=== PATIENT | female | born 1955 | race Caucasian/White ===

== ENCOUNTER 2024-09-05 06:39 | Outpatient (NON) | payer MEDICARE, MEDICAID, SELFPAY ==
[2024-09-05 07:31] LABS: Add Urine Microscopic? YES; Appearance Urine Cloudy (Clear); Bilirubin Urine Negative (Negative); Blood Urine Negative (Negative); Color Urine Light Yellow (Yellow); Glucose Urine UA Negative (Negative); Ketones Urine Negative (Negative); Leukocyte Esterase Ur 1+ LEU/UL (Negative); Nitrate Urine Negative (Negative); Protein Urine Trace (Negative); RBC Urine 0-2 /hpf (0-2); Specific Grav Ur 1.025 (1.010-1.020); Squamous Epithelial Cell Urine Few /hpf (Few); Urobilinogen Urine 0.2 mg/dL (0.2-1.0)
[2024-09-05 07:32] LABS: Bacteria Urine 1+ /hpf; Calcium Oxalate Crystals Urine Present /hpf
== END 2024-09-05 06:40 | disposition home or self-care (01) ==
LOC: CHSLAB 06:58
PROVIDERS: Visit Provider Family Medicine
DX: N39.0 Urinary tract infection, site not specified (principal)
CPT/HCPCS: 81001; 87086; 87088

== ENCOUNTER 2024-09-06 14:45 | Outpatient (NON) | payer MEDICARE, MEDICAID, SELFPAY ==
[2024-09-06 15:05] LABS: Add Urine Microscopic? YES; Appearance Urine Clear (Clear); Bilirubin Urine Negative (Negative); Blood Urine Negative (Negative); Color Urine Light Yellow (Yellow); Glucose Urine UA Negative (Negative); Ketones Urine Negative (Negative); Leukocyte Esterase Ur 2+ (Negative); Nitrate Urine Negative (Negative); Protein Urine Negative (Negative); Urobilinogen Urine 0.2 mg/dL (0.2-1.0); pH Urine 5.5 (5.0-8.0)
[2024-09-06 15:31] LABS: RBC Urine None seen /hpf (0-2); Renal Epithelial Cells Urine Few /hpf; Squamous Epithelial Cell Urine Few /hpf (Few)
[2024-09-06 15:32] LABS: Bacteria Urine 1+ /hpf
== END 2024-09-06 14:46 | disposition home or self-care (01) ==
PROVIDERS: Visit Provider Family Medicine
DX: N39.0 Urinary tract infection, site not specified (principal)
CPT/HCPCS: 81001; 87086; 87088

== ENCOUNTER 2024-10-02 14:00 | Outpatient (CLI) | payer MEDICARE, MEDICAID, SELFPAY ==
[2024-10-02 15:05] LABS: Free T4 Free Thyroxine 0.93 ng/dL (0.76-1.46); Thyroid Stimulating Hormone 2.07 uIU/mL (0.36-3.74)
== END 2024-10-02 14:01 | disposition home or self-care (01) ==
LOC: CHSLAB 14:04
PROVIDERS: PCP Family Medicine; Visit Provider Family Medicine
DX: R94.6 Abnormal results of thyroid function studies (principal); R53.1 Weakness; R25.1 Tremor, unspecified
CPT/HCPCS: 36415; 84439; 84443

== ENCOUNTER 2025-02-14 13:48 | Outpatient (CLI) | payer MEDICARE, MEDICAID, SELFPAY ==
[2025-02-14 14:08] LABS: Basophils Absolute Auto 0.04 K/mm3 (0.00-0.10); Basophils Percent Auto 0.7 % (0.0-1.0); Eosinophils Absolute Auto 0.16 K/mm3 (0.02-0.50); Hematocrit 36.3 % (35.0-42.0); Hemoglobin 10.8 g/dL (11.7-13.8); Immature Granulocyte Absolute 0.02 K/mm3 (0.00-0.00); Immature Granulocyte Percent A 0.4 % (0.0-0.0); Lymphocytes Absolute Auto 0.58 K/mm3 (1.10-4.50); Lymphocytes Percent Auto 10.8 % (18.0-42.0); Mean Corpuscular HGB Conc 29.8 g/dL (32-36); Mean Corpuscular Hemoglobin 26.8 pg (27.0-31.0); Mean Corpuscular Volume 90.1 fL (78.0-102.0); Mean Platelet Volume 8.8 fl (9.2-11.8); Monocytes Absolute Auto 0.49 K/mm3 (0.10-0.90); Monocytes Percent Auto 9.1 % (2.0-11.0); Platelet Count Result 295 K/mm3 (150-420); Red Blood Count 4.03 M/mm3 (4.20-5.40); Red Cell Distribution Width 14.4 % (11.6-14.4); White Blood Count 5.4 K/mm3 (4.8-10.8)
--- OUTSIDE RECORDS SUMMARY | 2025-02-14 14:40 | XMS_ITS | CONTINUITY OF CARE DOCUMENT ---
Author Name alison rosas Address Unknown Organization [facility] Address [address] [place] [address] Phone [phone] Care Team Providers Care Wheel Cleaner Name Role Phone Jack Reed MD Unavailable [phone] Jack Reed MD Unavailable INSURANCE PROVIDERS Payer name Policy type / Coverage type [place] red green party [place]IC[place] PART B Medicare [id number]
[2025-02-15 02:03] LABS: Alanine Aminotransferase 29 U/L (14-59); Albumin Level 2.8 g/dL (3.4-5.0); Alkaline Phosphatase 122 U/L (46-116); Anion Gap 7 mmol/L (4-12); Aspartate Amino Transferase 21 U/L (15-37); Bilirubin Direct 0.1 mg/dL (0-0.2); Bilirubin,Total 0.3 mg/dL (0.00-1.00); Blood Urea Nitrogen 28 mg/dL (7-18); Calcium 8.8 mg/dL (8.5-10.1); Carbon Dioxide 27 mmol/L (21-32); Chloride 104 mmol/L (98-108); Estimated Glomerular Filt Rate > 60; Glucose 127 mg/dL (70-99); Osmolality Calculated 293 mOsm/kg (285-295); Potassium 3.9 mmol/L (3.5-5.1); Sodium 138 mmol/L (136-145)
== END 2025-02-14 13:49 | disposition home or self-care (01) ==
PROVIDERS: PCP Family Medicine; Visit Provider Family Medicine
DX: I10 Essential (primary) hypertension (principal); D64.9 Anemia, unspecified; R73.01 Impaired fasting glucose
CPT/HCPCS: 36415; 80048; 80076; 83036; 85025

== ENCOUNTER 2025-02-26 11:32 | Inpatient (IN) | payer MEDICARE, MEDICAID, SELFPAY ==
[2025-02-26] VITALS (33 sets, daily range): BP systolic 105–143; BP diastolic 52–82; PULSE 71–96; RESP 16–29; TEMP 36.6–36.9; O2SAT 92–100; BMI 29.8
--- NOTE | ~2025-02-26 | XR_ITS ---
CHEST RADIOGRAPH CLINICAL HISTORY: pneumonia . COMPARISON: 02/28/2025 TECHNIQUE: Single portable view of the chest. FINDINGS The cardiomediastinal silhouette is enlarged, unchanged. Large right-sided pleural effusion. Findings within the left hemithorax which may represent skinfold for which repeat examination is angela mmended. IMPRESSION: Large right-sided pleural effusion. Findings within the left hemithorax which may represent a skinfold, with a pneumothorax less likely, for which repeat examination is recommended. Reviewed, dictated and finalized at location A. IMPRESSION: Large right-sided pleural effusion. Findings within the left hemithorax which may represent a skinfold, with a pneu mothorax less likely, for which repeat examination is recommended.
--- NOTE | ~2025-02-26 | CT_ITS ---
CT brain wo con Ordering provider: Brody Church MD History: 69 years Female with . AMS/weakness/confusion . Comparison: None. Technique: CT of the head without contrast. Radiation reduction technique utilized.The dose-length pr oduct was 394.35 mGy-cm. FINDINGS: Artifacts are seen which degraded the images. BRAIN PARENCHYMA AND CSF SPACES: No midline shift, mass effect or hemorrhage. The brain parenchyma a nd CSF spaces are otherwise normal. VISUALIZED PARANASAL SINUSES: Bilateral maxillary, frontal and ethmoidal sinus disease. MASTOIDS: Well aerated. BONES: The bones appear intact. SOFT TISSUES: Visualized nasopharynx is normal. Superficial soft tissues are normal. IMPRESSION: No acute intracranial findings. Pansinusitis. Reviewed, dictated and finalized at location A.
--- NOTE | ~2025-02-26 | XR_ITS ---
CHEST RADIOGRAPH CLINICAL HISTORY: ABN CXR-REPEATED,RECENT CHANGE OF STATUS,TACHYCARDIA,HYPOTEN . COMPARISON: 03/04/2020 5:00 AM (4 hours earlier). Reference was also made to multiple prior radiograph s of the chest dated 02/28/2025 and 02/26/2025 TECHNIQUE: Single portable view of the chest. FINDINGS The cardiomediastinal silhouette is enlarged, unchanged. Large right-sided pleural effusion persists. Also persisting is what initially was thought to be a sk infold projecting over the left upper lung field. This, however, is likely a 15-20% left-sided pneumothorax with approximately 3 cm of separation. The cardiomediastinal silhouette is projecting to the right of midline, likely secondary to patient's severe dextroscoliotic curvature of the thoracic spine, rather than a tension pneumothorax. The left lung base is clear. IMPRESSION: Large right-sided pleural effusion with a 15-20% left-sided pneumothorax with approximately 3 cm of s eparation, for which clinical correlation is needed. These findings were discussed with Beth Castillo, caring for the patient at 9:15 AM on 03/04/2025 Reviewed, dictated and finalized at location A. IMPRESSION: Large right-sided pleural effusion with a 15-20% left-sided pneumothorax with a pproximately 3 cm of separation, for which clinical correlation is needed. These findings were discussed with Beth Castillo, caring for the patient at 9: 15 AM on 03/04/2025
--- NOTE | ~2025-02-26 | CT_ITS ---
EXAMINATION: CT chest abdomen pelvis wo con DATE: 03/04/2025 11:04 INDICATION: Hypotension. Pleural effusion. Elevated liver enzymes. TECHNIQUE: Computed tomography (CT) of the chest, abdomen, and pelvis was performed without intraveno us contrast. Automated exposure control and iterative reconstruction technique were employed. The dos e-length product was 1374.87 mGy-cm. COMPARISON: None FINDINGS: CHEST CT: A moderate-sized right and small left pleural effusions with complete collapse of the right lower lob e, partial collapse of the right middle lobe and mild dependent atelectasis in the left lower lobe. N o pneumonia, pulmonary edema or pneumothorax. Mild cardiomegaly with small amount of atherosclerotic coronary artery calcific lesion. Aortic valve calcification. No pericardial effusion. Thoracic aorta is normal in caliber. No pathologically enlarged thoracic lymphadenopathy. 80 degree thoracic dextroscoliosis. There is moderate to severe thoracic spondylosis with severe mult ilevel facet osteoarthritis and fusion across many of the thoracic facet joints primarily at the left lower thoracic spine. Advanced osteoarthritis at the bilateral glenohumeral joints. ABDOMEN/PELVIS CT: Liver, gallbladder, spleen, pancreas, bilateral adrenal glands and right kidney are normal. 2 mm nono bstructing stone in the mid left kidney. There are couple left renal cysts the larger measuring 1.6 c m. Small fat-containing umbilical hernia. Air-fluid levels in the colon extensive the rectum consiste nt with nonspecific diarrhea. No dilated loops of gas-filled bowel to suggest obstruction. The append ix is not visualized. No pericecal inflammatory change to suggest acute appendicitis. The amount of g as and a full catheter within the decompressed bladder. Lobular margins to a fibroid uterus. Small am ount of likely physiologic free fluid in the pelvis. No abscess or free intraperitoneal gas. No patho logically enlarged abdominal or pelvic lymphadenopathy. 70 degrees lumbar levoscoliosis with severe s pondylosis. Severe lumbar facet osteoarthritis with posterior fusion across many of the facet joints with left-sided predominance. Advanced osteoarthritis at the right hip with prominent ostial lysis of the right femoral head and enlarged acetabulum with chronic acetabular protrusio. Moderate to severe osteoarthritis at the left hip. IMPRESSION: 1. Moderate-sized right and small left pleural effusions with right lower lobe collapse, partial righ t middle lobe collapse and dependent atelectasis in the left lower lobe. 2. Cardiomegaly. 3. Air-fluid levels throughout the colon consistent with nonspecific diarrhea. 4. Severe thoracic and lumbar scoliosis with severe spondylosis. 5. Advanced osteoarthritis at the right hip and bilateral acromioclavicular joints. 6. Fibroid uterus. 7. Nonobstructing 2 mm left renal stone. Reviewed, dictated and finalized at location A. IMPRESSION: 1. Moderate-sized right and small left pleural effusions with right lower lobe collapse, partial right middle lobe collapse and dependent atelectasis in the l eft lower lobe. 2. Cardiomegaly. 3. Air-fluid levels throughout the colon consistent with nonspecific diarrhea. 4. Severe thoracic and lumbar scoliosis with severe spondylosis. 5. Advanced osteoarthritis at the right hip and bilateral acromioclavicular aspen nts. 6. Fibroid uterus. 7. Nonobstructing 2 mm left renal stone.
--- NOTE | ~2025-02-26 | XR_ITS ---
EXAMINATION: XR chest 1V portable DATE: 02/26/2025 12:31 INDICATION: Altered mental status, weakness and confusion TECHNIQUE: frontal view of the chest was obtained. COMPARISON: None FINDINGS: The lungs are clear with no focal airspace opacities, pulmonary edema, pleural effusion or pneumothor ax. Heart size is normal. 70 degree mid to lower thoracic dextroscoliosis with compensatory lumbar an d upper thoracic levoscoliosis. Advanced osteoarthritis at the bilateral glenohumeral joints. IMPRESSION: 1. No acute cardiopulmonary disease. Reviewed, dictated and finalized at location A.
--- NOTE | ~2025-02-26 | XR_ITS ---
XR chest 1V portable Ordering provider: Beth Castillo APRN History: 69 years Female with . hypoxia . Comparison: February 26, 2025 FINDINGS: MEDIASTINUM: The cardiac silhouette is slightly enlarged. Congestive syl. LUNGS: No effusions or pneumothorax. Bilateral basal opacification suggestive of atelectasis versus p neumonia. OTHER: No free air under the diaphragm. Degenerative changes of the spine with dextroscoliosis. IMPRESSION: Bibasilar atelectasis versus pneumonia. Reviewed, dictated and finalized at location A.
--- NOTE | 2025-02-26 11:39 | ED_ITS ---
HPI - Altered Mental Status General Chief Complaint: Altered Mental Status Stated Complaint: ALTERED MENTAL STATUS Time Seen by Provider: 02/26/25 11:39 Source: patient and RN notes reviewed Mode of arrival: wheelchair Limitations: altered mental status History of Present Illness HPI narrative: Patient is a 69-year-old female with altered mental status and confusion over the past few days. She thinks she is in other places but she is currently in the emergency room. She felt she was here last night. Also she was talking about being at a house libertarian. Normally she feeds herself at the table but she is unable to do that task at this time. She is generalized weak for the past few days as well. No chest pain or shortness of breath. She says she just started having a little bit of wheezing in the lung. Last known well was yesterday. MD complaint: altered mental status, confusion and weakness Onset (ago): day(s) ( Three) Timing confirmed by: caregiver Severity: moderate Consistency of symptoms: waxing and waning Context: other ( patient is having increased confusion and altered mental status as well as generalized weakness over past few days.) Associated symptoms: malaise and weakness Treatments prior to arrival: other ( None) Related Data Allergies Allergy/AdvReac Type Severity Reaction Status Date / Time adhesive tape Allergy Mild Unknown Verified 02/26/25 12:15 amoxicillin (From Augmentin) Allergy Mild Unknown Verified 02/26/25 12:15 aspirin Allergy Mild Unknown Verified 02/26/25 12:15 azithromycin (From Zithromax) Allergy Mild Unknown Verified 02/26/25 12:15 bacitracin Allergy Mild Unknown Verified 02/26/25 12:15 cefaclor Allergy Mild Unknown Verified 02/26/25 12:15 cetirizine (From Zyrtec) Allergy Mild Unknown Verified 02/26/25 12:15 ciprofloxacin (From Cipro) Allergy Mild Unknown Verified 02/26/25 12:15 citalopram Allergy Mild Unknown Verified 02/26/25 12:15 clavulanic acid (From Allergy Mild Unknown Verified 02/26/25 12:15 Augmentin) clindamycin Allergy Mild Unknown Verified 02/26/25 12:15 codeine Allergy Mild Unknown Verified 02/26/25 12:15 diphtheria,pertussis Allergy Mild Unknown Verified 02/26/25 12:15 (acellular),te (From Adacel(Tdap Adolesn/Adult)(PF)) erythromycin base Allergy Mild Unknown Verified 02/26/25 12:15 ethinyl estradiol Allergy Mild Unknown Verified 02/26/25 12:15 fexofenadine (From Henrietta) Allergy Mild Unknown Verified 02/26/25 12:15 guaifenesin (From Dilaudid Allergy Mild Unknown Verified 02/26/25 12:15 Cough) hydromorphone Allergy Mild Unknown Verified 02/26/25 12:15 hydroxyzine Allergy Mild Unknown Verified 02/26/25 12:15 lactase Allergy Mild Unknown Verified 02/26/25 12:15 latex Allergy Mild Unknown Verified 02/26/25 12:15 lisinopril Allergy Mild Unknown Verified 02/26/25 12:15 loracarbef Allergy Mild Unknown Verified 02/26/25 12:15 meclizine Allergy Mild Unknown Verified 02/26/25 12:15 metoprolol Allergy Mild Unknown Verified 02/26/25 12:15 mold Allergy Mild Unknown Verified 02/26/25 12:15 morphine Allergy Mild Unknown Verified 02/26/25 12:15 neomycin (From Neosporin Allergy Mild Unknown Verified 02/26/25 12:15 ([id number])) nizatidine Allergy Mild Unknown Verified 02/26/25 12:15 norethindrone Allergy Mild Unknown Verified 02/26/25 12:15 ofloxacin (From Floxin) Allergy Mild Unknown Verified 02/26/25 12:15 oxycodone Allergy Mild Unknown Verified 02/26/25 12:15 Penicillins Allergy Mild Unknown Verified 02/26/25 12:15 polymyxin B (From Neosporin Allergy Mild Unknown Verified 02/26/25 12:15 ([id number])) prednisolone Allergy Mild Unknown Verified 02/26/25 12:15 silicone Allergy Mild Unknown Verified 02/26/25 12:15 Sulfa (Sulfonamide Allergy Mild Unknown Verified 02/26/25 12:15 Antibiotics) tetanus toxoid, adsorbed Allergy Mild Unknown Verified 02/26/25 12:15 zolpidem Allergy Mild Unknown Verified 02/26/25 12:15 Review of Systems 2 Review of Systems: All systems reviewed & are unremarkable except as noted in HPI and below Constitutional: Constitutional: Reports no additional constitutional complaints Eyes: Eyes: Reports no additional eye complaints ENT: Reports system reviewed and no additional complaints, except as documented Cardiovascular: Cardiovascular: Reports no additional cardiovascular complaints Respiratory: Respiratory: Reports no additional respiratory complaints Gastrointestinal: Gastrointestinal: Reports no additional gastrointestinal complaints Genitourinary: Genitourinary: Reports no additional female genitourinary complaints Musculoskeletal: Musculoskeletal: Reports no additional musculoskeletal complaints Integumentary/Breasts: Skin/Breast: Reports system reviewed and no additional complaints, except as docu Neurologic: Reports system reviewed and no additional complaints, except as documented Psychiatric: Psychiatric: Reports no additional psychiatric complaints Endocrine: Endocrine: Reports no additional endocrine complaints Hematologic/Lymphatic: Hematologic/Lymphatic: Reports no additional hematologic/lymphatic complaints Allergic/Immunologic: Allergic/Immunologic: Reports no additional allergic/immunologic complaints Exam 2 Const: General: healthy appearing Nutritional Appearance: well nourished Orientation/consciousness: No patient oriented x3 Limitations: altered mental status HENMT: Head: normal to inspection Ears: external ears normal F wes/Nose/Sinus: Normal external nose present Eyes: Conjunctivae: conjunctivae normal Pupils: Equal, round and reactive pupils present EOM: EOMs intact bilaterally Neck: Neck: normal visual inspection Chest: Chest palpation & inspection: normal inspection of the chest Resp: Effort & Inspection: normal respiratory effort and not labored A uscultation: clear to auscultation bilaterally and no crackles Cardio: Rate: regular rate Rhythm: regular rhythm Heart sounds: no murmurs GI: Inspection: non-distended GI Palp: Yes Soft to palpation and No Tenderness to palpation present (GI) Auscultation: normal bowel sounds : General: Yes bladder normal to palpation Back/Spine/Pelvis: Back: no CVA tenderness Skin: General skin exam: normal color Rashes: no rashes Wounds: wound noted and wounds noted Other: bilateral lower extremity has stasis dermatitis with chronic edema and weeping fluid and erythema of cellulitis on the right greater than left but bilateral lower extremity cellulitis appreciated Neuro: General: No patient oriented x3, No moves all extremities, no meningeal signs, No no focal motor deficits and CN's II-XI intact bilaterally Cranial nerves: Yes Nystagmus not present Speech: normal speech Gait exam (Neuro): gait abnormal Other: patient has chronic right sided deficit from a prior stroke and leans her head to the right chronically; no new focal deficits but generalized weakness noted today; patient is wheelchair bound fast exam is negative for acute changes, NIH is negative for acute changes, Doroteo coma Score is 15 Extrem: General: abnormal to inspection Other: see skin exam Psych: Mental Status: mental status grossly abnormal Affect: normal affect Attitude: cooperative Course Vital Signs Vital signs: Vital Signs Temperature 36.6 C 02/26/25 11:40 Pulse Rate 86 02/26/25 11:40 Respiratory Rate 16 02/26/25 11:40 Blood Pressure 129/60 02/26/25 11:40 Pulse Oximetry 92 02/26/25 11:40 Oxygen Delivery Room Air 02/26/25 11:40 Temperature 36.7 C 02/26/25 14:47 Pulse Rate 85 02/26/25 14:47 Respiratory Rate 25 H 02/26/25 14:47 Blood Pressure 113/60 02/26/25 14:47 Pulse Oximetry 100 02/26/25 14:47 Oxygen Delivery Room Air 02/26/25 11:40 MDM - Altered Mental Status MDM Narrative Medical decision making narrative: patient is a 69-year-old female with generalized weakness and bilateral lower extremity edema chronically and having altered mental status / confusion. We will do workup at this time. Last known well was yesterday. patient has many many allergies to antibiotics such as penicillin, cephalosporins, azithromycin, Cipro, clindamycin, sulfa and prednisone. I am working with pharmacy to find a appropriate medicine for antibiotics. After review of her allergies and side effects of the medicine, I discussed with pharmacy and they did a research and felt that Rocephin would work with this patient. Patient tolerated the 1st g Rocephin without problems. Lab Data Attestation: I reviewed the patient's lab results. 02/26/25 11:59 02/26/25 11:59 Labs: Lab Results 02/26/25 02/26/25 Range/Units 11:42 11:59 WBC 30.7 H* (4.8-10.8) K/mm3 RBC 4.23 (4.20-5.40) M/mm3 Hgb 11.6 L (11.7-13.8) g/dL Hct 37.2 (35.0-42.0) % MCV 87.9 (78.0-102.0) fL MCH 27.4 (27.0-31.0) pg MCHC 31.2 L (32-36) g/dL RDW 14.6 H (11.6-14.4) % Plt Count 355 (150-420) K/mm3 MPV 9.4 (9.2-11.8) fl Immature Gran % (Auto) Not Reportable Neut % (Auto) Not Reportable Lymph % (Auto) Not Reportable [place] % (Auto) Not Reportable Eos % (Auto) Not Reportable Baso % (Auto) Not Reportable Lymph # (Auto) Not Reportable [place] # (Auto) Not Reportable Eos # (Auto) Not Reportable Baso # (Auto) Not Reportable Abs Immat Gran (auto) Not Reportable Absolute Neuts (auto) Not Reportable Absolute Nucleated RBC Not Reportable Total Counted 100 Neutrophils % (Manual) 92 H (46-73) % Band Neutrophils % 1 (0-6) % Lymphocytes % (Manual) 2 L (18-44) % Monocytes % (Manual) 5 (3-9) % Nucleated RBC % Not Reportable Abs Neuts (Manual) 28.55 H (1.7-7.2) K/mm3 Abs Lymphs (Manual) 0.61 L (1.1-4.5) K/mm3 Abs Monocytes (Manual) 1.53 H (0.1-0.90) K/mm3 Platelet Estimate Adequate (Adequate) Schistocytes Not Reportable Sodium 136 L (137-145) mmol/L Potassium 5.3 H (3.4-5.0) mmol/L Chloride 105 (98-107) mmol/L Carbon Dioxide 21 L (22-30) mmol/L Anion Gap 10 (4-12) mmol/L BUN 45 H (7-17) mg/dL Creatinine 1.57 H (0.7-1.0) mg/dL Estim Creat Clear Calc 31 ml/min Estimated GFR 33 L (59 - ) Glucose 105 (65-110) mg/dL Calculated Osmolality 293 (285-295) mOsm/kg Lactic Acid 2.3 H (0.4-2.0) mmol/L Calcium 9.3 (8.4-10.2) mg/dL Magnesium 2.0 (1.6-2.3) mg/dL Total Bilirubin 0.6 (0.2-1.3) mg/dL AST 67 H (14-36) U/L ALT 34 (6-35) U/L Alkaline Phosphatase 125 (38-126) U/L Troponin I < 0.012 (0.000-0.034) ng/mL Total Protein 8.5 H (6.3-8.2) g/dL Albumin 3.7 (3.5-5.1) g/dL Urine Color Yellow (Yellow) Urine Appearance Clear (Clear) Urine pH 6.0 (5.0-8.0) Ur Specific [place] 1.010 (1.010-1.020) Urine Protein Trace H (Negative) Urine Glucose (UA) Negative (Negative) Urine Ketones Negative (Negative) Ur Blood (Man) Trace-intact H (Negative) Urine Nitrate Negative (Negative) Urine Bilirubin Negative (Negative) Urine Urobilinogen 0.2 (0.2-1.0) mg/dL Leukocyte Esterase Rfl 3+ H (Negative) URMILA/UL Urine RBC 3-5 H (0-2) /hpf Urine WBC 21-50 (0-3) /hpf Ur Squamous Epith Cells Many H (Few) /hpf Urine Bacteria 1+ H (None) /hpf Hyaline Casts 0-2 (None) /lpf Imaging Data Attestation: I personally reviewed and interpreted this imaging study as follows: Radiologist's impression: Chest x-ray is negative for acute process CT scan of the head is negative for acute process ECG Data EKG #1: Attestation: I personally reviewed and interpreted this ECG as follows: ECG completion date: 02/26/25 ECG completion time: 12:59 EKG Interpretation: normal rate, sinus rhythm, no ectopy, non-specific ST changes, normal QRS, normal QT and NL axis Discharge Plan Discharge Clinical Impression: DANIEL (acute kidney injury), Weakness, Acute UTI Cellulitis of lower extremity Qualifiers: Laterality: unspecified laterality Qualified Code(s): L03.119 - Cellulitis of unspecified part of limb Leukocytosis Qualifiers: Leukocytosis type: unspecified Qualified Code(s): D72.829 - Elevated white blood cell count, unspecified AMS (altered mental status) Qualifiers: Altered mental status type: unspecified Qualified Code(s): R41.82 - Altered mental status, unspecified Sepsis Qualifiers: Sepsis type: sepsis due to unspecified organism Sepsis acute organ dysfunction status: unspecified Qualified Code(s): A41.9 - Sepsis, unspecified organism Patient Disposition: Acute [facility] Condition: Stable Patient Language: [place]ian Follow-up/Referrals: Farrukh Neri MD [Primary Care Provider] - Time of Disposition: 14:55
--- NOTE | 2025-02-26 11:42 | ECG_ITS ---
Test Date: 2025-02-26 12:02:10 Measurements Intervals [place] Rate: 90 P: 0 FL: 0 QRS: 85 QRSD: 98 T: -31 QT: 323 QTc: 395 Interpretive Statements SUPRAVENTRICULAR RHYTHM INCOMPLETE RIGHT BUNDLE BRANCH BLOCK [90+ ms QRS DURATION, TERMINAL R IN V1/V2, 40+ ms S IN I/aVL/V4/V5/V6] POSSIBLE ANTERIOR MYOCARDIAL INFARCTION , PROBABLY OLD [30 ms Q WAVE IN V3/V4, OR R < 0.2 mV IN V4] BASELINE ARTIFACT NOW PRESENT No previous ECG available for comparison Electronically Signed On 02-26-2025 14:00:53 CDT by Chuck Mckenzie M.D.
--- OUTSIDE RECORDS SUMMARY | 2025-02-26 11:50 | XMS_ITS | CONTINUITY OF CARE DOCUMENT ---
Author Name alison rosas Address Unknown Organization [facility] Address [address] [place] [address] Phone [phone] Care Team Providers Care Bunch Maker Name Role Phone Jack Reed MD Unavailable [phone] Jack Reed MD Unavailable [phone] INSURANCE PROVIDERS Payer name Policy type / Coverage type [place] red green party [place] B Medicare [id number]
[2025-02-26 12:11] LABS: Hematocrit 37.2 % (35.0-42.0); Hemoglobin 11.6 g/dL (11.7-13.8); Mean Corpuscular HGB Conc 31.2 g/dL (32-36); Mean Corpuscular Hemoglobin 27.4 pg (27.0-31.0); Mean Corpuscular Volume 87.9 fL (78.0-102.0); Mean Platelet Volume 9.4 fl (9.2-11.8); Platelet Count Result 355 K/mm3 (150-420); Red Blood Count 4.23 M/mm3 (4.20-5.40); Red Cell Distribution Width 14.6 % (11.6-14.4)
[2025-02-26 12:13] LABS: White Blood Count 30.7 K/mm3 (4.8-10.8)
--- OUTSIDE RECORDS SUMMARY | 2025-02-26 12:27 | XMS_ITS | CONTINUITY OF CARE DOCUMENT ---
Author Name alison rosas Address Unknown Organization [facility] Address [address] [place] [address] Phone [phone] Care Team Providers Care Software Developer Name Role Phone Jack Reed MD Unavailable Jack Reed MD Unavailable [phone] INSURANCE PROVIDERS Payer name Policy type / Coverage type [place] red libertarian [place] B Medicare [id number]
[2025-02-26 12:29] LABS: Alanine Aminotransferase 34 U/L (6-35); Albumin Level 3.7 g/dL (3.5-5.1); Alkaline Phosphatase 125 U/L (38-126); Anion Gap 10 mmol/L (4-12); Aspartate Amino Transferase 67 U/L (14-36); Bilirubin,Total 0.6 mg/dL (0.2-1.3); Blood Urea Nitrogen 45 mg/dL (7-17); Calcium 9.3 mg/dL (8.4-10.2); Carbon Dioxide 21 mmol/L (22-30); Chloride 105 mmol/L (98-107); Estimated Glomerular Filt Rate 33; Glucose 105 mg/dL (65-110); Osmolality Calculated 293 mOsm/kg (285-295); Potassium 5.3 mmol/L (3.4-5.0); Sodium 136 mmol/L (137-145); Total Protein 8.5 g/dL (6.3-8.2)
[2025-02-26 12:38] LABS: Lactic Acid Reflex 2.3 mmol/L (0.4-2.0)
[2025-02-26 12:40] LABS: Estimated CRCL calculation 31 ml/min; Troponin I < 0.012 ng/mL (0.000-0.034)
[2025-02-26 12:43] LABS: Band Neutrophils Percent 1 % (0-6); Lymphocytes Absolute Manual 0.61 K/mm3 (1.1-4.5); Lymphocytes Percent Manual 2 % (18-44); Monocytes Absolute Manual 1.53 K/mm3 (0.1-0.90); Monocytes Percent Manual 5 % (3-9); Neutrophils Absolute Manual 28.55 K/mm3 (1.7-7.2); Neutrophils Percent Manual 92 % (46-73); Platelet Estimate Adequate (Adequate); Total Cells Counted 100
[2025-02-26] MEDS: SODIUM CHLORIDE 0.9% IV 1,000 ML 999 ML IV CONT (13:07)
[2025-02-26] MEDS: ACETAMINOPHEN 500 MG TABLET 1000 MG PO (14:01)
[2025-02-26 14:27] LABS: Add Urine Microscopic? YES; Appearance Urine Clear (Clear); Bilirubin Urine Negative (Negative); Blood Urine Trace-intact (Negative); Color Urine Yellow (Yellow); Glucose Urine UA Negative (Negative); Ketones Urine Negative (Negative); Leukocyte Esterase Ur 3+ LEU/UL (Negative); Nitrate Urine Negative (Negative); Protein Urine Trace (Negative); Urobilinogen Urine 0.2 mg/dL (0.2-1.0)
[2025-02-26 14:39] LABS: Bacteria Urine 1+ /hpf; Hyaline Casts Urine 0-2 /lpf; Squamous Epithelial Cell Urine Many /hpf (Few); WBC Urine 21-50 /hpf (0-3)
[2025-02-26 14:46] LABS: Reflex Lactic Acid Yes or No Add Lactic
[2025-02-26 15:30] LABS: Lactic Acid 1.8 mmol/L (0.4-2.0)
--- NOTE | 2025-02-26 15:30 | ADMGEN ---
This patient, Dolly Dinh, was admitted to 2nd Floor Room 208-1. Patient/family oriented to hospital policies and general routines including ID bracelet, bed and alarms, visiting hours, pain management, procedures, bathroom and other care routines, personal items, smoking policy, room service/diet, and visiting hours. Information on how to activate the Rapid Response Team has been discussed. Patient/Family are encouraged to report perceived risks to care and to ask questions if they do not understand what they are told or what they should do.
[2025-02-26] MEDS: APIXABAN 2.5 MG TABLET 5 MG PO (21:42)
[2025-02-26] MEDS: carvediloL 3.125 MG TABLET PO (21:43)
[2025-02-27] VITALS: BP 99/45; PULSE 88; RESP 16; TEMP 36.9; O2SAT 91
[2025-02-27] MEDS: ACETAMINOPHEN 325 MG TABLET 650 MG PO (00:22)
[2025-02-27 06:01] LABS: Hematocrit 31.9 % (35.0-42.0); Mean Corpuscular HGB Conc 31.3 g/dL (32-36); Mean Corpuscular Volume 86.2 fL (78.0-102.0); Mean Platelet Volume 9.1 fl (9.2-11.8); Platelet Count Result 283 K/mm3 (150-420); Red Cell Distribution Width 14.5 % (11.6-14.4)
[2025-02-27 06:06] LABS: White Blood Count 25.1 K/mm3 (4.8-10.8)
[2025-02-27 06:18] LABS: Band Neutrophils Percent 2 % (0-6); Lymphocytes Percent Manual 4 % (18-44); Monocytes Percent Manual 6 % (3-9); Neutrophils Absolute Manual 22.59 K/mm3 (1.7-7.2); Neutrophils Percent Manual 88 % (46-73); Platelet Estimate Adequate (Adequate); Total Cells Counted 100
[2025-02-27 07:19] LABS: Alanine Aminotransferase 23 U/L (6-35); Albumin Level 2.5 g/dL (3.5-5.1); Alkaline Phosphatase 105 U/L (38-126); Anion Gap 7 mmol/L (4-12); Aspartate Amino Transferase 41 U/L (14-36); Bilirubin,Total 0.4 mg/dL (0.2-1.3); Blood Urea Nitrogen 49 mg/dL (7-17); Calcium 8.8 mg/dL (8.4-10.2); Carbon Dioxide 19 mmol/L (22-30); Chloride 111 mmol/L (98-107); Estimated CRCL calculation 37 ml/min; Estimated Glomerular Filt Rate 40; Glucose 81 mg/dL (65-110); Osmolality Calculated 296 mOsm/kg (285-295); Sodium 137 mmol/L (137-145); Total Protein 6.1 g/dL (6.3-8.2)
[2025-02-27 08:00] VITALS: BP 103/53; PULSE 87; RESP 17; TEMP 36.9; O2SAT 95
--- NOTE | 2025-02-27 09:37 | P.HP_ITS ---
H&P: HPI History of Present Illness Date/Time: 02/27/25 09:37 Chief Complaint: Weakness Narrative: Patient is a 69-year-old female who was brought to the emergency department from her long term facility due to increased generalized weakness and overall not feeling well with some intermittent confusion worse than baseline. Patient reports she is wheelchair and bed-bound but can typically care for he rself and feed herself however over the last 2-3 days she has been too weak to care for self and has not been eating with severe pain to bilateral lower extremities the right worse than left. patient denied any chest pain, shortness a breath, nausea, vomiting, abdominal pain she does not recall having fever or chills overall just severely weak. upon evaluation in the emergency department patient was found to have leukocytosis greater than 30 lactic 2.3 episode of hypotension which resolved with IV fluids likely due to her dehydration and poor oral intake and bilateral lower extremity cellulitis. patient unaware of previous past medical history per medical chart patient had a stroke since then she has been at a long term facility. patient is a poor historian but per medical chart patient has a history of HTN, atrial fibrillation, venous stasis, GERD. patient is reporting moderate to severe pain to bilateral lower extremities. Patient was admitted to the medical unit for further evaluation and treatment of sepsis secondary to cellulitis Review of Systems Review of Systems: All systems reviewed & are unremarkable except as noted in HPI and below PMFSH Past Medical History Medical History (Updated 02/27/25 @ 10:32 by Beth Castillo APRN) GERD (gastroesophageal reflux disease) Scoliosis Venous stasis CVA (cerebral vascular accident) Afib Social History Social History Smoking status: Never smoker Alcohol intake: never Substance use: never Substance use type: does not use Do You Feel Safe in your Home?: Yes Lack of Transportation: No Lack of Food: Never True Current Housing: I Have Housing Concerned About Future Housing: No Difficulty Paying Gas/Electric Bills: No Difficulty Paying for Meds: No Currently Unemployed: No Education: Decline to Answer Difficulty w/ Childcare or Family Care: No Spiritual care concerns: No Meds Home Medications and Allergies Home Medications Medication Instructions Recorded Confirmed Type acetazolamide 250 mg tablet 250 mg PO QAM 02/26/25 02/26/25 History apixaban 5 mg tablet (Eliquis) 5 mg PO Q12H 02/26/25 02/26/25 History carvedilol 3.125 mg tablet 3.125 mg PO Q12H 02/26/25 02/26/25 History furosemide 40 mg tablet 40 mg PO QAM 02/26/25 02/26/25 History Allergies Allergy/AdvReac Type Severity Reaction Status Date / Time adhesive tape Allergy Mild Unknown Verified 02/26/25 12:15 amoxicillin (From Augmentin) Allergy Mild Unknown Verified 02/27/25 09:23 aspirin Allergy Mild Unknown Verified 02/26/25 12:15 azithromycin (From Zithromax) Allergy Mild Unknown Verified 02/26/25 12:15 bacitracin Allergy Mild Unknown Verified 02/26/25 12:15 cefaclor Allergy Mild Unknown Verified 02/27/25 09:23 cetirizine (From Zyrtec) Allergy Mild Unknown Verified 02/26/25 12:15 ciprofloxacin (From Cipro) Allergy Mild Unknown Verified 02/26/25 12:15 citalopram Allergy Mild Unknown Verified 02/26/25 12:15 clavulanic acid (From Allergy Mild Unknown Verified 02/27/25 09:23 Augmentin) clindamycin Allergy Mild Unknown Verified 02/26/25 12:15 codeine Allergy Mild Unknown Verified 02/26/25 12:15 diphtheria,pertussis Allergy Mild Unknown Verified 02/26/25 12:15 (acellular),te (From Adacel(Tdap Adolesn/Adult)(PF)) erythromycin base Allergy Mild Unknown Verified 02/26/25 12:15 ethinyl estradiol Allergy Mild Unknown Verified 02/26/25 12:15 fexofenadine (From [place]) Allergy Mild Unknown Verified 02/26/25 12:15 guaifenesin (From Dilaudid Allergy Mild Unknown Verified 02/26/25 12:15 Cough) hydromorphone Allergy Mild Unknown Verified 02/26/25 12:15 hydroxyzine Allergy Mild Unknown Verified 02/26/25 12:15 lactase Allergy Mild Unknown Verified 02/26/25 12:15 latex Allergy Mild Unknown Verified 02/26/25 12:15 lisinopril Allergy Mild Unknown Verified 02/26/25 12:15 loracarbef Allergy Mild Unknown Verified 02/27/25 09:25 meclizine Allergy Mild Unknown Verified 02/26/25 12:15 metoprolol Allergy Mild Unknown Verified 02/26/25 12:15 mold Allergy Mild Unknown Verified 02/26/25 12:15 morphine Allergy Mild Unknown Verified 02/26/25 12:15 neomycin (From Neosporin Allergy Mild Unknown Verified 02/26/25 12:15 ([id number])) nizatidine Allergy Mild Unknown Verified 02/26/25 12:15 norethindrone Allergy Mild Unknown Verified 02/26/25 12:15 ofloxacin (From Floxin) Allergy Mild Unknown Verified 02/26/25 12:15 oxycodone Allergy Mild Unknown Verified 02/26/25 12:15 Penicillins Allergy Mild Unknown Verified 02/26/25 12:15 polymyxin B (From Neosporin Allergy Mild Unknown Verified 02/26/25 12:15 ([id number])) prednisolone Allergy Mild Unknown Verified 02/26/25 12:15 silicone Allergy Mild Unknown Verified 02/26/25 12:15 Sulfa (Sulfonamide Allergy Mild Unknown Verified 02/26/25 12:15 Antibiotics) tetanus toxoid, adsorbed Allergy Mild Unknown Verified 02/26/25 12:15 zolpidem Allergy Mild Unknown Verified 02/26/25 12:15 Vital Signs Vital Signs - 24 hr 02/26/25 11:40 02/26/25 11:40 02/26/25 11:45 Temperature 97.8 F Pulse Rate 86 86 85 Respiratory Rate 16 16 Blood Pressure 129/60 129/60 Pulse Oximetry 92 92 Oxygen Delivery Room Air 02/26/25 12:30 02/26/25 12:37 02/26/25 12:45 Temperature Pulse Rate 88 86 88 Respiratory Rate 24 H 18 Blood Pressure Pulse Oximetry 95 100 Oxygen Delivery 02/26/25 12:47 02/26/25 13:00 02/26/25 13:01 Temperature Pulse Rate 86 88 86 Respiratory Rate 24 H 21 H 21 H Blood Pressure 109/57 L 121/82 Pulse Oximetry 97 99 Oxygen Delivery 02/26/25 13:15 02/26/25 13:17 02/26/25 13:30 Temperature Pulse Rate 85 84 71 Respiratory Rate 20 19 Blood Pressure 109/57 L Pulse Oximetry 97 98 Oxygen Delivery 02/26/25 13:30 02/26/25 13:32 02/26/25 13:45 Temperature Pulse Rate 86 89 91 Respiratory Rate 22 H 21 H 22 H Blood Pressure 117/73 Pulse Oximetry 98 98 92 Oxygen Delivery 02/26/25 13:46 02/26/25 13:47 02/26/25 14:00 Temperature Pulse Rate 86 87 89 Respiratory Rate 24 H 23 H 24 H Blood Pressure 132/56 L Pulse Oximetry 99 99 100 Oxygen Delivery 02/26/25 14:03 02/26/25 14:05 02/26/25 14:15 Temperature Pulse Rate 83 92 93 Respiratory Rate 21 H 20 18 Blood Pressure 105/71 Pulse Oximetry 94 94 100 Oxygen Delivery 02/26/25 14:17 02/26/25 14:19 02/26/25 14:30 Temperature Pulse Rate 83 93 85 Respiratory Rate 20 21 H Blood Pressure 111/65 Pulse Oximetry 100 100 Oxygen Delivery 02/26/25 14:30 02/26/25 14:32 02/26/25 14:38 Temperature Pulse Rate 86 89 84 Respiratory Rate 23 H 22 H 26 H Blood Pressure 121/64 Pulse Oximetry 100 100 100 Oxygen Delivery 02/26/25 14:45 02/26/25 14:47 02/26/25 14:48 Temperature 98.1 F Pulse Rate 83 85 83 Respiratory Rate 24 H 25 H 24 H Blood Pressure 113/60 Pulse Oximetry 100 100 100 Oxygen Delivery 02/26/25 15:00 02/26/25 15:02 02/26/25 15:15 Temperature Pulse Rate 91 82 89 Respiratory Rate 17 21 H 29 H Blood Pressure 123/52 L Pulse Oximetry 100 100 100 Oxygen Delivery 02/26/25 15:17 02/26/25 15:21 02/26/25 15:35 Temperature 98.4 F Pulse Rate 96 91 86 Respiratory Rate 24 H 17 Blood Pressure 143/64 H 118/61 Pulse Oximetry 100 99 Oxygen Delivery Room Air 02/27/25 00:00 02/27/25 08:00 Temperature 98.5 F 98.4 F Pulse Rate 88 87 Respiratory Rate 16 17 Blood Pressure 99/45 L 103/53 L Pulse Oximetry 91 95 Oxygen Delivery Room Air Room Air Exam Const: General: no acute distress and uncomfortable Other: Frail female looks older then stated age with moderate pain HENMT: Ears: TM's normal bilaterally Face/Nose/Sinus: Normal nares present Mouth: Yes dry mucous membranes Eyes: General: appearance normal, both eyes and all related structures Sclera: sclerae normal Pupils: Equal, round and reactive pupils present EOM: EOMs intact bilaterally Neck: Neck: supple and no JVD Other: neck contracted to right side Resp: Effort & Inspection: normal respiratory effort Auscultation: clear to auscultation bilaterally Other: cough Cardio: Rate: regular rate Rhythm: abnormal rhythm (BBB on EKG) GI: GI Palp: Yes Soft to palpation Auscultation: normal bowel sounds : General: Yes bladder normal to palpation Back/Spine/Pelvis: Thoracic/Lumbar Spine: Thoracic/lumbar scoliosis Skin: General skin exam: erythema (BLE cellulitis with edema and skin tears) Wounds: wounds noted (BLE) tear Neuro: Other: Wheelchair and bedbound moving upper extremities pain with any movement to BLE. Patient with intermittent confusion loss of some memory likely secondary to her previous CVA Extrem: General: edema bilateral (Lower extremity) H&P: Results Labs Labs: Short CBC 02/26/25 02/27/25 Range/Units 11:59 05:49 WBC 30.7 H* 25.1 H* (4.8-10.8) K/mm3 Hgb 11.6 L 10.0 L (11.7-13.8) g/dL Hct 37.2 31.9 L (35.0-42.0) % Plt Count 355 283 (150-420) K/mm3 BMP 02/26/25 02/27/25 11:59 05:49 Sodium 136 L 137 Potassium 5.3 H 4.0 Chloride 105 111 H Carbon Dioxide 21 L 19 L BUN 45 H 49 H Creatinine 1.57 H 1.32 H Glucose 105 81 Calcium 9.3 8.8 Cardiac Enzymes 02/26/25 Range/Units 11:59 Troponin I < 0.012 (0.000-0.034) ng/mL Liver Function 02/26/25 02/27/25 Range/Units 11:59 05:49 Total Bilirubin 0.6 0.4 (0.2-1.3) mg/dL AST 67 H 41 H (14-36) U/L ALT 34 23 (6-35) U/L Alkaline Phosphatase 125 105 (38-126) U/L Albumin 3.7 2.5 L (3.5-5.1) g/dL Urine 02/26/25 Range/Units 11:42 Urine Color Yellow (Yellow) Urine Appearance Clear (Clear) Urine pH 6.0 (5.0-8.0) Ur Specific [place] 1.010 (1.010-1.020) Urine Protein Trace H (Negative) Urine Glucose (UA) Negative (Negative) Assessment and Plan Assessment and plan (1) Sepsis without septic shock: Code(s): A41.9 - Sepsis, unspecified organism Status: Acute Assessment and Plan: initial findings in the emergency department from generalized weakness showed leukocytosis greater than 30, lactate 2.3, DANIEL, and bilateral lower extremity cellulitis * IV fluid soft BP poor oral intake * IV Rocephin and linezolid p.o. * Monitor lactic acid levels q6hr. 2.3/1.6 * Repeat CBC, CMP. * Two sets of blood cultures came back Gram-positive cocci * urine cultures. Pending- * neuro status checks * Chest x-ray rule out pneumonia. (2) Cellulitis of lower extremity: Qualifiers: Laterality: unspecified laterality Qualified Code(s): L03.119 - Cellulitis of unspecified part of limb Code(s): L03.119 - Cellulitis of unspecified part of limb Status: Acute Assessment and Plan: patient with severe pain with any movement or touch to bilateral lower extremities warm to touch with erythema and edema * blood cultures with Gram-positive cocci in chains * patient currently on IV Rocephin and p.o. linezolid * keep BLE elevated and open to air * unable to provide any moisturizing creams for pain management due to allergies keep dry and clean * can reapply compressions once infection resolves * pain management right now with Tylenol and tramadol if still continues with severe pain will add fentanyl due to allergies (3) Venous stasis: Code(s): I87.8 - Other specified disorders of veins Status: Acute Assessment and Plan: See ABOVE * mild skin tears BLE secondary to removal of dressing (4) Afib: Code(s): I48.91 - Unspecified atrial fibrillation Status: Acute Assessment and Plan: * resume patient's carvedilol and Eliquis (5) Bacteremia: Code(s): R78.81 - Bacteremia Status: Acute Assessment and Plan: blood cultures came back Gram-positive cocci in chains x2 bottles * continue with oral linezolid pending cultures sensitivities * will repeat blood cultures in 48 hours (6) CVA (cerebral vascular accident): Code(s): I63.9 - Cerebral infarction, unspecified Status: Acute Assessment and Plan: previous history of CVA at which time patient was placed in a long term facility making her wheelchair and bed-bound does have memory and intermittent confusion but as reported from long term facility she was not at her baseline * resumed Eliquis * will order lipid panel no statin on board * OT/PT when stable for therapy (7) Weakness: Code(s): R53.1 - Weakness Status: Acute Assessment and Plan: See above secondary to infection. (8) DANIEL (acute kidney injury): Code(s): N17.9 - Acute kidney failure, unspecified Status: Acute Assessment and Plan: patient with acute kidney injury likely secondary to dehydration patient reported poor oral intake Cr 1.57 POA * IV fluids * serial renal function (9) Metabolic acidosis: Code(s): E87.20 - Acidosis, unspecified Status: Acute Assessment and Plan: likely secondary to patient's poor oral intake due to infection * added bicarb tablets b.i.d. Plan Code status: Full code per patient DVT prophylaxis: Eliquis Stress ulcer prophylaxis: Protonix 40 daily PT/OT notes: PT/ OT when patient is more medically stable and can participate Disposition: patient continues admission to the medical unit for treatment of sepsis without septic shock secondary to bilateral lower extremity cellulitis and bacteremia will continue with current treatment plans pending cultures and sensitivities will attempt PT OT once patient is more stable and can participate will plan to discharge back to long term facility when medically stable. Quality VTE Prophylaxis VTE prophylaxis: pharmacologic ordered -Patient's previous records reviewed on admission -ER notes reviewed in detail on admission -discussed all findings and current treatment plan with patient/Family/POA -Consultations reviewed for recommendations -Patient's disposition for safe discharge discussed with medical case worker Dictation performed by [employer] direct speech recognition software, therefore hand blocker variants and typographical errors may occur. Hospitalist MIPS Advance Care Plan I have confirmed that the patient's Advanced Care Plan is present, code status is documented, or surrogate decision maker is listed in patient medical record.: Yes Medication Reconciliation I have utilized all available resources to obtain, update and review the patients current medications (includes all prescriptions, OTC, herbals, cannabis, and nutritional supplements).: Yes The patient is not eligible for med reconciliation; the patient is in a emergent medical situation where delaying treatment would jeopardize the patients health.: No
[2025-02-27 10:05] VITALS: PULSE 87
[2025-02-27] MEDS: traMADol HCL (*CRX) 50 MG TABLET PO ×2 (10:05→21:41)
[2025-02-27] MEDS: carvediloL 3.125 MG TABLET PO ×2 (10:05→21:43)
[2025-02-27] MEDS: acetaZOLAMIDE TAB 250 MG TABLET PO (10:05)
[2025-02-27] MEDS: LINEZOLID 600 MG TABLET PO ×2 (10:05→21:43)
[2025-02-27] MEDS: FUROSEMIDE 40 MG TABLET PO (10:06)
[2025-02-27] MEDS: APIXABAN 2.5 MG TABLET 5 MG PO ×2 (10:06→21:44)
[2025-02-27] MEDS: SODIUM CHLORIDE 0.9% IV 1,000 ML 75 ML IV CONT (11:57)
[2025-02-27] MEDS: SODIUM BICARBONATE TAB 650 MG TABLET PO ×2 (11:58→21:44)
[2025-02-27] MEDS: cefTRIAXone 2 GM/NS 100 ML 2 GM/100 ML BAG IVPB (11:58)
[2025-02-27 16:00] VITALS: BP 108/58; PULSE 74; RESP 17; TEMP 36.6; O2SAT 99
[2025-02-28] VITALS: BP 103/51; PULSE 79; RESP 18; TEMP 36.7; O2SAT 92
[2025-02-28] MEDS: traMADol HCL (*CRX) 50 MG TABLET PO ×3 (03:23→20:10)
[2025-02-28] MEDS: SODIUM CHLORIDE 0.9% IV 1,000 ML 75 ML IV CONT ×2 (03:24→12:35)
[2025-02-28 05:41] LABS: Hematocrit 31.5 % (35.0-42.0); Hemoglobin 9.9 g/dL (11.7-13.8); Mean Corpuscular HGB Conc 31.4 g/dL (32-36); Mean Corpuscular Hemoglobin 27.1 pg (27.0-31.0); Mean Corpuscular Volume 86.3 fL (78.0-102.0); Platelet Count Result 282 K/mm3 (150-420); Red Blood Count 3.65 M/mm3 (4.20-5.40); Red Cell Distribution Width 14.6 % (11.6-14.4)
[2025-02-28 05:45] LABS: White Blood Count 35.9 K/mm3 (4.8-10.8)
[2025-02-28 05:53] LABS: Alanine Aminotransferase 26 U/L (6-35); Albumin Level 2.6 g/dL (3.5-5.1); Alkaline Phosphatase 111 U/L (38-126); Anion Gap 9 mmol/L (4-12); Aspartate Amino Transferase 38 U/L (14-36); Bilirubin,Total 0.4 mg/dL (0.2-1.3); Blood Urea Nitrogen 45 mg/dL (7-17); Calcium 8.6 mg/dL (8.4-10.2); Carbon Dioxide 20 mmol/L (22-30); Chloride 110 mmol/L (98-107); Estimated CRCL calculation 41 ml/min; Estimated Glomerular Filt Rate 45; Glucose 80 mg/dL (65-110); Osmolality Calculated 298 mOsm/kg (285-295); Sodium 139 mmol/L (137-145); Total Protein 6.4 g/dL (6.3-8.2)
[2025-02-28 06:00] LABS: Cholesterol 133 mg/dL (0-200); HDL Direct 22 mg/dL; LDL Cholesterol Calculated 86 mg/dL (<130); Triglycerides 126 mg/dL (<150)
[2025-02-28 06:03] LABS: Potassium 2.6 mmol/L (3.4-5.0)
[2025-02-28 06:07] LABS: Band Neutrophils Percent 3 % (0-6); Lymphocytes Absolute Manual 0.35 K/mm3 (1.1-4.5); Lymphocytes Percent Manual 1 % (18-44); Monocytes Absolute Manual 1.07 K/mm3 (0.1-0.90); Monocytes Percent Manual 3 % (3-9); Neutrophils Absolute Manual 34.46 K/mm3 (1.7-7.2); Neutrophils Percent Manual 93 % (46-73); Total Cells Counted 100
[2025-02-28 06:08] LABS: Platelet Estimate Adequate (Adequate)
[2025-02-28] MEDS: KCL 20 MEQ/SW 100 ML 100 ML 50 MEQ IVPB ×2 (07:00→09:47)
[2025-02-28 08:00] VITALS: BP 89/45; PULSE 71; RESP 16; TEMP 36.2; O2SAT 90
[2025-02-28] MEDS: cefTRIAXone 2 GM/NS 100 ML 2 GM/100 ML BAG IVPB (08:45)
[2025-02-28] MEDS: ACETAMINOPHEN 325 MG TABLET 650 MG PO (08:46)
[2025-02-28 08:47] VITALS: PULSE 71
[2025-02-28] MEDS: APIXABAN 2.5 MG TABLET 5 MG PO ×2 (08:47→20:10)
[2025-02-28] MEDS: SODIUM BICARBONATE TAB 650 MG TABLET PO ×2 (08:48→17:31)
[2025-02-28] MEDS: LINEZOLID 600 MG TABLET PO ×2 (08:48→21:12)
[2025-02-28] MEDS: acetaZOLAMIDE TAB 250 MG TABLET PO (08:49)
--- NOTE | 2025-02-28 08:50 | P.PNIM_ITS ---
Progress Note: A&P Assessment and Plan (1) Sepsis without septic shock: Code(s): A41.9 - Sepsis, unspecified organism Status: Acute Assessment and Plan: initial findings in the emergency department from generalized weakness showed leukocytosis greater than 30, lactate 2.3, DANIEL, and bilateral lower extremity cellulitis. UA also suspicious for urinary tract infection Worsening WBC 5/15 spoke with I&D pharmacist at [facility] regarding Antibiotic therapy will switch IV Rocephin to IV meropenem to cover for any potential Pseudomonas or ESBL * IV fluid soft BP poor oral intake increased to 150ML/HR * IV Rocephin switch to IV meropenem q.12 * continue linezolid p.o. * Monitor lactic acid levels q6hr. 2.3/1.6 * Repeat CBC, CMP. * Two sets of blood cultures came back Gram-positive cocci * 2nd set blood cultures pending post 48hrs * urine cultures. Pending- * neuro status checks * Chest x-ray rule out pneumonia. * Echo ordered (2) Cellulitis of lower extremity: Qualifiers: Laterality: unspecified laterality Qualified Code(s): L03.119 - Cellulitis of unspecified part of limb Code(s): L03.119 - Cellulitis of unspecified part of limb Status: Acute Assessment and Plan: patient with severe pain with any movement or touch to bilateral lower extremities warm to touch with erythema and edema * blood cultures with Gram-positive cocci in chains * patient currently on IV Rocephin and p.o. linezolid * keep BLE elevated and open to air * unable to provide any moisturizing creams for pain management due to allergies keep dry and clean * can reapply compressions once infection resolves * pain management right now with Tylenol and tramadol if still continues with severe pain will add fentanyl due to allergies (3) Bacteremia: Code(s): R78.81 - Bacteremia Status: Acute Assessment and Plan: blood cultures came back Gram-positive cocci in chains x2 bottles * continue with oral linezolid pending cultures sensitivities * will repeat blood cultures * Echo ordered/pending (4) Venous stasis: Code(s): I87.8 - Other specified disorders of veins Status: Acute Assessment and Plan: See ABOVE * mild skin tears BLE secondary to removal of dressing (5) Afib: Code(s): I48.91 - Unspecified atrial fibrillation Status: Acute Assessment and Plan: * holding carvedilol due to soft BP * continue Eliquis * On telemetry (6) CVA (cerebral vascular accident): Code(s): I63.9 - Cerebral infarction, unspecified Status: Acute Assessment and Plan: previous history of CVA at which time patient was placed in a intermediate facility making her wheelchair and bed-bound does have memory and intermittent confusion but as reported from intermediate facility she was not at her baseline * resumed Brady * will order lipid panel no statin on board * OT/PT when stable for therapy (7) Weakness: Code(s): R53.1 - Weakness Status: Acute Assessment and Plan: See above secondary to infection. (8) DANIEL (acute kidney injury): Code(s): N17.9 - Acute kidney failure, unspecified Status: Acute Assessment and Plan: patient with acute kidney injury likely secondary to dehydration patient reported poor oral intake Cr 1.57 POA * IV fluids * serial renal function (9) Metabolic acidosis: Code(s): E87.20 - Acidosis, unspecified Status: Acute Assessment and Plan: likely secondary to patient's poor oral intake due to infection * added bicarb tablets b.i.d. (10) Hypertension: Code(s): I10 - Essential (primary) hypertension Status: Acute Assessment and Plan: BP has been running soft * Holding Lasix and carvedilol until BP can tolerate (11) Hypokalemia: Code(s): E87.6 - Hypokalemia Status: Acute Assessment and Plan: Potassium 2.6 02/28: * 40 Meq IVPB/40 meq PO * resumed telemetry * Mag pending Plan Code status: Full code per patient DVT prophylaxis: Eliquis Stress ulcer prophylaxis: Protonix 40 daily PT/OT notes: PT/ OT when patient is more medically stable and can participate Disposition: patient continues admission to the medical unit for treatment of sepsis without septic shock secondary to bilateral lower extremity cellulitis and bacteremia will continue with current treatment plans pending cultures and sensitivities will attempt PT OT once patient is more stable and can participate will plan to discharge back to intermediate facility when medically stable. Time Spent With Patient Time with patient: 15 - 25 minutes Subjective Date/time seen: 02/28/25 08:50 Interval history: patient is a 69-year-old female who was admitted for treatment of sepsis without septic shock secondary to cellulitis and possibly UTI with bacteremia 02/28/2025: Patient more alert and feels mildly better today, still no appetite added protein shakes encourage oral intake. patient states pain to lower extremities has mildly improved as well, there was a bump in WBC broadened IV antibiotic coverage pending culture and sensitivities. Patient denied CP, SOB, N/V, ABD, fever, or chills. Review of Systems Review of Systems: All systems reviewed & are unremarkable except as noted in HPI and below Exam Const: General: no acute distress and uncomfortable Other: Frail female looks older then stated age with moderate pain HENMT: Ears: TM's normal bilaterally Face/Nose/Sinus: Normal nares present Mouth: Yes dry mucous membranes Eyes: General: appearance normal, both eyes and all related structures Sclera: sclerae normal Pupils: Equal, round and reactive pupils present EOM: EOMs intact bilaterally Neck: Neck: supple and no JVD Other: neck contracted to right side Resp: Effort & Inspection: normal respiratory effort Auscultation: clear to auscultation bilaterally Other: cough Cardio: Rate: regular rate Rhythm: abnormal rhythm (BBB on EKG) GI: Auscultation: normal bowel sounds : General: Yes bladder normal to palpation Bimanual exam- vagina & uterus: bladder normal to palpation Back/Spine/Pelvis: Thoracic/Lumbar Spine: Thoracic/lumbar scoliosis Skin: General skin exam: erythema (BLE cellulitis with edema and skin tears) and wounds noted (BLE) Wounds: wounds noted (BLE) Neuro: Cranial nerves: Yes Equal, round and reactive pupils present Other: Wheelchair and bedbound moving upper extremities pain with any movement to BLE. Patient with intermittent confusion loss of some memory likely secondary to her previous CVA Extrem: General: edema bilateral (Lower extremity) Objective Data Vital Signs Vital Signs: Vital Signs - 24 hr 02/27/25 10:05 02/27/25 16:00 02/28/25 00:00 Temperature 98 F 98.0 F Pulse Rate 87 74 79 Respiratory Rate 17 18 Blood Pressure 108/58 L 103/51 L Pulse Oximetry 99 92 Oxygen Delivery Room Air Room Air 02/28/25 08:00 02/28/25 08:47 Temperature 97.1 F L Pulse Rate 71 71 Respiratory Rate 16 Blood Pressure 89/45 L Pulse Oximetry 90 Oxygen Delivery Room Air Intake/Output Intake/Output: Intake & Output 02/25/25 02/26/25 02/27/25 02/28/25 23:59 23:59 23:59 23:59 Intake Total 6171 331 0428 Balance 0416 256 1463 Meds/Results Medications: Active Medications Generic Name Dose Route Start Last Admin Trade Name Freq PRN Reason Stop Dose Admin Acetaminophen 650 mg 02/26/25 15:59 02/28/25 08:46 Acetaminophen 325 Mg Tablet PO 650 mg Q4H PRN Administration Mild Pain (1-3) or Fever Acetazolamide 250 mg 02/27/25 09:00 02/28/25 08:49 Acetazolamide Tab 250 Mg Tablet PO 250 mg QAM JEREMY Administration Apixaban 5 mg 02/26/25 21:00 02/28/25 08:47 Apixaban 2.5 Mg Tablet PO 5 mg Q12HR JEREMY Administration Carvedilol 3.125 mg 02/26/25 21:00 02/28/25 08:47 Carvedilol 3.125 Mg Tablet PO Not Given Q12H JEREMY Furosemide 40 mg 02/27/25 09:00 02/27/25 10:06 Furosemide 40 Mg Tablet PO 40 mg QAM JEREMY Administration Sodium Chloride 1,000 mls @ 150 mls/hr 02/27/25 10:25 02/28/25 03:24 Normal Saline Iv IV CONT 75 mls/hr .Q6H40M JEREMY Administration Ceftriaxone Sodium 2 gm in 100 mls @ 200 mls/hr 02/27/25 12:00 02/28/25 08:45 Rocephin 2 Gm/Ns 100 Ml IVPB 200 mls/hr DAILY JEREMY Administration Potassium Chloride 100 mls @ 50 mls/hr 02/28/25 08:47 Kcl 20 Meq/Sw 100 Ml IVPB 02/28/25 10:46 ONCE STA Linezolid 600 mg 02/27/25 10:00 02/28/25 08:48 Linezolid 600 Mg Tablet PO 03/08/25 21:01 600 mg Q12HR JEREMY Administration Ondansetron HCl 4 mg 02/26/25 15:59 Ondansetron Inj 4 Mg/2 Ml Vial IV PUSH Q6H PRN Nausea And Vomiting Pantoprazole Sodium 40 mg 02/28/25 10:30 Pantoprazole 40 Mg Tablet PO QAM JEREMY Sodium Bicarbonate 650 mg 02/27/25 10:30 02/28/25 08:48 Sodium Bicarbonate Tab 650 Mg Tablet PO 650 mg BID JEREMY Administration Tramadol HCl 50 mg 02/27/25 09:28 02/28/25 03:23 Tramadol Hcl (*Crx) 50 Mg Tablet PO 50 mg Q4H PRN Administration Pain Rated 4-6 Radiology Results: ITS Impressions Head CT 02/26/25 12:33 IMPRESSION: No acute intracranial findings. Pansinusitis. Chest X-Ray 02/26/25 12:39 IMPRESSION: 1. No acute cardiopulmonary disease. Labs Labs: Laboratory Results - last 24 hr 02/28/25 05:35 WBC 35.9 H* RBC 3.65 L Hgb 9.9 L Hct 31.5 L MCV 86.3 MCH 27.1 MCHC 31.4 L RDW 14.6 H Plt Count 282 MPV 9.0 L Immature Gran % (Auto) Not Reportable Neut % (Auto) Not Reportable Lymph % (Auto) Not Reportable [place] % (Auto) Not Reportable Eos % (Auto) Not Reportable Baso % (Auto) Not Reportable Lymph # (Auto) Not Reportable [place] # (Auto) Not Reportable Eos # (Auto) Not Reportable Baso # (Auto) Not Reportable Abs Immat Gran (auto) Not Reportable Absolute Neuts (auto) Not Reportable Absolute Nucleated RBC Not Reportable Total Counted 100 Neutrophils % (Manual) 93 H Band Neutrophils % 3 Lymphocytes % (Manual) 1 L Monocytes % (Manual) 3 Nucleated RBC % Not Reportable Abs Neuts (Manual) 34.46 H Abs Lymphs (Manual) 0.35 L Abs Monocytes (Manual) 1.07 H Platelet Estimate Adequate Schistocytes Not Reportable Sodium 139 Potassium 2.6 L* Chloride 110 H Carbon Dioxide 20 L Anion Gap 9 BUN 45 H Creatinine 1.18 H Estim Creat Clear Calc 41 Estimated GFR 45 L Glucose 80 Calculated Osmolality 298 H Calcium 8.6 Total Bilirubin 0.4 AST 38 H ALT 26 Alkaline Phosphatase 111 Total Protein 6.4 Albumin 2.6 L Triglycerides 126 Cholesterol 133 LDL Cholesterol, Calc 86 HDL Direct 22 Quality VTE Prophylaxis VTE prophylaxis: pharmacologic ordered -Patient's previous records reviewed on admission -ER notes reviewed in detail on admission -discussed all findings and current treatment plan with patient/Family/POA -Consultations reviewed for recommendations -Patient's disposition for safe discharge discussed with welfare case worker Dictation performed by [employer] direct speech recognition software, therefore staff therapist variants and typographical errors may occur. Hospitalist MIPS Advance Care Plan I have confirmed that the patient's Advanced Care Plan is present, code status is documented, or surrogate decision maker is listed in patient medical record.: Yes Medication Reconciliation I have utilized all available resources to obtain, update and review the patients current medications (includes all prescriptions, OTC, herbals, cannabis, and nutritional supplements).: Yes The patient is not eligible for med reconciliation; the patient is in a emergent medical situation where delaying treatment would jeopardize the patients health.: No
[2025-02-28 09:00] LABS: Magnesium 2.1 mg/dL (1.6-2.3)
[2025-02-28] MEDS: MEROPENEM 1 GM/NS 100 ML 1 GM/100 ML BAG IVPB ×2 (09:40→22:52)
[2025-02-28] MEDS: POTASSIUM CHLORIDE 20 MEQ PACKET (FOR LIQUID) 40 MEQ PO (09:45)
[2025-02-28] MEDS: SACCHAROMYCES BOULARDII 250 MG CAPSULE PO ×3 (09:46→17:31)
[2025-02-28] MEDS: PANTOPRAZOLE 40 MG TABLET PO (09:46)
[2025-02-28 11:59] VITALS: PULSE 76
--- NOTE | 2025-02-28 15:19 | PC.NURSE ---
Patient refuses to allow television writer to turn her to L side in bed. Nurse School has been positioning patient on her R side and back when patient will allow turning. Patient has refused breakfast and lunch, but has had ensure at both meals.
[2025-02-28 16:00] VITALS: BP 100/47; PULSE 80; PULSE 83; RESP 16; TEMP 36.3; O2SAT 89
--- NOTE | 2025-02-28 17:35 | PC.NURSE ---
Patient's SPO2 is now at 90% on room air.
--- NOTE | 2025-02-28 18:50 | PC.NURSE ---
Patient had a BM and was rubbing it on her hands. [employer] assisted patient in cleaning her hands and patient became combative, pulling away from nurse, then trying to grab nurse's arm and shirt. Patient was cleaned up and bed linens changed.
[2025-02-28 19:01] LABS: NT Pro B Type Natriuretic Pept 4710 pg/mL (19.9-100)
[2025-02-28 20:00] VITALS: PULSE 91
[2025-02-28] MEDS: FUROSEMIDE INJ 40 MG/4 ML VIAL IV PUSH (20:10)
[2025-02-28] MEDS: SODIUM CHLORIDE 0.9% IV 1,000 ML 100 ML IV CONT (20:11)
[2025-02-28] MEDS: ONDANSETRON INJ 4 MG/2 ML VIAL IV PUSH (20:51)
[2025-03-01] VITALS: BP 93/59; PULSE 79; PULSE 95; RESP 17; TEMP 36.5; O2SAT 91
[2025-03-01 04:00] VITALS: PULSE 91
[2025-03-01] MEDS: SODIUM CHLORIDE 0.9% IV 1,000 ML 100 ML IV CONT (06:08)
[2025-03-01] MEDS: traMADol HCL (*CRX) 50 MG TABLET PO ×4 (06:32→21:50)
[2025-03-01 07:08] LABS: Hematocrit 31.8 % (35.0-42.0); Hemoglobin 9.7 g/dL (11.7-13.8); Mean Corpuscular HGB Conc 30.5 g/dL (32-36); Mean Corpuscular Hemoglobin 26.6 pg (27.0-31.0); Mean Corpuscular Volume 87.4 fL (78.0-102.0); Mean Platelet Volume 10.1 fl (9.2-11.8); Platelet Count Result 323 K/mm3 (150-420); Red Blood Count 3.64 M/mm3 (4.20-5.40); Red Cell Distribution Width 14.7 % (11.6-14.4)
[2025-03-01 07:12] LABS: White Blood Count 26.2 K/mm3 (4.8-10.8)
[2025-03-01 07:24] LABS: Band Neutrophils Percent 2 % (0-6); Lymphocytes Absolute Manual 1.04 K/mm3 (1.1-4.5); Lymphocytes Percent Manual 4 % (18-44); Monocytes Absolute Manual 1.57 K/mm3 (0.1-0.90); Monocytes Percent Manual 6 % (3-9); Neutrophils Absolute Manual 23.58 K/mm3 (1.7-7.2); Neutrophils Percent Manual 88 % (46-73); Platelet Estimate Adequate (Adequate); Total Cells Counted 100
[2025-03-01 07:36] LABS: Alanine Aminotransferase 47 U/L (6-35); Albumin Level 2.5 g/dL (3.5-5.1); Alkaline Phosphatase 113 U/L (38-126); Anion Gap 6 mmol/L (4-12); Aspartate Amino Transferase 62 U/L (14-36); Bilirubin,Total 0.3 mg/dL (0.2-1.3); Blood Urea Nitrogen 47 mg/dL (7-17); Calcium 8.6 mg/dL (8.4-10.2); Carbon Dioxide 20 mmol/L (22-30); Chloride 115 mmol/L (98-107); Estimated CRCL calculation 40 ml/min; Estimated Glomerular Filt Rate 45; Glucose 100 mg/dL (65-110); Osmolality Calculated 304 mOsm/kg (285-295); Potassium 3.7 mmol/L (3.4-5.0); Sodium 141 mmol/L (137-145); Total Protein 6.2 g/dL (6.3-8.2)
[2025-03-01 08:00] VITALS: BP 92/52; PULSE 94; RESP 18; TEMP 36.4; O2SAT 90
[2025-03-01] MEDS: LINEZOLID 600 MG TABLET PO ×2 (09:42→21:49)
[2025-03-01] MEDS: acetaZOLAMIDE TAB 250 MG TABLET PO (09:43)
[2025-03-01] MEDS: SACCHAROMYCES BOULARDII 250 MG CAPSULE PO ×3 (09:43→17:05)
[2025-03-01] MEDS: APIXABAN 2.5 MG TABLET 5 MG PO ×2 (09:44→21:49)
[2025-03-01] MEDS: MEROPENEM 1 GM/NS 100 ML 1 GM/100 ML BAG IVPB ×2 (09:44→22:42)
[2025-03-01] MEDS: PANTOPRAZOLE 40 MG TABLET PO (09:44)
[2025-03-01] MEDS: SODIUM BICARBONATE TAB 650 MG TABLET PO ×2 (09:44→17:05)
--- NOTE | 2025-03-01 10:41 | P.PNIM_ITS ---
Progress Note: A&P Assessment and Plan (1) Sepsis without septic shock: Code(s): A41.9 - Sepsis, unspecified organism Status: Acute Assessment and Plan: initial findings in the emergency department from generalized weakness showed leukocytosis greater than 30, lactate 2.3, DANIEL, and bilateral lower extremity cellulitis. UA also suspicious for urinary tract infection Worsening WBC 5/15 spoke with I&D pharmacist at [facility] regarding Antibiotic therapy will switch IV Rocephin to IV meropenem to cover ESBL * will hold IV fluids due to fluid overload encourage oral hydration, Lactic 2.3 POA. initial blood cultures with group G Streptococcus covering with p.o. linezolid 2nd set cultures pending * IV Rocephin switch to IV meropenem q.12 * continue linezolid p.o. * 2nd set blood cultures pending post 48hrs * Echo ordered (2) Cellulitis of lower extremity: Qualifiers: Laterality: unspecified laterality Qualified Code(s): L03.119 - Cellulitis of unspecified part of limb Code(s): L03.119 - Cellulitis of unspecified part of limb Status: Acute Assessment and Plan: patient with severe pain with any movement or touch to bilateral lower extremities warm to touch with erythema and edema but improving and WBC trending down * blood cultures with Gram-positive cocci in chains * patient currently on IV Rocephin and p.o. linezolid switched to meropenem for UTI coverage from Rocephin * keep BLE elevated and open to air * unable to provide any moisturizing creams for pain management due to allergies keep dry and clean * can reapply compressions once infection resolves * pain management right now with Tylenol and tramadol if still continues with severe pain will add fentanyl due to allergies (3) Bacteremia: Code(s): R78.81 - Bacteremia Status: Acute Assessment and Plan: blood cultures came back strep G * continue with oral linezolid pending cultures sensitivities * will repeat blood cultures 03/01 * Echo ordered/pending (4) Venous stasis: Code(s): I87.8 - Other specified disorders of veins Status: Acute Assessment and Plan: See ABOVE * mild skin tears BLE secondary to removal of dressing (5) Afib: Code(s): I48.91 - Unspecified atrial fibrillation Status: Acute Assessment and Plan: * holding carvedilol due to soft BP * continue Eliquis * On telemetry (6) CVA (cerebral vascular accident): Code(s): I63.9 - Cerebral infarction, unspecified Status: Acute Assessment and Plan: previous history of CVA at which time patient was [facility] in a [facility] facility making her wheelchair and bed-bound does have memory and intermittent confusion but as reported from [facility] facility she was not at her baseline * resumed Eliquis * will order lipid panel no statin on board * OT/PT when stable for therapy (7) Weakness: Code(s): R53.1 - Weakness Status: Acute Assessment and Plan: See above secondary to infection. (8) DANIEL (acute kidney injury): Code(s): N17.9 - Acute kidney failure, unspecified Status: Acute Assessment and Plan: patient with acute kidney injury likely secondary to dehydration patient reported poor oral intake Cr 1.57 POA * IV fluids * serial renal function (9) Metabolic acidosis: Code(s): E87.20 - Acidosis, unspecified Status: Acute Assessment and Plan: likely secondary to patient's poor oral intake due to infection * added bicarb tablets b.i.d. (10) Hypertension: Code(s): I10 - Essential (primary) hypertension Status: Acute Assessment and Plan: BP has been running soft * Holding Lasix and carvedilol until BP can tolerate (11) Hypokalemia: Code(s): E87.6 - Hypokalemia Status: Acute Assessment and Plan: Potassium 2.6 02/28: * 40 Meq IVPB/40 meq PO * resumed telemetry * Mag pending (12) Fluid overload: Code(s): E87.70 - Fluid overload, unspecified Status: Acute Assessment and Plan: unknown history of CHF patient is a poor historian no records in chart does have history of atrial fibrillation, patient received multiple L of normal saline for sepsis and soft BP had episode of hypoxia at 89% could hear faint crackles chest x-ray showing bibasilar atelectasis versus pneumonia felt more pulmonary congestion BNP greater than 4700. patient does take Lasix as a home medication * stopped IV fluids * gave 40 mg Lasix IVP * started on 20 mg IV P will increase as BP tolerates * echo scheduled for Tuesday03/04/2025 (13) Urinary tract infection due to extended-spectrum beta lactamase (ESBL) producing Escherichia coli: Code(s): N39.0 - Urinary tract infection, site not specified; B96.29 - Other Escherichia coli [E. coli] as the cause of diseases classified elsewhere; Z16.12 - Extended spectrum beta lactamase (ESBL) resistance Status: Acute Assessment and Plan: urinary culture with ESBL * IV meropenem Plan Code status: Full code per patient DVT prophylaxis: Eliquis Stress ulcer prophylaxis: Protonix 40 daily PT/OT notes: PT/ OT when patient is more medically stable and can participate Disposition: patient continues admission to the medical unit for treatment of sepsis without septic shock secondary to bilateral lower extremity cellulitis and bacteremia will continue with current treatment plans pending cultures and sensitivities will attempt PT OT once patient is more stable and can participate will plan to discharge back to [facility] facility when medically stable. Time Spent With Patient Time with patient: 15 - 25 minutes Subjective Date/time seen: 03/01/25 10:41 Interval history: patient is a 69-year-old female who was admitted for treatment of sepsis without septic shock secondary to cellulitis and possibly UTI with bacteremia 03/01/2025: Patient still with a lot of pain with movement every where but reports leg are feeling better. She has had no real appetite likely due to the severity of her infections encourage assist feeds and hydration. Her oxygen saturation dropped to 89% CXR congestion and BNP >4700. Review of Systems Review of Systems: All systems reviewed & are unremarkable except as noted in HPI and below Exam Const: General: no acute distress and uncomfortable Other: Frail female looks older then stated age with moderate pain HENMT: Ears: TM's normal bilaterally Face/Nose/Sinus: Normal nares present Mouth: Yes dry mucous membranes Eyes: General: appearance normal, both eyes and all related structures Sclera: sclerae normal Pupils: Equal, round and reactive pupils present EOM: EOMs intact bilaterally Neck: Neck: supple and no JVD Other: neck contracted to right side Resp: Effort & Inspection: normal respiratory effort Auscultation: clear to auscultation bilaterally Other: cough Cardio: Rate: regular rate Rhythm: abnormal rhythm (BBB on EKG) GI: Auscultation: normal bowel sounds : General: Yes bladder normal to palpation Bimanual exam- vagina & uterus: bladder normal to palpation Back/Spine/Pelvis: Thoracic/Lumbar Spine: Thoracic/lumbar scoliosis Skin: General skin exam: erythema (BLE cellulitis with edema and skin tears) and wounds noted (BLE) Wounds: wounds noted (BLE) Neuro: Cranial nerves: Yes Equal, round and reactive pupils present Other: Wheelchair and bedbound moving upper extremities pain with any movement to BLE. Patient with intermittent confusion loss of some memory likely secondary to her previous CVA Extrem: General: edema bilateral (Lower extremity) Objective Data Vital Signs Vital Signs: Vital Signs - 24 hr 02/28/25 11:59 02/28/25 16:00 02/28/25 16:00 Temperature 97.4 F L Pulse Rate 76 83 80 Respiratory Rate 16 Blood Pressure 100/47 L Pulse Oximetry 89 L Oxygen Delivery Room Air 02/28/25 20:00 03/01/25 00:00 03/01/25 00:00 Temperature 97.7 F Pulse Rate 91 95 79 Respiratory Rate 17 Blood Pressure 93/59 L Pulse Oximetry 91 Oxygen Delivery Room Air 03/01/25 04:00 03/01/25 08:00 Temperature 97.6 F Pulse Rate 91 94 Respiratory Rate 18 Blood Pressure 92/52 L Pulse Oximetry 90 Oxygen Delivery Room Air Intake/Output Intake/Output: Intake & Output 02/26/25 02/27/25 02/28/25 03/01/25 23:59 23:59 23:59 23:59 Intake Total 9375 160 3252 1400 Output Total 1000 Balance 6428 866 5197 1400 Meds/Results Medications: Active Medications Generic Name Dose Route Start Last Admin Trade Name Freq PRN Reason Stop Dose Admin Acetaminophen 650 mg 02/26/25 15:59 02/28/25 08:46 Acetaminophen 325 Mg Tablet PO 650 mg Q4H PRN Administration Mild Pain (1-3) or Fever Acetazolamide 250 mg 02/27/25 09:00 03/01/25 09:43 Acetazolamide Tab 250 Mg Tablet PO 250 mg QAM JEREMY Administration Apixaban 5 mg 02/26/25 21:00 03/01/25 09:44 Apixaban 2.5 Mg Tablet PO 5 mg Q12HR JEREMY Administration Carvedilol 3.125 mg 02/26/25 21:00 02/28/25 08:47 Carvedilol 3.125 Mg Tablet PO Not Given Q12H JEREMY Furosemide 40 mg 02/27/25 09:00 02/27/25 10:06 Furosemide 40 Mg Tablet PO 40 mg QAM JEREMY Administration Furosemide 20 mg 03/01/25 10:41 Furosemide Inj 20 Mg/2 Ml Vial IV PUSH 03/01/25 10:42 ONCE ONE Meropenem 1 gm in 100 mls @ 200 mls/hr 02/28/25 10:00 03/01/25 09:44 IVPB 200 mls/hr Q12H JEREMY Administration Linezolid 600 mg 02/27/25 10:00 03/01/25 09:42 Linezolid 600 Mg Tablet PO 03/08/25 21:01 600 mg Q12HR JEREMY Administration Ondansetron HCl 4 mg 02/26/25 15:59 02/28/25 20:51 Ondansetron Inj 4 Mg/2 Ml Vial IV PUSH 4 mg Q6H PRN Administration Nausea And Vomiting Pantoprazole Sodium 40 mg 02/28/25 10:30 03/01/25 09:44 Pantoprazole 40 Mg Tablet PO 40 mg QAM JEREMY Administration Perflutren Lipid Microsphere 0 ml 02/28/25 08:51 Perflutren Lipid Microspheres 1.5 Ml Vial Diluted To 10 Ml Total Volume IV PUSH 03/03/25 08:51 ONCE PRN adequate visualization Protocol Saccharomyces Boulardii 250 mg 02/28/25 09:00 03/01/25 09:43 Saccharomyces Boulardii 250 Mg Capsule PO 250 mg TID JEREMY Administration Sodium Bicarbonate 650 mg 02/27/25 10:30 03/01/25 09:44 Sodium Bicarbonate Tab 650 Mg Tablet PO 650 mg BID JEREMY Administration Tramadol HCl 50 mg 02/27/25 09:28 03/01/25 06:32 Tramadol Hcl (*Crx) 50 Mg Tablet PO 50 mg Q4H PRN Administration Pain Rated 4-6 Radiology Results: ITS Impressions Head CT 02/26/25 12:33 IMPRESSION: No acute intracranial findings. Pansinusitis. Chest X-Ray 02/28/25 19:14 IMPRESSION: Bibasilar atelectasis versus pneumonia. Labs Labs: Laboratory Results - last 24 hr 05/15/25 05/16/25 18:42 06:31 WBC 26.2 H* RBC 3.64 L Hgb 9.7 L Hct 31.8 L MCV 87.4 MCH 26.6 L MCHC 30.5 L RDW 14.7 H Plt Count 323 MPV 10.1 Immature Gran % (Auto) Not Reportable Neut % (Auto) Not Reportable Lymph % (Auto) Not Reportable [place] % (Auto) Not Reportable Eos % (Auto) Not Reportable Baso % (Auto) Not Reportable Lymph # (Auto) Not Reportable [place] # (Auto) Not Reportable Eos # (Auto) Not Reportable Baso # (Auto) Not Reportable Abs Immat Gran (auto) Not Reportable Absolute Neuts (auto) Not Reportable Absolute Nucleated RBC Not Reportable Total Counted 100 Neutrophils % (Manual) 88 H Band Neutrophils % 2 Lymphocytes % (Manual) 4 L Monocytes % (Manual) 6 Nucleated RBC % Not Reportable Abs Neuts (Manual) 23.58 H Abs Lymphs (Manual) 1.04 L Abs Monocytes (Manual) 1.57 H Platelet Estimate Adequate Schistocytes Not Reportable Sodium 141 Potassium 3.7 Chloride 115 H Carbon Dioxide 20 L Anion Gap 6 BUN 47 H Creatinine 1.20 H Estim Creat Clear Calc 40 Estimated GFR 45 L Glucose 100 Calculated Osmolality 304 H Calcium 8.6 Total Bilirubin 0.3 AST 62 H ALT 47 H Alkaline Phosphatase 113 NT-Pro-B Natriuret Pep 4710 H Total Protein 6.2 L Albumin 2.5 L Quality VTE Prophylaxis VTE prophylaxis: pharmacologic ordered -Patient's previous records reviewed on admission -ER notes reviewed in detail on admission -discussed all findings and current treatment plan with patient/Family/POA -Consultations reviewed for recommendations -Patient's disposition for safe discharge discussed with heel caser Dictation performed by [employer] direct speech recognition software, therefore wood milling machine operator variants and typographical errors may occur. Hospitalist MIPS Advance Care Plan I have confirmed that the patient's Advanced Care Plan is present, code status is documented, or surrogate decision maker is listed in patient medical record.: Yes Medication Reconciliation I have utilized all available resources to obtain, update and review the patients current medications (includes all prescriptions, OTC, herbals, cannabis, and nutritional supplements).: Yes The patient is not eligible for med reconciliation; the patient is in a emergent medical situation where delaying treatment would jeopardize the patients health.: No
--- NOTE | 2025-03-01 11:59 | PC.NURSE ---
Patient sister from [place] has call 2 times today requesting information on this patient. Informed sister information unable to give information to her as she is not on patients contact list. She informs she will call [facility] and see what she can do to be on the call list there.
[2025-03-01] MEDS: FUROSEMIDE INJ 20 MG/2 ML VIAL IV PUSH (12:51)
[2025-03-01 16:00] VITALS: BP 100/46; PULSE 82; RESP 20; TEMP 36.1; O2SAT 94
--- NOTE | 2025-03-01 18:33 | PC.NURSE ---
tried to keep her off right as much as possible. has a pressure area between abd folds red purple to black purple. wash cloth to keep fold open. on upper r shoulder she has another red purple pressure area. heels kept off bed. did eat approx 30% of supper. hand feed. can get cup off tray by self when nurse not in room.
[2025-03-02] VITALS: BP 73/49; PULSE 133; RESP 17; TEMP 36.9; O2SAT 76; O2SAT 92
[2025-03-02 06:00] VITALS: O2SAT 95
[2025-03-02 06:02] VITALS: BP 112/73; PULSE 133; RESP 14; TEMP 36.7; O2SAT 95
[2025-03-02 06:31] VITALS: O2SAT 94
[2025-03-02] MEDS: traMADol HCL (*CRX) 50 MG TABLET PO ×3 (06:33→20:58)
[2025-03-02 06:59] LABS: Basophils Absolute Auto 0.05 K/mm3 (0.00-0.10); Basophils Percent Auto 0.3 % (0.0-1.0); Eosinophils Absolute Auto 0.02 K/mm3 (0.02-0.50); Eosinophils Percent Auto 0.1 % (1.0-6.0); Hematocrit 31.5 % (35.0-42.0); Hemoglobin 9.8 g/dL (11.7-13.8); Immature Granulocyte Absolute 0.75 K/mm3 (0.00-0.00); Immature Granulocyte Percent A 4.1 % (0.0-0.0); Lymphocytes Absolute Auto 1.56 K/mm3 (1.10-4.50); Lymphocytes Percent Auto 8.5 % (18.0-42.0); Mean Corpuscular HGB Conc 31.1 g/dL (32-36); Mean Corpuscular Hemoglobin 27.1 pg (27.0-31.0); Mean Corpuscular Volume 87.3 fL (78.0-102.0); Monocytes Absolute Auto 2.03 K/mm3 (0.10-0.90); Monocytes Percent Auto 11.1 % (2.0-11.0); Neutrophils Absolute Auto 13.91 K/mm3 (1.70-7.20); Neutrophils Percent Auto 75.9 % (50.0-70.0); Nucleated Red Blood Cells Absolute Auto 0.04 K/mm3 (0.00-0.00); Nucleated Red Blood Cells Perc 0.2 % (0-0.0); Platelet Count Result 332 K/mm3 (150-420); Red Blood Count 3.61 M/mm3 (4.20-5.40); Red Cell Distribution Width 15.1 % (11.6-14.4); White Blood Count 18.3 K/mm3 (4.8-10.8)
[2025-03-02 07:15] LABS: Alanine Aminotransferase 254 U/L (6-35); Albumin Level 2.2 g/dL (3.5-5.1); Alkaline Phosphatase 129 U/L (38-126); Anion Gap 4 mmol/L (4-12); Aspartate Amino Transferase 277 U/L (14-36); Bilirubin,Total 0.3 mg/dL (0.2-1.3); Blood Urea Nitrogen 51 mg/dL (7-17); Calcium 8.5 mg/dL (8.4-10.2); Carbon Dioxide 22 mmol/L (22-30); Chloride 115 mmol/L (98-107); Estimated CRCL calculation 37 ml/min; Estimated Glomerular Filt Rate 41; Glucose 96 mg/dL (65-110); Osmolality Calculated 305 mOsm/kg (285-295); Potassium 3.9 mmol/L (3.4-5.0); Sodium 141 mmol/L (137-145); Total Protein 5.6 g/dL (6.3-8.2)
[2025-03-02 08:00] VITALS: BP 103/67; PULSE 116; RESP 20; TEMP 36.9; O2SAT 94
[2025-03-02] MEDS: ACETAMINOPHEN 325 MG TABLET 650 MG PO (09:36)
[2025-03-02] MEDS: SODIUM BICARBONATE TAB 650 MG TABLET PO ×2 (09:36→17:32)
[2025-03-02] MEDS: LINEZOLID 600 MG TABLET PO ×2 (09:36→20:56)
[2025-03-02] MEDS: APIXABAN 2.5 MG TABLET 5 MG PO ×2 (09:36→20:57)
[2025-03-02] MEDS: PANTOPRAZOLE 40 MG TABLET PO (09:36)
[2025-03-02] MEDS: SACCHAROMYCES BOULARDII 250 MG CAPSULE PO ×3 (09:36→17:32)
[2025-03-02] MEDS: acetaZOLAMIDE TAB 250 MG TABLET PO (09:36)
[2025-03-02] MEDS: MEROPENEM 1 GM/NS 100 ML 1 GM/100 ML BAG IVPB ×2 (09:37→21:46)
[2025-03-02] MEDS: diphenhydrAMINE HCl INJ 50 MG/ML VIAL 25 MG IV PUSH (11:41)
--- NOTE | 2025-03-02 11:42 | P.PNIM_ITS ---
Progress Note: A&P Assessment and Plan (1) Sepsis without septic shock: Code(s): A41.9 - Sepsis, unspecified organism Status: Acute Assessment and Plan: initial findings in the emergency department from generalized weakness showed leukocytosis greater than 30, lactate 2.3, DANIEL, and bilateral lower extremity cellulitis. UA also suspicious for urinary tract infection Worsening WBC 5/15 spoke with I&D pharmacist at [facility] regarding Antibiotic therapy will switch IV Rocephin to IV meropenem to cover ESBL * will hold IV fluids due to fluid overload encourage oral hydration, Lactic 2.3 POA. initial blood cultures with group G Streptococcus covering with p.o. linezolid 2nd set cultures pending * IV Rocephin switch to IV meropenem q.12 * continue linezolid p.o. * 2nd set blood cultures pending post 48hrs * Echo ordered (2) Cellulitis of lower extremity: Qualifiers: Laterality: unspecified laterality Qualified Code(s): L03.119 - Cellulitis of unspecified part of limb Code(s): L03.119 - Cellulitis of unspecified part of limb Status: Acute Assessment and Plan: patient with severe pain with any movement or touch to bilateral lower extremities warm to touch with erythema and edema but improving and WBC trending down * blood cultures with Gram-positive cocci in chains * patient currently on IV Rocephin and p.o. linezolid switched to meropenem for UTI coverage from Rocephin * keep BLE elevated and open to air * unable to provide any moisturizing creams for pain management due to allergies keep dry and clean * can reapply compressions once infection resolves * pain management right now with Tylenol and tramadol if still continues with severe pain will add fentanyl due to allergies * benadryl and tramdol ordered. (3) Bacteremia: Code(s): R78.81 - Bacteremia Status: Acute Assessment and Plan: blood cultures came back strep G * continue with oral linezolid pending cultures sensitivities * will repeat blood cultures 03/01 * Echo ordered/pending (4) Venous stasis: Code(s): I87.8 - Other specified disorders of veins Status: Acute Assessment and Plan: See ABOVE * mild skin tears BLE secondary to removal of dressing (5) Afib: Code(s): I48.91 - Unspecified atrial fibrillation Status: Acute Assessment and Plan: * holding carvedilol due to soft BP * continue Eliquis * On telemetry (6) CVA (cerebral vascular accident): Code(s): I63.9 - Cerebral infarction, unspecified Status: Acute Assessment and Plan: previous history of CVA at which time patient was [facility] in [facility] making her wheelchair and bed-bound does have memory and intermittent confusion but as reported from correction facility she was not at her baseline * resumed Eliquis (7) Weakness: Code(s): R53.1 - Weakness Status: Acute Assessment and Plan: See above secondary to infection. (8) DANEIL (acute kidney injury): Code(s): N17.9 - Acute kidney failure, unspecified Status: Acute Assessment and Plan: patient with acute kidney injury likely secondary to dehydration patient reported poor oral intake Cr 1.57 POA * IV fluids * serial renal function (9) Metabolic acidosis: Code(s): E87.20 - Acidosis, unspecified Status: Acute Assessment and Plan: likely secondary to patient's poor oral intake due to infection * added bicarb tablets b.i.d. (10) Hypertension: Code(s): I10 - Essential (primary) hypertension Status: Acute Assessment and Plan: BP has been running soft * Holding Lasix and carvedilol until BP can tolerate (11) Hypokalemia: Code(s): E87.6 - Hypokalemia Status: Acute Assessment and Plan: Potassium 2.6 02/28: * 40 Meq IVPB/40 meq PO * resumed telemetry * Mag pending (12) Fluid overload: Code(s): E87.70 - Fluid overload, unspecified Status: Acute Assessment and Plan: unknown history of CHF patient is a poor historian no records in chart does have history of atrial fibrillation, patient received multiple L of normal saline for sepsis and soft BP had episode of hypoxia at 89% could hear faint crackles chest x-ray showing bibasilar atelectasis versus pneumonia felt more pulmonary congestion BNP greater than 4700. patient does take Lasix as a home medication * stopped IV fluids * gave 40 mg Lasix IVP * started on 20 mg IV P will increase as BP tolerates * echo scheduled for Tuesday03/04/2025 (13) Urinary tract infection due to extended-spectrum beta lactamase (ESBL) producing Escherichia coli: Code(s): N39.0 - Urinary tract infection, site not specified; B96.29 - Other Escherichia coli [E. coli] as the cause of diseases classified elsewhere; Z16.12 - Extended spectrum beta lactamase (ESBL) resistance Status: Acute Assessment and Plan: urinary culture with ESBL * IV meropenem Plan Code status: Full code per patient DVT prophylaxis: Eliquis Stress ulcer prophylaxis: Protonix 40 daily PT/OT notes: PT/ OT when patient is more medically stable and can participate Disposition: patient continues admission to the medical unit for treatment of sepsis without septic shock secondary to bilateral lower extremity cellulitis and bacteremia will continue with current treatment plans pending cultures and sensitivities will attempt PT OT once patient is more stable and can participate will plan to discharge back to correction facility when medically stable. Subjective Date/time seen: 03/02/25 11:42 Interval history: Patient moaning in pain and stating that everything you ask her about hurts. Patient labs show some improvment but she is still septic we will cotinue to monitor . Positive blood cultures being treated accordingly. Call placed to care home to confirm she remain a full Code. Exam Const: General: uncomfortable Other: Frail female looks older then stated age with moderate pain Eyes: Sclera: sclerae normal Neck: Neck: supple and no JVD Resp: Effort & Inspection: normal respiratory effort Auscultation: clear to auscultation bilaterally Cardio: Rate: regular rate GI: Auscultation: normal bowel sounds : Bimanual exam- vagina & uterus: bladder normal to palpation Skin: General skin exam: erythema (BLE cellulitis with edema and skin tears) and wounds noted (BLE) Wounds: wounds noted (BLE) Neuro: Other: Wheelchair and bedbound moving upper extremities pain with any movement to BLE. Patient with intermittent confusion loss of some memory likely secondary to her previous CVA Objective Data Vital Signs Vital Signs: Vital Signs - 24 hr 03/01/25 16:00 03/02/25 00:00 03/02/25 00:00 Temperature 97 F L 98.4 F Pulse Rate 82 133 H Respiratory Rate 20 17 Blood Pressure 100/46 L 73/49 L Pulse Oximetry 94 76 L 92 Oxygen Delivery Room Air Room Air Nasal Cannula Oxygen Flow Rate 2 03/02/25 06:00 03/02/25 06:02 03/02/25 06:31 Temperature 98.1 F Pulse Rate 133 H Respiratory Rate 14 Blood Pressure 112/73 Pulse Oximetry 95 95 94 Oxygen Delivery Nasal Cannula Nasal Cannula Nasal Cannula Oxygen Flow Rate 2 2 1 03/02/25 08:00 Temperature 98.4 F Pulse Rate 116 H Respiratory Rate 20 Blood Pressure 103/67 Pulse Oximetry 94 Oxygen Delivery Room Air Oxygen Flow Rate Intake/Output Intake/Output: Intake & Output 02/27/25 02/28/25 03/01/25 03/02/25 23:59 23:59 23:59 23:59 Intake Total 950 6090 3560 300 Output Total 1000 Balance 950 5090 3560 300 Meds/Results Medications: Active Medications Generic Name Dose Route Start Last Admin Trade Name Freq PRN Reason Stop Dose Admin Acetaminophen 650 mg 02/26/25 15:59 03/02/25 09:36 Acetaminophen 325 Mg Tablet PO 650 mg Q4H PRN Administration Mild Pain (1-3) or Fever Acetazolamide 250 mg 02/27/25 09:00 03/02/25 09:36 Acetazolamide Tab 250 Mg Tablet PO 250 mg QAM JEREMY Administration Apixaban 5 mg 02/26/25 21:00 03/02/25 09:36 Apixaban 2.5 Mg Tablet PO 5 mg Q12HR JEREMY Administration Carvedilol 3.125 mg 02/26/25 21:00 02/28/25 08:47 Carvedilol 3.125 Mg Tablet PO Not Given Q12H JEREMY Diphenhydramine HCl 25 mg 03/02/25 11:33 03/02/25 11:41 Diphenhydramine Hcl Inj 50 Mg/Ml Vial IV PUSH 25 mg Q6H PRN Administration Anxiety Furosemide 40 mg 02/27/25 09:00 02/27/25 10:06 Furosemide 40 Mg Tablet PO 40 mg QAM JEREMY Administration Meropenem 1 gm in 100 mls @ 200 mls/hr 02/28/25 10:00 03/02/25 09:37 IVPB 100 mls/hr Q12H JEREMY Administration Linezolid 600 mg 02/27/25 10:00 03/02/25 09:36 Linezolid 600 Mg Tablet PO 03/08/25 21:01 600 mg Q12HR JEREMY Administration Ondansetron HCl 4 mg 02/26/25 15:59 02/28/25 20:51 Ondansetron Inj 4 Mg/2 Ml Vial IV PUSH 4 mg Q6H PRN Administration Nausea And Vomiting Pantoprazole Sodium 40 mg 02/28/25 10:30 03/02/25 09:36 Pantoprazole 40 Mg Tablet PO 40 mg QAM JEREMY Administration Perflutren Lipid Microsphere 0 ml 02/28/25 08:51 Perflutren Lipid Microspheres 1.5 Ml Vial Diluted To 10 Ml Total Volume IV PUSH 03/03/25 08:51 ONCE PRN adequate visualization Protocol Saccharomyces Boulardii 250 mg 02/28/25 09:00 03/02/25 09:36 Saccharomyces Boulardii 250 Mg Capsule PO 250 mg TID JEREMY Administration Sodium Bicarbonate 650 mg 02/27/25 10:30 03/02/25 09:36 Sodium Bicarbonate Tab 650 Mg Tablet PO 650 mg BID JEREMY Administration Tramadol HCl 50 mg 02/27/25 09:28 03/02/25 11:07 Tramadol Hcl (*Crx) 50 Mg Tablet PO 50 mg Q4H PRN Administration Pain Rated 4-6 Radiology Results: ITS Impressions Head CT 02/26/25 12:33 IMPRESSION: No acute intracranial findings. Pansinusitis. Chest X-Ray 02/28/25 19:14 IMPRESSION: Bibasilar atelectasis versus pneumonia. Labs Labs: Laboratory Results - last 24 hr 03/02/25 08:00 WBC 18.3 H RBC 3.61 L Hgb 9.8 L Hct 31.5 L MCV 87.3 MCH 27.1 MCHC 31.1 L RDW 15.1 H Plt Count 332 MPV 10.0 Immature Gran % (Auto) 4.1 H Neut % (Auto) 75.9 H Lymph % (Auto) 8.5 L [place] % (Auto) 11.1 H Eos % (Auto) 0.1 L Baso % (Auto) 0.3 Lymph # (Auto) 1.56 [place] # (Auto) 2.03 H Eos # (Auto) 0.02 Baso # (Auto) 0.05 Abs Immat Gran (auto) 0.75 H Absolute Neuts (auto) 13.91 H Absolute Nucleated RBC 0.04 H Nucleated RBC % 0.2 H Sodium 141 Potassium 3.9 Chloride 115 H Carbon Dioxide 22 Anion Gap 4 BUN 51 H Creatinine 1.29 H Estim Creat Clear Calc 37 Estimated GFR 41 L Glucose 96 Calculated Osmolality 305 H Calcium 8.5 Total Bilirubin 0.3 AST 277 H ALT 254 H Alkaline Phosphatase 129 H Total Protein 5.6 L Albumin 2.2 L
[2025-03-02 16:35] VITALS: BP 102/76; PULSE 105; RESP 18; TEMP 37.1; O2SAT 95
[2025-03-02] MEDS: carvediloL 3.125 MG TABLET PO (20:57)
[2025-03-03] VITALS: BP 97/47; PULSE 146; RESP 14; TEMP 36.9; O2SAT 97
[2025-03-03] MEDS: traMADol HCL (*CRX) 50 MG TABLET PO ×4 (04:28→21:49)
[2025-03-03 05:30] VITALS: O2SAT 93
[2025-03-03 08:00] VITALS: BP 108/90; PULSE 110; PULSE 150; RESP 16; RESP 18; TEMP 36.6; O2SAT 92; O2SAT 94
[2025-03-03] MEDS: ACETAMINOPHEN 325 MG TABLET 650 MG PO (08:16)
[2025-03-03 08:23] LABS: Basophils Absolute Auto 0.07 K/mm3 (0.00-0.10); Basophils Percent Auto 0.4 % (0.0-1.0); Eosinophils Absolute Auto 0.07 K/mm3 (0.02-0.50); Eosinophils Percent Auto 0.4 % (1.0-6.0); Hemoglobin 10.4 g/dL (11.7-13.8); Immature Granulocyte Absolute 0.94 K/mm3 (0.00-0.00); Immature Granulocyte Percent A 5.6 % (0.0-0.0); Lymphocytes Absolute Auto 1.44 K/mm3 (1.10-4.50); Lymphocytes Percent Auto 8.6 % (18.0-42.0); Mean Corpuscular HGB Conc 29.7 g/dL (32-36); Mean Corpuscular Hemoglobin 26.4 pg (27.0-31.0); Mean Corpuscular Volume 88.8 fL (78.0-102.0); Mean Platelet Volume 9.9 fl (9.2-11.8); Monocytes Absolute Auto 1.86 K/mm3 (0.10-0.90); Monocytes Percent Auto 11.1 % (2.0-11.0); Neutrophils Absolute Auto 12.34 K/mm3 (1.70-7.20); Neutrophils Percent Auto 73.9 % (50.0-70.0); Nucleated Red Blood Cells Absolute Auto 0.05 K/mm3 (0.00-0.00); Nucleated Red Blood Cells Perc 0.3 % (0-0.0); Platelet Count Result 394 K/mm3 (150-420); Red Blood Count 3.94 M/mm3 (4.20-5.40); Red Cell Distribution Width 15.3 % (11.6-14.4); White Blood Count 16.7 K/mm3 (4.8-10.8)
[2025-03-03] MEDS: diphenhydrAMINE HCl INJ 50 MG/ML VIAL 25 MG IV PUSH ×2 (08:35→22:08)
[2025-03-03 09:18] LABS: Alanine Aminotransferase 248 U/L (14-59); Albumin Level 1.5 g/dL (3.4-5.0); Alkaline Phosphatase 120 U/L (46-116); Anion Gap 9 mmol/L (4-12); Aspartate Amino Transferase 172 U/L (15-37); Bilirubin,Total 0.4 mg/dL (0.00-1.00); Blood Urea Nitrogen 50 mg/dL (7-18); Calcium 8.9 mg/dL (8.5-10.1); Carbon Dioxide 25 mmol/L (21-32); Chloride 112 mmol/L (98-108); Estimated CRCL calculation 39 ml/min; Estimated Glomerular Filt Rate 43; Glucose 101 mg/dL (70-99); Osmolality Calculated 315 mOsm/kg (285-295); Potassium 3.9 mmol/L (3.5-5.1); Sodium 146 mmol/L (136-145); Total Protein 6.6 g/dL (6.4-8.2)
--- NOTE | 2025-03-03 09:44 | P.PNIM_ITS ---
Progress Note: A&P Assessment and Plan (1) Sepsis without septic shock: Code(s): A41.9 - Sepsis, unspecified organism Status: Acute Assessment and Plan: initial findings in the emergency department from generalized weakness showed leukocytosis greater than 30, lactate 2.3, DANIEL, and bilateral lower extremity cellulitis. UA also suspicious for urinary tract infection Worsening WBC 5/15 spoke with I&D pharmacist at [facility] regarding Antibiotic therapy will switch IV Rocephin to IV meropenem to cover ESBL * will hold IV fluids due to fluid overload encourage oral hydration, Lactic 2.3 POA. initial blood cultures with group G Streptococcus covering with p.o. linezolid 2nd set cultures pending * IV Rocephin switch to IV meropenem q.12 * continue linezolid p.o. * 2nd set blood cultures pending post 48hrs * Echo ordered (2) Cellulitis of lower extremity: Qualifiers: Laterality: unspecified laterality Qualified Code(s): L03.119 - Cellulitis of unspecified part of limb Code(s): L03.119 - Cellulitis of unspecified part of limb Status: Acute Assessment and Plan: patient with severe pain with any movement or touch to bilateral lower extremities warm to touch with erythema and edema but improving and WBC trending down * blood cultures with Gram-positive cocci in chains * patient currently on IV Rocephin and p.o. linezolid switched to meropenem for UTI coverage from Rocephin * keep BLE elevated and open to air * unable to provide any moisturizing creams for pain management due to allergies keep dry and clean * can reapply compressions once infection resolves * pain management right now with Tylenol and tramadol if still continues with severe pain will add fentanyl due to allergies * benadryl and tramdol ordered. (3) Bacteremia: Code(s): R78.81 - Bacteremia Status: Acute Assessment and Plan: blood cultures came back strep G * continue with oral linezolid pending cultures sensitivities * will repeat blood cultures 03/01 * Echo ordered/pending (4) Venous stasis: Code(s): I87.8 - Other specified disorders of veins Status: Acute Assessment and Plan: See ABOVE * mild skin tears BLE secondary to removal of dressing (5) Afib: Code(s): I48.91 - Unspecified atrial fibrillation Status: Acute Assessment and Plan: * holding carvedilol due to soft BP * continue Eliquis * On telemetry (6) CVA (cerebral vascular accident): Code(s): I63.9 - Cerebral infarction, unspecified Status: Acute Assessment and Plan: previous history of CVA at which time patient was placed in a senior care facility making her wheelchair and bed-bound does have memory and intermittent confusion but as reported from senior care facility she was not at her baseline * resumed Eliquis (7) Weakness: Code(s): R53.1 - Weakness Status: Acute Assessment and Plan: See above secondary to infection. (8) DANIEL (acute kidney injury): Code(s): N17.9 - Acute kidney failure, unspecified Status: Acute Assessment and Plan: patient with acute kidney injury likely secondary to dehydration patient reported poor oral intake Cr 1.57 POA * IV fluids * serial renal function (9) Metabolic acidosis: Code(s): E87.20 - Acidosis, unspecified Status: Acute Assessment and Plan: likely secondary to patient's poor oral intake due to infection * added bicarb tablets b.i.d. (10) Hypertension: Code(s): I10 - Essential (primary) hypertension Status: Acute Assessment and Plan: BP has been running soft * Holding Lasix and carvedilol until BP can tolerate (11) Hypokalemia: Code(s): E87.6 - Hypokalemia Status: Acute Assessment and Plan: Potassium 2.6 02/28: * 40 Meq IVPB/40 meq PO * resumed telemetry * Mag pending (12) Fluid overload: Code(s): E87.70 - Fluid overload, unspecified Status: Acute Assessment and Plan: unknown history of CHF patient is a poor historian no records in chart does have history of atrial fibrillation, patient received multiple L of normal saline for sepsis and soft BP had episode of hypoxia at 89% could hear faint crackles chest x-ray showing bibasilar atelectasis versus pneumonia felt more pulmonary congestion BNP greater than 4700. patient does take Lasix as a home medication * stopped IV fluids * gave 40 mg Lasix IVP * started on 20 mg IV P will increase as BP tolerates * echo scheduled for Tuesday03/04/2025 (13) Urinary tract infection due to extended-spectrum beta lactamase (ESBL) producing Escherichia coli: Code(s): N39.0 - Urinary tract infection, site not specified; B96.29 - Other Escherichia coli [E. coli] as the cause of diseases classified elsewhere; Z16.12 - Extended spectrum beta lactamase (ESBL) resistance Status: Acute Assessment and Plan: urinary culture with ESBL * IV meropenem Plan Code status: Full code per patient DVT prophylaxis: Eliquis Stress ulcer prophylaxis: Protonix 40 daily PT/OT notes: PT/ OT when patient is more medically stable and can participate Disposition: patient continues admission to the medical unit for treatment of sepsis without septic shock secondary to bilateral lower extremity cellulitis and bacteremia will continue with current treatment plans pending cultures and sensitivities will attempt PT OT once patient is more stable and can participate will plan to discharge back to senior care facility when medically stable. Subjective Date/time seen: 03/03/25 09:44 Interval history: Patient is asleep at this time. Patient legs are elevated and she was just changed. currently she is comfortable and I will hold off on ordering any new medication at this time. I did add IVF and a dose of IV lasix we will continue to monitor. lactic is better but wbc is slowly trending down and patient blood pressure is hypotensive Exam Const: General: uncomfortable Other: Frail female looks older then stated age with moderate pain Eyes: Sclera: sclerae normal Neck: Neck: supple and no JVD Resp: Effort & Inspection: normal respiratory effort Auscultation: clear to auscultation bilaterally Cardio: Rate: regular rate GI: Auscultation: normal bowel sounds : General: Yes bladder normal to palpation Bimanual exam- vagina & uterus: bladder normal to palpation Skin: General skin exam: erythema (BLE cellulitis with edema and skin tears) and wounds noted (BLE) Wounds: wounds noted (BLE) Neuro: Other: Wheelchair and bedbound moving upper extremities pain with any movement to BLE. Patient with intermittent confusion loss of some memory likely secondary to her previous CVA Objective Data Vital Signs Vital Signs: Vital Signs - 24 hr 03/02/25 16:35 03/03/25 00:00 Temperature 98.7 F 98.4 F Pulse Rate 105 H 146 H Respiratory Rate 18 14 Blood Pressure 102/76 97/47 L Pulse Oximetry 95 97 Oxygen Delivery Nasal Cannula Nasal Cannula Oxygen Flow Rate 1 1 Intake/Output Intake/Output: Intake & Output 02/28/25 03/01/25 03/02/25 03/03/25 23:59 23:59 23:59 23:59 Intake Total 6090 3560 1170 300 Output Total 1000 Balance 5090 3560 1170 300 Meds/Results Medications: Active Medications Generic Name Dose Route Start Last Admin Trade Name Freq PRN Reason Stop Dose Admin Acetaminophen 650 mg 02/26/25 15:59 03/03/25 08:16 Acetaminophen 325 Mg Tablet PO 650 mg Q4H PRN Administration Mild Pain (1-3) or Fever Acetazolamide 250 mg 02/27/25 09:00 03/02/25 09:36 Acetazolamide Tab 250 Mg Tablet PO 250 mg QAM JEREMY Administration Apixaban 5 mg 02/26/25 21:00 03/02/25 20:57 Apixaban 2.5 Mg Tablet PO 5 mg Q12HR JEREMY Administration Carvedilol 3.125 mg 02/26/25 21:00 03/02/25 20:57 Carvedilol 3.125 Mg Tablet PO 3.125 mg Q12H JEREMY Administration Diphenhydramine HCl 25 mg 03/02/25 11:33 03/03/25 08:35 Diphenhydramine Hcl Inj 50 Mg/Ml Vial IV PUSH 25 mg Q6H PRN Administration Anxiety Furosemide 40 mg 02/27/25 09:00 02/27/25 10:06 Furosemide 40 Mg Tablet PO 40 mg QAM JEREMY Administration Furosemide 20 mg 03/03/25 09:45 Furosemide Inj 20 Mg/2 Ml Vial IV PUSH 03/03/25 09:46 ONCE ONE Meropenem 1 gm in 100 mls @ 200 mls/hr 02/28/25 10:00 03/02/25 22:17 IVPB Infused Q12H JEREMY Infusion Sodium Chloride 1,000 mls @ 50 mls/hr 03/03/25 09:40 Normal Saline Iv IV CONT .Q20H JEREMY Linezolid 600 mg 02/27/25 10:00 03/02/25 20:56 Linezolid 600 Mg Tablet PO 03/08/25 21:01 600 mg Q12HR JEREMY Administration Ondansetron HCl 4 mg 02/26/25 15:59 02/28/25 20:51 Ondansetron Inj 4 Mg/2 Ml Vial IV PUSH 4 mg Q6H PRN Administration Nausea And Vomiting Pantoprazole Sodium 40 mg 02/28/25 10:30 03/02/25 09:36 Pantoprazole 40 Mg Tablet PO 40 mg QAM JEREMY Administration Saccharomyces Boulardii 250 mg 02/28/25 09:00 03/02/25 17:32 Saccharomyces Boulardii 250 Mg Capsule PO 250 mg TID JEREMY Administration Sodium Bicarbonate 650 mg 02/27/25 10:30 03/02/25 17:32 Sodium Bicarbonate Tab 650 Mg Tablet PO 650 mg BID JEREMY Administration Tramadol HCl 50 mg 02/27/25 09:28 03/03/25 04:28 Tramadol Hcl (*Crx) 50 Mg Tablet PO 50 mg Q4H PRN Administration Pain Rated 4-6 Radiology Results: ITS Impressions Head CT 02/26/25 12:33 IMPRESSION: No acute intracranial findings. Pansinusitis. Chest X-Ray 02/28/25 19:14 IMPRESSION: Bibasilar atelectasis versus pneumonia. Labs Labs: Laboratory Results - last 24 hr 03/03/25 07:55 WBC 16.7 H RBC 3.94 L Hgb 10.4 L Hct 35.0 MCV 88.8 MCH 26.4 L MCHC 29.7 L RDW 15.3 H Plt Count 394 MPV 9.9 Immature Gran % (Auto) 5.6 H Neut % (Auto) 73.9 H Lymph % (Auto) 8.[address] [place] % (Auto) 11.1 H Eos % (Auto) 0.4 L Baso % (Auto) 0.4 Lymph # (Auto) 1.44 [place] # (Auto) 1.86 H Eos # (Auto) 0.07 Baso # (Auto) 0.07 Abs Immat Gran (auto) 0.94 H Absolute Neuts (auto) 12.34 H Absolute Nucleated RBC 0.05 H Nucleated RBC % 0.3 H Sodium 146 H Potassium 3.9 Chloride 112 H Carbon Dioxide 25 Anion Gap 9 BUN 50 H Creatinine 1.23 H Estim Creat Clear Calc 39 Estimated GFR 43 L Glucose 101 H Calculated Osmolality 315 H Calcium 8.9 Total Bilirubin 0.4 AST 172 H ALT 248 H Alkaline Phosphatase 120 H Total Protein 6.6 Albumin 1.5 L
[2025-03-03] MEDS: MEROPENEM 1 GM/NS 100 ML 1 GM/100 ML BAG IVPB ×2 (10:04→21:49)
[2025-03-03] MEDS: SODIUM CHLORIDE 0.9% IV 1,000 ML 50 ML IV CONT (10:05)
[2025-03-03 11:16] VITALS: PULSE 105
[2025-03-03] MEDS: APIXABAN 2.5 MG TABLET 5 MG PO ×2 (11:16→21:49)
[2025-03-03] MEDS: LINEZOLID 600 MG TABLET PO ×2 (11:16→21:49)
[2025-03-03] MEDS: carvediloL 3.125 MG TABLET PO ×2 (11:16→21:49)
[2025-03-03] MEDS: acetaZOLAMIDE TAB 250 MG TABLET PO (11:17)
[2025-03-03] MEDS: SACCHAROMYCES BOULARDII 250 MG CAPSULE PO ×2 (11:17→17:10)
[2025-03-03] MEDS: PANTOPRAZOLE 40 MG TABLET PO (11:17)
[2025-03-03] MEDS: SODIUM BICARBONATE TAB 650 MG TABLET PO ×2 (11:17→17:10)
[2025-03-03 11:43] LABS: Add Urine Microscopic? YES; Appearance Urine Clear (Clear); Bilirubin Urine Negative (Negative); Blood Urine Negative (Negative); Color Urine Light Yellow (Yellow); Glucose Urine UA Negative (Negative); Ketones Urine Negative (Negative); Leukocyte Esterase Ur Negative LEU/UL (Negative); Nitrate Urine Negative (Negative); Protein Urine Trace (Negative); Specific Grav Ur 1.015 (1.010-1.020); Urobilinogen Urine 0.2 mg/dL (0.2-1.0)
--- NOTE | 2025-03-03 12:14 | PC.NURSE ---
This nurse called [facility] to verify Emergency contacts due to none being on chart except for intermediate. Patients sister Trish Gutierrez([phone]) calling asking for update on patient. Verified with custodial that Trish was on emergency contact list. Hanny Moreno ([phone]) and Iraida Buckley([phone])) also on Emergency contact list. Contacts added to patients emergency contact list in chart. custodial states that Hanny is number 1 contact and Iraida number 2. Trish is just listed as family. Called Hanny to verify if giving sister Trish an update on the patient would be okay since patient could not speak for self and Hanny stated that it was.
[2025-03-03 12:43] LABS: Amorphous Sediment Urine Few
[2025-03-03] MEDS: FUROSEMIDE INJ 20 MG/2 ML VIAL IV PUSH (15:05)
[2025-03-03 16:00] VITALS: BP 120/90; PULSE 127; RESP 22; TEMP 37.2; O2SAT 96
[2025-03-04] VITALS: BP 90/60; PULSE 150; RESP 18; TEMP 37.1; O2SAT 96
[2025-03-04] MEDS: traMADol HCL (*CRX) 50 MG TABLET PO ×2 (03:42→07:43)
[2025-03-04] MEDS: SODIUM CHLORIDE 0.9% IV 1,000 ML 50 ML IV CONT (05:18)
[2025-03-04 07:30] VITALS: BP 83/46; PULSE 162; RESP 18; TEMP 37; O2SAT 94
[2025-03-04 08:22] LABS: Hematocrit 34.8 % (35.0-42.0); Hemoglobin 10.4 g/dL (11.7-13.8); Mean Corpuscular HGB Conc 29.9 g/dL (32-36); Mean Corpuscular Hemoglobin 26.6 pg (27.0-31.0); Mean Platelet Volume 9.9 fl (9.2-11.8); Platelet Count Result 402 K/mm3 (150-420); Red Blood Count 3.91 M/mm3 (4.20-5.40); Red Cell Distribution Width 15.2 % (11.6-14.4); White Blood Count 18.5 K/mm3 (4.8-10.8)
[2025-03-04] MEDS: STAT BOLUS COMMUNICATION ORDER 250 ML IV CONT (08:23)
--- NOTE | 2025-03-04 08:24 | ECG_ITS ---
Test Date: 2025-03-04 08:25:49 Measurements Intervals [place] Rate: 160 P: 0 NC: 0 QRS: 11 QRSD: 105 T: 151 QT: 239 QTc: 391 Interpretive Statements ATRIAL FLUTTER/TACHYCARDIA WITH RAPID VENTRICULAR RESPONSE INDETERMINATE AXIS INCOMPLETE RIGHT BUNDLE BRANCH BLOCK [90+ ms QRS DURATION, TERMINAL R IN V1/V2, 40+ ms S IN I/aVL/V4/V5/V6] POSSIBLE ANTERIOR MYOCARDIAL INFARCTION , OF INDETERMINATE AGE [30 ms Q WAVE IN V3/V4, OR R < 0.2 mV IN V4] CRITICAL TEST RESULT Compared to ECG 02/26/2025 12:02:10 Indeterminate axis now present Supraventricular rhythm no longer present Myocardial infarct finding still present Electronically Signed On 03-04-2025 10:53:11 CDT by Max Bermudez M.D.
[2025-03-04] MEDS: SODIUM CHLORIDE 0.9% IV 250 ML 999 ML IVPB (08:25)
--- NOTE | 2025-03-04 08:33 | PC.NURSE ---
0811 New verbal orders received for BR[employer]GE [employer]ER, CMP, Albumin 25gr Q6 hours.
[2025-03-04 08:37] LABS: Alanine Aminotransferase 330 U/L (14-59); Albumin Level 1.5 g/dL (3.4-5.0); Alkaline Phosphatase 125 U/L (46-116); Anion Gap 3 mmol/L (4-12); Aspartate Amino Transferase 282 U/L (15-37); Bilirubin,Total 0.6 mg/dL (0.00-1.00); Blood Urea Nitrogen 51 mg/dL (7-18); Calcium 8.4 mg/dL (8.5-10.1); Carbon Dioxide 25 mmol/L (21-32); Chloride 114 mmol/L (98-108); Estimated CRCL calculation 40 ml/min; Estimated Glomerular Filt Rate 45; Glucose 104 mg/dL (70-99); Osmolality Calculated 307 mOsm/kg (285-295); Potassium 3.9 mmol/L (3.5-5.1); Sodium 142 mmol/L (136-145); Total Protein 6.5 g/dL (6.4-8.2)
--- NOTE | 2025-03-04 08:38 | PC.NURSE ---
0820 New orders received for EKG,Blood CX and NS 250cc Bolus.
--- NOTE | 2025-03-04 08:42 | ECG_ITS ---
Test Date: 2025-03-04 08:47:32 Measurements Intervals [place] Rate: 85 P: 81 ME: 170 QRS: 14 QRSD: 110 T: 89 QT: 326 QTc: 390 Interpretive Statements SINUS RHYTHM WITH OCCASIONAL ECTOPIC PREMATURE COMPLEXES INCOMPLETE RIGHT BUNDLE BRANCH BLOCK [90+ ms QRS DURATION, TERMINAL R IN V1/V2, 40+ ms S IN I/aVL/V4/V5/V6] Compared to ECG 03/04/2025 08:25:49 Atrial flutter no longer present Indeterminate axis no longer present Myocardial infarct finding no longer present Electronically Signed On 03-04-2025 10:53:45 CDT by Max Bermudez M.D.
[2025-03-04] MEDS: ALBUMIN HUMAN 25% 25 GM/100 ML 100 ML IVPB (09:15)
[2025-03-04] MEDS: NOREPINEPHRINE 8 MG/D5W 250 ML 8 MG/250 ML BAG 9.38 MG IV CONT (09:46)
[2025-03-04 09:58] LABS: Band Neutrophils Percent 2 % (0-6); Lymphocytes Absolute Manual 1.11 K/mm3 (1.1-4.5); Lymphocytes Percent Manual 6 % (18-44); Monocytes Absolute Manual 1.48 K/mm3 (0.1-0.90); Monocytes Percent Manual 8 % (3-9); Neutrophils Absolute Manual 15.91 K/mm3 (1.7-7.2); Neutrophils Percent Manual 84 % (46-73); Platelet Estimate Adequate (Adequate); Total Cells Counted 100
[2025-03-04 09:59] LABS: Anisocytosis 2+; Hypochromasia 2+; Schistocytes None Seen
--- NOTE | 2025-03-04 10:13 | P.TS_ITS ---
Transfer Discharge Sum: Prov Provider Date of admission: 02/27/25 09:58 Primary care physician: Farrukh Neri MD Admitting clinician: Bakari Carreon MD Attending physician on admission: Bakari Carreon Attending physician on discharge: Bakari Carreon Discharging clinician: Beth Castillo Anticipated date of transfer: 03/04/25 Receiving physician/facility: [facility]/Dr. Rousseau/Dr. Oliva DS: Admitting Diagnosis Discharge Date 03/04/2025 Admitting Diagnosis Sepsis with septic shock/AFIB RVR/hypotension/Pleural effusion/bacteremia with Strep G/ESBL/BLE Cellulitis DS: Discharge Diagnosis Discharge Diagnosis (1) Sepsis without septic shock: Code(s): A41.9 - Sepsis, unspecified organism Status: Acute Assessment and Plan: initial findings in the emergency department from generalized weakness showed leukocytosis greater than 30, lactate 2.3, DANIEL, and bilateral lower extremity cellulitis. UA also suspicious for urinary tract infection Worsening WBC 15 spoke with I&D pharmacist at [facility] regarding Antibiotic therapy will switch IV Rocephin to IV meropenem to cover ESBL * will hold IV fluids due to fluid overload encourage oral hydration, Lactic 2.3 POA. initial blood cultures with group G Streptococcus covering with p.o. linezolid 2nd set cultures pending * IV Rocephin switch to IV meropenem q.12 * continue linezolid p.o. * 2nd set blood cultures pending post 48hrs * Echo ordered (2) Cellulitis of lower extremity: Qualifiers: Laterality: unspecified laterality Qualified Code(s): L03.119 - Cellulitis of unspecified part of limb Code(s): L03.119 - Cellulitis of unspecified part of limb Status: Acute Assessment and Plan: patient with severe pain with any movement or touch to bilateral lower extremities warm to touch with erythema and edema but improving and WBC trending down * blood cultures with Gram-positive cocci in chains * patient currently on IV Rocephin and p.o. linezolid switched to meropenem for UTI coverage from Rocephin * keep BLE elevated and open to air * unable to provide any moisturizing creams for pain management due to allergies keep dry and clean * can reapply compressions once infection resolves * pain management right now with Tylenol and tramadol if still continues with severe pain will add fentanyl due to allergies (3) Bacteremia: Code(s): R78.81 - Bacteremia Status: Acute Assessment and Plan: blood cultures came back strep G * continue with oral linezolid pending cultures sensitivities * will repeat blood cultures 03/01 * Echo ordered/pending (4) Venous stasis: Code(s): I87.8 - Other specified disorders of veins Status: Acute Assessment and Plan: See ABOVE * mild skin tears BLE secondary to removal of dressing (5) Afib: Code(s): I48.91 - Unspecified atrial fibrillation Status: Acute Assessment and Plan: * holding carvedilol due to soft BP * continue Eliquis * On telemetry (6) CVA (cerebral vascular accident): Code(s): I63.9 - Cerebral infarction, unspecified Status: Acute Assessment and Plan: previous history of CVA at which time patient was placed in a shelter facility making her wheelchair and bed-bound does have memory and intermittent confusion but as reported from shelter facility she was not at her baseline * resumed Eliquis * will order lipid panel no statin on board * OT/PT when stable for therapy (7) Weakness: Code(s): R53.1 - Weakness Status: Acute Assessment and Plan: See above secondary to infection. (8) DANIEL (acute kidney injury): Code(s): N17.9 - Acute kidney failure, unspecified Status: Acute Assessment and Plan: patient with acute kidney injury likely secondary to dehydration patient reported poor oral intake Cr 1.57 POA * IV fluids * serial renal function (9) Metabolic acidosis: Code(s): E87.20 - Acidosis, unspecified Status: Acute Assessment and Plan: likely secondary to patient's poor oral intake due to infection * added bicarb tablets b.i.d. (10) Hypertension: Code(s): I10 - Essential (primary) hypertension Status: Acute Assessment and Plan: BP has been running soft * Holding Lasix and carvedilol until BP can tolerate (11) Hypokalemia: Code(s): E87.6 - Hypokalemia Status: Acute Assessment and Plan: Potassium 2.6 02/28: * 40 Meq IVPB/40 meq PO * resumed telemetry * Mag pending (12) Fluid overload: Code(s): E87.70 - Fluid overload, unspecified Status: Acute Assessment and Plan: unknown history of CHF patient is a poor historian no records in chart does have history of atrial fibrillation, patient received multiple L of normal saline for sepsis and soft BP had episode of hypoxia at 89% could hear faint crackles chest x-ray showing bibasilar atelectasis versus pneumonia felt more pulmonary congestion BNP greater than 4700. patient does take Lasix as a home medication * stopped IV fluids * gave 40 mg Lasix IVP * started on 20 mg IV P will increase as BP tolerates * echo scheduled for Tuesday03/04/202503/02: * Fluids resumed a slower rate (13) Urinary tract infection due to extended-spectrum beta lactamase (ESBL) producing Escherichia coli: Code(s): N39.0 - Urinary tract infection, site not specified; B96.29 - Other Escherichia coli [E. coli] as the cause of diseases classified elsewhere; Z16.12 - Extended spectrum beta lactamase (ESBL) resistance Status: Acute Assessment and Plan: urinary culture with ESBL * IV meropenem (14) Hypotension: Code(s): I95.9 - Hypotension, unspecified Status: Acute Assessment and Plan: Started on Levophed per protocol maintain map of 65 (15) Atrial fibrillation with rapid ventricular response: Code(s): I48.91 - Unspecified atrial fibrillation Status: Acute Assessment and Plan: 167 AFlutter RVR was shocked x 1 back SR started on Amio gtt (16) Elevated liver enzymes: Code(s): R74.8 - Abnormal levels of other serum enzymes Status: Acute Assessment and Plan: Possible Liver shock (17) Hypoalbuminemia: Code(s): E88.09 - Other disorders of plasma-protein metabolism, not elsewhere classified Status: Acute Assessment and Plan: Started on albumin 25 Q6hr (18) Pleural effusion: Code(s): J90 - Pleural effusion, not elsewhere classified Status: Acute Assessment and Plan: Will likely need thoracentesis Plan Code status: Full code per patient DVT prophylaxis: Eliquis Stress ulcer prophylaxis: Protonix 40 daily PT/OT notes: PT/ OT when patient is more medically stable and can participate Disposition: Patient transferred to [facility] ICU accepting Dr. Carreon and [employer] Clerk Dr. Oliva Transfer Discharge Sum: Med Medications Active and Home Medications: Home Medications acetazolamide 250 mg tablet 250 mg PO QAM 02/26/25 [History Confirmed 02/26/25] apixaban 5 mg tablet (Eliquis) 5 mg PO Q12H 02/26/25 [History Confirmed 02/26/25 ] carvedilol 3.125 mg tablet 3.125 mg PO Q12H 02/26/25 [History Confirmed 02/26/25] furosemide 40 mg tablet 40 mg PO QAM 02/26/25 [History Confirmed 02/26/25] Active Medications Acetaminophen (Acetaminophen 325 Mg Tablet) 650 mg PO Q4H PRN PRN Reason: Mild Pain (1-3) or Fever Last Admin: 03/03/25 08:16 Dose: 650 mg Acetazolamide (Acetazolamide Tab 250 Mg Tablet) [facility] [place] Admin: 03/03/25 11:17 Dose: 250 mg Apixaban (Apixaban 2.5 Mg Tablet) 5 mg PO Q12HR [facility] Last Admin: 03/03/25 21:49 Dose: 5 mg Carvedilol (Carvedilol 3.125 Mg Tablet) 3.125 mg PO Q12H [facility] Last Admin: 03/03/25 21:49 Dose: 3.125 mg Diphenhydramine HCl (Diphenhydramine Hcl Inj 50 Mg/Ml Vial) 25 mg IV PUSH Q6H P RN PRN Reason: Anxiety Last Admin: 03/03/25 22:08 Dose: 25 mg Furosemide (Furosemide 40 Mg Tablet) 40 mg PO QAM [facility] Last Admin: 02/27/25 10:06 Dose: 40 mg Meropenem () 1 gm in 100 mls @ 200 mls/hr IVPB Q12H [facility] Last Infusion: 03/03/25 22:19 Dose: Infused Sodium Chloride (Normal Saline Iv) 1,000 mls @ 50 mls/hr IV CONT .Q20H [facility] Last Admin: 03/04/25 05:18 Dose: 50 mls/hr Albumin Human (Albutein) 100 mls @ 60 mls/hr IVPB Q6H [facility] Last Admin: 03/04/25 09:15 Dose: 60 mls/hr Norepinephrine Bitartrate (Levophed 8 Mg/D5w 250 Ml) 8 mg in 250 mls @ 9.375 mls/hr IV CONT .Q24H [facility]; Protocol Last Admin: 03/04/25 09:46 Dose: 5 mcg/min, 9.38 mls/hr Linezolid (Linezolid 600 Mg Tablet) 600 mg PO Q12HR [facility] Stop: 03/08/25 21:01 Last Admin: 03/03/25 21:49 Dose: 600 mg Ondansetron HCl (Ondansetron Inj 4 Mg/2 Ml Vial) 4 mg IV PUSH Q6H PRN PRN Reason: Nausea And Vomiting Last Admin: 02/28/25 20:51 Dose: 4 mg Pantoprazole Sodium (Pantoprazole 40 Mg Tablet) 40 mg PO QAM [facility] Last Admin: 03/03/25 11:17 Dose: 40 mg Saccharomyces Boulardii (Saccharomyces Boulardii 250 Mg Capsule) 250 mg PO TID [facility] Last Admin: 03/03/25 17:10 Dose: 250 mg Sodium Bicarbonate (Sodium Bicarbonate Tab 650 Mg Tablet) 650 mg PO BID [facility] Last Admin: 03/03/25 17:10 Dose: 650 mg Tramadol HCl (Tramadol Hcl (*Crx) 50 Mg Tablet) 50 mg PO Q4H PRN PRN Reason: Pain Rated 4-6 Last Admin: 03/04/25 07:43 Dose: 50 mg Transfer Discharge Sum: Hosp Hospital Course Hospital course: Dolly Dinh is a 69 year old female Time Spent with Patient Time attestation: Total time spent providing and/or coordinating transfer services: Exam Const: General: no acute distress and uncomfortable Other: Frail female looks older then stated age with moderate pain HENMT: Ears: TM's normal bilaterally Face/Nose/Sinus: Normal nares present Mouth: Yes dry mucous membranes Eyes: General: appearance normal, both eyes and all related structures Sclera: sclerae normal Pupils: Equal, round and reactive pupils present EOM: EOMs intact bilaterally Neck: Neck: supple and no JVD Other: neck contracted to right side Resp: Effort & Inspection: normal respiratory effort Auscultation: clear to auscultation bilaterally Other: cough Cardio: Rate: regular rate Rhythm: abnormal rhythm (BBB on EKG) GI: Auscultation: normal bowel sounds : General: Yes bladder normal to palpation Bimanual exam- vagina & uterus: bladder normal to palpation Back/Spine/Pelvis: Thoracic/Lumbar Spine: Thoracic/lumbar scoliosis Skin: General skin exam: erythema (BLE cellulitis with edema and skin tears) and wounds noted (BLE) Wounds: wounds noted (BLE) Neuro: Cranial nerves: Yes Equal, round and reactive pupils present Other: Wheelchair and bedbound moving upper extremities pain with any movement to BLE. Patient with intermittent confusion loss of some memory likely secondary to her previous CVA Extrem: General: edema bilateral (Lower extremity) DS: Data Data Completed and Pending Labs on day of discharge: Labs from last 24 hours 03/04/25 03/03/25 08:14 11:21 WBC 18.5 H RBC 3.91 L Hgb 10.4 L Hct 34.8 L MCV 89.0 MCH 26.6 L MCHC 29.9 L RDW 15.2 H Plt Count 402 MPV 9.9 Immature Gran % (Auto) Not Reportable Neut % (Auto) Not Reportable Lymph % (Auto) Not Reportable [place] % (Auto) Not Reportable Eos % (Auto) Not Reportable Baso % (Auto) Not Reportable Lymph # (Auto) Not Reportable [place] # (Auto) Not Reportable Eos # (Auto) Not Reportable Baso # (Auto) Not Reportable Abs Immat Gran (auto) Not Reportable Absolute Neuts (auto) Not Reportable Absolute Nucleated RBC Not Reportable Total Counted 100 Neutrophils % (Manual) 84 H Band Neutrophils % 2 Lymphocytes % (Manual) 6 L Monocytes % (Manual) 8 Nucleated RBC % Not Reportable Abs Neuts (Manual) 15.91 H Abs Lymphs (Manual) 1.11 Abs Monocytes (Manual) 1.48 H Platelet Estimate Adequate Hypochromasia 2+ Anisocytosis 2+ Schistocytes None seen Sodium 142 Potassium 3.9 Chloride 114 H Carbon Dioxide 25 Anion Gap 3 L BUN 51 H Creatinine 1.19 H Estim Creat Clear Calc 40 Estimated GFR 45 L Glucose 104 H Calculated Osmolality 307 H Calcium 8.4 L Total Bilirubin 0.6 AST 282 H ALT 330 H Alkaline Phosphatase 125 H Total Protein 6.5 Albumin 1.5 L Urine Color Light yellow Urine Appearance Clear Urine pH 6.0 Ur Specific [place] 1.015 Urine Protein Trace H Urine Glucose (UA) Negative Urine Ketones Negative Ur Blood (Man) Negative Urine Nitrate Negative Urine Bilirubin Negative Urine Urobilinogen 0.2 Leukocyte Esterase Rfl Negative Amorphous Sediment Few H Preliminary micro results at discharge 03/01/25 06:31 Blood Culture - Preliminary Blood 03/01/25 06:21 Blood Culture - Preliminary Blood
--- NOTE | 2025-03-04 10:23 | P.TS_ITS ---
Transfer Discharge Sum: Prov Provider Date of admission: 02/27/25 09:58 Primary care physician: Farrukh Neri MD Admitting clinician: Bakari Carreon MD Attending physician on admission: Bakari Carreon Attending physician on discharge: Bakari Carreon Discharging clinician: Beth Castillo Anticipated date of transfer: 03/04/25 Receiving physician/facility: [facility]/Dr. Rousseau/Dr. Oliva DS: Admitting Diagnosis Discharge Date 03/04/2025 Admitting Diagnosis Sepsis with septic shock/AFIB RVR/hypotension/Pleural effusion/bacteremia with Strep G/ESBL/BLE Cellulitis DS: Discharge Diagnosis Discharge Diagnosis (1) Sepsis without septic shock: Code(s): A41.9 - Sepsis, unspecified organism Status: Acute Assessment and Plan: initial findings in the emergency department from generalized weakness showed leukocytosis greater than 30, lactate 2.3, DANIEL, and bilateral lower extremity cellulitis. UA also suspicious for urinary tract infection Worsening WBC 15 spoke with I&D pharmacist at [facility] regarding Antibiotic therapy will switch IV Rocephin to IV meropenem to cover ESBL * will hold IV fluids due to fluid overload encourage oral hydration, Lactic 2.3 POA. initial blood cultures with group G Streptococcus covering with p.o. linezolid 2nd set cultures pending * IV Rocephin switch to IV meropenem q.12 * continue linezolid p.o. * 2nd set blood cultures pending post 48hrs * Echo ordered (2) Cellulitis of lower extremity: Qualifiers: Laterality: unspecified laterality Qualified Code(s): L03.119 - Cellulitis of unspecified part of limb Code(s): L03.119 - Cellulitis of unspecified part of limb Status: Acute Assessment and Plan: patient with severe pain with any movement or touch to bilateral lower extremities warm to touch with erythema and edema but improving and WBC trending down * blood cultures with Gram-positive cocci in chains * patient currently on IV Rocephin and p.o. linezolid switched to meropenem for UTI coverage from Rocephin * keep BLE elevated and open to air * unable to provide any moisturizing creams for pain management due to allergies keep dry and clean * can reapply compressions once infection resolves * pain management right now with Tylenol and tramadol if still continues with severe pain will add fentanyl due to allergies (3) Bacteremia: Code(s): R78.81 - Bacteremia Status: Acute Assessment and Plan: blood cultures came back strep G * continue with oral linezolid pending cultures sensitivities * will repeat blood cultures 03/01 * Echo ordered/pending (4) Venous stasis: Code(s): I87.8 - Other specified disorders of veins Status: Acute Assessment and Plan: See ABOVE * mild skin tears BLE secondary to removal of dressing (5) Afib: Code(s): I48.91 - Unspecified atrial fibrillation Status: Acute Assessment and Plan: * holding carvedilol due to soft BP * continue Eliquis * On telemetry (6) CVA (cerebral vascular accident): Code(s): I63.9 - Cerebral infarction, unspecified Status: Acute Assessment and Plan: previous history of CVA at which time patient was placed in a [place] [facility] facility making her wheelchair and bed-bound does have memory and intermittent confusion but as reported from [place] [facility] she was not at her baseline * resumed Eliquis * will order lipid panel no statin on board * OT/PT when stable for therapy (7) Weakness: Code(s): R53.1 - Weakness Status: Acute Assessment and Plan: See above secondary to infection. (8) DANIEL (acute kidney injury): Code(s): N17.9 - Acute kidney failure, unspecified Status: Acute Assessment and Plan: patient with acute kidney injury likely secondary to dehydration patient reported poor oral intake Cr 1.57 POA * IV fluids * serial renal function (9) Metabolic acidosis: Code(s): E87.20 - Acidosis, unspecified Status: Acute Assessment and Plan: likely secondary to patient's poor oral intake due to infection * added bicarb tablets b.i.d. (10) Hypertension: Code(s): I10 - Essential (primary) hypertension Status: Acute Assessment and Plan: BP has been running soft * Holding Lasix and carvedilol until BP can tolerate (11) Hypokalemia: Code(s): E87.6 - Hypokalemia Status: Acute Assessment and Plan: Potassium 2.6 02/28: * 40 Meq IVPB/40 meq PO * resumed telemetry * Mag pending (12) Fluid overload: Code(s): E87.70 - Fluid overload, unspecified Status: Acute Assessment and Plan: unknown history of CHF patient is a poor historian no records in chart does have history of atrial fibrillation, patient received multiple L of normal saline for sepsis and soft BP had episode of hypoxia at 89% could hear faint crackles chest x-ray showing bibasilar atelectasis versus pneumonia felt more pulmonary congestion BNP greater than 4700. patient does take Lasix as a home medication * stopped IV fluids * gave 40 mg Lasix IVP * started on 20 mg IV P will increase as BP tolerates * echo scheduled for Tuesday03/04/202503/02: * Fluids resumed a slower rate (13) Urinary tract infection due to extended-spectrum beta lactamase (ESBL) producing Escherichia coli: Code(s): N39.0 - Urinary tract infection, site not specified; B96.29 - Other Escherichia coli [E. coli] as the cause of diseases classified elsewhere; Z16.12 - Extended spectrum beta lactamase (ESBL) resistance Status: Acute Assessment and Plan: urinary culture with ESBL * IV meropenem (14) Hypotension: Code(s): I95.9 - Hypotension, unspecified Status: Acute Assessment and Plan: Started on Levophed per protocol maintain map of 65 (15) Atrial fibrillation with rapid ventricular response: Code(s): I48.91 - Unspecified atrial fibrillation Status: Acute Assessment and Plan: 167 AFlutter RVR was shocked x 1 back SR started on Amio gtt (16) Elevated liver enzymes: Code(s): R74.8 - Abnormal levels of other serum enzymes Status: Acute Assessment and Plan: Possible Liver shock (17) Hypoalbuminemia: Code(s): E88.09 - Other disorders of plasma-protein metabolism, not elsewhere classified Status: Acute Assessment and Plan: Started on albumin 25 Q6hr (18) Pleural effusion: Code(s): J90 - Pleural effusion, not elsewhere classified Status: Acute Assessment and Plan: Will likely need thoracentesis Plan Code status: Full code per patient DVT prophylaxis: Eliquis Stress ulcer prophylaxis: Protonix 40 daily PT/OT notes: PT/ OT when patient is more medically stable and can participate Disposition: Patient transferred to [facility] ICU accepting Dr. Carreon and Byproduct Engineer Dr. Oliva Transfer Discharge Sum: Med Medications Active and Home Medications: Home Medications acetazolamide 250 mg tablet 250 mg PO QAM 02/26/25 [History Confirmed 02/26/25] apixaban 5 mg tablet (Eliquis) 5 mg PO Q12H 02/26/25 [History Confirmed 02/26/25 ] carvedilol 3.125 mg tablet 3.125 mg PO Q12H 02/26/25 [History Confirmed 02/26/25] furosemide 40 mg tablet 40 mg PO QAM 02/26/25 [History Confirmed 02/26/25] Active Medications Acetaminophen (Acetaminophen 325 Mg Tablet) 650 mg PO Q4H PRN PRN Reason: Mild Pain (1-3) or Fever Last Admin: 03/03/25 08:16 Dose: 650 mg Acetazolamide (Acetazolamide Tab 250 Mg Tablet) [facility] [place] Admin: 03/03/25 11:17 Dose: 250 mg Apixaban (Apixaban 2.5 Mg Tablet) 5 mg PO Q12HR [facility] Last Admin: 03/03/25 21:49 Dose: 5 mg Carvedilol (Carvedilol 3.125 Mg Tablet) 3.125 mg PO Q12H [facility] Last Admin: 03/03/25 21:49 Dose: 3.125 mg Diphenhydramine HCl (Diphenhydramine Hcl Inj 50 Mg/Ml Vial) 25 mg IV PUSH Q6H P RN PRN Reason: Anxiety Last Admin: 03/03/25 22:08 Dose: 25 mg Furosemide (Furosemide 40 Mg Tablet) 40 mg PO QAM [facility] Last Admin: 02/27/25 10:06 Dose: 40 mg Meropenem () 1 gm in 100 mls @ 200 mls/hr IVPB Q12H [facility] Last Infusion: 03/03/25 22:19 Dose: Infused Sodium Chloride (Normal Saline Iv) 1,000 mls @ 50 mls/hr IV CONT .Q20H [facility] Last Admin: 03/04/25 05:18 Dose: 50 mls/hr Albumin Human (Albutein) 100 mls @ 60 mls/hr IVPB Q6H [facility] Last Admin: 03/04/25 09:15 Dose: 60 mls/hr Norepinephrine Bitartrate (Levophed 8 Mg/D5w 250 Ml) 8 mg in 250 mls @ 9.375 mls/hr IV CONT .Q24H [facility]; Protocol Last Admin: 03/04/25 09:46 Dose: 5 mcg/min, 9.38 mls/hr Linezolid (Linezolid 600 Mg Tablet) 600 mg PO Q12HR [facility] Stop: 03/08/25 21:01 Last Admin: 03/03/25 21:49 Dose: 600 mg Ondansetron HCl (Ondansetron Inj 4 Mg/2 Ml Vial) 4 mg IV PUSH Q6H PRN PRN Reason: Nausea And Vomiting Last Admin: 02/28/25 20:51 Dose: 4 mg Pantoprazole Sodium (Pantoprazole 40 Mg Tablet) 40 mg PO QAM [facility] Last Admin: 03/03/25 11:17 Dose: 40 mg Saccharomyces Boulardii (Saccharomyces Boulardii 250 Mg Capsule) 250 mg PO TID [facility] Last Admin: 03/03/25 17:10 Dose: 250 mg Sodium Bicarbonate (Sodium Bicarbonate Tab 650 Mg Tablet) 650 mg PO BID [facility] Last Admin: 03/03/25 17:10 Dose: 650 mg Tramadol HCl (Tramadol Hcl (*Crx) 50 Mg Tablet) 50 mg PO Q4H PRN PRN Reason: Pain Rated 4-6 Last Admin: 03/04/25 07:43 Dose: 50 mg Transfer Discharge Sum: Hosp Hospital Course Hospital course: Patient is a 69-year-old female who was brought to the emergency department [place] [facility] due to increased generalized weakness and overall not feeling well with some intermittent confusion worse than baseline. Patient reports she is wheelchair and bed-bound but can typically care for herself and feed herself however over the last 2-3 days she has been too weak to care for self and has not been eating with severe pain to bilateral lower extremities the right worse than left. patient denied any chest pain, shortness a breath, nausea, vomiting, abdominal pain she does not recall having fever or chills overall just severely weak. upon evaluation in the emergency department patient was found to have leukocytosis greater than 30 lactic 2.3 episode of hypotension which resolved with IV fluids likely due to her dehydration and poor oral intake and bilateral lower extremity cellulitis. patient unaware of previous past medical history per medical chart patient had a stroke since then she has been at a [place] [facility] facility. patient is a poor historian but per medical chart patient has a history of HTN, atrial fibrillation, venous stasis, GERD. patient is reporting moderate to severe pain to bilateral lower extremities. Patient was admitted to the medical unit for further evaluation and treatment of sepsis secondary to cellulitis. Hospital course Patient was initially treated for Sepsis ,initial findings in the emergency depa rtment from generalized weakness showed leukocytosis greater than 30, lactate 2.3, DANIEL, and bilateral lower extremity cellulitis. UA also suspicious for urinary tract infection Worsening WBC 02/28 spoke with I&D pharmacist at [facility] regarding Antibiotic therapy and was switched from IV Rocephin to IV meropenem to cover ESBL. initial blood cultures came back with strep G at which time she had already been on oral linezolid 2nd set of cultures with no growth and WBC continued to improve. Cellulitis of lower extremity: bilateral lower extremity edema which overall improved with antibiotic therapy elevation patient continued to have some moderate to severe pain in the lower extremities however patient's history of stroke and severe scoliosis which leaves her contracted to the right side. due to patient's multiple allergies she was being given Tylenol and tramadol for pain pending need to have fentanyl added on. patient with history of CVA I had continued her Eliqu plan for PT OT. on initial admission patient did acute kidney injury creatinine 1.57 which improved with IV fluid resuscitation and has remained stable with urinary outp ut. patient also presented with metabolic acidosis added bicarbonate tablets b.i.d. reports she has had a poor appetite due to recent sickness. during patient's hospitalization she continued to have waxing and waning BP was soft average systolic around 100 and maintain her map greater than 65 however did have some concern for fluid overload they have limited cardiac history. Initially her BNP was elevated greater than 4700 however chest x-ray just showing bibasilar atelectasis versus pneumonia but did give 1 dose IV Lasix 40 mg with good urinary output and she remained on 1 L nasal cannula which she could maintain 92% in echo was ordered was planned to be done 03/05/2025, but due to patient's poor oral intake she did remain on IV fluids at a slower rate of 50 mL/hour. patient then deteriorated quickly she was found to be in a flutter AFib RVR at a rate of 160 and hypotensive at which time a rapid response was then called and the ER physician responded bedside after EKG was performed ER physician did administer one shock 100 joules with patient converting back to sinus rhythm and BP had improved however her BP continued to trend down and she remained hypotensive started patient on Levophed per protocol as well as amiodarone drip. chest x-ray was showing a large right pleural effusion and possible left small pneumothorax versus skin fold CT scan has been ordered I placed a call to [place] hospitalist and mixing and molding machine operator for transfer to the ICU for further evaluation and treatment of sepsis with septic shock possible liver shock, patient's liver enzymes tripled since admission I also initiated her on albumin she had hypo albuminemia. Patient was accepted to [facility] to the ICU, at time of transfer she remained on Levophed and amiodarone drip was jazmin rt and oriented answering questions appropriately on 1 L nasal cannula supplemental oxygen maintaining 92%, heart rate at 87 sinus rhythm. Time Spent with Patient Time attestation: Total time spent providing and/or coordinating transfer services: Total time spent: Greater than 30 minutes Exam Const: General: in distress and uncomfortable Other: Frail female lethargic and diaphoretic, moaning in pain HENMT: Mouth: Yes dry mucous membranes Neck: Neck: supple and no JVD Other: neck contracted to right side Resp: Auscultation: crackles on the left and diminished lung sounds on the right Cardio: Rhythm: abnormal rhythm (BBB on EKG) irregularly irregular Other: Aflutter 167 GI: Auscultation: normal bowel sounds : General: Yes bladder normal to palpation Bimanual exam- vagina & uterus: bladder normal to palpation Urinary Catheter: Urinary Catheter: patent and draining and urine clear Back/Spine/Pelvis: Thoracic/Lumbar Spine: Thoracic/lumbar scoliosis Skin: General skin exam: erythema (BLE cellulitis with edema and skin tears) and wounds noted (BLE) Wounds: wounds noted (BLE) Neuro: Cranial nerves: Yes Equal, round and reactive pupils present Other: Wheelchair and bedbound moving upper extremities pain with any movement to BLE. Patient with intermittent confusion loss of some memory likely secondary to her previous CVA, lethargic at time of transfer was able to respond to her name and answer some questions Extrem: General: edema DS: Data Data Completed and Pending Labs on day of discharge: Labs from last 24 hours 03/04/25 03/03/25 08:14 11:21 WBC 18.5 H RBC 3.91 L Hgb 10.4 L Hct 34.8 L MCV 89.0 MCH 26.6 L MCHC 29.9 L RDW 15.2 H Plt Count 402 MPV 9.9 Immature Gran % (Auto) Not Reportable Neut % (Auto) Not Reportable Lymph % (Auto) Not Reportable [place] % (Auto) Not Reportable Eos % (Auto) Not Reportable Baso % (Auto) Not Reportable Lymph # (Auto) Not Reportable [place] # (Auto) Not Reportable Eos # (Auto) Not Reportable Baso # (Auto) Not Reportable Abs Immat Gran (auto) Not Reportable Absolute Neuts (auto) Not Reportable Absolute Nucleated RBC Not Reportable Total Counted 100 Neutrophils % (Manual) 84 H Band Neutrophils % 2 Lymphocytes % (Manual) 6 L Monocytes % (Manual) 8 Nucleated RBC % Not Reportable Abs Neuts (Manual) 15.91 H Abs Lymphs (Manual) 1.11 Abs Monocytes (Manual) 1.48 H Platelet Estimate Adequate Hypochromasia 2+ Anisocytosis 2+ Schistocytes None seen Sodium 142 Potassium 3.9 Chloride 114 H Carbon Dioxide 25 Anion Gap 3 L BUN 51 H Creatinine 1.19 H Estim Creat Clear Calc 40 Estimated GFR 45 L Glucose 104 H Calculated Osmolality 307 H Calcium 8.4 L Total Bilirubin 0.6 AST 282 H ALT 330 H Alkaline Phosphatase 125 H Total Protein 6.5 Albumin 1.5 L Urine Color Light yellow Urine Appearance Clear Urine pH 6.0 Ur Specific [place] 1.015 Urine Protein Trace H Urine Glucose (UA) Negative Urine Ketones Negative Ur Blood (Man) Negative Urine Nitrate Negative Urine Bilirubin Negative Urine Urobilinogen 0.2 Leukocyte Esterase Rfl Negative Amorphous Sediment Few H Preliminary micro results at discharge 03/01/25 06:31 Blood Culture - Preliminary Blood 03/01/25 06:21 Blood Culture - Preliminary Blood Imaging Radiologist's impression: Head CT 02/26/25 12:33 IMPRESSION: No acute intracranial findings. Pansinusitis. CHEST RADIOGRAPH CLINICAL HISTORY: pneumonia . COMPARISON: 02/28/2025 TECHNIQUE: Single portable view of the chest. FINDINGS The cardiomediastinal silhouette is enlarged, unchanged. Large right-sided pleural effusion. Findings within the left hemithorax which may represent skinfold for which repeat examination is recommended. IMPRESSION: Large right-sided pleural effusion. Findings within the left hemithorax which may represent a skinfold, with a pneumothorax less likely, for which repeat examination is recommended. Chest X-Ray 02/28/25 19:14 IMPRESSION: Bibasilar atelectasis versus pneumonia. cc: Beth Castillo APRN; Bakari Carreon MD; Farrukh Neri MD~ CHEST RADIOGRAPH CLINICAL HISTORY: ABN CXR-REPEATED,RECENT CHANGE OF STATUS,TACHYCARDIA,HYPOTEN . COMPARISON: 03/04/2020 5:00 AM (4 hours earlier). Reference was also made to multiple prior radiographs of the chest dated 02/28/2025 and 02/26/2025 TECHNIQUE: Single portable view of the chest. FINDINGS The cardiomediastinal silhouette is enlarged, unchanged. Large right-sided pleural effusion persists. Also persisting is what initially was thought to be a skinfold projecting over the left upper lung field. This, however, is likely a 15-20% left-sided pneumothorax with approximately 3 cm of separation. The cardiomediastinal silhouette is projecting to the right of midline, likely secondary to patient's severe dextroscoliotic curvature of the thoracic spine, rather than a tension pneumothorax. The left lung base is clear. IMPRESSION: Large right-sided pleural effusion with a 15-20% left-sided pneumothorax with approximately 3 cm of separation, for which clinical correlation is needed. These findings were discussed with Beth Castillo, caring for the patient at 9:15 AM on 03/04/2025
--- NOTE | 2025-03-04 10:51 | PC.NURSE ---
Called [facility], request ALS transfer to [facility] Intensive care unit room 5.
--- NOTE | 2025-03-04 11:05 | PC.NURSE ---
Called [facility] for ALS transfer.
[2025-03-04] MEDS: MEROPENEM 1 GM/NS 100 ML 1 GM/100 ML BAG IVPB (11:10)
--- NOTE | 2025-03-04 11:26 | PC.NURSE ---
Cancelled ALS with [facility] r/t [facility] able to transfer quicker.
[2025-03-04 11:30] VITALS: O2SAT 93
--- NOTE | 2025-03-04 11:40 | PC.NURSE ---
Vitals- 0839- 130/83 83 90% O2@1L/NC 0853-92/55 84 8055- 108/63 85 93% O2@1L/NC 0900-89/54 0914- 84/53 73 93% O2@1L/NC 0918- 82/49 66 93%O2@1L/NC 0944- 81/56 66 94%O2@1L/NC 0953-103/83 79 93% O2@1L/NC 1000-111/69 1035- 127/73 72 94% O2@1L/NC 1100-122/73 76 95% O2@1L/NC
--- NOTE | 2025-03-04 11:44 | PC.NURSE ---
[facility] ALS crew arrived to transport patient to [place] ICU. Patient taken with Amiodarone, Norepinephrine, and Meropenem running. River catheter in place. Report called to [facility]. Patients belongings sent with patient. Wheelchair retrieved by staff at [facility]
--- NOTE | 2025-03-04 13:45 | PC.NURSE ---
0730-SN morning assessment and vitals- patient noted to have significantly elevated heart rate and low blood pressure. 0738-ER MD called to come evaluate patient 0822-Rapid Response called to room 208 0825-EKG 0831-Peripheral IV #20 to Left hand by Dorinda 0836-Synchronized cardioversion @50 joules-beginning heart rate 160- Atrial Flutter 0838-Normal sinus rythym rate 84 pressure 130/83 spO2 94% with 1L per NC [id number] with PVCs 0844-blood pressure 130/90 Manual left arm- pulse rate 89 0846-B/P 130/82 P-90 SPO2 94% O2 at 1L/NC 0854-Amiodarone drip initiated -Amiodarone 360mg/200mL, rate 33.33 mL/hr in right hand.
== END 2025-03-04 11:35 | disposition short-term general hospital (02) | DRG 871 ==
LOC: CHSED 14:27 → CHS2ND 15:13
PROVIDERS: Nurse Practitioner Family; Admitting Provider Internal Medicine; Emergency Provider Emergency Medicine; PCP Family Medicine; Visit Provider Internal Medicine
DX: A40.8 Other streptococcal sepsis (principal); K72.00 Acute and subacute hepatic failure without coma; L03.116 Cellulitis of left lower limb; N17.9 Acute kidney failure, unspecified; E87.20 Acidosis, unspecified; L03.115 Cellulitis of right lower limb; N39.0 Urinary tract infection, site not specified; Z16.12 Extended spectrum beta lactamase (ESBL) resistance; J90 Pleural effusion, not elsewhere classified; I48.92 Unspecified atrial flutter; J93.9 Pneumothorax, unspecified; B96.20 Unspecified Escherichia coli [E. coli] as the cause of diseases classified elsewhere; E87.6 Hypokalemia; E87.70 Fluid overload, unspecified; I10 Essential (primary) hypertension; I48.91 Unspecified atrial fibrillation; I87.8 Other specified disorders of veins; K21.9 Gastro-esophageal reflux disease without esophagitis; Z99.3 Dependence on wheelchair; Z74.01 Bed confinement status; Z86.73 Personal history of transient ischemic attack (TIA), and cerebral infarction without residual deficits; Z79.82 Long term (current) use of aspirin
CPT/HCPCS: 36415; 70450; 71045; 71250; 74176; 80053; 80061; 81001; 83605; 83735; 83880; 84484; 85025; 87040; 87077; 87086; 87088; 87147; 87181; 87186; 93005; 96365; 96366; 96375; 99285; A9270; G0378; J0696; J1200; J1938; J2185; J2405; J3480; J7030; P9047

== ENCOUNTER 2025-03-04 09:01 | Inpatient (IN) | payer MEDICARE, MEDICAID, SELFPAY ==
[2025-03-04] VITALS (15 sets, daily range): BP systolic 95–135; BP diastolic 68–93; PULSE 54–75; RESP 17–25; TEMP 36.8–36.9; O2SAT 91–99; BMI 29.1
--- NOTE | ~2025-03-04 | US_ITS ---
EXAMINATION: US perc cholecystostomy w imag DATE: 03/08/2025 16:24 INDICATION: Acute cholecystitis TECHNIQUE: The procedure including the risks and benefits was discussed with the patient. Risks discu ssed included bleeding including hemorrhage and bile peritonitis. Oral and written consent were obtai rusty. The patient was confirmed to be receiving appropriate antibiotic coverage. The skin overlying t he liver and gallbladder was prepped and draped in usual sterile fashion. Anesthetic was administere d with 1% lidocaine subcutaneously. An 8.5 Fr catheter was inserted through liver parenchyma into the gallbladder by trocar technique. The metal stiffener and trocar needle were removed, and the pigtail tip was locked. Bile was aspirated and sent for culture. The catheter was stitched to the skin with suture. There were no immediate complications. FINDINGS: The gallbladder is dilated but without evident cholelithiasis. Ultrasound images demonstrat e the catheter within the gallbladder. 45 mL clear fluid was aspirated from the gallbladder and sent to lab for Gram stain and cultures. Final images show the formed pigtail catheter tip in the gallblad lori. IMPRESSION: 1. Successful ultrasound-guided cholecystostomy tube placement. 2. 45 mL clear bile was sent for aerobic, anaerobic, and fungal cultures. 3. The catheter will be managed by Dr. aGming. A catheter cholangiogram may be performed not less th an 48 hours after tube placement if clinically indicated to assess cystic duct patency. If cholecyst ectomy is not eventually performed and the infectious episode has resolved, the tube may be removed o trang a guidewire, preferably not less than 3 weeks after placement to allow time for a mature catheter tract to form to prevent bile leakage and peritonitis. Reviewed, dictated and finalized at location A. IMPRESSION: 1. Successful ultrasound-guided cholecystostomy tube placement. 2. 45 mL clear bile was sent for aerobic, anaerobic, and fungal cultures. 3. The catheter will be managed by Dr. Gaming. A catheter cholangiogram may be performed not less than 48 hours after tube placement if clinically indicated to assess cystic duct patency. If cholecystectomy is not eventually performed and the infectious episode has resolved, the tube may be removed over a guidewi re, preferably not less than 3 weeks after placement to allow time for a mature catheter tract to form to prevent bile leakage and peritonitis.
--- NOTE | ~2025-03-04 | NM_ITS ---
EXAMINATION: NM hepatobiliary wo pharm DATE: 03/06/2025 13:45 INDICATION: Cholelithiasis and possible cholecystitis. COMPARISON: None. TECHNIQUE: 4.8 mCi Tc-99m mebrofenin (Choletec) was administered intravenously. Scintigraphic images of the abdomen were obtained for one hour. Additional 4 hour delayed anterior scintigram was obtaine jonathan. FINDINGS: There is normal clearance of radiotracer from the blood pool. There is homogeneous tracer u ptake by the liver. Activity progresses to the common bile duct and small bowel activity first visua lized within 20 minutes is progressive accumulation of the following 40 minutes. Extensive bowel acti vity on the 4 hour delayed image with no discernible residual hepatic activity. There is ovoid collec tion of activity in the right upper quadrant however the oblique superolateral to inferomedial orient ation of the axis of collection would favor activity within the proximal transverse colon as opposed in the gallbladder. IMPRESSION: 1. No definitive gallbladder activity evident on the initial hour or on the 4 hour delayed images wh ich is suspicious for acute cholecystitis. Reviewed, dictated and finalized at location A. IMPRESSION: 1. No definitive gallbladder activity evident on the initial hour or on the 4 hour delayed images which is suspicious for acute cholecystitis.
--- NOTE | ~2025-03-04 | US_ITS ---
EXAM: ABDOMEN ULTRASOUND HISTORY: Transaminitis COMPARISON: CT examination of the chest abdomen and pelvis performed approximately 6 hours earlier FINDINGS: LIVER: The liver is increased in echogenicity and unremarkable in size measuring 16cm in longitudinal dimension. The portal vein is patent, demonstrating phasic, hepatopedal flow. Trace perihepatic fluid is identified. GALLBLADDER: Multiple large stones are identified within the gallbladder. The gallbladder wall is thickened measuring 4.5 mm. BILE DUCTS: Common bile duct measures 3.9mm. PANCREAS: Limited evaluation of the pancreas secondary to overlying bowel gas IMPRESSION: Cholelithiasis with gallbladder wall thickening suggesting cholecystitis. No pericholecystic fluid is identified. Fatty infiltration of the liver, with phasic flow in the portal vein suggesting portal hypertension. Reviewed, dictated and finalized at location A.
--- NOTE | ~2025-03-04 | XR_ITS ---
MODIFIED ESOPHAGRAM HISTORY: Dysphagia. TECHNIQUE: Modified barium esophagram was performed on 03/06/2025. I administered fluoroscopy and perf ormed the exam with speech pathologist. Patient was seated for lateral fluoroscopic imaging for doni stion of thin liquids, pudding, solids and quantified amounts, followed by thin liquids in uncontroll ed amounts. This was recorded on tape. A single fluoroscopic spot image was also recorded. The DAP fo r this procedure was 1.523 Gycm2. The amount of fluoroscopy time used during this procedure was 2.7 m inutes. FINDINGS: Oral stage: Slow mastication secondary to missing teeth with minimal oral residue which cleared with dry swallows. Pharyngeal stage: Reduced tongue base retraction with vallecular residue which clears with dry swallo ws. No laryngeal penetration or aspiration. Cervical/esophageal stage: Adequate function. IMPRESSION: Mild oropharyngeal dysphagia with without radiologic penetration or aspiration. Please c orrelate with speech pathologist findings and specific feeding recommendations. Reviewed, dictated and finalized at location A. IMPRESSION: Mild oropharyngeal dysphagia with without radiologic penetration or aspiration. Please correlate with speech pathologist findings and specific fe eding recommendations.
--- NOTE | ~2025-03-04 | XR_ITS ---
CHEST RADIOGRAPH CLINICAL HISTORY: Pneumothorax . COMPARISON: Multiple plain film evaluations of the chest, performed on the same day as well as a CT e xamination, performed 2 hours earlier. TECHNIQUE: Single portable view of the chest. FINDINGS The cardiomediastinal silhouette is enlarged, unchanged. Large right-sided pleural effusion. Decreased lung markings within the left apex persist, although CT examination is without pneumothorax . Without the CT examination performed 2 hours earlier, this appearance still suggests a left apical pn eumothorax. IMPRESSION: Persistent cardiomegaly with a large right-sided pleural effusion. Left apex is unchanged in appearance when compared with multiple prior studies, however, CT examinati on is without pneumothorax, as detailed above. Reviewed, dictated and finalized at location A. IMPRESSION: Persistent cardiomegaly with a large right-sided pleural effusion. Left apex is unchanged in appearance when compared with multiple prior studies, however, CT examination is without pneumothorax, as detailed above.
--- NOTE | ~2025-03-04 | XR_ITS ---
EXAMINATION: XR chest 1V portable DATE: 03/05/2025 06:04 INDICATION: Pleural effusion TECHNIQUE: frontal view of the chest was obtained. COMPARISON: Chest radiograph dated 03/04/2025 FINDINGS: Lung volumes remain small particularly on the right. Diffuse hazy opacities throughout the right marco a thorax with dense opacities at the lower lung zone consistent with moderate-sized pleural effusion an d associated atelectasis and/or pneumonia. Additional opacities at the left lower lung zone with blun ting at the cardiophrenic angle consistent with very small left pleural effusion and basilar atelecta sis versus pneumonia. No pneumothorax. Cardiomegaly. Thoracic dextroscoliosis. Severe degenerative sk eletal changes. Right upper extremity peripherally inserted central venous catheter (PICC) tip at th e inferior cavoatrial junction. IMPRESSION: 1. Unchanged moderate-sized right and small left pleural effusions with associated atelectasis and/or pneumonia in the lower lung zones. 2. Cardiomegaly. Reviewed, dictated and finalized at location A. IMPRESSION: 1. Unchanged moderate-sized right and small left pleural effusions with associa bonilla atelectasis and/or pneumonia in the lower lung zones. 2. Cardiomegaly.
--- NOTE | ~2025-03-04 | XR_ITS ---
EXAMINATION: [id number] DATE: 03/08/2025 15:45 INDICATION: Status post right thoracentesis TECHNIQUE: frontal view of the chest was obtained. COMPARISON: Chest radiograph dated 03/05/2025 FINDINGS: There is improved aeration in the right lung. Opacities at the bilateral lower lung zones which could represent small residual pleural effusions, atelectasis or pneumonia. No pneumothorax. Megaly. Right upper extremity peripherally inserted central venous catheter (PICC) tip at the superior cavoatrial junction. Percutaneous cholecystostomy tube projects over the right upper quadrant. Advanced osteoar thritis at the bilateral glenohumeral joints. Moderate thoracic dextroscoliosis. IMPRESSION: 1. Improved aeration in the right lung with no pneumothorax post right thoracentesis. 2. Opacities in the bilateral lower lung zones which could represent small lateral pleural effusions, atelectasis, pneumonia or some combination thereof. 3. Cardiomegaly. Reviewed, dictated and finalized at location A. IMPRESSION: 1. Improved aeration in the right lung with no pneumothorax post right thoracen tesis. 2. Opacities in the bilateral lower lung zones which could represent small late ral pleural effusions, atelectasis, pneumonia or some combination thereof. 3. Cardiomegaly.
--- NOTE | ~2025-03-04 | US_ITS ---
EXAMINATION: US thoracentesis DATE: 03/08/2025 16:18 INDICATION: Right pleural effusion TECHNIQUE: The procedure and its risks and benefits were discussed with the patient. Potential risks discussed included bleeding, infection, and pneumothorax. The patient understood the risks and agreed to proceed. The skin was prepped and draped in sterile fashion. 1% lidocaine was used for local anes thesia. Under ultrasound guidance, a 5 Fr catheter with trochar was advanced into the right pleural e ffusion. Fluid was aspirated. The catheter was removed, and a dressing was applied. There were no imm ediate complications. FINDINGS: Ultrasound images demonstrate a small right pleural effusion and the catheter within the fluid. IMPRESSION: 1. Successful ultrasound-guided thoracentesis yielding 450 mL of yellow fluid. Reviewed, dictated and finalized at location A.
--- NOTE | 2025-03-04 12:50 | P.CONIN_ITS ---
Assessment and Plan Assessment and plan (1) Septic shock: Code(s): A41.9 - Sepsis, unspecified organism; R65.21 - Severe sepsis with septic shock Status: Acute Assessment and Plan: Septic shock most likely related to UTI, cellulitis, possible pneumonia, hypovolemia, AFib RVR, pleural effusion -03/04: patient was transferred from [facility] in [facility] for septic shock, hypotension AFib RVR status post cardioversion at the outside hospital with return to sinus rhythm -dry oral mucosa, will give 500 mL IV fluid bolus -albumin for intravascular volume expansion -Check lactic acid -check echocardiogram -continue linezolid and meropenem -continue Levophed, maintain SBP and MAP > 65 mmHg at all times for adequate end organ perfusion -03/04: PICC line inserted -02/26 urine cultures: ESBL E coli -02/26 blood cultures: Group G Streptococcus -03/01 repeat blood cultures were negative x2 -03/04 repeat blood cultures pending 03/04/[address] chest, abdomen and pelvis IMPRESSION: 1. Moderate-sized right and small left pleural effusions with right lower lobe collapse, partial right middle lobe collapse and dependent atelectasis in the left lower lobe. 2. Cardiomegaly. 3. Air-fluid levels throughout the colon consistent with nonspecific diarrhea. 4. Severe thoracic and lumbar scoliosis with severe spondylosis. 5. Advanced osteoarthritis at the right hip and bilateral acromioclavicular joints. 6. Fibroid uterus. 7. Nonobstructing 2 mm left renal stone. (2) Cellulitis of lower extremity: Qualifiers: Laterality: unspecified laterality Qualified Code(s): L03.119 - Cellulitis of unspecified part of limb Code(s): L03.119 - Cellulitis of unspecified part of limb Status: Acute Assessment and Plan: Treatment as above (3) DANIEL (acute kidney injury): Code(s): N17.9 - Acute kidney failure, unspecified Status: Acute Assessment and Plan: Patient presented the outside hospital with acute kidney injury, -urine output has been adequate -creatinine trending down, 1.19 this morning on 03/04 -giving additional IV fluid bolus -albumin for intravascular volume expansion -continue to monitor urine output, renal function electrolyte (4) AMS (altered mental status): Qualifiers: Altered mental status type: unspecified Qualified Code(s): R41.82 - Altered mental status, unspecified Code(s): R41.82 - Altered mental status, unspecified Status: Acute Assessment and Plan: Altered mental status could be related septic shock, AFib RVR, encephalopathy related to critical illness -continue to treat underlying cause 02/26: CT brain did not show any acute intracranial abnormality (5) Atrial fibrillation with rapid ventricular response: Code(s): I48.91 - Unspecified atrial fibrillation Status: Acute Assessment and Plan: Patient has a history of AFib, was on Eliquis at the outside hospital On 03/04 went into AFib RVR with hypotension and hemodynamic instability and had to be cardioverted by the ED doctor at the [facility] in [facility] -currently on amiodarone infusion -will consult Cardiology -echocardiogram has been ordered -03/04: start heparin infusion (6) Bacteremia: Code(s): R78.81 - Bacteremia Status: Acute Assessment and Plan: Treatment as above -repeat blood cultures were negative (7) Elevated liver enzymes: Code(s): R74.8 - Abnormal levels of other serum enzymes Status: Acute Assessment and Plan: Right upper quadrant ultrasound has been ordered -could be related to hypotension (8) Pleural effusion: Code(s): J90 - Pleural effusion, not elsewhere classified Status: Acute Assessment and Plan: Patient may require thoracentesis, has been on Eliquis at the outside hospital which has been switched to heparin infusion -currently on 2 L nasal cannula with adequate O2 sats -bill require paracentesis at some point, would let effects off Eliquis wear off 03/04: CT scan of the chest showed Moderate-sized right and small left pleural effusions with right lower lobe collapse, partial right middle lobe collapse and dependent atelectasis in the left lower lobe. (9) GERD (gastroesophageal reflux disease): Code(s): K21.9 - Gastro-esophageal reflux disease without esophagitis Status: Acute Assessment and Plan: Protonix Plan DVT prophylaxis: Heparin infusion Stress ulcer prophylaxis: Protonix Nutrition: NPO for now Code Status: Full code Critical Care Time Spent: 53 minutes Due to a high probability of clinically significant, life threatening deterioration, the patient required my highest level of preparedness to intervene emergently and I personally spent this critical care time directly and personally managing the patient. This critical care time included obtaining a history; examining the patient; pulse oximetry; ordering and review of studies; arranging urgent treatment with development of a management plan; evaluation of patient's response to treatment; frequent reassessment; and discussions with other providers. It was exclusive of separately billable procedures and treating other patients and teaching time. Please see Assessment and Plan section and the rest of the note for further information on patient assessment and treatment This dictation may have been done utilizing a voice recognition system. Attempts have been made to correct errors. However, there may be uncorrected grammatical, spelling, and recognitions errors present. Superintendent Sales Consult Note Consult date: 03/04/25 Reason for consult: Septic shock, ESBL UTI, Cellulitis, Group G bacteremia, Afib RVR HPI: Dolly Dinh is a 69 year old with PMH of GERD, Scoliosis, Venous stasis, CVA, A.fib, bacteremia, UTI was transferred from [place], [place], on 03/04/25 with septic shock, A.fib RVR s/p cardioversion at [facility] on 03/04. Patient was started on Levophed and transfer the ICU at [facility] for further management. Patient was initially admitted on 02/26 with sepsis, cellulitis, UTI, confusion and altered mental status. 02/26: CT head with no acute intracranial findings, pansinusitis. 03/04/2025: CT chest, abdomen and pelvis without contrast showed moderate size right and small left pleural effusion with right lower lobe collapse, partial right middle lobe collapse dependent atelectasis in the left lower lobe. The, air-fluid levels throughout the colon consistent with nonspecific diarrhea, severe at thoracic and lumbar scoliosis with severe spondylosis. Advanced osteoarthritis of the right hip and bilateral acromioclavicular joints. Fibroid uterus, nonobstructing 2 mm left renal stone. On admission to [facility] patient was in acute kidney in jury with a creatinine of 1.57 (baseline creatinine 0.89 on 02/14/2025). Patient has been fluid resuscitated at the outside hospital, creatinine on 03/04 upon transfer the ICU was 1.19. Patient has been on linezolid for cellulitis and meropenem for ESBL E coli UTI Patient seen and examined upon arrival to the ICU, opens her eyes, follows simple commands in all extremities, able to give me one-word answers. Denies any shortness of breath, chest pain, nausea, vomiting at this time. Complains of some abdominal pain. Remains on Levophed at 5 mcg/min, on amiodarone infusion, currently in sinus rhythm, rate controlled, on 2 L nasal cannula with adequate O2 sats Review of Systems Review of Systems: All systems reviewed & are unremarkable except as noted in HPI and below PMFSH Past Medical History Medical History (Updated 03/04/25 @ 13:55 by Samy Oliva MD) GERD (gastroesophageal reflux disease) Scoliosis Venous stasis CVA (cerebral vascular accident) Afib Social History Social History Smoking status: Never smoker Alcohol intake: never Substance use: never Substance use type: does not use Do You Feel Safe in your Home?: Yes Lack of Transportation: No Lack of Food: Never True Current Housing: I Have Housing Concerned About Future Housing: No Difficulty Paying Gas/Electric Bills: No Difficulty Paying for Meds: No Currently Unemployed: No Education: Decline to Answer Difficulty w/ Childcare or Family Care: No Spiritual care concerns: No Meds Home Medications and Allergies Home Medications ?Medication ?Instructions ?Recorded ?Confirmed ?Type acetazolamide 250 mg tablet 250 mg PO [facility] 02/26/25 02/26/25 History apixaban 5 mg tablet (Eliquis) 5 mg PO Q12H 02/26/25 02/26/25 History carvedilol 3.125 mg tablet 3.125 mg PO Q12H 02/26/25 02/26/25 History furosemide 40 mg tablet 40 mg PO QAM 02/26/25 02/26/25 History Allergies Allergy/AdvReac Type Severity Reaction Status Date / Time adhesive tape Allergy Mild Unknown Verified 03/04/25 13:45 amoxicillin (From Augmentin) Allergy Mild Unknown Verified 03/04/25 13:45 aspirin Allergy Mild Unknown Verified 03/04/25 13:45 azithromycin (From Zithromax) Allergy Mild Unknown Verified 03/04/25 13:45 bacitracin Allergy Mild Unknown Verified 03/04/25 13:45 cefaclor Allergy Mild Unknown Verified 03/04/25 13:45 cetirizine (From Zyrtec) Allergy Mild Unknown Verified 03/04/25 13:45 ciprofloxacin (From Cipro) Allergy Mild Unknown Verified 03/04/25 13:45 citalopram Allergy Mild Unknown Verified 03/04/25 13:45 clavulanic acid (From Allergy Mild Unknown Verified 03/04/25 13:45 Augmentin) clindamycin Allergy Mild Unknown Verified 03/04/25 13:45 codeine Allergy Mild Unknown Verified 03/04/25 13:45 diphtheria,pertussis Allergy Mild Unknown Verified 03/04/25 13:45 (acellular),te (From Adacel(Tdap Adolesn/Adult)(PF)) erythromycin base Allergy Mild Unknown Verified 03/04/25 13:45 ethinyl estradiol Allergy Mild Unknown Verified 03/04/25 13:45 fexofenadine (From Henrietta) Allergy Mild Unknown Verified 03/04/25 13:45 guaifenesin (From Dilaudid Allergy Mild Unknown Verified 03/04/25 13:45 Cough) hydromorphone Allergy Mild Unknown Verified 03/04/25 13:45 hydroxyzine Allergy Mild Unknown Verified 03/04/25 13:45 lactase Allergy Mild Unknown Verified 03/04/25 13:45 latex Allergy Mild Unknown Verified 03/04/25 13:45 lisinopril Allergy Mild Unknown Verified 03/04/25 13:45 loracarbef Allergy Mild Unknown Verified 03/04/25 13:45 meclizine Allergy Mild Unknown Verified 03/04/25 13:45 metoprolol Allergy Mild Unknown Verified 03/04/25 13:45 mold Allergy Mild Unknown Verified 03/04/25 13:45 morphine Allergy Mild Unknown Verified 03/04/25 13:45 neomycin (From Neosporin Allergy Mild Unknown Verified 03/04/25 13:45 ([id number])) nizatidine Allergy Mild Unknown Verified 03/04/25 13:45 norethindrone Allergy Mild Unknown Verified 03/04/25 13:45 ofloxacin (From Floxin) Allergy Mild Unknown Verified 03/04/25 13:45 oxycodone Allergy Mild Unknown Verified 03/04/25 13:45 Penicillins Allergy Mild Unknown Verified 03/04/25 13:45 polymyxin B (From Neosporin Allergy Mild Unknown Verified 03/04/25 13:45 ([id number])) prednisolone Allergy Mild Unknown Verified 03/04/25 13:45 silicone Allergy Mild Unknown Verified 03/04/25 13:45 Sulfa (Sulfonamide Allergy Mild Unknown Verified 03/04/25 13:45 Antibiotics) tetanus toxoid, adsorbed Allergy Mild Unknown Verified 03/04/25 13:45 zolpidem Allergy Mild Unknown Verified 03/04/25 13:45 mayonnaise Allergy Unknown Unknown Verified 03/04/25 13:45 wheat Allergy Unknown Unknown Verified 03/04/25 13:45 eggs Allergy Unknown Unknown Uncoded 03/04/25 13:45 Exam Narrative: General: Ill-appearing female currently in no acute distress HEENT:? Pupils are small, equal and reactive, sclera is clear, dry oral mucosa Neck:? Supple Respiratory:? Coarse breath sounds bilaterally, decreased on right side, rales bilaterally, no wheezing Cardiac:? S1-S2 normal, regular rate and rhythm Abdomen:? Soft, nondistended, mild tenderness periumbilical area, hypoactive bowel sound Extremities:? ,, palpable pedal pulses bilaterally Neuro:? Patient is on a awake, alert, able to give me one-word answers but is not oriented. Follows simple commands in all extremities Skin:? Bilateral lower extremity venous stasis changes, mild warmth, mild erythema, old scabs Psych:? Unable to assess Quality VTE Prophylaxis VTE prophylaxis: pharmacologic ordered Hospitalist MIPS Advance Care Plan I have confirmed that the patient's Advanced Care Plan is present, code status is documented, or surrogate decision maker is listed in patient medical record.: Yes Medication Reconciliation I have utilized all available resources to obtain, update and review the patients current medications (includes all prescriptions, OTC, herbals, cannabis, and nutritional supplements).: Yes
[2025-03-04] MEDS: NOREPINEPHRINE 8 MG/D5W 250 ML 8 MG/250 ML BAG 9.38 MG IV CONT (13:00)
--- NOTE | 2025-03-04 13:18 | ADMGEN ---
This patient, Dolly Dinh, was admitted to Intensive Care Unit-5 at approximately 1235. Patient/family oriented to hospital policies and general routines including ID bracelet, bed and alarms, visiting hours, pain management, procedures, bathroom and other care routines, personal items, smoking policy, room service/diet, and visiting hours. PT arrived with Amiodarone and levophed infusing. River cath in place. 1L NC Information on how to activate the Rapid Response Team has been discussed. Patient/Family are encouraged to report perceived risks to care and to ask questions if they do not understand what they are told or what they should do.
[2025-03-04] MEDS: LIDOCAINE 1% PF INJ 5 ML VIAL INFILTRATE (13:20)
[2025-03-04] MEDS: ALBUMIN HUMAN 25% 25 GM/100 ML 100 ML IVPB ×3 (14:07→23:55)
[2025-03-04] MEDS: LINEZOLID 600 MG/300 ML 600 MG/300 ML SOLN 300 MG IVPB ×2 (14:14→21:28)
[2025-03-04 14:16] LABS: Hematocrit 33.7 % (37.0-47.0); Hemoglobin 9.9 g/dL (12.0-15.0); Mean Corpuscular HGB Conc 29.4 g/dl (32-36); Mean Corpuscular Hemoglobin 26.9 pg (26-34); Mean Corpuscular Volume 91.6 fl (80-100); Mean Platelet Volume 9.6 fl (7.4-10.4); Platelet Count Result 393 k/mm3 (150-375); Red Blood Count 3.68 M/mm3 (4.2-5.4); Red Cell Distribution Width 15.4 % (11.5-14.5); White Blood Count 20.1 K/mm3 (4.5-10.0)
[2025-03-04 14:19] LABS: MRSA (PCR) NOT DETECTED (NOT DETECTE)
[2025-03-04] MEDS: LACTATED RINGERS 500 ML IV CONT (14:21)
[2025-03-04 14:26] LABS: INR 2.9; Prothrombin Time 31.1 Seconds (11.1-14.7)
[2025-03-04 14:27] LABS: Partial Thromboplastin Time 37.7 Seconds (22.3-36.8)
[2025-03-04 14:30] LABS: Lactic Acid Reflex 1.7 mmol/L (0.7-2.0)
[2025-03-04 14:32] LABS: Alanine Aminotransferase 336 U/L (6-35); Albumin Level 2.8 g/dL (3.5-5.1); Alkaline Phosphatase 147 U/L (38-126); Anion Gap 8 mmol/L (4-12); Aspartate Amino Transferase 351 U/L (14-36); Bilirubin,Total 0.6 mg/dL (0.2-1.3); Blood Urea Nitrogen 45 mg/dL (7-17); Calcium 8.3 mg/dL (8.4-10.2); Carbon Dioxide 23 mmol/L (22-30); Chloride 118 mmol/L (98-107); Creatine Kinase 206 U/L (30-135); Estimated CRCL calculation 46 ml/min; Estimated Glomerular Filt Rate 53; Glucose 116 mg/dL (65-110); Magnesium 2.6 mg/dL (1.6-2.3); Phosphorus 3.4 mg/dL (2.5-4.5); Potassium 3.6 mmol/L (3.4-5.0); Sodium 149 mmol/L (137-145)
[2025-03-04] MEDS: HEPARIN SOD/D5W 100 UNITS/ML 25,000 UNITS/250 ML BAG 12 UNITS IV CONT (14:38)
--- NOTE | 2025-03-04 14:38 | PM.IMHP ---
H&P: HPI History of Present Illness Date/Time: 03/04/25 14:38 Chief Complaint: Septic shock Narrative: 69-year-old with past medical history of past medical history of stroke, hypertension, atrial fibrillation, status who was transferred from [facility] the rehab account of septic shock. Patient was admitted over there on a 14 managed for sepsis from cellulitis, and blood culture was positive for strep g. She was malignant antibiotics, however today patient became hypotensive and went into atrial fibrillation right rapid ventricular response. Repeat CT abdomen chest showed large right pleural effusion with compressive atelectasis. Patient was started on Levophed transferred to our facility for critical care. She was also started on amiodarone infusion. Patient is a poor historian lethargic at time of this encounter. Lab review showed white count 20.1, hemoglobin 9.9, sodium 149, creatinine 0.0 trickle AST 3 history of at L2 through 3 6 troponin 0.11, proBNP 20 300, MRSA negative. Review of Systems Review of Systems: Limited review of system was patient was lethargic and nonverbal. [facility] Past Medical History Medical History (Updated 03/04/25 @ 13:55 by Samy Oliva MD) GERD (gastroesophageal reflux disease) Scoliosis Venous stasis CVA (cerebral vascular accident) Afib Social History Social History Smoking status: Never smoker Alcohol intake: never Substance use: never Substance use type: does not use Do You Feel Safe in your Home?: Yes Lack of Transportation: No Lack of Food: Never True Current Housing: I Have Housing Concerned About Future Housing: No Difficulty Paying Gas/Electric Bills: No Difficulty Paying for Meds: No Currently Unemployed: No Education: Decline to Answer Difficulty w/ Childcare or Family Care: No Spiritual care concerns: No Meds Home Medications and Allergies Home Medications ?Medication ?Instructions ?Recorded ?Confirmed ?Type acetazolamide 250 mg tablet 250 mg PO QAM 02/26/25 02/26/25 History apixaban 5 mg tablet (Eliquis) 5 mg PO Q12H 02/26/25 02/26/25 History carvedilol 3.125 mg tablet 3.125 mg PO Q12H 02/26/25 02/26/25 History furosemide 40 mg tablet 40 mg PO QAM 02/26/25 02/26/25 History pantoprazole 40 mg tablet,delayed 40 mg PO DAILY 03/04/25 03/04/25 History release potassium chloride 20 mEq 40 meq PO DAILY 03/04/25 03/04/25 History tablet,extended release(part/cryst) Allergies Allergy/AdvReac Type Severity Reaction Status Date / Time adhesive tape Allergy Mild Unknown Verified 03/04/25 13:45 amoxicillin (From Augmentin) Allergy Mild Unknown Verified 03/04/25 13:45 aspirin Allergy Mild Unknown Verified 03/04/25 13:45 azithromycin (From Zithromax) Allergy Mild Unknown Verified 03/04/25 13:45 bacitracin Allergy Mild Unknown Verified 03/04/25 13:45 cefaclor Allergy Mild Unknown Verified 03/04/25 13:45 cetirizine (From Zyrtec) Allergy Mild Unknown Verified 03/04/25 13:45 ciprofloxacin (From Cipro) Allergy Mild Unknown Verified 03/04/25 13:45 citalopram Allergy Mild Unknown Verified 03/04/25 13:45 clavulanic acid (From Allergy Mild Unknown Verified 03/04/25 13:45 Augmentin) clindamycin Allergy Mild Unknown Verified 03/04/25 13:45 codeine Allergy Mild Unknown Verified 03/04/25 13:45 diphtheria,pertussis Allergy Mild Unknown Verified 03/04/25 13:45 (acellular),te (From Adacel(Tdap Adolesn/Adult)(PF)) erythromycin base Allergy Mild Unknown Verified 03/04/25 13:45 ethinyl estradiol Allergy Mild Unknown Verified 03/04/25 13:45 fexofenadine (From Henrietta) Allergy Mild Unknown Verified 03/04/25 13:45 guaifenesin (From Dilaudid Allergy Mild Unknown Verified 03/04/25 13:45 Cough) hydromorphone Allergy Mild Unknown Verified 03/04/25 13:45 hydroxyzine Allergy Mild Unknown Verified 03/04/25 13:45 lactase Allergy Mild Unknown Verified 03/04/25 13:45 latex Allergy Mild Unknown Verified 03/04/25 13:45 lisinopril Allergy Mild Unknown Verified 03/04/25 13:45 loracarbef Allergy Mild Unknown Verified 03/04/25 13:45 meclizine Allergy Mild Unknown Verified 03/04/25 13:45 metoprolol Allergy Mild Unknown Verified 03/04/25 13:45 mold Allergy Mild Unknown Verified 03/04/25 13:45 morphine Allergy Mild Unknown Verified 03/04/25 13:45 neomycin (From Neosporin Allergy Mild Unknown Verified 03/04/25 13:45 ([id number])) nizatidine Allergy Mild Unknown Verified 03/04/25 13:45 norethindrone Allergy Mild Unknown Verified 03/04/25 13:45 ofloxacin (From Floxin) Allergy Mild Unknown Verified 03/04/25 13:45 oxycodone Allergy Mild Unknown Verified 03/04/25 13:45 Penicillins Allergy Mild Unknown Verified 03/04/25 13:45 polymyxin B (From Neosporin Allergy Mild Unknown Verified 03/04/25 13:45 ([id number])) prednisolone Allergy Mild Unknown Verified 03/04/25 13:45 silicone Allergy Mild Unknown Verified 03/04/25 13:45 Sulfa (Sulfonamide Allergy Mild Unknown Verified 03/04/25 13:45 Antibiotics) tetanus toxoid, adsorbed Allergy Mild Unknown Verified 03/04/25 13:45 zolpidem Allergy Mild Unknown Verified 03/04/25 13:45 mayonnaise Allergy Unknown Unknown Verified 03/04/25 13:45 wheat Allergy Unknown Unknown Verified 03/04/25 13:45 eggs Allergy Unknown Unknown Uncoded 03/04/25 13:45 Exam Narrative: General: lethargic non verbal Eyes: EOMI, PERRLA ENNT External ears normal, Neck is supple, no masses, Respiratory systems: Clear to auscultation Cardiovascular S1, S2, normal rhythm, no murmur, rub, or gallop; no thrill or palpable murmurs on palpation. Gastrointestinal: soft, non-tender, and non-distended abdomen with no masses; BS present Skin: no rash, lesions, ulcerations, subcutaneous nodules or induration Musculoskeletal: no abnormality and no tenderness, normal ROM Neurologic: Alert and oriented x3, non focal Mental Status Exam: normal affect H&P: Results Labs Labs: [facility] 03/04/25 14:05 Sodium 149 H Potassium 3.6 Chloride 118 H Carbon Dioxide 23 BUN 45 H Creatinine 1.03 H Glucose 116 H Calcium 8.3 L Cardiac Enzymes 03/04/25 Range/Units 14:05 Total Creatine Kinase 206 H (30-135) U/L Liver Function 03/04/25 Range/Units 14:05 Total Bilirubin 0.6 (0.2-1.3) mg/dL AST 351 H (14-36) U/L ALT 336 H (6-35) U/L Alkaline Phosphatase 147 H (38-126) U/L Albumin 2.8 L (3.5-5.1) g/dL Assessment and Plan Assessment and plan (1) Atrial fibrillation with rapid ventricular response: Code(s): I48.91 - Unspecified atrial fibrillation Status: Acute (2) Sepsis without septic shock: Code(s): A41.9 - Sepsis, unspecified organism Status: Acute Plan Septic shock Likely from pneumonia CT scan showed large right pleural effusion with compressive atelectasis Blood culture, continue meropenem linezolid MRSA pending. Continue Levophed. Investigative Analyst consulted [facility]-ac[facility] scan reviewed. Prostate disease, fluid studies ordered. Continue above care Atrial fibrillation rapid ventricular response On currently on amiodarone, heparin infusion Echo ordered cardiology consulted. Elevated liver enzymes Likely from shock However right upper quadrant ultrasound hepatitis panel ordered. Bacteremia strep G likely from cellulitis Continue current antibiotics. Elevated troponin Likely from demand from shock. Trend troponin. Echo ordered. History of stroke Once cleared by speech above. Patient on home medications. Hypertension Titrate medications with clinical course. DVT prophylaxis on heparin infusion DNR Hospitalist MIPS Advance Care Plan I have confirmed that the patient's Advanced Care Plan is present, code status is documented, or surrogate decision maker is listed in patient medical record.: Yes Medication Reconciliation I have utilized all available resources to obtain, update and review the patients current medications (includes all prescriptions, OTC, herbals, cannabis, and nutritional supplements).: Yes
[2025-03-04 14:47] LABS: NT Pro B Type Natriuretic Pept 20300 pg/mL (19.9-100)
[2025-03-04 14:59] LABS: Band Neutrophils Percent 2 % (0-6); Eosinophils Percent Manual 1 % (0-4); Lymphocytes Absolute Manual 2.81 K/mm3 (1.1-4.5); Monocytes Percent Manual 4 % (3-9); Neutrophils Absolute Manual 16.28 K/mm3 (1.7-7.2); Neutrophils Percent Manual 79 % (46-73); Nucleated Red Blood Cells 2 %; Platelet Clumps Present; Platelet Estimate Slightly Increased (Adequate); Schistocytes None Seen; Total Cells Counted 100
[2025-03-04 15:00] LABS: Anisocytosis 2+; Hypochromasia 1+
[2025-03-04] MEDS: AMIODARONE 360 MG/D5W 200 ML 360 MG/200 ML BAG 16.67 MG IV CONT (15:05)
--- NOTE | 2025-03-04 15:20 | P.CONCA_ITS ---
Assessment and Plan Assessment and plan (1) Afib: Code(s): I48.91 - Unspecified atrial fibrillation Status: Acute Plan 69-year-old woman with history of CVA no residing in correction with chronic lower extremity venous stasis ulcers/wounds and paroxysmal atrial fibrillation transferred from [facility] for management of septic shock Paroxysmal atrial fibrillation -continue amiodarone drip and heparin drip -once no further procedures indicated, which transition heparin drip to her home dose Eliquis 5 p.o. b.i.d. History of Present Illness History of Present Illness Consult date/time: 03/04/25 15:20 Requesting physician: Samy Oliva MD Reason For Visit: DANIEL, AFib Narrative: 69-year-old woman with history of CVA no residing in correction with chronic lower extremity venous stasis ulcers/wounds and paroxysmal atrial fibrillation transferred from [facility] for management of septic shock. While at [facility], she had episode of hemodynamic instability from rapid ventricular rate from atrial fibrillation for which cardioversion was performed successfully. She is a poor historian and majority of her history obtained from chart review. Review of Systems 2 Review of Systems: ROS unobtainable: Yes unobtainable due to medical condition PMFSH Past Medical History Medical History (Updated 03/04/25 @ 13:55 by Samy Oliva MD) GERD (gastroesophageal reflux disease) Scoliosis Venous stasis CVA (cerebral vascular accident) Afib Social History Social History Smoking status: Never smoker Alcohol intake: never Substance use: never Substance use type: does not use Do You Feel Safe in your Home?: Yes Lack of Transportation: No Lack of Food: Never True Current Housing: I Have Housing Concerned About Future Housing: No Difficulty Paying Gas/Electric Bills: No Difficulty Paying for Meds: No Currently Unemployed: No Education: Decline to Answer Difficulty w/ Childcare or Family Care: No Spiritual care concerns: No Meds Home Medications and Allergies Home Medications ?Medication ?Instructions ?Recorded ?Confirmed ?Type acetazolamide 250 mg tablet 250 mg PO QAM 02/26/25 03/04/25 History apixaban 5 mg tablet (Eliquis) 5 mg PO Q12H 02/26/25 03/04/25 History carvedilol 3.125 mg tablet 3.125 mg PO Q12H 02/26/25 03/04/25 History furosemide 40 mg tablet 40 mg PO QAM 02/26/25 03/04/25 History pantoprazole 40 mg tablet,delayed 40 mg PO DAILY 03/04/25 03/04/25 History release potassium chloride 20 mEq 40 meq PO DAILY 03/04/25 03/04/25 History tablet,extended release(part/cryst) Allergies Allergy/AdvReac Type Severity Reaction Status Date / Time adhesive tape Allergy Mild Unknown Verified 03/04/25 13:45 amoxicillin (From Augmentin) Allergy Mild Unknown Verified 03/04/25 13:45 aspirin Allergy Mild Unknown Verified 03/04/25 13:45 azithromycin (From Zithromax) Allergy Mild Unknown Verified 03/04/25 13:45 bacitracin Allergy Mild Unknown Verified 03/04/25 13:45 cefaclor Allergy Mild Unknown Verified 03/04/25 13:45 cetirizine (From Zyrtec) Allergy Mild Unknown Verified 03/04/25 13:45 ciprofloxacin (From Cipro) Allergy Mild Unknown Verified 03/04/25 13:45 citalopram Allergy Mild Unknown Verified 03/04/25 13:45 clavulanic acid (From Allergy Mild Unknown Verified 03/04/25 13:45 Augmentin) clindamycin Allergy Mild Unknown Verified 03/04/25 13:45 codeine Allergy Mild Unknown Verified 03/04/25 13:45 diphtheria,pertussis Allergy Mild Unknown Verified 03/04/25 13:45 (acellular),te (From Adacel(Tdap Adolesn/Adult)(PF)) erythromycin base Allergy Mild Unknown Verified 03/04/25 13:45 ethinyl estradiol Allergy Mild Unknown Verified 03/04/25 13:45 fexofenadine (From Henrietta) Allergy Mild Unknown Verified 03/04/25 13:45 guaifenesin (From Dilaudid Allergy Mild Unknown Verified 03/04/25 13:45 Cough) hydromorphone Allergy Mild Unknown Verified 03/04/25 13:45 hydroxyzine Allergy Mild Unknown Verified 03/04/25 13:45 lactase Allergy Mild Unknown Verified 03/04/25 13:45 latex Allergy Mild Unknown Verified 03/04/25 13:45 lisinopril Allergy Mild Unknown Verified 03/04/25 13:45 loracarbef Allergy Mild Unknown Verified 03/04/25 13:45 meclizine Allergy Mild Unknown Verified 03/04/25 13:45 metoprolol Allergy Mild Unknown Verified 03/04/25 13:45 mold Allergy Mild Unknown Verified 03/04/25 13:45 morphine Allergy Mild Unknown Verified 03/04/25 13:45 neomycin (From Neosporin Allergy Mild Unknown Verified 03/04/25 13:45 ([id number])) nizatidine Allergy Mild Unknown Verified 03/04/25 13:45 norethindrone Allergy Mild Unknown Verified 03/04/25 13:45 ofloxacin (From Floxin) Allergy Mild Unknown Verified 03/04/25 13:45 oxycodone Allergy Mild Unknown Verified 03/04/25 13:45 Penicillins Allergy Mild Unknown Verified 03/04/25 13:45 polymyxin B (From Neosporin Allergy Mild Unknown Verified 03/04/25 13:45 ([id number])) prednisolone Allergy Mild Unknown Verified 03/04/25 13:45 silicone Allergy Mild Unknown Verified 03/04/25 13:45 Sulfa (Sulfonamide Allergy Mild Unknown Verified 03/04/25 13:45 Antibiotics) tetanus toxoid, adsorbed Allergy Mild Unknown Verified 03/04/25 13:45 zolpidem Allergy Mild Unknown Verified 03/04/25 13:45 mayonnaise Allergy Unknown Unknown Verified 03/04/25 13:45 wheat Allergy Unknown Unknown Verified 03/04/25 13:45 eggs Allergy Unknown Unknown Uncoded 03/04/25 13:45 Vital Signs Vital Signs - 24 hr 03/04/25 15:05 Pulse Rate 73 Blood Pressure 135/86 Exam 2 Const: Other: Ill appearance HENMT: Mouth: Yes moist mucous membranes Eyes: EOM: EOMs intact bilaterally Neck: Neck: no JVD Cardio: Rate: regular rate Rhythm: regular rhythm Extrem: General: pedal edema Other: Wounds bilaterally Results Labs and Meds 03/04/25 13:59 03/04/25 14:05 Lab results: Cardiac Enzymes 03/04/25 Range/Units 14:05 AST 351 H (14-36) U/L Troponin I 0.110 H* (0.000-0.034) ng/mL Coagulation 03/04/25 Range/Units 14:05 PT 31.1 H (11.1-14.7) Seconds APTT 37.7 H (22.3-36.8) Seconds CBC 03/04/25 Range/Units 13:59 WBC 20.1 H (4.5-10.0) K/mm3 RBC 3.68 L (4.2-5.4) M/mm3 Hgb 9.9 L (12.0-15.0) g/dL Hct 33.7 L (37.0-47.0) % Plt Count 393 H (150-375) k/mm3 Lymph # (Auto) Not Reportable Hamblen # (Auto) Not Reportable Eos # (Auto) Not Reportable Baso # (Auto) Not Reportable Comprehensive Metabolic Panel 03/04/25 Range/Units 14:05 Sodium 149 H (137-145) mmol/L Potassium 3.6 (3.4-5.0) mmol/L Chloride 118 H (98-107) mmol/L Carbon Dioxide 23 (22-30) mmol/L BUN 45 H (7-17) mg/dL Creatinine 1.03 H (0.7-1.0) mg/dL Glucose 116 H (65-110) mg/dL Calcium 8.3 L (8.4-10.2) mg/dL AST 351 H (14-36) U/L ALT 336 H (6-35) U/L Alkaline Phosphatase 147 H (38-126) U/L Total Protein 7.0 (6.3-8.2) g/dL Albumin 2.8 L (3.5-5.1) g/dL Patient Weight 03/04/25 23:59 Weight 77 kg
[2025-03-04 16:51] LABS: Ammonia 15 umol/L (9-30)
[2025-03-04 17:08] LABS: Troponin I 0.106 ng/mL (0.000-0.034)
--- NOTE | 2025-03-04 17:34 | PC.NURSE ---
Notified Dr Oliva of the patients HR dropping and sustaining around 55bpm. Received order to hold amiodarone. Order read back and verified.
[2025-03-04 18:25] LABS: Hepatitis B Surface Antigen Negative (Negative)
[2025-03-04 18:33] LABS: HAV RESULT Negative (Negative); Hepatitis B Core IgM Result Negative (Negative)
[2025-03-04 18:42] LABS: Hepatitis C Virus Antibody Negative (Negative)
[2025-03-04] MEDS: MEROPENEM 1 GM/NS 100 ML 1 GM/100 ML BAG IVPB (20:18)
[2025-03-04] MEDS: CENTRAL LINE FLUSH 10 ML IV PUSH (20:18)
[2025-03-04] MEDS: PANTOPRAZOLE SODIUM IV 40 MG VIAL IV PUSH (20:18)
[2025-03-04 21:12] LABS: Partial Thromboplastin Time 54.2 Seconds (22.3-36.8)
[2025-03-04 21:16] LABS: Troponin I 0.097 ng/mL (0.000-0.034)
[2025-03-04] MEDS: HEPARIN SODIUM 5,000 UNITS/ML VIAL 5000 UNITS IV PUSH (21:20)
[2025-03-05] VITALS (13 sets, daily range): BP systolic 108–145; BP diastolic 63–92; PULSE 54–87; RESP 14–23; TEMP 36–36.8; O2SAT 91–100
--- NOTE | 2025-03-05 | ECHO_ITS ---
Patient Info Name: Dolly Dinh Age: 69 years : 1955 Gender: Female Ht: 64 in Wt: 170 lbs BSA: 1.89 m2 HR: 58 bpm BP: 108 / 67 mmHg Heart Rhythm: Sinus Rhythm, Bradycardia Technical Quality: Good Exam Date: 03/05/2025 7:31 AM Patient Status: I Admit Date: 03/04/2025 Exam Type: CA echo doppler color flow Complete two-dimensional, color flow and Doppler transthoracic echocardiogram is performed. Staff Referring Physician: Julito Chambers MD Cupola Liner: Almaz Winston Attending Provider: Bakari Carreon Summary 1. Left ventricular chamber dimension is normal. 2. Left ventricular systolic function is mildly reduced, estimated at 40-45. 3. The left ventricular diastolic function is grade I diastolic dysfunction. 4. Right ventricular chamber dimension is moderately enlarged. 5. Right ventricular systolic function is normal. 6. Left atrial chamber dimension is moderately enlarged. 7. Right atrial chamber dimension is severely enlarged. 8. There is mild tricuspid valve regurgitation. Left Ventricle Left ventricular chamber dimension is normal. Left ventricular systolic function is mildly reduced, estimated at 40-45. There is no increased left ventricular wall thickness. The left ventricular diastolic function is grade I diastolic dysfunction. Right Ventricle Right ventricular chamber dimension is moderately enlarged. Right ventricular systolic function is normal. Left Atria Left atrial chamber dimension is moderately enlarged. Right Atria Right atrial chamber dimension is severely enlarged. Atrial Septum Intact interatrial septum visualized by color flow imaging. Aortic Valve The aortic valve is not well visualized. There is no aortic valve stenosis. There is no aortic valve regurgitation. Pulmonic Valve The pulmonic valve is not well visualized. Mitral Valve There is trace mitral valve regurgitation. The mitral valve annulus is mildly calcified. Tricuspid Valve There is mild tricuspid valve regurgitation. Pericardium/Pleural There is no pericardial effusion. Inferior Vena Cava Dilated inferior vena cava with <50% collapse upon inspiration consistent with elevated right atrial pressure, 15 mmHg. Aorta The aortic root size at the sinus of Valsalva is normal. Left Ventricular Outflow Tract Name Value Normal LVOT 2D LVOT Diameter 2.0 cm LVOT Doppler LVOT Peak Velocity 115 cm/s LVOT Peak Gradient 5 mmHg LVOT Mean Gradient 2 mmHg LVOT VTI 21 cm LVOT VTI/AV VTI Ratio 0.7 LVOT Stroke Volume 66 ml LVOT CO 4.7 l/min LVOT CI 2.5 l/min/m2 Pulmonic Valve Name Value Normal RVOT Doppler RVOT Peak Velocity 39 cm/s RVOT Peak Gradient 1 mmHg PV Doppler PV Peak Velocity 99 cm/s PV Peak Gradient 4 mmHg Mitral Valve Name Value Normal MV Diastolic Function MV E Peak Velocity 83 cm/s MV A Peak Velocity 85 cm/s MV E/A 1.0 MV Decel Time (PW) 281 ms MV Annular TDI MV E/e' (Septal) 14.3 MV E/e' (Lateral) 10.2 MV E/e' (Average) 12.3 Tricuspid Valve Name Value Normal TV Regurgitation Doppler TR Peak Velocity 277 cm/s TR Peak Gradient 28 mmHg Estimated PAP/RSVP RA Pressure 15 mmHg <=5 PA Systolic Pressure 46 mmHg <36 RV Systolic Pressure 46 mmHg <36 TV Annular TDI TV Lateral Onelia s' Velocity 10.5 cm/s >=9.5 Aorta Name Value Normal Ascending Aorta Ao Root Diameter (MM) 3.1 cm Ao Root Diam Index (MM) 1.6 cm/m2 Aortic Valve Name Value Normal AV Doppler AV Peak Velocity 166 cm/s AV Peak Gradient 11 mmHg AV Mean Gradient 5 mmHg AV VTI 29 cm AV Area (Cont Eq VTI) 2.3 cm2 >=3.0 AV Area (Cont Eq Victor Manuel) 2.2 cm2 AV DI (Victor Manuel) 0.69 AV Regurgitation 2D LVOT Area 3.2 cm2 Ventricles Name Value Normal LV Dimensions 2D/MM IVS Diastolic Thickness (2D) 0.9 cm 0.6-1.0 LVID Diastole (2D) 5.0 cm 3.8-5.2 LVIW Diastolic Thickness (2D) 0.8 cm 0.6-0.9 LVID Systole (2D) 2.8 cm 2.2-3.5 LVOT Diameter 2.0 cm LV Mass (2D Cubed) 139.17 g 67.00-162.00 LV Mass Index (2D Cubed) 74 g/m2 43-95 Relative Wall Thickness (2D) 0.31 <=0.42 LV Fractional Shortening/Ejection Fraction 2D/MM LV Fractional Shortening (2D) 44 % 27-45 LV EF (2D Teichholz) 75 % LV Diastolic Volume (4C MOD) 86 ml LV EF (4C MOD) 72 % LV Diastolic Volume (2C MOD) 71 ml LV EF (2C MOD) 63 % LV Diastolic Volume (BP MOD) 78 ml 46-106 LV Diastolic Volume Index (BP MOD) 41 ml/m2 29-61 LV Systolic Volume (BP MOD) 26 ml 14-42 LV Systolic Volume Index (BP MOD) 14 ml/m2 8-24 LV EF (BP MOD) 67 % 54-74 LV Diastolic Length (4C) 8.3 cm LV Systolic Length (4C) 6.9 cm LV Stroke Volume (4C MOD) 62 ml Atria Name Value Normal LA Dimensions LA Dimension (MM) 4.2 cm 2.7-3.8 LA Volume (4C A-L) 72 ml LA Volume (BP A-L) 76 ml RA Dimensions RA Area (4C) 18.6 cm2 <=18.0 Report Signatures
[2025-03-05] MEDS: ALBUMIN HUMAN 25% 25 GM/100 ML 100 ML IVPB (06:15)
[2025-03-05 06:26] LABS: Basophils Absolute Auto 0.1 K/mm3 (0.0-0.1); Basophils Percent Auto 0.3 % (0.2-1.2); Eosinophils Absolute Auto 0.1 K/mm3 (0-0.3); Eosinophils Percent Auto 0.4 % (0-4.4); Hematocrit 30.6 % (37.0-47.0); Hemoglobin 8.9 g/dL (12.0-15.0); Immature Granulocyte Absolute 0.62 K/mm3 (0.00-0.031); Immature Granulocyte Percent A 4.1 % (0-0.5); Lymphocytes Absolute Auto 2.02 K/mm3 (0.9-3.2); Lymphocytes Percent Auto 13.3 % (18.3-44.2); Mean Corpuscular HGB Conc 29.1 g/dl (32-36); Mean Corpuscular Hemoglobin 26.6 pg (26-34); Mean Corpuscular Volume 91.3 fl (80-100); Mean Platelet Volume 9.6 fl (7.4-10.4); Monocytes Absolute Auto 1.1 K/mm3 (0.1-0.6); Monocytes Percent Auto 7.5 % (2.6-8.5); Neutrophils Absolute Auto 11.3 K/mm3 (1.3-6.7); Neutrophils Percent Auto 74.4 % (45.5-73.1); Nucleated Red Blood Cells Perc 0.5 % (0.0-0.2); Platelet Count Result 312 k/mm3 (150-375); Red Blood Count 3.35 M/mm3 (4.2-5.4); Red Cell Distribution Width 15.2 % (11.5-14.5); White Blood Count 15.2 K/mm3 (4.5-10.0)
[2025-03-05] MEDS: CENTRAL LINE FLUSH 10 ML IV PUSH ×3 (06:29→22:59)
[2025-03-05 06:40] LABS: Alanine Aminotransferase 223 U/L (6-35); Albumin Level 3.2 g/dL (3.5-5.1); Alkaline Phosphatase 125 U/L (38-126); Anion Gap 8 mmol/L (4-12); Aspartate Amino Transferase 135 U/L (14-36); Bilirubin,Total 0.7 mg/dL (0.2-1.3); Blood Urea Nitrogen 37 mg/dL (7-17); Calcium 8.7 mg/dL (8.4-10.2); Carbon Dioxide 24 mmol/L (22-30); Chloride 116 mmol/L (98-107); Estimated CRCL calculation 55 ml/min; Estimated Glomerular Filt Rate > 60; Glucose 107 mg/dL (65-110); Lactic Acid Reflex 1.5 mmol/L (0.7-2.0); Lipase 160 U/L (23-300); Magnesium 2.5 mg/dL (1.6-2.3); Phosphorus 2.7 mg/dL (2.5-4.5); Potassium 3.4 mmol/L (3.4-5.0); Sodium 148 mmol/L (137-145)
[2025-03-05 06:45] LABS: INR 2.3; Prothrombin Time 25.9 Seconds (11.1-14.7)
[2025-03-05 06:48] LABS: Partial Thromboplastin Time 127.3 Seconds (22.3-36.8)
[2025-03-05 07:34] LABS: Anisocytosis 1+; Hypochromasia 1+; Platelet Estimate Adequate (Adequate); Schistocytes None Seen
--- NOTE | 2025-03-05 08:45 | PCSTNOTE ---
Bedside swallow completed 03/05/25. Recommended remain NPO with MBS study. MBS recommended 03/06/25 to allow for improve patient alertness.
[2025-03-05] MEDS: HEPARIN SOD/D5W 100 UNITS/ML 25,000 UNITS/250 ML BAG 14 UNITS IV CONT (08:48)
[2025-03-05] MEDS: ACETAMINOPHEN 325 MG TABLET 650 MG PO ×2 (08:49→19:58)
[2025-03-05] MEDS: MEROPENEM 1 GM/NS 100 ML 1 GM/100 ML BAG IVPB ×3 (08:49→22:50)
[2025-03-05] MEDS: PANTOPRAZOLE SODIUM IV 40 MG VIAL IV PUSH ×2 (08:49→20:01)
[2025-03-05] MEDS: POTASSIUM CHLORIDE 20 MEQ PACKET (FOR LIQUID) 40 MEQ PO (08:49)
[2025-03-05] MEDS: LINEZOLID 600 MG/300 ML 600 MG/300 ML SOLN 300 MG IVPB ×2 (09:00→22:58)
--- NOTE | 2025-03-05 09:58 | P.PNINT_ITS ---
Progress Note: A&P Assessment and Plan (1) Septic shock: Code(s): A41.9 - Sepsis, unspecified organism; R65.21 - Severe sepsis with septic shock Status: Acute Assessment and Plan: Septic shock most likely related to UTI, cellulitis, possible pneumonia, bacteremia, AFib RVR, pleural effusion -03/04: patient was transferred from [facility] [place], [place] in [facility] for septic shock, hypotension AFib RVR status post cardioversion at the outside hospital with return to sinus rhythm -dry oral mucosa, will give 500 mL IV fluid bolus -albumin for intravascular volume expansion -02/26 urine cultures: ESBL E coli -02/26 blood cultures: Group G Streptococcus -03/01 repeat blood cultures were negative x2 -03/04 repeat blood cultures pending -continue linezolid and meropenem. Will discuss with Infectious Disease pharmacist and plan to discontinue linezolid Off all vasopressors -03/04: PICC line inserted 03/04/[address] chest, abdomen and pelvis IMPRESSION: 1. Moderate-sized right and small left pleural effusions with right lower lobe collapse, partial right middle lobe collapse and dependent atelectasis in the left lower lobe. 2. Cardiomegaly. 3. Air-fluid levels throughout the colon consistent with nonspecific diarrhea. 4. Severe thoracic and lumbar scoliosis with severe spondylosis. 5. Advanced osteoarthritis at the right hip and bilateral acromioclavicular joints. 6. Fibroid uterus. 7. Nonobstructing 2 mm left renal stone. (2) Cellulitis of lower extremity: Qualifiers: Laterality: unspecified laterality Qualified Code(s): L03.119 - Cellulitis of unspecified part of limb Code(s): L03.119 - Cellulitis of unspecified part of limb Status: Acute Assessment and Plan: Treatment as above (3) DANIEL (acute kidney injury): Code(s): N17.9 - Acute kidney failure, unspecified Status: Acute Assessment and Plan: Patient presented the outside hospital with acute kidney injury, -urine output has been adequate -creatinine has improved and normalized. Off IV fluids now -continue to monitor urine output, renal function electrolyte (4) AMS (altered mental status): Qualifiers: Altered mental status type: unspecified Qualified Code(s): R41.82 - Altered mental status, unspecified Code(s): R41.82 - Altered mental status, unspecified Status: Acute Assessment and Plan: Altered mental status could be related septic shock, AFib RVR, encephalopathy related to critical illness -continue to treat underlying cause -mental status improved and patient now AO x2 02/26: CT brain did not show any acute intracranial abnormality (5) Atrial fibrillation with rapid ventricular response: Code(s): I48.91 - Unspecified atrial fibrillation Status: Acute Assessment and Plan: Patient has a history of AFib, was on Eliquis at the outside hospital On 03/04 went into AFib RVR with hypotension and hemodynamic instability and had to be cardioverted by the ED doctor at the [facility] [place], [place] in [place] Converted to sinus bradycardia and now off of amiodarone infusion Cardiology following and will defer further management Echo pending Continue heparin infusion (6) Bacteremia: Code(s): R78.81 - Bacteremia Status: Acute Assessment and Plan: Treatment as above -repeat blood cultures were negative (7) Cholecystitis: Code(s): K81.9 - Cholecystitis, unspecified Status: Acute Assessment and Plan: Abdominal ultrasound showed IMPRESSION: Cholelithiasis with gallbladder wall thickening suggesting cholecystitis. No pericholecystic fluid is identified. Fatty infiltration of the liver, with phasic flow in the portal vein suggesting portal hypertension. Consult general surgery (8) Elevated liver enzymes: Code(s): R74.8 - Abnormal levels of other serum enzymes Status: Acute Assessment and Plan: Right upper quadrant ultrasound as above Levels improving. Monitor (9) Pleural effusion: Code(s): J90 - Pleural effusion, not elsewhere classified Status: Acute Assessment and Plan: Right side thoracentesis fluid. Currently on heparin infusion. 03/04: CT scan of the chest showed Moderate-sized right and small left pleural effusions with right lower lobe collapse, partial right middle lobe collapse and dependent atelectasis in the left lower lobe. (10) GERD (gastroesophageal reflux disease): Code(s): K21.9 - Gastro-esophageal reflux disease without esophagitis Status: Acute Assessment and Plan: Protonix Plan DVT prophylaxis: Heparin infusion Stress ulcer prophylaxis: Protonix Nutrition: NPO for now Code Status: Full code Speech evaluation. Consult PT OT Transfer out ICU Subjective Date/time seen: 03/05/25 Overnight events reviewed. Afebrile On nasal cannula. Sinus Franki on the monitor. Blood pressure is adequate. Acceptable urine output. NPO On heparin infusion. Off vasopressors and amiodarone infusion. Denies any complaint. Review of Systems Review of Systems: Patient denies fever, chest pain, shortness of breath, cough, nausea vomiting, abdominal pain,, diarrhea, headache or constipation.. All other systems were reviewed and were negative. All systems reviewed & are unremarkable except as noted in HPI and below (HPI) Exam Narrative: General: Ill-appearing female currently in no acute distress HEENT:? Pupils are small, equal and reactive, sclera is clear, dry oral mucosa Neck:? Supple Respiratory:? Coarse breath sounds bilaterally, decreased on right side, occasional rales bilaterally, no wheezing Cardiac:? S1-S2 normal, regular rate and rhythm Abdomen:? Soft, nondistended, mild tenderness periumbilical area, hypoactive bowel sound Extremities:? ,, palpable pedal pulses bilaterally Neuro:? Patient is on a awake, alert, able to give me one-word answers AO x 2 Follows simple commands in all extremities Skin:? Bilateral lower extremity venous stasis changes, mild warmth, mild erythema, old scabs Psych:? Unable to assess Objective Data Vital Signs Vital Signs: Vital Signs - 24 hr 03/04/25 12:30 03/04/25 13:00 03/04/25 13:00 Temperature Pulse Rate 73 74 74 Respiratory Rate 18 25 H Blood Pressure 122/77 128/74 128/74 Pulse Oximetry 93 94 Oxygen Delivery Oxygen Flow Rate 03/04/25 14:00 03/04/25 14:00 03/04/25 14:00 Temperature Pulse Rate 60 73 73 Respiratory Rate 25 H Blood Pressure 127/82 127/82 Pulse Oximetry 94 Oxygen Delivery Oxygen Flow Rate 03/04/25 14:30 03/04/25 14:45 03/04/25 15:05 Temperature Pulse Rate 73 75 73 Respiratory Rate 17 Blood Pressure 130/93 H 135/86 135/86 Pulse Oximetry 96 Oxygen Delivery Oxygen Flow Rate 03/04/25 15:15 03/04/25 15:15 03/04/25 15:45 Temperature Pulse Rate 70 72 55 L Respiratory Rate 22 H 21 H Blood Pressure 125/81 125/81 110/74 Pulse Oximetry 92 93 Oxygen Delivery Oxygen Flow Rate 03/04/25 16:00 03/04/25 16:00 03/04/25 16:00 Temperature Pulse Rate 54 L 73 Respiratory Rate Blood Pressure 127/82 Pulse Oximetry 93 Oxygen Delivery Nasal Cannula Oxygen Flow Rate 1 03/04/25 16:00 03/04/25 16:30 03/04/25 17:36 Temperature 36.8 C Pulse Rate 55 L 70 55 L Respiratory Rate 17 Blood Pressure 110/68 113/74 123/82 Pulse Oximetry 92 Oxygen Delivery Oxygen Flow Rate 03/04/25 18:00 03/04/25 18:00 03/04/25 18:00 Temperature Pulse Rate 73 70 60 Respiratory Rate 18 Blood Pressure 120/77 120/77 Pulse Oximetry 95 Oxygen Delivery Oxygen Flow Rate 03/04/25 18:26 03/04/25 20:00 03/04/25 20:00 Temperature 36.9 C Pulse Rate 60 71 Respiratory Rate 23 H Blood Pressure 120/77 95/76 L Pulse Oximetry 99 98 Oxygen Delivery Room Air Oxygen Flow Rate 03/04/25 20:00 03/04/25 20:00 03/04/25 22:00 Temperature Pulse Rate 71 71 69 Respiratory Rate Blood Pressure 95/76 L 124/89 Pulse Oximetry Oxygen Delivery Oxygen Flow Rate 03/04/25 22:00 03/04/25 22:00 03/05/25 00:00 Temperature Pulse Rate 69 69 Respiratory Rate 19 Blood Pressure 124/89 Pulse Oximetry 91 95 Oxygen Delivery Nasal Cannula Oxygen Flow Rate 1 03/05/25 00:00 03/05/25 00:00 03/05/25 00:00 Temperature 36.7 C Pulse Rate 67 76 55 L Respiratory Rate 19 Blood Pressure 119/70 119/70 Pulse Oximetry 98 Oxygen Delivery Oxygen Flow Rate 03/05/25 02:00 03/05/25 02:00 03/05/25 02:00 Temperature Pulse Rate 60 60 70 Respiratory Rate 14 Blood Pressure 114/92 H 114/92 H Pulse Oximetry 100 Oxygen Delivery Oxygen Flow Rate 03/05/25 04:00 03/05/25 04:00 03/05/25 04:00 Temperature 36.8 C Pulse Rate 70 58 L Respiratory Rate 16 Blood Pressure 108/67 Pulse Oximetry 91 91 Oxygen Delivery Room Air Oxygen Flow Rate 03/05/25 04:00 03/05/25 06:00 03/05/25 06:00 Temperature Pulse Rate 70 82 82 Respiratory Rate 19 Blood Pressure 108/67 129/76 Pulse Oximetry 94 Oxygen Delivery Oxygen Flow Rate 03/05/25 06:00 03/05/25 08:00 Temperature 36.0 C L Pulse Rate 82 74 Respiratory Rate 23 H Blood Pressure 129/76 145/87 H Pulse Oximetry 91 Oxygen Delivery Oxygen Flow Rate Intake/Output Intake/Output: Intake & Output 03/02/25 03/03/25 03/04/25 03/05/25 23:59 23:59 23:59 23:59 Intake Total 1257.0 270.6 Output Total 300 425 Balance 957.0 -154.4 Meds/Results Medications: Active Medications Generic Name Dose Route Start Last Admin Trade Name Freq PRN Reason Stop Dose Admin Acetaminophen 650 mg 03/05/25 07:49 03/05/25 08:49 Acetaminophen 325 Mg Tablet PO 650 mg Q4H PRN Administration Headache, pain or fever Heparin Sodium (Porcine) 5,000 units 03/04/25 13:01 03/04/25 21:20 Heparin Sodium 5,000 Units/Ml Vial IV PUSH 5,000 units PRN PRN Administration aPTT less than 55 seconds Heparin Sodium (Porcine) 2,500 units 03/04/25 13:01 Heparin Sodium 5,000 Units/Ml Vial IV PUSH PRN PRN aPTT 55 - 70 seconds Heparin Sodium/Dextrose 25,000 units in 250 mls @ 14 mls/hr 03/04/25 13:05 03/05/25 08:48 Heparin Sodium/D5w 100 Units/Ml IV CONT 1,400 units/hr .[id number] JEREMY 14 mls/hr Administration Protocol 1,400 UNITS/HR Linezolid 600 mg in 300 mls @ 300 mls/hr 03/04/25 22:00 03/05/25 09:00 Zyvox IVPB 300 mls/hr Q12H JEREMY Administration Meropenem 1 gm in 100 mls @ 200 mls/hr 03/05/25 08:45 03/05/25 08:49 IVPB 200 mls/hr Q8HR JEREMY Administration Pantoprazole Sodium 40 mg 03/04/25 21:00 03/05/25 08:49 Pantoprazole Sodium Iv 40 Mg Vial IV PUSH 40 mg Q12HR JEREMY Administration Perflutren Lipid Microsphere 0 ml 03/04/25 12:30 Perflutren Lipid Microspheres 1.5 Ml Vial Diluted To 10 Ml Total Volume IV PUSH 03/07/25 12:30 ONCE PRN adequate visualization Protocol Sodium Chloride 10 ml 03/04/25 22:00 03/05/25 06:29 Central Line Flush IV PUSH 10 ml Q8HR JEREMY Administration Sodium Chloride 10 ml 03/04/25 14:03 Central Line Flush IV PUSH PRN PRN with TPN bag changes Sodium Chloride 20 ml 03/04/25 14:03 Central Line Flush IV PUSH PRN PRN after blood draws Radiology Results: ITS Impressions Abdomen Ultrasound 03/04/25 17:27 IMPRESSION: Cholelithiasis with gallbladder wall thickening suggesting cholecystitis. No pericholecystic fluid is identified. Fatty infiltration of the liver, with phasic flow in the portal vein suggesting portal hypertension. Chest X-Ray 03/05/25 06:51 IMPRESSION: 1. Unchanged moderate-sized right and small left pleural effusions with associated atelectasis and/or pneumonia in the lower lung zones. 2. Cardiomegaly. Labs Labs: Laboratory Results - last 24 hr 03/04/25 03/04/25 03/04/25 12:56 13:58 13:59 WBC 20.1 H RBC 3.68 L Hgb 9.9 L Hct 33.7 L MCV 91.6 MCH 26.9 MCHC 29.4 L RDW 15.4 H Plt Count 393 H MPV 9.6 Immature Gran % (Auto) Not Reportable Neut % (Auto) Not Reportable Lymph % (Auto) Not Reportable Guthrie % (Auto) Not Reportable Eos % (Auto) Not Reportable Baso % (Auto) Not Reportable Lymph # (Auto) Not Reportable Guthrie # (Auto) Not Reportable Eos # (Auto) Not Reportable Baso # (Auto) Not Reportable Abs Immat Gran (auto) Not Reportable Absolute Neuts (auto) Not Reportable Absolute Nucleated RBC Not Reportable Total Counted 100 Neutrophils % (Manual) 79 H Band Neutrophils % 2 Lymphocytes % (Manual) 14.0 L Monocytes % (Manual) 4 Eosinophils % (Manual) 1 Nucleated RBC % Not Reportable Abs Neuts (Manual) 16.28 H Abs Lymphs (Manual) 2.81 Abs Monocytes (Manual) 0.80 Absolute Eos (Manual) 0.20 Nucleated RBCs 2 Platelet Estimate Slightly increased Clumped Platelets Present Hypochromasia 1+ Anisocytosis 2+ Schistocytes None seen PT INR APTT Sodium Potassium Chloride Carbon Dioxide Anion Gap BUN Creatinine Estim Creat Clear Calc Estimated GFR Glucose Lactic Acid 1.7 Calcium Phosphorus Magnesium Total Bilirubin AST ALT Alkaline Phosphatase Ammonia Total Creatine Kinase Troponin I C-Reactive Protein NT-Pro-B Natriuret Pep Total Protein Albumin Lipase TSH Nasal MRSA (PCR) Not detected Hepatitis A IgM Ab Hep Bs Antigen Hep B Core IgM Ab Hepatitis C Ab Screen 03/04/25 03/04/25 03/04/25 14:05 16:29 16:32 WBC RBC Hgb Hct MCV MCH MCHC RDW Plt Count MPV Immature Gran % (Auto) Neut % (Auto) Lymph % (Auto) Guthrie % (Auto) Eos % (Auto) Baso % (Auto) Lymph # (Auto) Guthrie # (Auto) Eos # (Auto) Baso # (Auto) Abs Immat Gran (auto) Absolute Neuts (auto) Absolute Nucleated RBC Total Counted Neutrophils % (Manual) Band Neutrophils % Lymphocytes % (Manual) Monocytes % (Manual) Eosinophils % (Manual) Nucleated RBC % Abs Neuts (Manual) Abs Lymphs (Manual) Abs Monocytes (Manual) Absolute Eos (Manual) Nucleated RBCs Platelet Estimate Clumped Platelets Hypochromasia Anisocytosis Schistocytes PT 31.1 H INR 2.9 APTT 37.7 H Sodium 149 H Potassium 3.6 Chloride 118 H Carbon Dioxide 23 Anion Gap 8 BUN 45 H Creatinine 1.03 H Estim Creat Clear Calc 46 Estimated GFR 53 L Glucose 116 H Lactic Acid Calcium 8.3 L Phosphorus 3.4 Magnesium 2.6 H Total Bilirubin 0.6 AST 351 H ALT 336 H Alkaline Phosphatase 147 H Ammonia 15 Total Creatine Kinase 206 H Troponin I 0.110 H* 0.106 H* C-Reactive Protein 7.0 H NT-Pro-B Natriuret Pep 39315 H Total Protein 7.0 Albumin 2.8 L Lipase TSH Nasal MRSA (PCR) Hepatitis A IgM Ab Negative Hep Bs Antigen Negative Hep B Core IgM Ab Negative Hepatitis C Ab Screen Negative 03/04/25 03/05/25 20:23 06:15 WBC 15.2 H RBC 3.35 L Hgb 8.9 L Hct 30.6 L MCV 91.3 MCH 26.6 MCHC 29.1 L RDW 15.2 H Plt Count 312 MPV 9.6 Immature Gran % (Auto) 4.1 H Neut % (Auto) 74.4 H Lymph % (Auto) 13.3 L Guthrie % (Auto) 7.5 Eos % (Auto) 0.4 Baso % (Auto) 0.3 Lymph # (Auto) 2.02 Guthrie # (Auto) 1.1 H Eos # (Auto) 0.1 Baso # (Auto) 0.1 Abs Immat Gran (auto) 0.62 H Absolute Neuts (auto) 11.3 H Absolute Nucleated RBC 0.070 H Total Counted Neutrophils % (Manual) Band Neutrophils % Not Reportable Lymphocytes % (Manual) Monocytes % (Manual) Eosinophils % (Manual) Nucleated RBC % 0.5 H Abs Neuts (Manual) Abs Lymphs (Manual) Abs Monocytes (Manual) Absolute Eos (Manual) Nucleated RBCs Platelet Estimate Adequate Clumped Platelets Hypochromasia 1+ Anisocytosis 1+ Schistocytes None seen PT 25.9 H INR 2.3 APTT 54.2 H 127.3 H Sodium 148 H Potassium 3.4 Chloride 116 H Carbon Dioxide 24 Anion Gap 8 BUN 37 H Creatinine 0.84 Estim Creat Clear Calc 55 Estimated GFR > 60 Glucose 107 Lactic Acid 1.5 Calcium 8.7 Phosphorus 2.7 Magnesium 2.5 H Total Bilirubin 0.7 AST 135 H ALT 223 H Alkaline Phosphatase 125 Ammonia Total Creatine Kinase Troponin I 0.097 H* C-Reactive Protein NT-Pro-B Natriuret Pep Total Protein 7.0 Albumin 3.2 L Lipase 160 TSH 4.490 Nasal MRSA (PCR) Hepatitis A IgM Ab Hep Bs Antigen Hep B Core IgM Ab Hepatitis C Ab Screen Quality VTE Prophylaxis VTE prophylaxis: pharmacologic ordered
--- NOTE | 2025-03-05 10:29 | P.PNCA_ITS ---
Progress Note: A&P Assessment and Plan (1) Atrial fibrillation with rapid ventricular response: Code(s): I48.91 - Unspecified atrial fibrillation Status: Acute Plan 1. Paroxysmal atrial fibrillation with RVR. Now in sinus. 2. Septic shock 3. Cellulitis of lower extremity 4. Altered mental status 5. Acute kidney injury 6. Pleural effusion PLAN: -Has unknown allergy listed to Metoprolol. Will start PO Amiodarone. -Continue Heparin drip for anticoagulation. Can transition to NOAC once procedures are no longer anticipated. -Echo pending. Recommendations and plan discussed with ICU Physician. Subjective Date/time seen: 03/05/25 10:29 Interval history: Reason for visit: Atrial fibrillation with RVR HPI: 69-year-old woman with history of CVA no residing in [facility] with chronic lower extremity venous stasis ulcers/wounds and paroxysmal atrial fibrillation transferred from [facility] for management of septic shock. While at [facility], she had episode of hemodynamic instability from rapid ventricular rate from atrial fibrillation for which cardioversion was performed successfully. She is a poor historian and majority of her history obtained from chart review. Date of service 03/05: Converted to sinus rhythm, remains in sinus. Review of Systems Review of Systems: ROS unobtainable: Yes unobtainable due to mental status Exam Const: Other: Ill appearing female Resp: Effort & Inspection: normal respiratory effort Cardio: Rate: regular rate Rhythm: regular rhythm Heart sounds: no murmurs Objective Data Vital Signs Vital Signs: Vital Signs - 24 hr 03/04/25 12:30 03/04/25 13:00 03/04/25 13:00 Temperature Pulse Rate 73 74 74 Respiratory Rate 18 25 H Blood Pressure 122/77 128/74 128/74 Pulse Oximetry 93 94 Oxygen Delivery Oxygen Flow Rate 03/04/25 14:00 03/04/25 14:00 03/04/25 14:00 Temperature Pulse Rate 60 73 73 Respiratory Rate 25 H Blood Pressure 127/82 127/82 Pulse Oximetry 94 Oxygen Delivery Oxygen Flow Rate 03/04/25 14:30 03/04/25 14:45 03/04/25 15:05 Temperature Pulse Rate 73 75 73 Respiratory Rate 17 Blood Pressure 130/93 H 135/86 135/86 Pulse Oximetry 96 Oxygen Delivery Oxygen Flow Rate 03/04/25 15:15 03/04/25 15:15 03/04/25 15:45 Temperature Pulse Rate 70 72 55 L Respiratory Rate 22 H 21 H Blood Pressure 125/81 125/81 110/74 Pulse Oximetry 92 93 Oxygen Delivery Oxygen Flow Rate 03/04/25 16:00 03/04/25 16:00 03/04/25 16:00 Temperature Pulse Rate 54 L 73 Respiratory Rate Blood Pressure 127/82 Pulse Oximetry 93 Oxygen Delivery Nasal Cannula Oxygen Flow Rate 1 03/04/25 16:00 03/04/25 16:30 03/04/25 17:36 Temperature 36.8 C Pulse Rate 55 L 70 55 L Respiratory Rate 17 Blood Pressure 110/68 113/74 123/82 Pulse Oximetry 92 Oxygen Delivery Oxygen Flow Rate 03/04/25 18:00 03/04/25 18:00 03/04/25 18:00 Temperature Pulse Rate 73 70 60 Respiratory Rate 18 Blood Pressure 120/77 120/77 Pulse Oximetry 95 Oxygen Delivery Oxygen Flow Rate 03/04/25 18:26 03/04/25 20:00 03/04/25 20:00 Temperature 36.9 C Pulse Rate 60 71 Respiratory Rate 23 H Blood Pressure 120/77 95/76 L Pulse Oximetry 99 98 Oxygen Delivery Room Air Oxygen Flow Rate 03/04/25 20:00 03/04/25 20:00 03/04/25 22:00 Temperature Pulse Rate 71 71 69 Respiratory Rate Blood Pressure 95/76 L 124/89 Pulse Oximetry Oxygen Delivery Oxygen Flow Rate 03/04/25 22:00 03/04/25 22:00 03/05/25 00:00 Temperature Pulse Rate 69 69 Respiratory Rate 19 Blood Pressure 124/89 Pulse Oximetry 91 95 Oxygen Delivery Nasal Cannula Oxygen Flow Rate 1 03/05/25 00:00 03/05/25 00:00 03/05/25 00:00 Temperature 36.7 C Pulse Rate 67 76 55 L Respiratory Rate 19 Blood Pressure 119/70 119/70 Pulse Oximetry 98 Oxygen Delivery Oxygen Flow Rate 03/05/25 02:00 03/05/25 02:00 03/05/25 02:00 Temperature Pulse Rate 60 60 70 Respiratory Rate 14 Blood Pressure 114/92 H 114/92 H Pulse Oximetry 100 Oxygen Delivery Oxygen Flow Rate 03/05/25 04:00 03/05/25 04:00 03/05/25 04:00 Temperature 36.8 C Pulse Rate 70 58 L Respiratory Rate 16 Blood Pressure 108/67 Pulse Oximetry 91 91 Oxygen Delivery Room Air Oxygen Flow Rate 03/05/25 04:00 03/05/25 06:00 03/05/25 06:00 Temperature Pulse Rate 70 82 82 Respiratory Rate 19 Blood Pressure 108/67 129/76 Pulse Oximetry 94 Oxygen Delivery Oxygen Flow Rate 03/05/25 06:00 03/05/25 08:00 03/05/25 10:00 Temperature 36.0 C L 36.4 C L Pulse Rate 82 74 58 L Respiratory Rate 23 H 22 H Blood Pressure 129/76 145/87 H 140/64 Pulse Oximetry 91 96 Oxygen Delivery Oxygen Flow Rate Intake/Output Intake/Output: Intake & Output 03/02/25 03/03/25 03/04/25 03/05/25 23:59 23:59 23:59 23:59 Intake Total 1257.0 270.6 Output Total 300 425 Balance 957.0 -154.4 Meds/Results Medications: Active Medications Generic Name Dose Route Start Last Admin Trade Name Freq PRN Reason Stop Dose Admin Acetaminophen 650 mg 03/05/25 07:49 03/05/25 08:49 Acetaminophen 325 Mg Tablet PO 650 mg Q4H PRN Administration Headache, pain or fever Amiodarone HCl 400 mg 03/05/25 10:15 Amiodarone Hcl 200 Mg Tablet PO DAILY@0800 [facility] Heparin Sodium (Porcine) 5,000 units 03/04/25 13:01 03/04/25 21:20 Heparin Sodium 5,000 Units/Ml Vial IV PUSH 5,000 units PRN PRN Administration aPTT less than 55 seconds Heparin Sodium (Porcine) 2,500 units 03/04/25 13:01 Heparin Sodium 5,000 Units/Ml Vial IV PUSH PRN PRN aPTT 55 - 70 seconds Heparin Sodium/Dextrose 25,000 units in 250 mls @ 14 mls/hr 03/04/25 13:05 03/05/25 08:48 Heparin Sodium/D5w 100 Units/Ml IV CONT 1,400 units/hr .[id number] JEREMY 14 mls/hr Administration Protocol 1,400 UNITS/HR Linezolid 600 mg in 300 mls @ 300 mls/hr 03/04/25 22:00 03/05/25 09:00 Zyvox IVPB 300 mls/hr Q12H JEREMY Administration Meropenem 1 gm in 100 mls @ 200 mls/hr 03/05/25 08:45 03/05/25 08:49 IVPB 200 mls/hr Q8HR JEREMY Administration Pantoprazole Sodium 40 mg 03/04/25 21:00 03/05/25 08:49 Pantoprazole Sodium Iv 40 Mg Vial IV PUSH 40 mg Q12HR JEREMY Administration Perflutren Lipid Microsphere 0 ml 03/04/25 12:30 Perflutren Lipid Microspheres 1.5 Ml Vial Diluted To 10 Ml Total Volume IV PUSH 03/07/25 12:30 ONCE PRN adequate visualization Protocol Sodium Chloride 10 ml 03/04/25 22:00 03/05/25 06:29 Central Line Flush IV PUSH 10 ml Q8HR JEREMY Administration Sodium Chloride 10 ml 03/04/25 14:03 Central Line Flush IV PUSH PRN PRN with TPN bag changes Sodium Chloride 20 ml 03/04/25 14:03 Central Line Flush IV PUSH PRN PRN after blood draws Radiology Results: ITS Impressions Abdomen Ultrasound 03/04/25 17:27 IMPRESSION: Cholelithiasis with gallbladder wall thickening suggesting cholecystitis. No pericholecystic fluid is identified. Fatty infiltration of the liver, with phasic flow in the portal vein suggesting portal hypertension. Chest X-Ray 03/05/25 06:51 IMPRESSION: 1. Unchanged moderate-sized right and small left pleural effusions with associated atelectasis and/or pneumonia in the lower lung zones. 2. Cardiomegaly. Labs Labs: Laboratory Results - last 24 hr 03/04/25 03/04/25 03/04/25 12:56 13:58 13:59 WBC 20.1 H RBC 3.68 L Hgb 9.9 L Hct 33.7 L MCV 91.6 MCH 26.9 MCHC 29.4 L RDW 15.4 H Plt Count 393 H MPV 9.6 Immature Gran % (Auto) Not Reportable Neut % (Auto) Not Reportable Lymph % (Auto) Not Reportable [place] % (Auto) Not Reportable Eos % (Auto) Not Reportable Baso % (Auto) Not Reportable Lymph # (Auto) Not Reportable [place] # (Auto) Not Reportable Eos # (Auto) Not Reportable Baso # (Auto) Not Reportable Abs Immat Gran (auto) Not Reportable Absolute Neuts (auto) Not Reportable Absolute Nucleated RBC Not Reportable Total Counted 100 Neutrophils % (Manual) 79 H Band Neutrophils % 2 Lymphocytes % (Manual) 14.0 L Monocytes % (Manual) 4 Eosinophils % (Manual) 1 Nucleated RBC % Not Reportable Abs Neuts (Manual) 16.28 H Abs Lymphs (Manual) 2.81 Abs Monocytes (Manual) 0.80 Absolute Eos (Manual) 0.20 Nucleated RBCs 2 Platelet Estimate Slightly increased Clumped Platelets Present Hypochromasia 1+ Anisocytosis 2+ Schistocytes None seen PT INR APTT Sodium Potassium Chloride Carbon Dioxide Anion Gap BUN Creatinine Estim Creat Clear Calc Estimated GFR Glucose Lactic Acid 1.7 Calcium Phosphorus Magnesium Total Bilirubin AST ALT Alkaline Phosphatase Ammonia Total Creatine Kinase Troponin I C-Reactive Protein NT-Pro-B Natriuret Pep Total Protein Albumin Lipase TSH Nasal MRSA (PCR) Not detected Hepatitis A IgM Ab Hep Bs Antigen Hep B Core IgM Ab Hepatitis C Ab Screen 03/04/25 03/04/25 03/04/25 14:05 16:29 16:32 WBC RBC Hgb Hct MCV MCH MCHC RDW Plt Count MPV Immature Gran % (Auto) Neut % (Auto) Lymph % (Auto) B[place] % (Auto) Eos % (Auto) Baso % (Auto) Lymph # (Auto) B[place] # (Auto) Eos # (Auto) Baso # (Auto) Abs Immat Gran (auto) Absolute Neuts (auto) Absolute Nucleated RBC Total Counted Neutrophils % (Manual) Band Neutrophils % Lymphocytes % (Manual) Monocytes % (Manual) Eosinophils % (Manual) Nucleated RBC % Abs Neuts (Manual) Abs Lymphs (Manual) Abs Monocytes (Manual) Absolute Eos (Manual) Nucleated RBCs Platelet Estimate Clumped Platelets Hypochromasia Anisocytosis Schistocytes PT 31.1 H INR 2.9 APTT 37.7 H Sodium 149 H Potassium 3.6 Chloride 118 H Carbon Dioxide 23 Anion Gap 8 BUN 45 H Creatinine 1.03 H Estim Creat Clear Calc 46 Estimated GFR 53 L Glucose 116 H Lactic Acid Calcium 8.3 L Phosphorus 3.4 Magnesium 2.6 H Total Bilirubin 0.6 AST 351 H ALT 336 H Alkaline Phosphatase 147 H Ammonia 15 Total Creatine Kinase 206 H Troponin I 0.110 H* 0.106 H* C-Reactive Protein 7.0 H NT-Pro-B Natriuret Pep 94443 H Total Protein 7.0 Albumin 2.8 L Lipase TSH Nasal MRSA (PCR) Hepatitis A IgM Ab Negative Hep Bs Antigen Negative Hep B Core IgM Ab Negative Hepatitis C Ab Screen Negative 03/04/25 03/05/25 20:23 06:15 WBC 15.2 H RBC 3.35 L Hgb 8.9 L Hct 30.6 L MCV 91.3 MCH 26.6 MCHC 29.1 L RDW 15.2 H Plt Count 312 MPV 9.6 Immature Gran % (Auto) 4.1 H Neut % (Auto) 74.4 H Lymph % (Auto) 13.3 L B[place] % (Auto) 7.5 Eos % (Auto) 0.4 Baso % (Auto) 0.3 Lymph # (Auto) 2.02 B[place] # (Auto) 1.1 H Eos # (Auto) 0.1 Baso # (Auto) 0.1 Abs Immat Gran (auto) 0.62 H Absolute Neuts (auto) 11.3 H Absolute Nucleated RBC 0.070 H Total Counted Neutrophils % (Manual) Band Neutrophils % Not Reportable Lymphocytes % (Manual) Monocytes % (Manual) Eosinophils % (Manual) Nucleated RBC % 0.5 H Abs Neuts (Manual) Abs Lymphs (Manual) Abs Monocytes (Manual) Absolute Eos (Manual) Nucleated RBCs Platelet Estimate Adequate Clumped Platelets Hypochromasia 1+ Anisocytosis 1+ Schistocytes None seen PT 25.9 H INR 2.3 APTT 54.2 H 127.3 H Sodium 148 H Potassium 3.4 Chloride 116 H Carbon Dioxide 24 Anion Gap 8 BUN 37 H Creatinine 0.84 Estim Creat Clear Calc 55 Estimated GFR > 60 Glucose 107 Lactic Acid 1.5 Calcium 8.7 Phosphorus 2.7 Magnesium 2.5 H Total Bilirubin 0.7 AST 135 H ALT 223 H Alkaline Phosphatase 125 Ammonia Total Creatine Kinase Troponin I 0.097 H* C-Reactive Protein NT-Pro-B Natriuret Pep Total Protein 7.0 Albumin 3.2 L Lipase 160 TSH 4.490 Nasal MRSA (PCR) Hepatitis A IgM Ab Hep Bs Antigen Hep B Core IgM Ab Hepatitis C Ab Screen
[2025-03-05] MEDS: AMIODARONE HCL 200 MG TABLET 400 MG PO (12:37)
--- NOTE | 2025-03-05 13:06 | P.CONGS_ITS ---
Assessment and Plan Assessment and plan (1) Cholelithiasis with cholecystitis: Code(s): K80.10 - Calculus of gallbladder with chronic cholecystitis without obstruction Status: Acute Assessment and Plan: This is the reason for our consultation. Patient was transferred to [facility] from [place] yesterday due to hypotension and hemodynamic instability after going into Afib with RVR. CT scan of the abdomen/pelvis showed a normal gallbladder. RUQ US ordered due to elevated liver enzymes and showed cholelithiasis with gallbladder wall thickening suggesting cholecystitis. She is not having any abdominal pain at this time and has diffuse mild tenderness on exam. She has multiple other potential sources for her septic shock and is being treated with appropriate broad-spectrum IV antibiotics. We will order a HIDA scan to further evaluate the gallbladder. If this shows cystic duct occlusion, then we could consider percutaneous cholecystostomy tube placement in IR when her INR comes down. If the cystic duct is patent, then we would not recommend any further intervention with the gallbladder at this time while she has the below mentioned acute issues. Thank you for allowing us to see the patient in consultation and we will continue to follow along with you. (2) Sepsis without septic shock: Code(s): A41.9 - Sepsis, unspecified organism Status: Acute Assessment and Plan: Source could be related to UTI vs cellulitis vs possible pneumonia vs bacteremia vs multifactorial. Will order HIDA scan to evaluate for acute cholecystitis. Continue broad-spectrum IV antibiotics. She has been weaned off of vasopressors. Continue medical management. (3) Acute UTI: Code(s): N39.0 - Urinary tract infection, site not specified Status: Acute (4) Elevated liver enzymes: Code(s): R74.8 - Abnormal levels of other serum enzymes Status: Acute Assessment and Plan: Could be related to sepsis, cholecystitis, multifactorial, or other etiologies. Trend labs. See plan above. (5) Atrial fibrillation with rapid ventricular response: Code(s): I48.91 - Unspecified atrial fibrillation Status: Acute Assessment and Plan: Patient went into atrial fibrillation with RVR yesterday at [place] with hypotension and hemodynamic instability, prompting transfer to ICU here at [place]. She was cardioverted by the ED physician at [place]. She is now in sinus rhythm. (6) Bacteremia: Code(s): R78.81 - Bacteremia Status: Acute Assessment and Plan: Blood cultures on 02/26/2025 positive for group G Streptococcus. Repeat blood cultures on 03/01 and yesterday showing no growth to date. (7) Pleural effusion: Code(s): J90 - Pleural effusion, not elsewhere classified Status: Acute Assessment and Plan: Thoracentesis has been ordered, but Radiology is awaiting INR to come down. (8) Anticoagulated by anticoagulation treatment: Code(s): Z79.01 - terminal worker (current) use of anticoagulants Status: Acute Assessment and Plan: Eliquis held on her initial admission and she is currently anticoagulated on a heparin infusion. INR is 2.3 today. (9) Fatty liver: Code(s): K76.0 - Fatty (change of) liver, not elsewhere classified Status: Acute Plan I have discussed the patient's case and plan of care with Dr. Gaming. History of Present Illness Consult details Consult date: 03/05/25 Reason for consult: other (Cholecystitis) Requesting physician: Julito Chambers MD Narrative: This is a 69-year-old patient with history of CVA, chronic venous stasis, scoliosis, and paroxysmal atrial fibrillation on Eliquis, who was transferred from [facility] yesterday with septic shock, afib with RVR s/p cardioversion on 03/04. She initially presented to [place] ED on 02/26/25 from the skilled nursing for evaluation of generalized weakness. She had been treated for sepsis, lower extremity cellulitis, UTI, DANIEL, and Group G strep bacteremia. She was hypotensive yesterday and transferred to the ICU at [facility] for further management. CT chest, abdomen and pelvis without contrast showed moderate sized right and small left pleural effusion with right lower lobe collapse, partial right middle lobe collapse dependent atelectasis in the left lower lobe, air-fluid levels throughout the colon consistent with nonspecific diarrhea, nonobstructing 2 mm left renal stone, and other chronic findings. Patient has been on linezolid for cellulitis and meropenem for ESBL E coli UTI. At [place], her AST and ALT were mildly elevated. LFTs went up yesterday and prompted a RUQ abdominal ultrasound, which showed cholelithiasis with gallbladder wall thickening, and fatty infiltration of the liver with phasic flow in the portal vein suggesting portal hypertension. Our service was consulted for cholecystitis. She is seen in the ICU. No family at the bedside. She is confused and frequently contradicts herself during our conversation. She is a poor historian, but is alert and answers my questions. She denies any abdominal pain, nausea, or vomiting. She is currently NPO as she failed a bedside swallow study. Modified barium swallow study has been ordered. Review of Systems 2 Review of Systems: ROS unobtainable: Yes unobtainable due to mental status (confusion) PMFSH Past Medical History Medical History GERD (gastroesophageal reflux disease) Scoliosis Venous stasis CVA (cerebral vascular accident) Afib Social History Social History Smoking status: Never smoker Alcohol intake: never Substance use: never Substance use type: does not use Do You Feel Safe in your Home?: Yes Lack of Transportation: No Lack of Food: Never True Current Housing: I Have Housing Concerned About Future Housing: No Difficulty Paying Gas/Electric Bills: No Difficulty Paying for Meds: No Currently Unemployed: No Education: Decline to Answer Difficulty w/ Childcare or Family Care: No Spiritual care concerns: No Meds Home Medications and Allergies Home Medications ?Medication ?Instructions ?Recorded ?Confirmed ?Type acetazolamide 250 mg tablet 250 mg PO QAM 02/26/25 03/04/25 History apixaban 5 mg tablet (Eliquis) 5 mg PO Q12H 02/26/25 03/04/25 History carvedilol 3.125 mg tablet 3.125 mg PO Q12H 02/26/25 03/04/25 History furosemide 40 mg tablet 40 mg PO QAM 02/26/25 03/04/25 History pantoprazole 40 mg tablet,delayed 40 mg PO DAILY 03/04/25 03/04/25 History release potassium chloride 20 mEq 40 meq PO DAILY 03/04/25 03/04/25 History tablet,extended release(part/cryst) Allergies Allergy/AdvReac Type Severity Reaction Status Date / Time adhesive tape Allergy Mild Unknown Verified 03/04/25 13:45 amoxicillin (From Augmentin) Allergy Mild Unknown Verified 03/04/25 13:45 aspirin Allergy Mild Unknown Verified 03/04/25 13:45 azithromycin (From Zithromax) Allergy Mild Unknown Verified 03/04/25 13:45 bacitracin Allergy Mild Unknown Verified 03/04/25 13:45 cefaclor Allergy Mild Unknown Verified 03/04/25 13:45 cetirizine (From Zyrtec) Allergy Mild Unknown Verified 03/04/25 13:45 ciprofloxacin (From Cipro) Allergy Mild Unknown Verified 03/04/25 13:45 citalopram Allergy Mild Unknown Verified 03/04/25 13:45 clavulanic acid (From Allergy Mild Unknown Verified 03/04/25 13:45 Augmentin) clindamycin Allergy Mild Unknown Verified 03/04/25 13:45 codeine Allergy Mild Unknown Verified 03/04/25 13:45 diphtheria,pertussis Allergy Mild Unknown Verified 03/04/25 13:45 (acellular),te (From Adacel(Tdap Adolesn/Adult)(PF)) erythromycin base Allergy Mild Unknown Verified 03/04/25 13:45 ethinyl estradiol Allergy Mild Unknown Verified 03/04/25 13:45 fexofenadine (From Henrietta) Allergy Mild Unknown Verified 03/04/25 13:45 guaifenesin (From Dilaudid Allergy Mild Unknown Verified 03/04/25 13:45 Cough) hydromorphone Allergy Mild Unknown Verified 03/04/25 13:45 hydroxyzine Allergy Mild Unknown Verified 03/04/25 13:45 lactase Allergy Mild Unknown Verified 03/04/25 13:45 latex Allergy Mild Unknown Verified 03/04/25 13:45 lisinopril Allergy Mild Unknown Verified 03/04/25 13:45 loracarbef Allergy Mild Unknown Verified 03/04/25 13:45 meclizine Allergy Mild Unknown Verified 03/04/25 13:45 metoprolol Allergy Mild Unknown Verified 03/04/25 13:45 mold Allergy Mild Unknown Verified 03/04/25 13:45 morphine Allergy Mild Unknown Verified 03/04/25 13:45 neomycin (From Neosporin Allergy Mild Unknown Verified 03/04/25 13:45 ([id number])) nizatidine Allergy Mild Unknown Verified 03/04/25 13:45 norethindrone Allergy Mild Unknown Verified 03/04/25 13:45 ofloxacin (From Floxin) Allergy Mild Unknown Verified 03/04/25 13:45 oxycodone Allergy Mild Unknown Verified 03/04/25 13:45 Penicillins Allergy Mild Unknown Verified 03/04/25 13:45 polymyxin B (From Neosporin Allergy Mild Unknown Verified 03/04/25 13:45 ([id number])) prednisolone Allergy Mild Unknown Verified 03/04/25 13:45 silicone Allergy Mild Unknown Verified 03/04/25 13:45 Sulfa (Sulfonamide Allergy Mild Unknown Verified 03/04/25 13:45 Antibiotics) tetanus toxoid, adsorbed Allergy Mild Unknown Verified 03/04/25 13:45 zolpidem Allergy Mild Unknown Verified 03/04/25 13:45 mayonnaise Allergy Unknown Unknown Verified 03/04/25 13:45 wheat Allergy Unknown Unknown Verified 03/04/25 13:45 eggs Allergy Unknown Unknown Uncoded 03/04/25 13:45 Vital Signs Vital Signs - 24 hr 03/04/25 14:00 03/04/25 14:00 03/04/25 14:00 Temperature Pulse Rate 60 73 73 Respiratory Rate 25 H Blood Pressure 127/82 127/82 Pulse Oximetry 94 Oxygen Delivery Oxygen Flow Rate 03/04/25 14:30 03/04/25 14:45 03/04/25 15:05 Temperature Pulse Rate 73 75 73 Respiratory Rate 17 Blood Pressure 130/93 H 135/86 135/86 Pulse Oximetry 96 Oxygen Delivery Oxygen Flow Rate 03/04/25 15:15 03/04/25 15:15 03/04/25 15:45 Temperature Pulse Rate 70 72 55 L Respiratory Rate 22 H 21 H Blood Pressure 125/81 125/81 110/74 Pulse Oximetry 92 93 Oxygen Delivery Oxygen Flow Rate 03/04/25 16:00 03/04/25 16:00 03/04/25 16:00 Temperature Pulse Rate 54 L 73 Respiratory Rate Blood Pressure 127/82 Pulse Oximetry 93 Oxygen Delivery Nasal Cannula Oxygen Flow Rate 1 03/04/25 16:00 03/04/25 16:30 03/04/25 17:36 Temperature 98.3 F Pulse Rate 55 L 70 55 L Respiratory Rate 17 Blood Pressure 110/68 113/74 123/82 Pulse Oximetry 92 Oxygen Delivery Oxygen Flow Rate 03/04/25 18:00 03/04/25 18:00 03/04/25 18:00 Temperature Pulse Rate 73 70 60 Respiratory Rate 18 Blood Pressure 120/77 120/77 Pulse Oximetry 95 Oxygen Delivery Oxygen Flow Rate 03/04/25 18:26 03/04/25 20:00 03/04/25 20:00 Temperature 98.5 F Pulse Rate 60 71 Respiratory Rate 23 H Blood Pressure 120/77 95/76 L Pulse Oximetry 99 98 Oxygen Delivery Room Air Oxygen Flow Rate 03/04/25 20:00 03/04/25 20:00 03/04/25 22:00 Temperature Pulse Rate 71 71 69 Respiratory Rate Blood Pressure 95/76 L 124/89 Pulse Oximetry Oxygen Delivery Oxygen Flow Rate 03/04/25 22:00 03/04/25 22:00 03/05/25 00:00 Temperature Pulse Rate 69 69 Respiratory Rate 19 Blood Pressure 124/89 Pulse Oximetry 91 95 Oxygen Delivery Nasal Cannula Oxygen Flow Rate 1 03/05/25 00:00 03/05/25 00:00 03/05/25 00:00 Temperature 98.0 F Pulse Rate 67 76 55 L Respiratory Rate 19 Blood Pressure 119/70 119/70 Pulse Oximetry 98 Oxygen Delivery Oxygen Flow Rate 03/05/25 02:00 03/05/25 02:00 03/05/25 02:00 Temperature Pulse Rate 60 60 70 Respiratory Rate 14 Blood Pressure 114/92 H 114/92 H Pulse Oximetry 100 Oxygen Delivery Oxygen Flow Rate 03/05/25 04:00 03/05/25 04:00 03/05/25 04:00 Temperature 98.3 F Pulse Rate 70 58 L Respiratory Rate 16 Blood Pressure 108/67 Pulse Oximetry 91 91 Oxygen Delivery Room Air Oxygen Flow Rate 03/05/25 04:00 03/05/25 06:00 03/05/25 06:00 Temperature Pulse Rate 70 82 82 Respiratory Rate 19 Blood Pressure 108/67 129/76 Pulse Oximetry 94 Oxygen Delivery Oxygen Flow Rate 03/05/25 06:00 03/05/25 08:00 03/05/25 08:00 Temperature 96.8 F L Pulse Rate 82 74 Respiratory Rate 23 H Blood Pressure 129/76 145/87 H Pulse Oximetry 91 96 Oxygen Delivery Room Air Oxygen Flow Rate 03/05/25 08:00 03/05/25 10:00 03/05/25 10:00 Temperature 97.5 F L Pulse Rate 87 58 L 58 L Respiratory Rate 22 H Blood Pressure 140/64 Pulse Oximetry 96 Oxygen Delivery Oxygen Flow Rate 03/05/25 12:00 03/05/25 12:37 Temperature 97.6 F Pulse Rate 56 L 75 Respiratory Rate 18 Blood Pressure 117/63 Pulse Oximetry 95 Oxygen Delivery Oxygen Flow Rate Exam 2 Const: General: no acute distress and ill appearing Nutritional Appearance: average body habitus Orientation/consciousness: confusion HENMT: Head: normocephalic and atraumatic Ears: hearing grossly normal bilaterally Mouth: Yes moist mucous membranes Eyes: General: appearance normal, both eyes and all related structures P upils: Equal, round and reactive pupils present Neck: Neck: normal visual inspection and full ROM Resp: Effort & Inspection: no respiratory distress Auscultation: diminished lung sounds on the left Cardio: Rate: regular rate Rhythm: regular rhythm GI: Inspection: non-distended and no scars GI Palp: Yes Soft to palpation, Yes Tenderness to palpation present (GI) (mild diffuse tenderness), No Guarding due to palpation present (GI), Yes Hepatomegaly present, Yes Hernia present (small umbilical hernia, nontender) and No Rebound tenderness present A uscultation: normal bowel sounds Rectal Exam: deferred Urinary Catheter: Urinary Catheter: patent and draining and urine clear Skin: General skin exam: normal color Neuro: General: moves all extremities and no focal motor deficits Speech: n ormal speech Extrem: Other: Bilateral lower extremity chronic venous stasis skin changes with dry scaly skin and small superficial scabs diffusely bilaterally, but no open wounds. Mild erythema of the left lower leg, no swelling. Psych: Attitude: cooperative Insight: Limited insight present (Psych) J udgement: Limited judgement present (Psych) Results Labs 03/05/25 06:15 03/05/25 06:15 Labs: Abnormal lab results 03/04/25 03/04/25 03/04/25 Range/Units 13:59 14:05 16:32 WBC 20.1 H (4.5-10.0) K/mm3 RBC 3.68 L (4.2-5.4) M/mm3 Hgb 9.9 L (12.0-15.0) g/dL Hct 33.7 L (37.0-47.0) % MCHC 29.4 L (32-36) g/dl RDW 15.4 H (11.5-14.5) % Plt Count 393 H (150-375) k/mm3 Immature Gran % (Auto) (0-0.5) % Neut % (Auto) (45.5-73.1) % Lymph % (Auto) (18.3-44.2) % Jasper # (Auto) (0.1-0.6) K/mm3 Abs Immat Gran (auto) (0.00-0.031) K/mm3 Absolute Neuts (auto) (1.3-6.7) K/mm3 Absolute Nucleated RBC (0.0-0.012) K/mm3 Neutrophils % (Manual) 79 H (46-73) % Lymphocytes % (Manual) 14.0 L (18-44) % Nucleated RBC % (0.0-0.2) % Abs Neuts (Manual) 16.28 H (1.7-7.2) K/mm3 PT 31.1 H (11.1-14.7) Seconds APTT 37.7 H (22.3-36.8) Seconds Sodium 149 H (137-145) mmol/L Chloride 118 H (98-107) mmol/L BUN 45 H (7-17) mg/dL Creatinine 1.03 H (0.7-1.0) mg/dL Estimated GFR 53 L (59 - ) Glucose 116 H (65-110) mg/dL Calcium 8.3 L (8.4-10.2) mg/dL Magnesium 2.6 H (1.6-2.3) mg/dL AST 351 H (14-36) U/L ALT 336 H (6-35) U/L Alkaline Phosphatase 147 H (38-126) U/L Total Creatine Kinase 206 H (30-135) U/L Troponin I 0.110 H* 0.106 H* (0.000-0.034) ng/mL C-Reactive Protein 7.0 H (<1.0) mg/dL NT-Pro-B Natriuret Pep 07236 H (19.9-100) pg/mL Albumin 2.8 L (3.5-5.1) g/dL 03/04/25 03/05/25 Range/Units 20:23 06:15 WBC 15.2 H (4.5-10.0) K/mm3 RBC 3.35 L (4.2-5.4) M/mm3 Hgb 8.9 L (12.0-15.0) g/dL Hct 30.6 L (37.0-47.0) % MCHC 29.1 L (32-36) g/dl RDW 15.2 H (11.5-14.5) % Plt Count (150-375) k/mm3 Immature Gran % (Auto) 4.1 H (0-0.5) % Neut % (Auto) 74.4 H (45.5-73.1) % Lymph % (Auto) 13.3 L (18.3-44.2) % [place] # (Auto) 1.1 H (0.1-0.6) K/mm3 Abs Immat Gran (auto) 0.62 H (0.00-0.031) K/mm3 Absolute Neuts (auto) 11.3 H (1.3-6.7) K/mm3 Absolute Nucleated RBC 0.070 H (0.0-0.012) K/mm3 Neutrophils % (Manual) (46-73) % Lymphocytes % (Manual) (18-44) % Nucleated RBC % 0.5 H (0.0-0.2) % Abs Neuts (Manual) (1.7-7.2) K/mm3 PT 25.9 H (11.1-14.7) Seconds APTT 54.2 H 127.3 H (22.3-36.8) Seconds Sodium 148 H (137-145) mmol/L Chloride 116 H (98-107) mmol/L BUN 37 H (7-17) mg/dL Creatinine (0.7-1.0) mg/dL Estimated GFR (59 - ) Glucose (65-110) mg/dL Calcium (8.4-10.2) mg/dL Magnesium 2.5 H (1.6-2.3) mg/dL AST 135 H (14-36) U/L ALT 223 H (6-35) U/L Alkaline Phosphatase (38-126) U/L Total Creatine Kinase (30-135) U/L Troponin I 0.097 H* (0.000-0.034) ng/mL C-Reactive Protein (<1.0) mg/dL NT-Pro-B Natriuret Pep (19.9-100) pg/mL Albumin 3.2 L (3.5-5.1) g/dL Diabetes panel 03/04/25 03/05/25 Range/Units 14:05 06:15 Sodium 149 H 148 H (137-145) mmol/L Potassium 3.6 3.4 (3.4-5.0) mmol/L Chloride 118 H 116 H (98-107) mmol/L Carbon Dioxide 23 24 (22-30) mmol/L BUN 45 H 37 H (7-17) mg/dL Creatinine 1.03 H 0.84 (0.7-1.0) mg/dL Glucose 116 H 107 (65-110) mg/dL Calcium 8.3 L 8.7 (8.4-10.2) mg/dL AST 351 H 135 H (14-36) U/L ALT 336 H 223 H (6-35) U/L Alkaline Phosphatase 147 H 125 (38-126) U/L Total Protein 7.0 7.0 (6.3-8.2) g/dL Albumin 2.8 L 3.2 L (3.5-5.1) g/dL Thyroid panel 03/05/25 Range/Units 06:15 TSH 4.490 (0.465-4.680) uIU/mL Calcium panel 03/04/25 03/05/25 Range/Units 14:05 06:15 Calcium 8.3 L 8.7 (8.4-10.2) mg/dL Phosphorus 3.4 2.7 (2.5-4.5) mg/dL Albumin 2.8 L 3.2 L (3.5-5.1) g/dL Pituitary panel 03/04/25 03/05/25 Range/Units 14:05 06:15 Sodium 149 H 148 H (137-145) mmol/L Potassium 3.6 3.4 (3.4-5.0) mmol/L Chloride 118 H 116 H (98-107) mmol/L Carbon Dioxide 23 24 (22-30) mmol/L BUN 45 H 37 H (7-17) mg/dL Creatinine 1.03 H 0.84 (0.7-1.0) mg/dL Glucose 116 H 107 (65-110) mg/dL Calcium 8.3 L 8.7 (8.4-10.2) mg/dL TSH 4.490 (0.465-4.680) uIU/mL Adrenal panel 03/04/25 03/05/25 Range/Units 14:05 06:15 Sodium 149 H 148 H (137-145) mmol/L Potassium 3.6 3.4 (3.4-5.0) mmol/L Chloride 118 H 116 H (98-107) mmol/L Carbon Dioxide 23 24 (22-30) mmol/L BUN 45 H 37 H (7-17) mg/dL Creatinine 1.03 H 0.84 (0.7-1.0) mg/dL Glucose 116 H 107 (65-110) mg/dL Calcium 8.3 L 8.7 (8.4-10.2) mg/dL Total Bilirubin 0.6 0.7 (0.2-1.3) mg/dL AST 351 H 135 H (14-36) U/L ALT 336 H 223 H (6-35) U/L Alkaline Phosphatase 147 H 125 (38-126) U/L Total Protein 7.0 7.0 (6.3-8.2) g/dL Albumin 2.8 L 3.2 L (3.5-5.1) g/dL All other labs normal. Imaging Additional studies: ITS Impressions Chest X-Ray 03/04/25 12:52 IMPRESSION: Persistent cardiomegaly with a large right-sided pleural effusion. Left apex is unchanged in appearance when compared with multiple prior studies, however, CT examination is without pneumothorax, as detailed above. Abdomen Ultrasound 03/04/25 17:27 IMPRESSION: Cholelithiasis with gallbladder wall thickening suggesting cholecystitis. No pericholecystic fluid is identified. Fatty infiltration of the liver, with phasic flow in the portal vein suggesting portal hypertension. Chest X-Ray 03/05/25 06:51 IMPRESSION: 1. Unchanged moderate-sized right and small left pleural effusions with associated atelectasis and/or pneumonia in the lower lung zones. 2. Cardiomegaly.
--- NOTE | 2025-03-05 13:10 | P.PNIM_ITS ---
Progress Note: A&P Assessment and Plan (1) Septic shock: Code(s): A41.9 - Sepsis, unspecified organism; R65.21 - Severe sepsis with septic shock Status: Acute Assessment and Plan: Septic shock most likely related to UTI, cellulitis, possible pneumonia, bacteremia, AFib RVR, pleural effusion -03/04: patient was transferred from [facility] in [facility] for septic shock, hypotension AFib RVR status post cardioversion at the outside hospital with return to sinus rhythm -dry oral mucosa, will give 500 mL IV fluid bolus -albumin for intravascular volume expansion -02/26 urine cultures: ESBL E coli -02/26 blood cultures: Group G Streptococcus -03/01 repeat blood cultures were negative x2 -03/04 repeat blood cultures pending -continue linezolid and meropenem. Will discuss with Infectious Disease pharmacist and plan to discontinue linezolid Off all vasopressors -03/04: PICC line inserted 03/04/[address] chest, abdomen and pelvis IMPRESSION: 1. Moderate-sized right and small left pleural effusions with right lower lobe collapse, partial right middle lobe collapse and dependent atelectasis in the left lower lobe. 2. Cardiomegaly. 3. Air-fluid levels throughout the colon consistent with nonspecific diarrhea. 4. Severe thoracic and lumbar scoliosis with severe spondylosis. 5. Advanced osteoarthritis at the right hip and bilateral acromioclavicular joints. 6. Fibroid uterus. 7. Nonobstructing 2 mm left renal stone. (2) Cellulitis of lower extremity: Qualifiers: Laterality: unspecified laterality Qualified Code(s): L03.119 - Cellulitis of unspecified part of limb Code(s): L03.119 - Cellulitis of unspecified part of limb Status: Acute Assessment and Plan: Treatment as above (3) DANIEL (acute kidney injury): Code(s): N17.9 - Acute kidney failure, unspecified Status: Acute Assessment and Plan: Patient presented the outside hospital with acute kidney injury, -urine output has been adequate -creatinine has improved and normalized. Off IV fluids now -continue to monitor urine output, renal function electrolyte (4) AMS (altered mental status): Qualifiers: Altered mental status type: unspecified Qualified Code(s): R41.82 - Altered mental status, unspecified Code(s): R41.82 - Altered mental status, unspecified Status: Acute Assessment and Plan: Altered mental status could be related septic shock, AFib RVR, encephalopathy related to critical illness -continue to treat underlying cause -mental status improved and patient now AO x2 02/26: CT brain did not show any acute intracranial abnormality (5) Atrial fibrillation with rapid ventricular response: Code(s): I48.91 - Unspecified atrial fibrillation Status: Acute Assessment and Plan: Patient has a history of AFib, was on Eliquis at the outside hospital On 03/04 went into AFib RVR with hypotension and hemodynamic instability and had to be cardioverted by the ED doctor at the [facility] in [place] Converted to sinus bradycardia and now off of amiodarone infusion Cardiology following and will defer further management Echo pending Continue heparin infusion (6) Bacteremia: Code(s): R78.81 - Bacteremia Status: Acute Assessment and Plan: Treatment as above -repeat blood cultures were negative (7) Cholecystitis: Code(s): K81.9 - Cholecystitis, unspecified Status: Deleted Assessment and Plan: Abdominal ultrasound showed IMPRESSION: Cholelithiasis with gallbladder wall thickening suggesting cholecystitis. No pericholecystic fluid is identified. Fatty infiltration of the liver, with phasic flow in the portal vein suggesting portal hypertension. Consult general surgery (8) Elevated liver enzymes: Code(s): R74.8 - Abnormal levels of other serum enzymes Status: Acute Assessment and Plan: Right upper quadrant ultrasound as above Levels improving. Monitor (9) Pleural effusion: Code(s): J90 - Pleural effusion, not elsewhere classified Status: Acute Assessment and Plan: Right side thoracentesis fluid. Currently on heparin infusion. 03/04: CT scan of the chest showed Moderate-sized right and small left pleural effusions with right lower lobe collapse, partial right middle lobe collapse and dependent atelectasis in the left lower lobe. (10) GERD (gastroesophageal reflux disease): Code(s): K21.9 - Gastro-esophageal reflux disease without esophagitis Status: Acute Assessment and Plan: Protonix Subjective Date/time seen: 03/05/25 13:10 Interval history: Pending MBS and thoracentesis. Repeat blood culture shows no growth. Review of Systems Review of Systems: Patient denies fever, chest pain, shortness of breath, cough, nausea vomiting, abdominal pain,, diarrhea, headache or constipation.. All other systems were reviewed and were negative. All systems reviewed & are unremarkable except as noted in HPI and below (HPI) Exam Narrative: General: Ill-appearing female currently in no acute distress HEENT:? Pupils are small, equal and reactive, sclera is clear, dry oral mucosa Neck:? Supple Respiratory:? Coarse breath sounds bilaterally, decreased on right side, occasional rales bilaterally, no wheezing Cardiac:? S1-S2 normal, regular rate and rhythm Abdomen:? Soft, nondistended, mild tenderness periumbilical area, hypoactive bowel sound Extremities:? ,, palpable pedal pulses bilaterally Neuro:? Patient is on a awake, alert, able to give me one-word answers AO x 2 Follows simple commands in all extremities Skin:? Bilateral lower extremity venous stasis changes, mild warmth, mild erythema, old scabs Psych:? Unable to assess Objective Data Vital Signs Vital Signs: Vital Signs - 24 hr 03/04/25 14:00 03/04/25 14:00 03/04/25 14:00 Temperature Pulse Rate 60 73 73 Respiratory Rate 25 H Blood Pressure 127/82 127/82 Pulse Oximetry 94 Oxygen Delivery Oxygen Flow Rate 03/04/25 14:30 03/04/25 14:45 03/04/25 15:05 Temperature Pulse Rate 73 75 73 Respiratory Rate 17 Blood Pressure 130/93 H 135/86 135/86 Pulse Oximetry 96 Oxygen Delivery Oxygen Flow Rate 03/04/25 15:15 03/04/25 15:15 03/04/25 15:45 Temperature Pulse Rate 70 72 55 L Respiratory Rate 22 H 21 H Blood Pressure 125/81 125/81 110/74 Pulse Oximetry 92 93 Oxygen Delivery Oxygen Flow Rate 03/04/25 16:00 03/04/25 16:00 03/04/25 16:00 Temperature Pulse Rate 54 L 73 Respiratory Rate Blood Pressure 127/82 Pulse Oximetry 93 Oxygen Delivery Nasal Cannula Oxygen Flow Rate 1 03/04/25 16:00 03/04/25 16:30 03/04/25 17:36 Temperature 98.3 F Pulse Rate 55 L 70 55 L Respiratory Rate 17 Blood Pressure 110/68 113/74 123/82 Pulse Oximetry 92 Oxygen Delivery Oxygen Flow Rate 03/04/25 18:00 03/04/25 18:00 03/04/25 18:00 Temperature Pulse Rate 73 70 60 Respiratory Rate 18 Blood Pressure 120/77 120/77 Pulse Oximetry 95 Oxygen Delivery Oxygen Flow Rate 03/04/25 18:26 03/04/25 20:00 03/04/25 20:00 Temperature 98.5 F Pulse Rate 60 71 Respiratory Rate 23 H Blood Pressure 120/77 95/76 L Pulse Oximetry 99 98 Oxygen Delivery Room Air Oxygen Flow Rate 03/04/25 20:00 03/04/25 20:00 03/04/25 22:00 Temperature Pulse Rate 71 71 69 Respiratory Rate Blood Pressure 95/76 L 124/89 Pulse Oximetry Oxygen Delivery Oxygen Flow Rate 03/04/25 22:00 03/04/25 22:00 03/05/25 00:00 Temperature Pulse Rate 69 69 Respiratory Rate 19 Blood Pressure 124/89 Pulse Oximetry 91 95 Oxygen Delivery Nasal Cannula Oxygen Flow Rate 1 03/05/25 00:00 03/05/25 00:00 03/05/25 00:00 Temperature 98.0 F Pulse Rate 67 76 55 L Respiratory Rate 19 Blood Pressure 119/70 119/70 Pulse Oximetry 98 Oxygen Delivery Oxygen Flow Rate 03/05/25 02:00 03/05/25 02:00 03/05/25 02:00 Temperature Pulse Rate 60 60 70 Respiratory Rate 14 Blood Pressure 114/92 H 114/92 H Pulse Oximetry 100 Oxygen Delivery Oxygen Flow Rate 03/05/25 04:00 03/05/25 04:00 03/05/25 04:00 Temperature 98.3 F Pulse Rate 70 58 L Respiratory Rate 16 Blood Pressure 108/67 Pulse Oximetry 91 91 Oxygen Delivery Room Air Oxygen Flow Rate 03/05/25 04:00 03/05/25 06:00 03/05/25 06:00 Temperature Pulse Rate 70 82 82 Respiratory Rate 19 Blood Pressure 108/67 129/76 Pulse Oximetry 94 Oxygen Delivery Oxygen Flow Rate 03/05/25 06:00 03/05/25 08:00 03/05/25 08:00 Temperature 96.8 F L Pulse Rate 82 74 Respiratory Rate 23 H Blood Pressure 129/76 145/87 H Pulse Oximetry 91 96 Oxygen Delivery Room Air Oxygen Flow Rate 03/05/25 08:00 03/05/25 10:00 03/05/25 10:00 Temperature 97.5 F L Pulse Rate 87 58 L 58 L Respiratory Rate 22 H Blood Pressure 140/64 Pulse Oximetry 96 Oxygen Delivery Oxygen Flow Rate 03/05/25 12:00 03/05/25 12:37 Temperature 97.6 F Pulse Rate 56 L 75 Respiratory Rate 18 Blood Pressure 117/63 Pulse Oximetry 95 Oxygen Delivery Oxygen Flow Rate Intake/Output Intake/Output: Intake & Output 03/02/25 03/03/25 03/04/25 03/05/25 23:59 23:59 23:59 23:59 Intake Total 1257.0 670.6 Output Total 300 425 Balance 957.0 245.6 Meds/Results Medications: Active Medications Generic Name Dose Route Start Last Admin Trade Name Freq PRN Reason Stop Dose Admin Acetaminophen 650 mg 03/05/25 07:49 03/05/25 08:49 Acetaminophen 325 Mg Tablet PO 650 mg Q4H PRN Administration Headache, pain or fever Amiodarone HCl 400 mg 03/05/25 10:15 03/05/25 12:37 Amiodarone Hcl 200 Mg Tablet PO 400 mg DAILY@0800 JEREMY Administration Heparin Sodium (Porcine) 5,000 units 03/04/25 13:01 03/04/25 21:20 Heparin Sodium 5,000 Units/Ml Vial IV PUSH 5,000 units PRN PRN Administration aPTT less than 55 seconds Heparin Sodium (Porcine) 2,500 units 03/04/25 13:01 Heparin Sodium 5,000 Units/Ml Vial IV PUSH PRN PRN aPTT 55 - 70 seconds Heparin Sodium/Dextrose 25,000 units in 250 mls @ 14 mls/hr 03/04/25 13:05 03/05/25 08:48 Heparin Sodium/D5w 100 Units/Ml IV CONT 1,400 units/hr .[id number] JEREMY 14 mls/hr Administration Protocol 1,400 UNITS/HR Linezolid 600 mg in 300 mls @ 300 mls/hr 03/04/25 22:00 03/05/25 10:00 Zyvox IVPB 03/06/25 23:59 Infused Q12H JEREMY Infusion Meropenem 1 gm in 100 mls @ 200 mls/hr 03/05/25 08:45 03/05/25 09:25 IVPB Infused Q8HR JEREMY Infusion Pantoprazole Sodium 40 mg 03/04/25 21:00 03/05/25 08:49 Pantoprazole Sodium Iv 40 Mg Vial IV PUSH 40 mg Q12HR JEREMY Administration Perflutren Lipid Microsphere 0 ml 05/19/25 12:30 Perflutren Lipid Microspheres 1.5 Ml Vial Diluted To 10 Ml Total Volume IV PUSH 03/07/25 12:30 ONCE PRN adequate visualization Protocol Sodium Chloride 10 ml 03/04/25 22:00 03/05/25 06:29 Central Line Flush IV PUSH 10 ml Q8HR JEREMY Administration Sodium Chloride 10 ml 03/04/25 14:03 Central Line Flush IV PUSH PRN PRN with TPN bag changes Sodium Chloride 20 ml 03/04/25 14:03 Central Line Flush IV PUSH PRN PRN after blood draws Radiology Results: ITS Impressions Abdomen Ultrasound 03/04/25 17:27 IMPRESSION: Cholelithiasis with gallbladder wall thickening suggesting cholecystitis. No pericholecystic fluid is identified. Fatty infiltration of the liver, with phasic flow in the portal vein suggesting portal hypertension. Chest X-Ray 03/05/25 06:51 IMPRESSION: 1. Unchanged moderate-sized right and small left pleural effusions with associated atelectasis and/or pneumonia in the lower lung zones. 2. Cardiomegaly. Labs Labs: Laboratory Results - last 24 hr 03/04/25 03/04/25 03/04/25 12:56 13:58 13:59 WBC 20.1 H RBC 3.68 L Hgb 9.9 L Hct 33.7 L MCV 91.6 MCH 26.9 MCHC 29.4 L RDW 15.4 H Plt Count 393 H MPV 9.6 Immature Gran % (Auto) Not Reportable Neut % (Auto) Not Reportable Lymph % (Auto) Not Reportable [place] % (Auto) Not Reportable Eos % (Auto) Not Reportable Baso % (Auto) Not Reportable Lymph # (Auto) Not Reportable [place] # (Auto) Not Reportable Eos # (Auto) Not Reportable Baso # (Auto) Not Reportable Abs Immat Gran (auto) Not Reportable Absolute Neuts (auto) Not Reportable Absolute Nucleated RBC Not Reportable Total Counted 100 Neutrophils % (Manual) 79 H Band Neutrophils % 2 Lymphocytes % (Manual) 14.0 L Monocytes % (Manual) 4 Eosinophils % (Manual) 1 Nucleated RBC % Not Reportable Abs Neuts (Manual) 16.28 H Abs Lymphs (Manual) 2.81 Abs Monocytes (Manual) 0.80 Absolute Eos (Manual) 0.20 Nucleated RBCs 2 Platelet Estimate Slightly increased Clumped Platelets Present Hypochromasia 1+ Anisocytosis 2+ Schistocytes None seen PT INR APTT Sodium Potassium Chloride Carbon Dioxide Anion Gap BUN Creatinine Estim Creat Clear Calc Estimated GFR Glucose Lactic Acid 1.7 Calcium Phosphorus Magnesium Total Bilirubin AST ALT Alkaline Phosphatase Ammonia Total Creatine Kinase Troponin I C-Reactive Protein NT-Pro-B Natriuret Pep Total Protein Albumin Lipase TSH Nasal MRSA (PCR) Not detected Hepatitis A IgM Ab Hep Bs Antigen Hep B Core IgM Ab Hepatitis C Ab Screen 03/04/25 03/04/25 03/04/25 14:05 16:29 16:32 WBC RBC Hgb Hct MCV MCH MCHC RDW Plt Count MPV Immature Gran % (Auto) Neut % (Auto) Lymph % (Auto) [place] % (Auto) Eos % (Auto) Baso % (Auto) Lymph # (Auto) [place] # (Auto) Eos # (Auto) Baso # (Auto) Abs Immat Gran (auto) Absolute Neuts (auto) Absolute Nucleated RBC Total Counted Neutrophils % (Manual) Band Neutrophils % Lymphocytes % (Manual) Monocytes % (Manual) Eosinophils % (Manual) Nucleated RBC % Abs Neuts (Manual) Abs Lymphs (Manual) Abs Monocytes (Manual) Absolute Eos (Manual) Nucleated RBCs Platelet Estimate Clumped Platelets Hypochromasia Anisocytosis Schistocytes PT 31.1 H INR 2.9 APTT 37.7 H Sodium 149 H Potassium 3.6 Chloride 118 H Carbon Dioxide 23 Anion Gap 8 BUN 45 H Creatinine 1.03 H Estim Creat Clear Calc 46 Estimated GFR 53 L Glucose 116 H Lactic Acid Calcium 8.3 L Phosphorus 3.4 Magnesium 2.6 H Total Bilirubin 0.6 AST 351 H ALT 336 H Alkaline Phosphatase 147 H Ammonia 15 Total Creatine Kinase 206 H Troponin I 0.110 H* 0.106 H* C-Reactive Protein 7.0 H NT-Pro-B Natriuret Pep 75476 H Total Protein 7.0 Albumin 2.8 L Lipase TSH Nasal MRSA (PCR) Hepatitis A IgM Ab Negative Hep Bs Antigen Negative Hep B Core IgM Ab Negative Hepatitis C Ab Screen Negative 03/04/25 03/05/25 20:23 06:15 WBC 15.2 H RBC 3.35 L Hgb 8.9 L Hct 30.6 L MCV 91.3 MCH 26.6 MCHC 29.1 L RDW 15.2 H Plt Count 312 MPV 9.6 Immature Gran % (Auto) 4.1 H Neut % (Auto) 74.4 H Lymph % (Auto) 13.3 L [place] % (Auto) 7.5 Eos % (Auto) 0.4 Baso % (Auto) 0.3 Lymph # (Auto) 2.02 [place] # (Auto) 1.1 H Eos # (Auto) 0.1 Baso # (Auto) 0.1 Abs Immat Gran (auto) 0.62 H Absolute Neuts (auto) 11.3 H Absolute Nucleated RBC 0.070 H Total Counted Neutrophils % (Manual) Band Neutrophils % Not Reportable Lymphocytes % (Manual) Monocytes % (Manual) Eosinophils % (Manual) Nucleated RBC % 0.5 H Abs Neuts (Manual) Abs Lymphs (Manual) Abs Monocytes (Manual) Absolute Eos (Manual) Nucleated RBCs Platelet Estimate Adequate Clumped Platelets Hypochromasia 1+ Anisocytosis 1+ Schistocytes None seen PT 25.9 H INR 2.3 APTT 54.2 H 127.3 H Sodium 148 H Potassium 3.4 Chloride 116 H Carbon Dioxide 24 Anion Gap 8 BUN 37 H Creatinine 0.84 Estim Creat Clear Calc 55 Estimated GFR > 60 Glucose 107 Lactic Acid 1.5 Calcium 8.7 Phosphorus 2.7 Magnesium 2.5 H Total Bilirubin 0.7 AST 135 H ALT 223 H Alkaline Phosphatase 125 Ammonia Total Creatine Kinase Troponin I 0.097 H* C-Reactive Protein NT-Pro-B Natriuret Pep Total Protein 7.0 Albumin 3.2 L Lipase 160 TSH 4.490 Nasal MRSA (PCR) Hepatitis A IgM Ab Hep Bs Antigen Hep B Core IgM Ab Hepatitis C Ab Screen Quality VTE Prophylaxis VTE prophylaxis: pharmacologic ordered Hospitalist MIPS Advance Care Plan I have confirmed that the patient's Advanced Care Plan is present, code status is documented, or surrogate decision maker is listed in patient medical record.: Yes Medication Reconciliation I have utilized all available resources to obtain, update and review the patients current medications (includes all prescriptions, OTC, herbals, cannabis, and nutritional supplements).: Yes
[2025-03-05 13:45] LABS: Partial Thromboplastin Time 104.7 Seconds (22.3-36.8)
[2025-03-05 19:39] LABS: Partial Thromboplastin Time 106.4 Seconds (22.3-36.8)
[2025-03-06] VITALS (16 sets, daily range): BP systolic 115–149; BP diastolic 54–78; PULSE 57–87; RESP 16–28; TEMP 36.3–36.9; O2SAT 23–99; BMI 30.5
[2025-03-06 02:30] LABS: Partial Thromboplastin Time 92.5 Seconds (22.3-36.8)
[2025-03-06] MEDS: HEPARIN SOD/D5W 100 UNITS/ML 25,000 UNITS/250 ML BAG IV CONT (04:45)
[2025-03-06] MEDS: MEROPENEM 1 GM/NS 100 ML 1 GM/100 ML BAG IVPB ×3 (05:17→21:29)
[2025-03-06] MEDS: CENTRAL LINE FLUSH 10 ML IV PUSH ×3 (05:17→22:00)
[2025-03-06 06:25] LABS: Hematocrit 30.6 % (37.0-47.0); Hemoglobin 9.1 g/dL (12.0-15.0); Mean Corpuscular HGB Conc 29.7 g/dl (32-36); Mean Corpuscular Hemoglobin 26.7 pg (26-34); Mean Corpuscular Volume 89.7 fl (80-100); Mean Platelet Volume 9.6 fl (7.4-10.4); Platelet Count Result 333 k/mm3 (150-375); Red Blood Count 3.41 M/mm3 (4.2-5.4); Red Cell Distribution Width 15.3 % (11.5-14.5); White Blood Count 15.1 K/mm3 (4.5-10.0)
[2025-03-06 06:49] LABS: Alanine Aminotransferase 151 U/L (6-35); Albumin Level 3.1 g/dL (3.5-5.1); Alkaline Phosphatase 121 U/L (38-126); Anion Gap 9 mmol/L (4-12); Aspartate Amino Transferase 65 U/L (14-36); Bilirubin,Total 0.7 mg/dL (0.2-1.3); Blood Urea Nitrogen 31 mg/dL (7-17); Calcium 8.9 mg/dL (8.4-10.2); Carbon Dioxide 23 mmol/L (22-30); Chloride 116 mmol/L (98-107); Estimated CRCL calculation 65 ml/min; Estimated Glomerular Filt Rate > 60; Glucose 88 mg/dL (65-110); Magnesium 2.6 mg/dL (1.6-2.3); Potassium 3.4 mmol/L (3.4-5.0); Sodium 148 mmol/L (137-145)
[2025-03-06 06:51] LABS: INR 1.7; Prothrombin Time 20.5 Seconds (11.1-14.7)
--- NOTE | 2025-03-06 08:04 | P.PNINT_ITS ---
Progress Note: A&P Assessment and Plan (1) Septic shock: Code(s): A41.9 - Sepsis, unspecified organism; R65.21 - Severe sepsis with septic shock Status: Acute Assessment and Plan: Septic shock most likely related to UTI, cellulitis, possible pneumonia, bacteremia, AFib RVR, pleural effusion -03/04: patient was transferred from [facility] in [facility] for septic shock, hypotension AFib RVR status post cardioversion at the outside hospital with return to sinus rhythm -dry oral mucosa, will give 500 mL IV fluid bolus -albumin for intravascular volume expansion -02/26 urine cultures: ESBL E coli -02/26 blood cultures: Group G Streptococcus -03/01 repeat blood cultures were negative x2 -03/04 repeat blood cultures pending -continue linezolid for 7 days and meropenem. Off all vasopressors -03/04: PICC line inserted 03/04/[address] chest, abdomen and pelvis IMPRESSION: 1. Moderate-sized right and small left pleural effusions with right lower lobe collapse, partial right middle lobe collapse and dependent atelectasis in the left lower lobe. 2. Cardiomegaly. 3. Air-fluid levels throughout the colon consistent with nonspecific diarrhea. 4. Severe thoracic and lumbar scoliosis with severe spondylosis. 5. Advanced osteoarthritis at the right hip and bilateral acromioclavicular joints. 6. Fibroid uterus. 7. Nonobstructing 2 mm left renal stone. (2) Cellulitis of lower extremity: Qualifiers: Laterality: unspecified laterality Qualified Code(s): L03.119 - Cellulitis of unspecified part of limb Code(s): L03.119 - Cellulitis of unspecified part of limb Status: Acute Assessment and Plan: Treatment as above (3) DANIEL (acute kidney injury): Code(s): N17.9 - Acute kidney failure, unspecified Status: Acute Assessment and Plan: Patient presented the outside hospital with acute kidney injury, -urine output has been adequate -creatinine has improved and normalized. Off IV fluids now -continue to monitor urine output, renal function electrolyte (4) AMS (altered mental status): Qualifiers: Altered mental status type: unspecified Qualified Code(s): R41.82 - Altered mental status, unspecified Code(s): R41.82 - Altered mental status, unspecified Status: Acute Assessment and Plan: Altered mental status could be related septic shock, AFib RVR, encephalopathy related to critical illness -continue to treat underlying cause -mental status improved and patient now AO x2 02/26: CT brain did not show any acute intracranial abnormality (5) Atrial fibrillation with rapid ventricular response: Code(s): I48.91 - Unspecified atrial fibrillation Status: Acute Assessment and Plan: Patient has a history of AFib, was on Eliquis at the outside hospital On 03/04 went into AFib RVR with hypotension and hemodynamic instability and had to be cardioverted by the ED doctor at the [facility] in [facility] Converted to sinus bradycardia and now off of amiodarone infusion Cardiology following and will defer further management Echo reviewed Continue heparin infusion. Will switch to Eliquis after thoracentesis Echo Summary 1. Left ventricular chamber dimension is normal. 2. Left ventricular systolic function is mildly reduced, estimated at 40-45. 3. The left ventricular diastolic function is grade I diastolic dysfunction. 4. Right ventricular chamber dimension is moderately enlarged. 5. Right ventricular systolic function is normal. 6. Left atrial chamber dimension is moderately enlarged. 7. Right atrial chamber dimension is severely enlarged. 8. There is mild tricuspid valve regurgitation. (6) Bacteremia: Code(s): R78.81 - Bacteremia Status: Acute Assessment and Plan: Treatment as above -repeat blood cultures were negative (7) Cholecystitis: Code(s): K81.9 - Cholecystitis, unspecified Status: Deleted Assessment and Plan: Abdominal ultrasound showed IMPRESSION: Cholelithiasis with gallbladder wall thickening suggesting cholecystitis. No pericholecystic fluid is identified. Fatty infiltration of the liver, with phasic flow in the portal vein suggesting portal hypertension. General surgery consulted HIDA scan ordered and pending (8) Elevated liver enzymes: Code(s): R74.8 - Abnormal levels of other serum enzymes Status: Acute Assessment and Plan: Right upper quadrant ultrasound as above Levels improving. Monitor (9) Pleural effusion: Code(s): J90 - Pleural effusion, not elsewhere classified Status: Acute Assessment and Plan: Right side thoracentesis fluid. Currently on heparin infusion. 03/04: CT scan of the chest showed Moderate-sized right and small left pleural effusions with right lower lobe collapse, partial right middle lobe collapse and dependent atelectasis in the left lower lobe. Thoracentesis ordered and pending (10) GERD (gastroesophageal reflux disease): Code(s): K21.9 - Gastro-esophageal reflux disease without esophagitis Status: Acute Assessment and Plan: Protonix Plan DVT prophylaxis: Heparin infusion Stress ulcer prophylaxis: Protonix Nutrition: NPO for now. Patient was evaluated by speech Patient has modified barium swallow ordered and pending Code Status: Full code PT OT Subjective Date/time seen: 03/06/25 Hospitalist daily progress note Acceptable. Urine output on the lower side. Stable vital signs. She is on room air. NPO She states she is very hungry and would like to eat food and drink some water. She states she is sore in her abdomen and points towards whole abdomen and not 1 specific area. Patient denies fever, chest pain, shortness of breath, cough, nausea vomiting, headache or constipation. She did had multiple bowel movements overnight. Review of Systems Review of Systems: Patient denies fever, chest pain, shortness of breath, cough, nausea vomiting, abdominal pain,, diarrhea, headache or constipation.. All other systems were reviewed and were negative. All systems reviewed & are unremarkable except as noted in HPI and below (HPI) Exam Narrative: General: Ill-appearing female currently in no acute distress HEENT:? Pupils are small, equal and reactive, sclera is clear, dry oral mucosa Neck:? Supple Respiratory:? Coarse breath sounds bilaterally, decreased on right side, occasional rales bilaterally, no wheezing Cardiac:? S1-S2 normal, regular rate and rhythm Abdomen:? Soft, nondistended, mild diffuse tenderness, hypoactive bowel sound Extremities:? ,, palpable pedal pulses bilaterally Neuro:? Patient is on a awake, alert, AO x 2 Follows simple commands in all extremities Skin:? Bilateral lower extremity venous stasis changes, mild warmth, mild erythema, old scabs Psych:? Unable to assess Objective Data Vital Signs Vital Signs: Vital Signs - 24 hr 03/05/25 10:00 03/05/25 10:03/05/25 12:00 Temperature 36.4 C L 36.4 C Pulse Rate 58 L 58 L 56 L Respiratory Rate 22 H 18 Blood Pressure 140/64 117/63 Pulse Oximetry 96 95 Oxygen Delivery 03/05/25 12:00 03/05/25 12:00 03/05/25 12:37 Temperature Pulse Rate 54 L 75 Respiratory Rate Blood Pressure Pulse Oximetry 95 Oxygen Delivery Room Air 03/05/25 14:00 03/05/25 16:00 03/05/25 16:00 Temperature 36.3 C L Pulse Rate 66 59 L Respiratory Rate 19 Blood Pressure 130/75 Pulse Oximetry 97 96 Oxygen Delivery Room Air 03/05/25 16:00 03/05/25 18:00 03/05/25 20:00 Temperature 36.5 C Pulse Rate 56 L 59 L 75 Respiratory Rate 23 H Blood Pressure 121/67 Pulse Oximetry 100 Oxygen Delivery 03/05/25 20:00 03/05/25 20:00 03/05/25 22:00 Temperature Pulse Rate 60 76 Respiratory Rate Blood Pressure Pulse Oximetry 96 Oxygen Delivery Room Air 03/06/25 00:00 03/06/25 00:00 03/06/25 00:00 Temperature 36.4 C Pulse Rate 74 61 Respiratory Rate 25 H Blood Pressure 119/70 Pulse Oximetry 96 96 Oxygen Delivery Room Air 03/06/25 02:00 03/06/25 04:00 03/06/25 04:00 Temperature 36.3 C L Pulse Rate 71 72 Respiratory Rate 28 H Blood Pressure 134/73 Pulse Oximetry 99 99 Oxygen Delivery Room Air 03/06/25 04:00 03/06/25 06:00 Temperature Pulse Rate 57 L 64 Respiratory Rate Blood Pressure Pulse Oximetry Oxygen Delivery Intake/Output Intake/Output: Intake & Output 03/03/25 03/04/25 03/05/25 03/06/25 23:59 23:59 23:59 23:59 Intake Total 1257.0 1423.9 296.7 Output Total 300 675 450 Balance 957.0 748.9 -153.3 Meds/Results Medications: Active Medications Generic Name Dose Route Start Last Admin Trade Name Freq PRN Reason Stop Dose Admin Acetaminophen 650 mg 03/05/25 07:49 03/05/25 19:58 Acetaminophen 325 Mg Tablet PO 650 mg Q4H PRN Administration Headache, pain or fever Amiodarone HCl 400 mg 03/05/25 10:15 03/05/25 12:37 Amiodarone Hcl 200 Mg Tablet PO 400 mg DAILY@0800 JEREMY Administration Heparin Sodium (Porcine) 5,000 units 03/04/25 13:01 03/04/25 21:20 Heparin Sodium 5,000 Units/Ml Vial IV PUSH 5,000 units PRN PRN Administration aPTT less than 55 seconds Heparin Sodium (Porcine) 2,500 units 03/04/25 13:01 Heparin Sodium 5,000 Units/Ml Vial IV PUSH PRN PRN aPTT 55 - 70 seconds Heparin Sodium/Dextrose 25,000 units in 250 mls @ 13 mls/hr 03/04/25 13:05 03/06/25 04:45 Heparin Sodium/D5w 100 Units/Ml IV CONT 13 units/hr .[id number] JEREMY 0.13 mls/hr Administration Protocol 1,300 UNITS/HR Linezolid 600 mg in 300 mls @ 300 mls/hr 03/04/25 22:00 03/05/25 23:58 Zyvox IVPB 03/06/25 23:59 Infused Q12H JEREMY Infusion Meropenem 1 gm in 100 mls @ 200 mls/hr 03/05/25 08:45 03/06/25 05:47 IVPB Infused Q8HR JEREMY Infusion Dextrose 500 mls @ 50 mls/hr 03/06/25 07:55 Dextrose 5% In Water IV CONT 03/06/25 17:54 .Q10H JEREMY Pantoprazole Sodium 40 mg 03/04/25 21:00 03/05/25 20:01 Pantoprazole Sodium Iv 40 Mg Vial IV PUSH 40 mg Q12HR JEREMY Administration Perflutren Lipid Microsphere 0 ml 03/04/25 12:30 Perflutren Lipid Microspheres 1.5 Ml Vial Diluted To 10 Ml Total Volume IV PUSH 03/07/25 12:30 ONCE PRN adequate visualization Protocol Potassium Phos/Sodium Phos 1 packet 03/06/25 09:00 Potassium/Phosphorus/Sodium 1.5 Gm Packet PO 03/06/25 17:01 BID JEREMY Sodium Chloride 10 ml 03/04/25 22:00 03/06/25 05:17 Central Line Flush IV PUSH 10 ml Q8HR JEREMY Administration Sodium Chloride 10 ml 03/04/25 14:03 Central Line Flush IV PUSH PRN PRN with TPN bag changes Sodium Chloride 20 ml 03/04/25 14:03 Central Line Flush IV PUSH PRN PRN after blood draws Radiology Results: ITS Impressions Abdomen Ultrasound 03/04/25 17:27 IMPRESSION: Cholelithiasis with gallbladder wall thickening suggesting cholecystitis. No pericholecystic fluid is identified. Fatty infiltration of the liver, with phasic flow in the portal vein suggesting portal hypertension. Chest X-Ray 03/05/25 06:51 IMPRESSION: 1. Unchanged moderate-sized right and small left pleural effusions with associated atelectasis and/or pneumonia in the lower lung zones. 2. Cardiomegaly. Labs Labs: Laboratory Results - last 24 hr 03/05/25 03/05/25 03/06/25 13:14 19:12 02:02 WBC RBC Hgb Hct MCV MCH MCHC RDW Plt Count MPV PT INR APTT 104.7 H 106.4 H 92.5 H Sodium Potassium Chloride Carbon Dioxide Anion Gap BUN Creatinine Estim Creat Clear Calc Estimated GFR Glucose Calcium Phosphorus Magnesium Total Bilirubin AST ALT Alkaline Phosphatase Total Protein Albumin 03/06/25 06:16 WBC 15.1 H RBC 3.41 L Hgb 9.1 L Hct 30.6 L MCV 89.7 MCH 26.7 MCHC 29.7 L RDW 15.3 H Plt Count 333 MPV 9.6 PT 20.5 H D INR 1.7 APTT Sodium 148 H Potassium 3.4 Chloride 116 H Carbon Dioxide 23 Anion Gap 9 BUN 31 H Creatinine 0.72 Estim Creat Clear Calc 65 Estimated GFR > 60 Glucose 88 Calcium 8.9 Phosphorus 2.0 L Magnesium 2.6 H Total Bilirubin 0.7 AST 65 H ALT 151 H Alkaline Phosphatase 121 Total Protein 6.0 L Albumin 3.1 L Quality VTE Prophylaxis VTE prophylaxis: pharmacologic ordered
[2025-03-06] MEDS: LINEZOLID 600 MG/300 ML 600 MG/300 ML SOLN 300 MG IVPB ×2 (09:06→21:28)
[2025-03-06] MEDS: PANTOPRAZOLE SODIUM IV 40 MG VIAL IV PUSH ×2 (09:06→21:30)
[2025-03-06] MEDS: DEXTROSE 5% IN WATER 500 ML 50 ML IV CONT (09:10)
[2025-03-06 09:36] LABS: Partial Thromboplastin Time 79.4 Seconds (22.3-36.8)
[2025-03-06] MEDS: AMIODARONE HCL 200 MG TABLET 400 MG PO (11:38)
[2025-03-06] MEDS: POTASSIUM/PHOSPHORUS/SODIUM 1.5 GM PACKET 1 PACKET PO ×2 (11:38→16:59)
--- NOTE | 2025-03-06 12:37 | PM.PNCARD ---
Progress Note: A&P Assessment and Plan (1) Atrial fibrillation with rapid ventricular response: Code(s): I48.91 - Unspecified atrial fibrillation Status: Acute Assessment and Plan: Continue amiodarone 400 mg daily for now. Continue heparin and transition to direct oral anticoagulant when able. Was on Eliquis as an outpatient (2) Cardiomyopathy: Code(s): I42.9 - Cardiomyopathy, unspecified Status: Acute Assessment and Plan: Resume carvedilol and furosemide (3) Hypertension: Code(s): I10 - Essential (primary) hypertension Status: Acute Assessment and Plan: BP has been a bit elevated. Will restart her carvedilol 3.125 mg p.o. b.i.d. (4) Septic shock: Code(s): A41.9 - Sepsis, unspecified organism; R65.21 - Severe sepsis with septic shock Status: Acute Assessment and Plan: Resolving. Plan 1. Paroxysmal atrial fibrillation with RVR. Now in sinus. 2. Septic shock 3. Cellulitis of lower extremity 4. Altered mental status 5. Acute kidney injury 6. Pleural effusion PLAN: -Has unknown allergy listed to Metoprolol. Will start PO Amiodarone. -Continue Heparin drip for anticoagulation. Can transition to NOAC once procedures are no longer anticipated. -Echo pending. Recommendations and plan discussed with ICU Physician. Subjective Date/time seen: 03/06/25 12:37 Interval history: Reason for visit: Atrial fibrillation with RVR HPI: 69-year-old woman with history of CVA no residing in intermediate with chronic lower extremity venous stasis ulcers/wounds and paroxysmal atrial fibrillation transferred from [place] for management of septic shock. While at [place], she had episode of hemodynamic instability from rapid ventricular rate from atrial fibrillation for which cardioversion was performed successfully. She is a poor historian and majority of her history obtained from chart review. Date of service 03/05: Converted to sinus rhythm, remains in sinus. Date of service 03/06/2025: Still sinus rhythm. Some shortness of breath but no chest pain Review of Systems Review of Systems: All systems reviewed & are unremarkable except as noted in HPI and below Cardiovascular: Cardiovascular: Denies chest pain Respiratory: Respiratory: Denies hemoptysis Gastrointestinal: Gastrointestinal: Denies abdominal pain Exam Const: Other: Ill appearing female HENMT: Mouth: Yes moist mucous membranes Eyes: EOM: EOMs intact bilaterally Neck: Neck: no JVD Resp: Effort & Inspection: normal respiratory effort Cardio: Rate: regular rate Rhythm: regular rhythm Heart sounds: no murmurs Extrem: General: pedal edema Other: Wounds bilaterally Objective Data Vital Signs Vital Signs: Vital Signs - 24 hr 03/05/25 14:00 03/05/25 16:00 03/05/25 16:00 Temperature 36.3 C L Pulse Rate 66 59 L Respiratory Rate 19 Blood Pressure 130/75 Pulse Oximetry 97 96 Oxygen Delivery Room Air 03/05/25 16:00 03/05/25 18:00 03/05/25 20:00 Temperature 36.5 C Pulse Rate 56 L 59 L 75 Respiratory Rate 23 H Blood Pressure 121/67 Pulse Oximetry 100 Oxygen Delivery 03/05/25 20:00 03/05/25 20:00 03/05/25 22:00 Temperature Pulse Rate 60 76 Respiratory Rate Blood Pressure Pulse Oximetry 96 Oxygen Delivery Room Air 03/06/25 00:00 03/06/25 00:00 03/06/25 00:00 Temperature 36.4 C Pulse Rate 74 61 Respiratory Rate 25 H Blood Pressure 119/70 Pulse Oximetry 96 96 Oxygen Delivery Room Air 03/06/25 02:00 03/06/25 04:00 03/06/25 04:00 Temperature 36.3 C L Pulse Rate 71 72 Respiratory Rate 28 H Blood Pressure 134/73 Pulse Oximetry 99 99 Oxygen Delivery Room Air 03/06/25 04:00 03/06/25 06:00 03/06/25 08:00 Temperature 36.4 C L Pulse Rate 57 L 64 73 Respiratory Rate 22 H Blood Pressure 139/68 Pulse Oximetry 92 Oxygen Delivery 03/06/25 11:38 03/06/25 11:43 Temperature 36.4 C Pulse Rate 78 87 Respiratory Rate 23 H Blood Pressure 149/76 H Pulse Oximetry 23 L Oxygen Delivery Intake/Output Intake/Output: Intake & Output 03/03/25 03/04/25 03/05/25 03/06/25 23:59 23:59 23:59 23:59 Intake Total 1257.0 1423.9 297.3 Output Total 300 675 450 Balance 957.0 748.9 -152.7 Meds/Results Medications: Active Medications Generic Name Dose Route Start Last Admin Trade Name Freq PRN Reason Stop Dose Admin Acetaminophen 650 mg 03/05/25 07:49 03/05/25 19:58 Acetaminophen 325 Mg Tablet PO 650 mg Q4H PRN Administration Headache, pain or fever Amiodarone HCl 400 mg 03/05/25 10:15 03/06/25 11:38 Amiodarone Hcl 200 Mg Tablet PO 400 mg DAILY@0800 JEREMY Administration Heparin Sodium (Porcine) 5,000 units 03/04/25 13:01 03/04/25 21:20 Heparin Sodium 5,000 Units/Ml Vial IV PUSH 5,000 units PRN PRN Administration aPTT less than 55 seconds Heparin Sodium (Porcine) 2,500 units 03/04/25 13:01 Heparin Sodium 5,000 Units/Ml Vial IV PUSH PRN PRN aPTT 55 - 70 seconds Heparin Sodium/Dextrose 25,000 units in 250 mls @ 13 mls/hr 03/04/25 13:05 03/06/25 09:38 Heparin Sodium/D5w 100 Units/Ml IV CONT 13 units/hr .[id number] JEREMY 0.13 mls/hr Titration Protocol 1,300 UNITS/HR Linezolid 600 mg in 300 mls @ 300 mls/hr 03/04/25 22:00 03/06/25 09:06 Zyvox IVPB 03/06/25 23:59 300 mls/hr Q12H JEREMY Administration Meropenem 1 gm in 100 mls @ 200 mls/hr 03/05/25 08:45 03/06/25 05:47 IVPB Infused Q8HR JEREMY Infusion Dextrose 500 mls @ 50 mls/hr 03/06/25 07:55 03/06/25 09:10 Dextrose 5% In Water IV CONT 03/06/25 17:54 50 mls/hr .Q10H JEREMY Administration Pantoprazole Sodium 40 mg 03/04/25 21:00 03/06/25 09:06 Pantoprazole Sodium Iv 40 Mg Vial IV PUSH 40 mg Q12HR JEREMY Administration Perflutren Lipid Microsphere 0 ml 03/04/25 12:30 Perflutren Lipid Microspheres 1.5 Ml Vial Diluted To 10 Ml Total Volume IV PUSH 03/07/25 12:30 ONCE PRN adequate visualization Protocol Potassium Phos/Sodium Phos 1 packet 03/06/25 09:00 03/06/25 11:38 Potassium/Phosphorus/Sodium 1.5 Gm Packet PO 03/06/25 17:01 1 packet BID JEREMY Administration Sodium Chloride 10 ml 03/04/25 22:00 03/06/25 05:17 Central Line Flush IV PUSH 10 ml Q8HR JEREMY Administration Sodium Chloride 10 ml 03/04/25 14:03 Central Line Flush IV PUSH PRN PRN with TPN bag changes Sodium Chloride 20 ml 03/04/25 14:03 Central Line Flush IV PUSH PRN PRN after blood draws Radiology Results: ITS Impressions Abdomen Ultrasound 03/04/25 17:27 IMPRESSION: Cholelithiasis with gallbladder wall thickening suggesting cholecystitis. No pericholecystic fluid is identified. Fatty infiltration of the liver, with phasic flow in the portal vein suggesting portal hypertension. Chest X-Ray 03/05/25 06:51 IMPRESSION: 1. Unchanged moderate-sized right and small left pleural effusions with associated atelectasis and/or pneumonia in the lower lung zones. 2. Cardiomegaly. Labs Labs: Laboratory Results - last 24 hr 03/05/25 03/05/25 03/06/25 13:14 19:12 02:02 WBC RBC Hgb Hct MCV MCH MCHC RDW Plt Count MPV PT INR APTT 104.7 H 106.4 H 92.5 H Sodium Potassium Chloride Carbon Dioxide Anion Gap BUN Creatinine Estim Creat Clear Calc Estimated GFR Glucose Calcium Phosphorus Magnesium Total Bilirubin AST ALT Alkaline Phosphatase Total Protein Albumin 03/06/25 03/06/25 06:16 09:18 WBC 15.1 H RBC 3.41 L Hgb 9.1 L Hct 30.6 L MCV 89.7 MCH 26.7 MCHC 29.7 L RDW 15.3 H Plt Count 333 MPV 9.6 PT 20.5 H D INR 1.7 APTT 79.4 H Sodium 148 H Potassium 3.4 Chloride 116 H Carbon Dioxide 23 Anion Gap 9 BUN 31 H Creatinine 0.72 Estim Creat Clear Calc 65 Estimated GFR > 60 Glucose 88 Calcium 8.9 Phosphorus 2.0 L Magnesium 2.6 H Total Bilirubin 0.7 AST 65 H ALT 151 H Alkaline Phosphatase 121 Total Protein 6.0 L Albumin 3.1 L ECHO 2. Left ventricular systolic function is mildly reduced, estimated at 40-45. 3. The left ventricular diastolic function is grade I diastolic dysfunction. 4. Right ventricular chamber dimension is moderately enlarged. 5. Right ventricular systolic function is normal. 6. Left atrial chamber dimension is moderately enlarged. 7. Right atrial chamber dimension is severely enlarged. 8. There is mild tricuspid valve regurgitation.
--- NOTE | 2025-03-06 15:32 | PCSTNOTE ---
Please refer to the Modified Barium Swallow (MBS) Evaluation in the EMR. Pt, s/p CVA transferred from [facility] with increased lethargy, was seen for an MBS due to the Bedside Swallow Evaluation revealing delayed swallow trigger with decreased laryngeal elevation and multiple swallows per trials as well as coughing after the swallow. The MBS was on a hold x 1 day due to lethargic state. The pt was seated for a lateral view and presented with 5 ml thin liquids via a spoon, pudding consistency barium via a spoon, crackers coated with barium pudding via a spoon, as well as uncontrolled thin liquids via a cup and a straw. During the oral stage, a slightly reduced lingual movement was exhibited as evidenced by a trace residue on the back tongue after the swallow; pt was consistently able to dry swallow which cleared all contents. Mastication was slow but dentition was poor and all contents were cleared. During the pharyngeal stage, slightly reduced tongue based retraction was exhibited as evidenced by trace vallecular residue but all residual was cleared with an I dry swallow. No laryngeal penetration or aspiration was exhibited. Impression: functional swallowing ability Recommendation: level 6 due to poor dentition and level 0 thin liquids; no further ST for swallowing is warranted at this time. Pt was encouraged to continue to dry swallow after sips and bites; upright for all meals is recommended Thank you for this referral.
[2025-03-06] MEDS: PHYTONADIONE ADULT INJ 10 MG in DEXTROSE 5% IN WATER 50 ML 100 MG IVPB (16:59)
--- NOTE | 2025-03-06 17:08 | PM.PNGS ---
Progress Note: A&P Assessment and Plan (1) Acute calculous cholecystitis: Code(s): K80.00 - Calculus of gallbladder with acute cholecystitis without obstruction Status: Acute Assessment and Plan: HIDA scan shows occluded cystic duct. Patient has too many comorbidities and came in with septic shock, making surgical intervention high risk for mortality. Will see if IR can place percutaneous cholecystostomy tube to control source of infection. Will manage drain and monitor for resolution of current infection. Patient on heparin gtt and will need to be stopped prior to drain placement. Will check coags in AM. (2) Septic shock: Code(s): A41.9 - Sepsis, unspecified organism; R65.21 - Severe sepsis with septic shock Status: Acute (3) Afib: Code(s): I48.91 - Unspecified atrial fibrillation Status: Acute (4) Cardiomyopathy: Code(s): I42.9 - Cardiomyopathy, unspecified Status: Acute Subjective Subjective Date/Time Seen: 03/06/25 17:08 Interval history: Patient had HIDA scan done today. Currently hemodynamically stable and tolerating clear liquids. Exam GI: Inspection: non-distended GI Palp: Yes Tenderness to palpation present (GI) (mild RUQ), No Guarding due to palpation present (GI) and No Rebound tenderness present Auscultation: normal bowel sounds Objective Data Vital Signs Vital Signs: Vital Signs - 24 hr 03/05/25 18:00 03/05/25 20:00 03/05/25 20:00 Temperature 97.7 F Pulse Rate 59 L 75 Respiratory Rate 23 H Blood Pressure 121/67 Pulse Oximetry 100 96 Oxygen Delivery Room Air 03/05/25 20:00 03/05/25 22:00 03/06/25 00:00 Temperature Pulse Rate 60 76 Respiratory Rate Blood Pressure Pulse Oximetry 96 Oxygen Delivery Room Air 03/06/25 00:00 03/06/25 00:00 03/06/25 02:00 Temperature 97.6 F Pulse Rate 74 61 71 Respiratory Rate 25 H Blood Pressure 119/70 Pulse Oximetry 96 Oxygen Delivery 03/06/25 04:00 03/06/25 04:00 03/06/25 04:00 Temperature 97.3 F L Pulse Rate 72 57 L Respiratory Rate 28 H Blood Pressure 134/73 Pulse Oximetry 99 99 Oxygen Delivery Room Air 03/06/25 06:00 03/06/25 08:00 03/06/25 08:00 Temperature 97.5 F L Pulse Rate 64 73 75 Respiratory Rate 22 H Blood Pressure 139/68 Pulse Oximetry 92 Oxygen Delivery 03/06/25 10:00 03/06/25 11:38 03/06/25 11:43 Temperature 97.6 F Pulse Rate 75 78 87 Respiratory Rate 23 H Blood Pressure 149/76 H Pulse Oximetry 23 L Oxygen Delivery 03/06/25 12:00 03/06/25 14:00 03/06/25 16:00 Temperature 97.9 F Pulse Rate 77 77 76 Respiratory Rate 24 H Blood Pressure 115/78 Pulse Oximetry 97 Oxygen Delivery Intake/Output Intake/Output: Intake & Output 03/03/25 03/04/25 03/05/25 03/06/25 23:59 23:59 23:59 23:59 Intake Total 1257.0 1423.9 597.3 Output Total 300 675 450 Balance 957.0 748.9 147.3 Meds/Results Medications: Active Medications Generic Name Dose Route Start Last Admin Trade Name Freq PRN Reason Stop Dose Admin Acetaminophen 650 mg 03/05/25 07:49 03/05/25 19:58 Acetaminophen 325 Mg Tablet PO 650 mg Q4H PRN Administration Headache, pain or fever Amiodarone HCl 400 mg 03/05/25 10:15 03/06/25 11:38 Amiodarone Hcl 200 Mg Tablet PO 400 mg DAILY@0800 JEREMY Administration Carvedilol 3.125 mg 03/07/25 08:00 Carvedilol 3.125 Mg Tablet PO Q12HR JEREMY Furosemide 40 mg 03/07/25 09:00 Furosemide 40 Mg Tablet PO DAILY [facility] Heparin Sodium (Porcine) 5,000 units 03/04/25 13:01 03/04/25 21:20 Heparin Sodium 5,000 Units/Ml Vial IV PUSH 5,000 units PRN PRN Administration aPTT less than 55 seconds Heparin Sodium (Porcine) 2,500 units 03/04/25 13:01 Heparin Sodium 5,000 Units/Ml Vial IV PUSH PRN PRN aPTT 55 - 70 seconds Heparin Sodium/Dextrose 25,000 units in 250 mls @ 13 mls/hr 03/04/25 13:05 03/06/25 09:38 Heparin Sodium/D5w 100 Units/Ml IV CONT 13 units/hr .[id number] JEREMY 0.13 mls/hr Titration Protocol 1,300 UNITS/HR Linezolid 600 mg in 300 mls @ 300 mls/hr 03/04/25 22:00 03/06/25 10:06 Zyvox IVPB 03/06/25 23:59 Infused Q12H JEREMY Infusion Meropenem 1 gm in 100 mls @ 200 mls/hr 03/05/25 08:45 03/06/25 14:30 IVPB 200 mls/hr Q8HR JEREMY Administration Dextrose 500 mls @ 50 mls/hr 03/06/25 07:55 03/06/25 09:10 Dextrose 5% In Water IV CONT 03/06/25 17:54 50 mls/hr .Q10H JEREMY Administration Pantoprazole Sodium 40 mg 03/04/25 21:00 03/06/25 09:06 Pantoprazole Sodium Iv 40 Mg Vial IV PUSH 40 mg Q12HR JEREMY Administration Perflutren Lipid Microsphere 0 ml 03/04/25 12:30 Perflutren Lipid Microspheres 1.5 Ml Vial Diluted To 10 Ml Total Volume IV PUSH 03/07/25 12:30 ONCE PRN adequate visualization Protocol Sodium Chloride 10 ml 03/04/25 22:00 03/06/25 14:31 Central Line Flush IV PUSH 10 ml Q8HR JEREMY Administration Sodium Chloride 10 ml 03/04/25 14:03 Central Line Flush IV PUSH PRN PRN with TPN bag changes Sodium Chloride 20 ml 03/04/25 14:03 Central Line Flush IV PUSH PRN PRN after blood draws Radiology Results: ITS Impressions Abdomen Ultrasound 03/04/25 17:27 IMPRESSION: Cholelithiasis with gallbladder wall thickening suggesting cholecystitis. No pericholecystic fluid is identified. Fatty infiltration of the liver, with phasic flow in the portal vein suggesting portal hypertension. Chest X-Ray 03/05/25 06:51 IMPRESSION: 1. Unchanged moderate-sized right and small left pleural effusions with associated atelectasis and/or pneumonia in the lower lung zones. 2. Cardiomegaly. Hepatobiliary Scan Nuclear Medicine 03/06/25 13:50 IMPRESSION: 1. No definitive gallbladder activity evident on the initial hour or on the 4 hour delayed images which is suspicious for acute cholecystitis. Modified Barium Swallow 03/06/25 14:15 IMPRESSION: Mild oropharyngeal dysphagia with without radiologic penetration or aspiration. Please correlate with speech pathologist findings and specific feeding recommendations. Labs Labs: Laboratory Results - last 24 hr 03/05/25 03/06/25 03/06/25 19:12 02:02 06:16 WBC 15.1 H RBC 3.41 L Hgb 9.1 L Hct 30.6 L MCV 89.7 MCH 26.7 MCHC 29.7 L RDW 15.3 H Plt Count 333 MPV 9.6 PT 20.5 H D INR 1.7 APTT 106.4 H 92.5 H Sodium 148 H Potassium 3.4 Chloride 116 H Carbon Dioxide 23 Anion Gap 9 BUN 31 H Creatinine 0.72 Estim Creat Clear Calc 65 Estimated GFR > 60 Glucose 88 Calcium 8.9 Phosphorus 2.0 L Magnesium 2.6 H Total Bilirubin 0.7 AST 65 H ALT 151 H Alkaline Phosphatase 121 Total Protein 6.0 L Albumin 3.1 L 03/06/25 09:18 WBC RBC Hgb Hct MCV MCH MCHC RDW Plt Count MPV PT INR APTT 79.4 H Sodium Potassium Chloride Carbon Dioxide Anion Gap BUN Creatinine Estim Creat Clear Calc Estimated GFR Glucose Calcium Phosphorus Magnesium Total Bilirubin AST ALT Alkaline Phosphatase Total Protein Albumin
[2025-03-07] VITALS (18 sets, daily range): BP systolic 132–153; BP diastolic 63–95; PULSE 64–96; RESP 16–24; TEMP 36.4–36.7; O2SAT 95–98
[2025-03-07] MEDS: HEPARIN SOD/D5W 100 UNITS/ML 25,000 UNITS/250 ML BAG IV CONT (01:01)
[2025-03-07] MEDS: ACETAMINOPHEN 325 MG TABLET 650 MG PO ×2 (05:02→21:57)
[2025-03-07] MEDS: CENTRAL LINE FLUSH 10 ML IV PUSH ×3 (05:02→21:56)
[2025-03-07] MEDS: MEROPENEM 1 GM/NS 100 ML 1 GM/100 ML BAG IVPB ×3 (05:07→21:49)
[2025-03-07 05:11] LABS: Hematocrit 30.6 % (37.0-47.0); Hemoglobin 9.5 g/dL (12.0-15.0); Mean Corpuscular Hemoglobin 26.8 pg (26-34); Mean Corpuscular Volume 86.2 fl (80-100); Mean Platelet Volume 9.5 fl (7.4-10.4); Platelet Count Result 345 k/mm3 (150-375); Red Blood Count 3.55 M/mm3 (4.2-5.4); Red Cell Distribution Width 15.1 % (11.5-14.5); White Blood Count 12.9 K/mm3 (4.5-10.0)
[2025-03-07 05:35] LABS: INR 1.4; Prothrombin Time 17.3 Seconds (11.1-14.7)
[2025-03-07 06:47] LABS: Alanine Aminotransferase 122 U/L (6-35); Albumin Level 2.9 g/dL (3.5-5.1); Alkaline Phosphatase 113 U/L (38-126); Anion Gap 6 mmol/L (4-12); Aspartate Amino Transferase 52 U/L (14-36); Bilirubin,Total 0.7 mg/dL (0.2-1.3); Blood Urea Nitrogen 23 mg/dL (7-17); Calcium 8.6 mg/dL (8.4-10.2); Carbon Dioxide 26 mmol/L (22-30); Chloride 112 mmol/L (98-107); Estimated CRCL calculation 69 ml/min; Estimated Glomerular Filt Rate > 60; Glucose 88 mg/dL (65-110); Magnesium 2.4 mg/dL (1.6-2.3); Phosphorus 2.1 mg/dL (2.5-4.5); Potassium 3.3 mmol/L (3.4-5.0); Sodium 144 mmol/L (137-145)
[2025-03-07] MEDS: AMIODARONE HCL 200 MG TABLET 400 MG PO (09:05)
[2025-03-07] MEDS: carvediloL 3.125 MG TABLET PO ×2 (09:06→20:11)
[2025-03-07] MEDS: FUROSEMIDE 40 MG TABLET PO (09:06)
[2025-03-07] MEDS: PANTOPRAZOLE SODIUM IV 40 MG VIAL IV PUSH ×2 (09:11→20:11)
--- NOTE | 2025-03-07 09:24 | PM.IMPN ---
Progress Note: A&P Assessment and Plan (1) Septic shock: Code(s): A41.9 - Sepsis, unspecified organism; R65.21 - Severe sepsis with septic shock Status: Acute Assessment and Plan: Septic shock most likely related to UTI, cellulitis, possible pneumonia, bacteremia, AFib RVR, pleural effusion -03/04: patient was transferred from [facility] in [facility] for septic shock, hypotension AFib RVR status post cardioversion at the outside hospital with return to sinus rhythm -dry oral mucosa, will give 500 mL IV fluid bolus -albumin for intravascular volume expansion -02/26 urine cultures: ESBL E coli -02/26 blood cultures: Group G Streptococcus -03/01 repeat blood cultures were negative x2 -03/04 repeat blood cultures pending -continue linezolid for 7 days and meropenem. Off all vasopressors -03/04: PICC line inserted 03/04/[address] chest, abdomen and pelvis IMPRESSION: 1. Moderate-sized right and small left pleural effusions with right lower lobe collapse, partial right middle lobe collapse and dependent atelectasis in the left lower lobe. 2. Cardiomegaly. 3. Air-fluid levels throughout the colon consistent with nonspecific diarrhea. 4. Severe thoracic and lumbar scoliosis with severe spondylosis. 5. Advanced osteoarthritis at the right hip and bilateral acromioclavicular joints. 6. Fibroid uterus. 7. Nonobstructing 2 mm left renal stone. (2) Cellulitis of lower extremity: Qualifiers: Laterality: unspecified laterality Qualified Code(s): L03.119 - Cellulitis of unspecified part of limb Code(s): L03.119 - Cellulitis of unspecified part of limb Status: Acute Assessment and Plan: Treatment as above (3) DANIEL (acute kidney injury): Code(s): N17.9 - Acute kidney failure, unspecified Status: Acute Assessment and Plan: Patient presented the outside hospital with acute kidney injury, -urine output has been adequate -creatinine has improved and normalized. Off IV fluids now -continue to monitor urine output, renal function electrolyte (4) AMS (altered mental status): Qualifiers: Altered mental status type: unspecified Qualified Code(s): R41.82 - Altered mental status, unspecified Code(s): R41.82 - Altered mental status, unspecified Status: Acute Assessment and Plan: Altered mental status could be related septic shock, AFib RVR, encephalopathy related to critical illness -continue to treat underlying cause -mental status improved and patient now AO x2 02/26: CT brain did not show any acute intracranial abnormality (5) Atrial fibrillation with rapid ventricular response: Code(s): I48.91 - Unspecified atrial fibrillation Status: Acute Assessment and Plan: Patient has a history of AFib, was on Eliquis at the outside hospital On 03/04 went into AFib RVR with hypotension and hemodynamic instability and had to be cardioverted by the ED doctor at the [facility] in [facility] Converted to sinus bradycardia and now off of amiodarone infusion Cardiology following and will defer further management Echo reviewed Continue heparin infusion. Will switch to Eliquis after thoracentesis Echo Summary 1. Left ventricular chamber dimension is normal. 2. Left ventricular systolic function is mildly reduced, estimated at 40-45. 3. The left ventricular diastolic function is grade I diastolic dysfunction. 4. Right ventricular chamber dimension is moderately enlarged. 5. Right ventricular systolic function is normal. 6. Left atrial chamber dimension is moderately enlarged. 7. Right atrial chamber dimension is severely enlarged. 8. There is mild tricuspid valve regurgitation. (6) Bacteremia: Code(s): R78.81 - Bacteremia Status: Acute Assessment and Plan: Treatment as above -repeat blood cultures were negative (7) Cholecystitis: Code(s): K81.9 - Cholecystitis, unspecified Status: Deleted Assessment and Plan: Abdominal ultrasound showed IMPRESSION: Cholelithiasis with gallbladder wall thickening suggesting cholecystitis. No pericholecystic fluid is identified. Fatty infiltration of the liver, with phasic flow in the portal vein suggesting portal hypertension. General surgery consulted HIDA scan ordered and pending (8) Elevated liver enzymes: Code(s): R74.8 - Abnormal levels of other serum enzymes Status: Acute Assessment and Plan: Right upper quadrant ultrasound as above Levels improving. Monitor (9) Pleural effusion: Code(s): J90 - Pleural effusion, not elsewhere classified Status: Acute Assessment and Plan: Right side thoracentesis fluid. Currently on heparin infusion. 03/04: CT scan of the chest showed Moderate-sized right and small left pleural effusions with right lower lobe collapse, partial right middle lobe collapse and dependent atelectasis in the left lower lobe. Thoracentesis ordered and pending (10) GERD (gastroesophageal reflux disease): Code(s): K21.9 - Gastro-esophageal reflux disease without esophagitis Status: Acute Assessment and Plan: Protonix Plan DVT prophylaxis: Heparin infusion Stress ulcer prophylaxis: Protonix Nutrition: NPO for now. Patient was evaluated by speech Patient has modified barium swallow ordered and pending Code Status: Full code PT OT Subjective Date/time seen: 03/07/25 09:24 Interval history: Interval history: Patient is currently being treated for sepsis due to UTI (ESBL) treated with meropenem, pneumonia, cellulitis, cholecystitis, bacteremia (repeat blood culture negative for group G Streptococcus), AFib (status post cardioversion in [facility] ED). Patient completed MBS (please refer to full report). Patient is allergic to beta-blockers so currently on amiodarone 400 mg p.o. q.d..HIDA scan shows occluded cystic duct. As per surgery, patient has too many comorbidities and came in with septic shock, making surgical intervention high risk for mortality. Will see if IR can place percutaneous cholecystostomy tube to control source of infection. Surgery manage drain and monitor for resolution of current infection. Patient on heparin gtt and will need to be stopped prior to drain placement. 03/07: Patient is not willing to do thoracentesis today due to pain but agrees to do it tomorrow. Review of Systems Review of Systems: Patient denies fever, chest pain, shortness of breath, cough, nausea vomiting, abdominal pain,, diarrhea, headache or constipation.. All other systems were reviewed and were negative. All systems reviewed & are unremarkable except as noted in HPI and below (HPI) Exam Narrative: General: Ill-appearing female currently in no acute distress HEENT:? Pupils are small, equal and reactive, sclera is clear, dry oral mucosa Neck:? Supple Respiratory:? Coarse breath sounds bilaterally, decreased on right side, occasional rales bilaterally, no wheezing Cardiac:? S1-S2 normal, regular rate and rhythm Abdomen:? Soft, nondistended, mild diffuse tenderness, hypoactive bowel sound Extremities:? ,, palpable pedal pulses bilaterally Neuro:? Patient is on a awake, alert, AO x 2 Follows simple commands in all extremities Skin:? Bilateral lower extremity venous stasis changes, mild warmth, mild erythema, old scabs Psych:? Unable to assess Objective Data Vital Signs Vital Signs: Vital Signs - 24 hr 03/06/25 10:00 03/06/25 11:38 03/06/25 11:43 Temperature 97.6 F Pulse Rate 75 78 87 Respiratory Rate 23 H Blood Pressure 149/76 H Pulse Oximetry 23 L 03/06/25 12:00 03/06/25 14:00 03/06/25 16:00 Temperature 97.9 F Pulse Rate 77 77 76 Respiratory Rate 24 H Blood Pressure 115/78 Pulse Oximetry 97 03/06/25 16:00 03/06/25 18:00 03/06/25 19:29 Temperature 98.5 F Pulse Rate 71 76 75 Respiratory Rate 16 Blood Pressure 125/54 L Pulse Oximetry 97 03/06/25 20:00 03/06/25 22:00 03/06/25 23:46 Temperature 97.6 F Pulse Rate 73 77 75 Respiratory Rate 16 Blood Pressure 124/68 Pulse Oximetry 97 03/07/25 00:00 03/07/25 02:00 03/07/25 04:00 Temperature 97.7 F Pulse Rate 66 71 76 Respiratory Rate 20 Blood Pressure 132/95 H Pulse Oximetry 96 03/07/25 04:00 03/07/25 06:00 03/07/25 08:00 Temperature 97.8 F Pulse Rate 73 66 80 Respiratory Rate 24 H Blood Pressure 145/68 H Pulse Oximetry 98 03/07/25 09:05 03/07/25 09:06 Temperature Pulse Rate 74 74 Respiratory Rate Blood Pressure Pulse Oximetry Intake/Output Intake/Output: Intake & Output 03/04/25 03/05/25 03/06/25 03/07/25 23:59 23:59 23:59 23:59 Intake Total 1257.0 1423.9 1197.3 2.3 Output Total 300 675 875 50 Balance 957.0 748.9 322.3 -47.7 Meds/Results Medications: Active Medications Generic Name Dose Route Start Last Admin Trade Name Freq PRN Reason Stop Dose Admin Acetaminophen 650 mg 03/05/25 07:49 03/07/25 05:02 Acetaminophen 325 Mg Tablet PO 650 mg Q4H PRN Administration Headache, pain or fever Amiodarone HCl 400 mg 03/05/25 10:15 03/07/25 09:05 Amiodarone Hcl 200 Mg Tablet PO 400 mg DAILY@0800 JEREMY Administration Carvedilol 3.125 mg 03/07/25 08:00 03/07/25 09:06 Carvedilol 3.125 Mg Tablet PO 3.125 mg Q12HR JEREMY Administration Furosemide 40 mg 03/07/25 09:00 03/07/25 09:06 Furosemide 40 Mg Tablet PO 40 mg DAILY JEREMY Administration Heparin Sodium (Porcine) 5,000 units 03/04/25 13:01 03/04/25 21:20 Heparin Sodium 5,000 Units/Ml Vial IV PUSH 5,000 units PRN PRN Administration aPTT less than 55 seconds Heparin Sodium (Porcine) 2,500 units 03/04/25 13:01 Heparin Sodium 5,000 Units/Ml Vial IV PUSH PRN PRN aPTT 55 - 70 seconds Heparin Sodium/Dextrose 25,000 units in 250 mls @ 0 mls/hr 03/04/25 13:05 03/07/25 03:30 Heparin Sodium/D5w 100 Units/Ml IV CONT 0 units/hr .Q0M JEREMY 0 mls/hr Titration Protocol Meropenem 1 gm in 100 mls @ 200 mls/hr 03/05/25 08:45 03/07/25 05:07 IVPB 200 mls/hr Q8HR JEREMY Administration Pantoprazole Sodium 40 mg 03/04/25 21:00 03/07/25 09:11 Pantoprazole Sodium Iv 40 Mg Vial IV PUSH 40 mg Q12HR JEREMY Administration Perflutren Lipid Microsphere 0 ml 03/04/25 12:30 Perflutren Lipid Microspheres 1.5 Ml Vial Diluted To 10 Ml Total Volume IV PUSH 03/07/25 12:30 ONCE PRN adequate visualization Protocol Sodium Chloride 10 ml 03/04/25 22:00 03/07/25 05:02 Central Line Flush IV PUSH 10 ml Q8HR JEREMY Administration Sodium Chloride 10 ml 03/04/25 14:03 Central Line Flush IV PUSH PRN PRN with TPN bag changes Sodium Chloride 20 ml 03/04/25 14:03 Central Line Flush IV PUSH PRN PRN after blood draws Radiology Results: ITS Impressions Abdomen Ultrasound 03/04/25 17:27 IMPRESSION: Cholelithiasis with gallbladder wall thickening suggesting cholecystitis. No pericholecystic fluid is identified. Fatty infiltration of the liver, with phasic flow in the portal vein suggesting portal hypertension. Chest X-Ray 03/05/25 06:51 IMPRESSION: 1. Unchanged moderate-sized right and small left pleural effusions with associated atelectasis and/or pneumonia in the lower lung zones. 2. Cardiomegaly. Hepatobiliary Scan Nuclear Medicine 03/06/25 13:50 IMPRESSION: 1. No definitive gallbladder activity evident on the initial hour or on the 4 hour delayed images which is suspicious for acute cholecystitis. Modified Barium Swallow 03/06/25 14:15 IMPRESSION: Mild oropharyngeal dysphagia with without radiologic penetration or aspiration. Please correlate with speech pathologist findings and specific feeding recommendations. Labs Labs: Laboratory Results - last 24 hr 03/06/25 03/07/25 03/07/25 09:18 05:05 05:05 WBC 12.9 H RBC 3.55 L Hgb 9.5 L Hct 30.6 L MCV 86.2 MCH 26.8 MCHC 31.0 L RDW 15.1 H Plt Count 345 MPV 9.5 PT 17.3 H INR 1.4 APTT 79.4 H 36.0 Cancelled Sodium 144 Potassium 3.3 L Chloride 112 H Carbon Dioxide 26 Anion Gap 6 BUN 23 H Creatinine 0.69 L Estim Creat Clear Calc 69 Estimated GFR > 60 Glucose 88 Calcium 8.6 Phosphorus 2.1 L Magnesium 2.4 H Total Bilirubin 0.7 AST 52 H ALT 122 H Alkaline Phosphatase 113 Total Protein 6.0 L Albumin 2.9 L Quality VTE Prophylaxis VTE prophylaxis: pharmacologic ordered Hospitalist [facility] Advance Care Plan I have confirmed that the patient's Advanced Care Plan is present, code status is documented, or surrogate decision maker is listed in patient medical record.: Yes Medication Reconciliation I have utilized all available resources to obtain, update and review the patients current medications (includes all prescriptions, OTC, herbals, cannabis, and nutritional supplements).: Yes
--- NOTE | 2025-03-07 13:03 | PM.PNCARD ---
Progress Note: A&P Assessment and Plan (1) Cardiomyopathy: Code(s): I42.9 - Cardiomyopathy, unspecified Status: Acute (2) Afib: Code(s): I48.91 - Unspecified atrial fibrillation Status: Acute (3) Hypertension: Code(s): I10 - Essential (primary) hypertension Status: Acute Plan 69-year-old woman with history of CVA now residing in [facility] with chronic lower extremity venous stasis ulcers/wounds and paroxysmal atrial fibrillation transferred from [place] for management of septic shock Systolic heart failure -it is unknown if this is new -will continue carvedilol 3.125 mg p.o. b.i.d. and add losartan 25 mg p.o. daily -continue Lasix 40 mg p.o. daily which she will likely continue to require even in the outpatient setting; can be re-evaluated in clinic -will need outpatient repeat transthoracic echocardiogram once on maximally tolerated guideline directed medical therapy Paroxysmal atrial fibrillation -will decrease amiodarone to 200 mg p.o. daily -previously unable to tolerate metoprolol due to reaction as per patient draining the life out of her -resume oral anticoagulants when no further procedures anticipated Hypertension -continue carvedilol 3.125 mg p.o. b.i.d. and start losartan 25 mg p.o. daily No anticipated further inpatient cardiac workup. Please call Cardiology with additional questions. Subjective Date/time seen: 03/07/25 13:03 Interval history: She complains of severe chest discomfort after vomiting. Currently has much improved. She also complains that she has spasms when her head is positioned is certain way. Review of Systems Cardiovascular: Cardiovascular: Reports as per HPI Respiratory: Respiratory: Reports as per HPI Exam Const: Other: Ill-appearing HENMT: Mouth: Yes moist mucous membranes Eyes: EOM: EOMs intact bilaterally Neck: Neck: no JVD Resp: Effort & Inspection: normal respiratory effort Auscultation: rales Cardio: Rate: regular rate Rhythm: regular rhythm GI: GI Palp: Yes Soft to palpation Extrem: Other: Chronic wounds in lower extremity with swelling Objective Data Vital Signs Vital Signs: Vital Signs - 24 hr 03/06/25 14:00 03/06/25 16:00 03/06/25 16:00 Temperature 36.6 C Pulse Rate 77 76 71 Respiratory Rate 24 H Blood Pressure 115/78 Pulse Oximetry 97 03/06/25 18:00 03/06/25 19:29 03/06/25 20:00 Temperature 36.9 C Pulse Rate 76 75 73 Respiratory Rate 16 Blood Pressure 125/54 L Pulse Oximetry 97 03/06/25 22:00 03/06/25 23:46 03/07/25 00:00 Temperature 36.4 C Pulse Rate 77 75 66 Respiratory Rate 16 Blood Pressure 124/68 Pulse Oximetry 97 03/07/25 02:00 03/07/25 04:00 03/07/25 04:00 Temperature 36.5 C Pulse Rate 71 76 73 Respiratory Rate 20 Blood Pressure 132/95 H Pulse Oximetry 96 03/07/25 06:00 03/07/25 08:00 03/07/25 08:20 Temperature 36.6 C Pulse Rate 66 80 74 Respiratory Rate 24 H Blood Pressure 145/68 H Pulse Oximetry 98 03/07/25 09:05 03/07/25 09:06 03/07/25 12:00 Temperature 36.4 C L Pulse Rate 74 74 64 Respiratory Rate 18 Blood Pressure 139/80 Pulse Oximetry 96 Intake/Output Intake/Output: Intake & Output 03/04/25 03/05/25 03/06/25 03/07/25 23:59 23:59 23:59 23:59 Intake Total 1257.0 1423.9 1197.3 2.3 Output Total 300 675 875 50 Balance 957.0 748.9 322.3 -47.7 Meds/Results Medications: Active Medications Generic Name Dose Route Start Last Admin Trade Name Ciroq PRN Reason Stop Dose Admin Acetaminophen 650 mg 03/05/25 07:49 03/07/25 05:02 Acetaminophen 325 Mg Tablet PO 650 mg Q4H PRN Administration Headache, pain or fever Amiodarone HCl 400 mg 03/05/25 10:15 03/07/25 09:05 Amiodarone Hcl 200 Mg Tablet PO 400 mg DAILY@0800 [facility] Administration Carvedilol 3.125 mg 03/07/25 08:00 03/07/25 12:24 Carvedilol 3.125 Mg Tablet PO Not Given Q12HR JEREMY Furosemide 40 mg 03/07/25 09:00 03/07/25 09:06 Furosemide 40 Mg Tablet PO 40 mg DAILY JEREMY Administration Heparin Sodium (Porcine) 5,000 units 03/04/25 13:01 03/04/25 21:20 Heparin Sodium 5,000 Units/Ml Vial IV PUSH 5,000 units PRN PRN Administration aPTT less than 55 seconds Heparin Sodium (Porcine) 2,500 units 03/04/25 13:01 Heparin Sodium 5,000 Units/Ml Vial IV PUSH PRN PRN aPTT 55 - 70 seconds Heparin Sodium/Dextrose 25,000 units in 250 mls @ 13 mls/hr 03/04/25 13:05 03/07/25 11:41 Heparin Sodium/D5w 100 Units/Ml IV CONT 13 units/hr .[id number] JEREMY 0.13 mls/hr Titration Protocol 1,300 UNITS/HR Meropenem 1 gm in 100 mls @ 200 mls/hr 03/05/25 08:45 03/07/25 05:07 IVPB 200 mls/hr Q8HR JEREMY Administration Pantoprazole Sodium 40 mg 03/04/25 21:00 03/07/25 09:11 Pantoprazole Sodium Iv 40 Mg Vial IV PUSH 40 mg Q12HR JEREMY Administration Sodium Chloride 10 ml 03/04/25 22:00 03/07/25 05:02 Central Line Flush IV PUSH 10 ml Q8HR JEREMY Administration Sodium Chloride 10 ml 03/04/25 14:03 Central Line Flush IV PUSH PRN PRN with TPN bag changes Sodium Chloride 20 ml 03/04/25 14:03 Central Line Flush IV PUSH PRN PRN after blood draws Radiology Results: ITS Impressions Abdomen Ultrasound 03/04/25 17:27 IMPRESSION: Cholelithiasis with gallbladder wall thickening suggesting cholecystitis. No pericholecystic fluid is identified. Fatty infiltration of the liver, with phasic flow in the portal vein suggesting portal hypertension. Chest X-Ray 03/05/25 06:51 IMPRESSION: 1. Unchanged moderate-sized right and small left pleural effusions with associated atelectasis and/or pneumonia in the lower lung zones. 2. Cardiomegaly. Hepatobiliary Scan Nuclear Medicine 03/06/25 13:50 IMPRESSION: 1. No definitive gallbladder activity evident on the initial hour or on the 4 hour delayed images which is suspicious for acute cholecystitis. Modified Barium Swallow 03/06/25 14:15 IMPRESSION: Mild oropharyngeal dysphagia with without radiologic penetration or aspiration. Please correlate with speech pathologist findings and specific feeding recommendations. Labs Labs: Laboratory Results - last 24 hr 03/07/25 03/07/25 05:05 05:05 WBC 12.9 H RBC 3.55 L Hgb 9.5 L Hct 30.6 L MCV 86.2 MCH 26.8 MCHC 31.0 L RDW 15.1 H Plt Count 345 MPV 9.5 PT 17.3 H INR 1.4 APTT 36.0 Cancelled Sodium 144 Potassium 3.3 L Chloride 112 H Carbon Dioxide 26 Anion Gap 6 BUN 23 H Creatinine 0.69 L Estim Creat Clear Calc 69 Estimated GFR > 60 Glucose 88 Calcium 8.6 Phosphorus 2.1 L Magnesium 2.4 H Total Bilirubin 0.7 AST 52 H ALT 122 H Alkaline Phosphatase 113 Total Protein 6.0 L Albumin 2.9 L
[2025-03-07 13:07] LABS: Partial Thromboplastin Time 44.7 Seconds (22.3-36.8)
[2025-03-07] MEDS: HEPARIN SODIUM 5,000 UNITS/ML VIAL 5000 UNITS IV PUSH (14:49)
[2025-03-07] MEDS: POTASSIUM CHLORIDE 20 MEQ ER TABLET 40 MEQ PO (14:51)
--- NOTE | 2025-03-07 14:56 | PCPTNOTE ---
Attempted PT evaluation, pt refused until after procedure that is schedule for tomorrow. Nurse aware. Will follow.
--- NOTE | 2025-03-07 15:44 | P.PNGS_ITS ---
Progress Note: A&P Assessment and Plan (1) Acute calculous cholecystitis: Code(s): K80.00 - Calculus of gallbladder with acute cholecystitis without obstruction Status: Acute Assessment and Plan: * HIDA scan shows occluded cystic duct. Patient refused percutaneous cholecystostomy tube placement today. Hopeful to continue with procedure tomorrow. Will manage drain and monitor for resolution of current infection. Patient on heparin gtt and will need to be stopped prior to drain placement. (2) Septic shock: Code(s): A41.9 - Sepsis, unspecified organism; R65.21 - Severe sepsis with septic shock Status: Acute (3) Afib: Code(s): I48.91 - Unspecified atrial fibrillation Status: Acute (4) Cardiomyopathy: Code(s): I42.9 - Cardiomyopathy, unspecified Status: Acute Subjective Subjective Date/Time Seen: 03/07/25 15:44 Interval history: Patient refused percutaneous cholecystostomy tube today due to unwillingness to lie flat on the table. Hopeful to get cholecystostomy tube placed tomorrow. Of note, patient is also scheduled to get thoracentesis tomorrow as well. Currently hemodynamically stable and tolerating low fat diet without N/V, diarrhea, or abd pain. Complains of chest pain overnight. Cardiology following. Exam Const: General: no acute distress, confusion, ill appearing and average body habitus Nutritional Appearance: average body habitus Orientation/consciousness: confusion HENMT: Head: normocephalic and atraumatic Ears: hearing grossly normal bilaterally Mouth: Yes moist mucous membranes Eyes: General: appearance normal, both eyes and all related structures Pupils: Equal, round and reactive pupils present Neck: Neck: normal visual inspection and full ROM Resp: Effort & Inspection: no respiratory distress Auscultation: diminished lung sounds on the left Cardio: Rate: regular rate Rhythm: regular rhythm GI: Inspection: non-distended and no scars GI Palp: Yes Soft to palpation and Yes Tenderness to palpation present (GI) (Diffusely tender. Mostly localized to epigastric region.) Auscultation: normal bowel sounds Rectal Exam: deferred Urinary Catheter: Urinary Catheter: patent and draining and urine clear Skin: General skin exam: normal color Neuro: General: moves all extremities, no focal motor deficits and confusion Cranial nerves: Yes Equal, round and reactive pupils present Speech: normal speech Extrem: Other: Bilateral lower extremity chronic venous stasis skin changes with dry scaly skin and small superficial scabs diffusely bilaterally, but no open wounds. Mild erythema of the left lower leg, no swelling. Psych: Attitude: cooperative Insight: Limited insight present (Psych) Judgement: Limited judgement present (Psych) Objective Data Vital Signs Vital Signs: Vital Signs - 24 hr 03/06/25 16:00 03/06/25 16:00 03/06/25 18:00 Temperature 97.9 F Pulse Rate 76 71 76 Respiratory Rate 24 H Blood Pressure 115/78 Pulse Oximetry 97 03/06/25 19:29 03/06/25 20:00 03/06/25 22:00 Temperature 98.5 F Pulse Rate 75 73 77 Respiratory Rate 16 Blood Pressure 125/54 L Pulse Oximetry 97 03/06/25 23:46 03/07/25 00:00 03/07/25 02:00 Temperature 97.6 F Pulse Rate 75 66 71 Respiratory Rate 16 Blood Pressure 124/68 Pulse Oximetry 97 03/07/25 04:00 03/07/25 04:00 03/07/25 06:00 Temperature 97.7 F Pulse Rate 76 73 66 Respiratory Rate 20 Blood Pressure 132/95 H Pulse Oximetry 96 03/07/25 08:00 03/07/25 08:20 03/07/25 09:05 Temperature 97.8 F Pulse Rate 80 74 74 Respiratory Rate 24 H Blood Pressure 145/68 H Pulse Oximetry 98 03/07/25 09:06 03/07/25 12:00 Temperature 97.5 F L Pulse Rate 74 64 Respiratory Rate 18 Blood Pressure 139/80 Pulse Oximetry 96 Intake/Output Intake/Output: Intake & Output 03/04/25 03/05/25 03/06/25 03/07/25 23:59 23:59 23:59 23:59 Intake Total 1257.0 1423.9 1197.3 102.6 Output Total 300 780 664 6824 Balance 957.0 748.9 322.3 -1647.4 Meds/Results Medications: Active Medications Generic Name Dose Route Start Last Admin Trade Name Freq PRN Reason Stop Dose Admin Acetaminophen 650 mg 03/05/25 07:49 03/07/25 05:02 Acetaminophen 325 Mg Tablet PO 650 mg Q4H PRN Administration Headache, pain or fever Amiodarone HCl 200 mg 03/08/25 08:00 Amiodarone Hcl 200 Mg Tablet PO DAILY@0800 [facility] Carvedilol 3.125 mg 03/07/25 08:00 03/07/25 12:24 Carvedilol 3.125 Mg Tablet PO Not Given Q12HR JEREMY Furosemide 40 mg 03/07/25 09:00 03/07/25 09:06 Furosemide 40 Mg Tablet PO 40 mg DAILY JEREMY Administration Heparin Sodium (Porcine) 5,000 units 03/04/25 13:01 03/07/25 14:49 Heparin Sodium 5,000 Units/Ml Vial IV PUSH 5,000 units PRN PRN Administration aPTT less than 55 seconds Heparin Sodium (Porcine) 2,500 units 03/04/25 13:01 Heparin Sodium 5,000 Units/Ml Vial IV PUSH PRN PRN aPTT 55 - 70 seconds Heparin Sodium/Dextrose 25,000 units in 250 mls @ 16 mls/hr 03/04/25 13:05 03/07/25 14:47 Heparin Sodium/D5w 100 Units/Ml IV CONT 1,600 units/hr .[id number] JEREMY 16 mls/hr Titration Protocol 1,600 UNITS/HR Meropenem 1 gm in 100 mls @ 200 mls/hr 03/05/25 08:45 03/07/25 05:07 IVPB 200 mls/hr Q8HR JEREMY Administration Losartan Potassium 25 mg 03/08/25 09:00 Losartan Potassium 25 Mg Tablet PO DAILY [facility] Pantoprazole Sodium 40 mg 03/04/25 21:00 03/07/25 09:11 Pantoprazole Sodium Iv 40 Mg Vial IV PUSH 40 mg Q12HR JEREMY Administration Sodium Chloride 10 ml 03/04/25 22:00 03/07/25 05:02 Central Line Flush IV PUSH 10 ml Q8HR JEREMY Administration Sodium Chloride 10 ml 03/04/25 14:03 Central Line Flush IV PUSH PRN PRN with TPN bag changes Sodium Chloride 20 ml 03/04/25 14:03 Central Line Flush IV PUSH PRN PRN after blood draws Radiology Results: ITS Impressions Abdomen Ultrasound 03/04/25 17:27 IMPRESSION: Cholelithiasis with gallbladder wall thickening suggesting cholecystitis. No pericholecystic fluid is identified. Fatty infiltration of the liver, with phasic flow in the portal vein suggesting portal hypertension. Chest X-Ray 03/05/25 06:51 IMPRESSION: 1. Unchanged moderate-sized right and small left pleural effusions with associated atelectasis and/or pneumonia in the lower lung zones. 2. Cardiomegaly. Hepatobiliary Scan Nuclear Medicine 03/06/25 13:50 IMPRESSION: 1. No definitive gallbladder activity evident on the initial hour or on the 4 hour delayed images which is suspicious for acute cholecystitis. Modified Barium Swallow 03/06/25 14:15 IMPRESSION: Mild oropharyngeal dysphagia with without radiologic penetration or aspiration. Please correlate with speech pathologist findings and specific feeding recommendations. Labs Labs: Laboratory Results - last 24 hr 03/07/25 03/07/25 03/07/25 05:05 05:05 12:46 WBC 12.9 H RBC 3.55 L Hgb 9.5 L Hct 30.6 L MCV 86.2 MCH 26.8 MCHC 31.0 L RDW 15.1 H Plt Count 345 MPV 9.5 PT 17.3 H INR 1.4 APTT 36.0 Cancelled 44.7 H Sodium 144 Potassium 3.3 L Chloride 112 H Carbon Dioxide 26 Anion Gap 6 BUN 23 H Creatinine 0.69 L Estim Creat Clear Calc 69 Estimated GFR > 60 Glucose 88 Calcium 8.6 Phosphorus 2.1 L Magnesium 2.4 H Total Bilirubin 0.7 AST 52 H ALT 122 H Alkaline Phosphatase 113 Total Protein 6.0 L Albumin 2.9 L
[2025-03-07 22:08] LABS: Partial Thromboplastin Time 144.5 Seconds (22.3-36.8)
[2025-03-08] VITALS (18 sets, daily range): BP systolic 115–141; BP diastolic 56–67; PULSE 61–82; RESP 18–28; TEMP 36.6–36.8; O2SAT 93–98
[2025-03-08] MEDS: MEROPENEM 1 GM/NS 100 ML 1 GM/100 ML BAG IVPB ×3 (05:33→22:42)
[2025-03-08] MEDS: CENTRAL LINE FLUSH 10 ML IV PUSH ×3 (05:38→22:43)
--- NOTE | 2025-03-08 06:22 | PC.NURSE ---
Patient has refused turning and positioning most of the night. She was just repositioned @ 0600 to the left side...tolerated it well.
[2025-03-08 07:01] LABS: Toxigenic C. Diff NEGATIVE (NEGATIVE)
--- NOTE | 2025-03-08 08:46 | PM.PNGS ---
Progress Note: A&P Assessment and Plan (1) Acute calculous cholecystitis: Code(s): K80.00 - Calculus of gallbladder with acute cholecystitis without obstruction Status: Acute Assessment and Plan: HIDA scan shows occluded cystic duct. Patient agreeable to percutaneous cholecystostomy tube placement today, despite concerns with having to lie flat. Will manage drain and monitor for resolution of current infection. Heparin is being held prior to drain placement. (2) Septic shock: Code(s): A41.9 - Sepsis, unspecified organism; R65.21 - Severe sepsis with septic shock Status: Acute (3) Afib: Code(s): I48.91 - Unspecified atrial fibrillation Status: Acute (4) Cardiomyopathy: Code(s): I42.9 - Cardiomyopathy, unspecified Status: Acute Subjective Subjective Date/Time Seen: 03/08/25 08:46 Interval history: Patient reports less pain today with localization to the back and right upper quadrant. Patient is more agreeable to percutaneous cholecystostomy tube placement today. Heparin being held. She is worried about having to lie flat for the procedure but believes she will be able to tolerate it. Currently NPO without nausea vomiting diarrhea or abdominal pain. No complaints of chest pain today. Exam Const: General: no acute distress, confusion, ill appearing and average body habitus Nutritional Appearance: average body habitus Orientation/consciousness: confusion HENMT: Head: normocephalic and atraumatic Ears: hearing grossly normal bilaterally Mouth: Yes moist mucous membranes Eyes: General: appearance normal, both eyes and all related structures Pupils: Equal, round and reactive pupils present Neck: Neck: normal visual inspection and full ROM Resp: Effort & Inspection: no respiratory distress Auscultation: diminished lung sounds on the left Cardio: Rate: regular rate Rhythm: regular rhythm GI: Inspection: non-distended and no scars GI Palp: Yes Soft to palpation, Yes Tenderness to palpation present (GI) (Mild diffuse tenderness in right upper quadrant), No Guarding due to palpation present (GI) and No Hernia present Auscultation: abnormal bowel sounds (hypoactive) Rectal Exam: deferred Urinary Catheter: Urinary Catheter: patent and draining and urine clear Skin: General skin exam: normal color Neuro: General: moves all extremities, no focal motor deficits and confusion Cranial nerves: Yes Equal, round and reactive pupils present Speech: normal speech Extrem: Other: Bilateral lower extremity chronic venous stasis skin changes with dry scaly skin and small superficial scabs diffusely bilaterally, but no open wounds. Mild erythema of the left lower leg, no swelling. Psych: Attitude: cooperative Insight: Limited insight present (Psych) Judgement: Limited judgement present (Psych) Objective Data Vital Signs Vital Signs: Vital Signs - 24 hr 03/07/25 09:05 03/07/25 09:06 03/07/25 10:00 Temperature Pulse Rate 74 74 72 Respiratory Rate Blood Pressure Pulse Oximetry 03/07/25 12:00 03/07/25 12:00 03/07/25 14:00 Temperature 97.5 F L Pulse Rate 64 67 68 Respiratory Rate 18 Blood Pressure 139/80 Pulse Oximetry 96 03/07/25 16:00 03/07/25 16:00 03/07/25 18:00 Temperature 97.5 F L Pulse Rate 68 75 74 Respiratory Rate 20 Blood Pressure 153/75 H Pulse Oximetry 95 03/07/25 19:32 03/07/25 20:00 03/07/25 20:11 Temperature 97.7 F Pulse Rate 79 71 70 Respiratory Rate 16 Blood Pressure 140/73 Pulse Oximetry 98 03/07/25 22:00 03/07/25 23:45 03/08/25 00:00 Temperature 98.1 F Pulse Rate 71 96 66 Respiratory Rate 16 Blood Pressure 137/63 Pulse Oximetry 98 03/08/25 02:00 03/08/25 03:42 03/08/25 04:00 Temperature 97.9 F Pulse Rate 71 76 68 Respiratory Rate 20 Blood Pressure 125/63 Pulse Oximetry 97 03/08/25 06:00 03/08/25 07:36 Temperature 98.1 F Pulse Rate 69 71 Respiratory Rate 28 H Blood Pressure 125/64 Pulse Oximetry 96 Intake/Output Intake/Output: Intake & Output 03/05/25 03/06/25 03/07/25 03/08/25 23:59 23:59 23:59 23:59 Intake Total 1423.9 1197.3 625.8 155.5 Output Total 787 971 4638 600 Balance 748.9 322.3 -1624.2 -444.5 Meds/Results Medications: Active Medications Generic Name Dose Route Start Last Admin Trade Name Freq PRN Reason Stop Dose Admin Acetaminophen 650 mg 03/05/25 07:49 03/07/25 21:57 Acetaminophen 325 Mg Tablet PO 650 mg Q4H PRN Administration Headache, pain or fever Amiodarone HCl 200 mg 03/08/25 08:00 Amiodarone Hcl 200 Mg Tablet PO DAILY@0800 [facility] Carvedilol 3.125 mg 03/07/25 08:00 03/07/25 20:11 Carvedilol 3.125 Mg Tablet PO 3.125 mg Q12HR JEREMY Administration Furosemide 40 mg 03/07/25 09:00 03/07/25 09:06 Furosemide 40 Mg Tablet PO 40 mg DAILY JEREMY Administration Heparin Sodium (Porcine) 5,000 units 03/04/25 13:01 03/07/25 14:49 Heparin Sodium 5,000 Units/Ml Vial IV PUSH 5,000 units PRN PRN Administration aPTT less than 55 seconds Heparin Sodium (Porcine) 2,500 units 03/04/25 13:01 Heparin Sodium 5,000 Units/Ml Vial IV PUSH PRN PRN aPTT 55 - 70 seconds Heparin Sodium/Dextrose 25,000 units in 250 mls @ 0 mls/hr 03/04/25 13:05 03/08/25 03:30 Heparin Sodium/D5w 100 Units/Ml IV CONT 0 units/hr .Q0M EJREMY 0 mls/hr Titration Protocol Meropenem 1 gm in 100 mls @ 200 mls/hr 03/05/25 08:45 03/08/25 06:36 IVPB Infused Q8HR JEREMY Infusion Losartan Potassium 25 mg 03/08/25 09:00 Losartan Potassium 25 Mg Tablet PO DAILY JEREMY Pantoprazole Sodium 40 mg 03/04/25 21:00 03/07/25 20:11 Pantoprazole Sodium Iv 40 Mg Vial IV PUSH 40 mg Q12HR JEREMY Administration Sodium Chloride 10 ml 03/04/25 22:00 03/08/25 05:38 Central Line Flush IV PUSH 10 ml Q8HR JEREMY Administration Sodium Chloride 10 ml 03/04/25 14:03 Central Line Flush IV PUSH PRN PRN with TPN bag changes Sodium Chloride 20 ml 03/04/25 14:03 Central Line Flush IV PUSH PRN PRN after blood draws Radiology Results: ITS Impressions Abdomen Ultrasound 03/04/25 17:27 IMPRESSION: Cholelithiasis with gallbladder wall thickening suggesting cholecystitis. No pericholecystic fluid is identified. Fatty infiltration of the liver, with phasic flow in the portal vein suggesting portal hypertension. Chest X-Ray 03/05/25 06:51 IMPRESSION: 1. Unchanged moderate-sized right and small left pleural effusions with associated atelectasis and/or pneumonia in the lower lung zones. 2. Cardiomegaly. Hepatobiliary Scan Nuclear Medicine 03/06/25 13:50 IMPRESSION: 1. No definitive gallbladder activity evident on the initial hour or on the 4 hour delayed images which is suspicious for acute cholecystitis. Modified Barium Swallow 03/06/25 14:15 IMPRESSION: Mild oropharyngeal dysphagia with without radiologic penetration or aspiration. Please correlate with speech pathologist findings and specific feeding recommendations. Labs Labs: Laboratory Results - last 24 hr 03/07/25 03/07/25 03/08/25 12:46 20:57 05:47 APTT 44.7 H 144.5 H C. difficile (PCR) Negative
[2025-03-08] MEDS: carvediloL 3.125 MG TABLET PO ×2 (09:33→20:23)
[2025-03-08] MEDS: FUROSEMIDE 40 MG TABLET PO (09:33)
[2025-03-08] MEDS: LOSARTAN POTASSIUM 25 MG TABLET PO (09:33)
[2025-03-08] MEDS: PANTOPRAZOLE SODIUM IV 40 MG VIAL IV PUSH ×2 (09:33→20:24)
[2025-03-08 09:34] LABS: Hematocrit 32.1 % (37.0-47.0); Hemoglobin 9.9 g/dL (12.0-15.0); Mean Corpuscular HGB Conc 30.8 g/dl (32-36); Mean Corpuscular Volume 87.5 fl (80-100); Mean Platelet Volume 9.6 fl (7.4-10.4); Platelet Count Result 341 k/mm3 (150-375); Red Blood Count 3.67 M/mm3 (4.2-5.4); Red Cell Distribution Width 14.9 % (11.5-14.5); White Blood Count 10.8 K/mm3 (4.5-10.0)
[2025-03-08] MEDS: AMIODARONE HCL 200 MG TABLET PO (09:34)
[2025-03-08 09:48] LABS: Alanine Aminotransferase 95 U/L (6-35); Albumin Level 2.8 g/dL (3.5-5.1); Alkaline Phosphatase 113 U/L (38-126); Anion Gap 4 mmol/L (4-12); Aspartate Amino Transferase 48 U/L (14-36); Bilirubin,Total 0.7 mg/dL (0.2-1.3); Blood Urea Nitrogen 23 mg/dL (7-17); Calcium 8.3 mg/dL (8.4-10.2); Carbon Dioxide 29 mmol/L (22-30); Chloride 109 mmol/L (98-107); Estimated CRCL calculation 76 ml/min; Estimated Glomerular Filt Rate > 60; Glucose 79 mg/dL (65-110); Magnesium 2.2 mg/dL (1.6-2.3); Phosphorus 2.3 mg/dL (2.5-4.5); Potassium 3.3 mmol/L (3.4-5.0); Sodium 142 mmol/L (137-145)
[2025-03-08 09:53] LABS: INR 1.2; Prothrombin Time 15.3 Seconds (11.1-14.7)
[2025-03-08] MEDS: ACETAMINOPHEN 325 MG TABLET 650 MG PO ×2 (13:24→20:23)
--- NOTE | 2025-03-08 13:31 | PCPTNOTE ---
Spoke with current hospitalist regarding pt being ben lift and wheelchair at baseline. Hospitalist OK removal of therapy orders at this time.
--- NOTE | 2025-03-08 13:53 | PC.NURSE ---
Patient transported to Ultrasound at 1353 by bed per patient transport.
[2025-03-08] MEDS: MORPHINE SULFATE (*CRX) 2 MG/ML INJ IV PUSH (14:32)
--- NOTE | 2025-03-08 15:48 | PM.IMPN ---
Progress Note: A&P Assessment and Plan (1) Septic shock: Code(s): A41.9 - Sepsis, unspecified organism; R65.21 - Severe sepsis with septic shock Status: Acute Assessment and Plan: Septic shock most likely related to UTI, cellulitis, possible pneumonia, bacteremia, AFib RVR, pleural effusion -03/04: patient was transferred from [facility] in [facility] for septic shock, hypotension AFib RVR status post cardioversion at the outside hospital with return to sinus rhythm -dry oral mucosa, will give 500 mL IV fluid bolus -albumin for intravascular volume expansion -02/26 urine cultures: ESBL E coli -02/26 blood cultures: Group G Streptococcus -03/01 repeat blood cultures were negative x2 -03/04 repeat blood cultures pending -continue linezolid for 7 days and meropenem. Off all vasopressors -03/04: PICC line inserted 03/04/[address] chest, abdomen and pelvis IMPRESSION: 1. Moderate-sized right and small left pleural effusions with right lower lobe collapse, partial right middle lobe collapse and dependent atelectasis in the left lower lobe. 2. Cardiomegaly. 3. Air-fluid levels throughout the colon consistent with nonspecific diarrhea. 4. Severe thoracic and lumbar scoliosis with severe spondylosis. 5. Advanced osteoarthritis at the right hip and bilateral acromioclavicular joints. 6. Fibroid uterus. 7. Nonobstructing 2 mm left renal stone. (2) Cellulitis of lower extremity: Qualifiers: Laterality: unspecified laterality Qualified Code(s): L03.119 - Cellulitis of unspecified part of limb Code(s): L03.119 - Cellulitis of unspecified part of limb Status: Acute Assessment and Plan: Treatment as above (3) DANILE (acute kidney injury): Code(s): N17.9 - Acute kidney failure, unspecified Status: Acute Assessment and Plan: Patient presented the outside hospital with acute kidney injury, -urine output has been adequate -creatinine has improved and normalized. Off IV fluids now -continue to monitor urine output, renal function electrolyte (4) AMS (altered mental status): Qualifiers: Altered mental status type: unspecified Qualified Code(s): R41.82 - Altered mental status, unspecified Code(s): R41.82 - Altered mental status, unspecified Status: Acute Assessment and Plan: Altered mental status could be related septic shock, AFib RVR, encephalopathy related to critical illness -continue to treat underlying cause -mental status improved and patient now AO x2 02/26: CT brain did not show any acute intracranial abnormality (5) Atrial fibrillation with rapid ventricular response: Code(s): I48.91 - Unspecified atrial fibrillation Status: Acute Assessment and Plan: Patient has a history of AFib, was on Eliquis at the outside hospital On 03/04 went into AFib RVR with hypotension and hemodynamic instability and had to be cardioverted by the ED doctor at the [facility] in [facility] Converted to sinus bradycardia and now off of amiodarone infusion Cardiology following and will defer further management Echo reviewed Continue heparin infusion. Will switch to Eliquis after thoracentesis Echo Summary 1. Left ventricular chamber dimension is normal. 2. Left ventricular systolic function is mildly reduced, estimated at 40-45. 3. The left ventricular diastolic function is grade I diastolic dysfunction. 4. Right ventricular chamber dimension is moderately enlarged. 5. Right ventricular systolic function is normal. 6. Left atrial chamber dimension is moderately enlarged. 7. Right atrial chamber dimension is severely enlarged. 8. There is mild tricuspid valve regurgitation. (6) Bacteremia: Code(s): R78.81 - Bacteremia Status: Acute Assessment and Plan: Treatment as above -repeat blood cultures were negative (7) Cholecystitis: Code(s): K81.9 - Cholecystitis, unspecified Status: Deleted Assessment and Plan: Abdominal ultrasound showed IMPRESSION: Cholelithiasis with gallbladder wall thickening suggesting cholecystitis. No pericholecystic fluid is identified. Fatty infiltration of the liver, with phasic flow in the portal vein suggesting portal hypertension. General surgery consulted HIDA scan ordered and pending (8) Elevated liver enzymes: Code(s): R74.8 - Abnormal levels of other serum enzymes Status: Acute Assessment and Plan: Right upper quadrant ultrasound as above Levels improving. Monitor (9) Pleural effusion: Code(s): J90 - Pleural effusion, not elsewhere classified Status: Acute Assessment and Plan: Right side thoracentesis fluid. Currently on heparin infusion. 03/04: CT scan of the chest showed Moderate-sized right and small left pleural effusions with right lower lobe collapse, partial right middle lobe collapse and dependent atelectasis in the left lower lobe. Thoracentesis ordered and pending (10) GERD (gastroesophageal reflux disease): Code(s): K21.9 - Gastro-esophageal reflux disease without esophagitis Status: Acute Assessment and Plan: Protonix Plan DVT prophylaxis: Heparin infusion Stress ulcer prophylaxis: Protonix Nutrition: NPO for now. Patient was evaluated by speech Patient has modified barium swallow ordered and pending Code Status: Full code PT OT Subjective Date/time seen: 03/08/25 15:48 Interval history: Patient underwent thoracentesis and cholecystostomy tube placement. Advised to hold anticoagulants for another 24 hours. Review of Systems Review of Systems: Patient denies fever, chest pain, shortness of breath, cough, nausea vomiting, abdominal pain,, diarrhea, headache or constipation.. All other systems were reviewed and were negative. All systems reviewed & are unremarkable except as noted in HPI and below (HPI) Exam Narrative: General: Ill-appearing female currently in no acute distress HEENT:? Pupils are small, equal and reactive, sclera is clear, dry oral mucosa Neck:? Supple Respiratory:? Coarse breath sounds bilaterally, decreased on right side, occasional rales bilaterally, no wheezing Cardiac:? S1-S2 normal, regular rate and rhythm Abdomen:? Soft, nondistended, mild diffuse tenderness, hypoactive bowel sound Extremities:? ,, palpable pedal pulses bilaterally Neuro:? Patient is on a awake, alert, AO x 2 Follows simple commands in all extremities Skin:? Bilateral lower extremity venous stasis changes, mild warmth, mild erythema, old scabs Psych:? Unable to assess Objective Data Vital Signs Vital Signs: Vital Signs - 24 hr 03/07/25 16:00 03/07/25 16:00 03/07/25 18:00 Temperature 97.5 F L Pulse Rate 68 75 74 Respiratory Rate 20 Blood Pressure 153/75 H Pulse Oximetry 95 Oxygen Delivery 03/07/25 19:32 03/07/25 20:00 03/07/25 20:11 Temperature 97.7 F Pulse Rate 79 71 70 Respiratory Rate 16 Blood Pressure 140/73 Pulse Oximetry 98 Oxygen Delivery 03/07/25 22:00 03/07/25 23:45 03/08/25 00:00 Temperature 98.1 F Pulse Rate 71 96 66 Respiratory Rate 16 Blood Pressure 137/63 Pulse Oximetry 98 Oxygen Delivery 03/08/25 02:00 03/08/25 03:42 03/08/25 04:00 Temperature 97.9 F Pulse Rate 71 76 68 Respiratory Rate 20 Blood Pressure 125/63 Pulse Oximetry 97 Oxygen Delivery 03/08/25 06:00 03/08/25 07:36 03/08/25 08:00 Temperature 98.1 F Pulse Rate 69 71 70 Respiratory Rate 28 H Blood Pressure 125/64 Pulse Oximetry 96 Oxygen Delivery 03/08/25 08:00 03/08/25 09:33 03/08/25 09:34 Temperature Pulse Rate 74 73 Respiratory Rate Blood Pressure Pulse Oximetry 96 Oxygen Delivery Room Air 03/08/25 09:34 03/08/25 10:00 03/08/25 12:00 Temperature 98.2 F Pulse Rate 75 70 Respiratory Rate 20 Blood Pressure 125/58 L 141/67 H Pulse Oximetry 98 Oxygen Delivery 03/08/25 12:00 03/08/25 12:00 03/08/25 14:00 Temperature Pulse Rate 77 65 Respiratory Rate Blood Pressure Pulse Oximetry 98 Oxygen Delivery Room Air Intake/Output Intake/Output: Intake & Output 03/05/25 03/06/25 03/07/25 03/08/25 23:59 23:59 23:59 23:59 Intake Total 1423.9 1197.3 625.8 155.5 Output Total 416 323 8624 2450 Balance 748.9 322.3 -1624.2 -2294.5 Meds/Results Medications: Active Medications Generic Name Dose Route Start Last Admin Trade Name Freq PRN Reason Stop Dose Admin Acetaminophen 650 mg 03/05/25 07:49 03/08/25 13:24 Acetaminophen 325 Mg Tablet PO 650 mg Q4H PRN Administration Headache, pain or fever Amiodarone HCl 200 mg 03/08/25 08:00 03/08/25 09:34 Amiodarone Hcl 200 Mg Tablet PO 200 mg DAILY@0800 JEREMY Administration Carvedilol 3.125 mg 03/07/25 08:00 03/08/25 09:33 Carvedilol 3.125 Mg Tablet PO 3.125 mg Q12HR JEREMY Administration Furosemide 40 mg 03/07/25 09:00 03/08/25 09:33 Furosemide 40 Mg Tablet PO 40 mg DAILY JEREMY Administration Heparin Sodium (Porcine) 5,000 units 03/04/25 13:01 03/07/25 14:49 Heparin Sodium 5,000 Units/Ml Vial IV PUSH 5,000 units PRN PRN Administration aPTT less than 55 seconds Heparin Sodium (Porcine) 2,500 units 03/04/25 13:01 Heparin Sodium 5,000 Units/Ml Vial IV PUSH PRN PRN aPTT 55 - 70 seconds Heparin Sodium/Dextrose 25,000 units in 250 mls @ 0 mls/hr 03/04/25 13:05 03/08/25 03:30 Heparin Sodium/D5w 100 Units/Ml IV CONT 0 units/hr .Q0M JEREMY 0 mls/hr Titration Protocol Meropenem 1 gm in 100 mls @ 200 mls/hr 03/05/25 08:45 03/08/25 13:24 IVPB 200 mls/hr Q8HR JEREMY Administration Losartan Potassium 25 mg 03/08/25 09:00 03/08/25 09:33 Losartan Potassium 25 Mg Tablet PO 25 mg DAILY JEREMY Administration Pantoprazole Sodium 40 mg 03/04/25 21:00 03/08/25 09:33 Pantoprazole Sodium Iv 40 Mg Vial IV PUSH 40 mg Q12HR JEREMY Administration Sodium Chloride 10 ml 03/04/25 22:00 03/08/25 05:38 Central Line Flush IV PUSH 10 ml Q8HR JEREMY Administration Sodium Chloride 10 ml 03/04/25 14:03 Central Line Flush IV PUSH PRN PRN with TPN bag changes Sodium Chloride 20 ml 03/04/25 14:03 Central Line Flush IV PUSH PRN PRN after blood draws Radiology Results: ITS Impressions Abdomen Ultrasound 03/04/25 17:27 IMPRESSION: Cholelithiasis with gallbladder wall thickening suggesting cholecystitis. No pericholecystic fluid is identified. Fatty infiltration of the liver, with phasic flow in the portal vein suggesting portal hypertension. Hepatobiliary Scan Nuclear Medicine 03/06/25 13:50 IMPRESSION: 1. No definitive gallbladder activity evident on the initial hour or on the 4 hour delayed images which is suspicious for acute cholecystitis. Modified Barium Swallow 03/06/25 14:15 IMPRESSION: Mild oropharyngeal dysphagia with without radiologic penetration or aspiration. Please correlate with speech pathologist findings and specific feeding recommendations. Labs Labs: Laboratory Results - last 24 hr 03/07/25 03/08/25 03/08/25 20:57 05:47 09:23 WBC 10.8 H RBC 3.67 L Hgb 9.9 L Hct 32.1 L MCV 87.5 MCH 27.0 MCHC 30.8 L RDW 14.9 H Plt Count 341 MPV 9.6 PT 15.3 H INR 1.2 APTT 144.5 H Sodium 142 Potassium 3.3 L Chloride 109 H Carbon Dioxide 29 Anion Gap 4 BUN 23 H Creatinine 0.63 L Estim Creat Clear Calc 76 Estimated GFR > 60 Glucose 79 Calcium 8.3 L Phosphorus 2.3 L Magnesium 2.2 Total Bilirubin 0.7 AST 48 H ALT 95 H Alkaline Phosphatase 113 Total Protein 6.0 L Albumin 2.8 L C. difficile (PCR) Negative Quality VTE Prophylaxis VTE prophylaxis: pharmacologic ordered Hospitalist [facility] Advance Care Plan I have confirmed that the patient's Advanced Care Plan is present, code status is documented, or surrogate decision maker is listed in patient medical record.: Yes Medication Reconciliation I have utilized all available resources to obtain, update and review the patients current medications (includes all prescriptions, OTC, herbals, cannabis, and nutritional supplements).: Yes
--- NOTE | 2025-03-08 15:50 | PC.NURSE ---
Patient transported back to IMU room 205-5 from ultrasound at 1550.
[2025-03-08 17:57] LABS: pH Pleural Fluid > 7.500 (7.210-7.500)
[2025-03-09] VITALS (13 sets, daily range): BP systolic 102–147; BP diastolic 49–64; PULSE 55–85; RESP 18–20; TEMP 36.1–36.8; O2SAT 90–97
[2025-03-09 04:59] LABS: Hematocrit 32.3 % (37.0-47.0); Hemoglobin 10.1 g/dL (12.0-15.0); Mean Corpuscular HGB Conc 31.3 g/dl (32-36); Mean Corpuscular Hemoglobin 27.1 pg (26-34); Mean Corpuscular Volume 86.6 fl (80-100); Mean Platelet Volume 9.6 fl (7.4-10.4); Platelet Count Result 300 k/mm3 (150-375); Red Blood Count 3.73 M/mm3 (4.2-5.4); Red Cell Distribution Width 14.8 % (11.5-14.5); White Blood Count 11.7 K/mm3 (4.5-10.0)
[2025-03-09 05:12] LABS: INR 1.2; Prothrombin Time 15.7 Seconds (11.1-14.7)
[2025-03-09 05:18] LABS: Alanine Aminotransferase 75 U/L (6-35); Albumin Level 2.6 g/dL (3.5-5.1); Alkaline Phosphatase 105 U/L (38-126); Anion Gap 3 mmol/L (4-12); Aspartate Amino Transferase 43 U/L (14-36); Bilirubin,Total 0.7 mg/dL (0.2-1.3); Blood Urea Nitrogen 21 mg/dL (7-17); Carbon Dioxide 33 mmol/L (22-30); Chloride 103 mmol/L (98-107); Estimated CRCL calculation 74 ml/min; Estimated Glomerular Filt Rate > 60; Glucose 91 mg/dL (65-110); Magnesium 2.1 mg/dL (1.6-2.3); Phosphorus 2.5 mg/dL (2.5-4.5); Potassium 2.9 mmol/L (3.4-5.0); Sodium 139 mmol/L (137-145)
[2025-03-09] MEDS: MEROPENEM 1 GM/NS 100 ML 1 GM/100 ML BAG IVPB ×3 (06:08→20:52)
[2025-03-09] MEDS: CENTRAL LINE FLUSH 10 ML IV PUSH ×3 (06:09→21:00)
[2025-03-09] MEDS: FUROSEMIDE 40 MG TABLET PO (09:10)
[2025-03-09] MEDS: LOSARTAN POTASSIUM 25 MG TABLET PO (09:10)
[2025-03-09] MEDS: PANTOPRAZOLE SODIUM IV 40 MG VIAL IV PUSH ×2 (09:10→20:52)
[2025-03-09] MEDS: AMIODARONE HCL 200 MG TABLET PO (09:11)
[2025-03-09] MEDS: ACETAMINOPHEN 325 MG TABLET 650 MG PO ×3 (09:11→20:55)
[2025-03-09] MEDS: carvediloL 3.125 MG TABLET PO ×2 (09:11→20:52)
--- NOTE | 2025-03-09 11:26 | P.PNGS_ITS ---
Progress Note: A&P Assessment and Plan (1) Acute calculous cholecystitis: Code(s): K80.00 - Calculus of gallbladder with acute cholecystitis without obstruction Status: Acute Assessment and Plan: * Continue antibiotics. Monitor drain output. OK to advance to low fat diet. (2) Gallbladder hydrops: Code(s): K82.1 - Hydrops of gallbladder Status: Acute (3) Septic shock: Code(s): A41.9 - Sepsis, unspecified organism; R65.21 - Severe sepsis with septic shock Status: Acute (4) Afib: Code(s): I48.91 - Unspecified atrial fibrillation Status: Acute Subjective Subjective Date/Time Seen: 03/09/25 11:26 Interval history: Cholecystostomy tube placed yesterday. Findings consistent with gallbladder hydrops. Patient wants to advance diet. Pain controlled. No fevers. Exam GI: Inspection: non-distended and other (Cholecystostomy tube with clear bilious output) GI Palp: Yes Soft to palpation, No Tenderness to palpation present (GI), No Guarding due to palpation present (GI) and No Rebound tenderness present Auscultation: normal bowel sounds Objective Data Vital Signs Vital Signs: Vital Signs - 24 hr 03/08/25 12:00 03/08/25 12:00 03/08/25 12:00 Temperature 98.2 F Pulse Rate 70 77 Respiratory Rate 20 Blood Pressure 141/67 H Pulse Oximetry 98 98 Oxygen Delivery Room Air 03/08/25 14:00 03/08/25 16:00 03/08/25 16:00 Temperature 98 F Pulse Rate 65 81 72 Respiratory Rate 18 Blood Pressure 127/57 L Pulse Oximetry 93 Oxygen Delivery 03/08/25 16:00 03/08/25 18:00 03/08/25 19:38 Temperature 98.2 F Pulse Rate 61 80 Respiratory Rate 18 Blood Pressure 115/56 L Pulse Oximetry 93 95 Oxygen Delivery Room Air 03/08/25 20:00 03/08/25 20:00 03/08/25 20:23 Temperature Pulse Rate 80 82 Respiratory Rate Blood Pressure Pulse Oximetry Oxygen Delivery Room Air 03/08/25 22:00 03/09/25 00:00 03/09/25 00:00 Temperature 98.2 F Pulse Rate 73 72 Respiratory Rate 20 Blood Pressure 132/58 L Pulse Oximetry 90 Oxygen Delivery Room Air 03/09/25 00:00 03/09/25 02:00 03/09/25 04:00 Temperature Pulse Rate 74 78 Respiratory Rate Blood Pressure Pulse Oximetry Oxygen Delivery Room Air 03/09/25 04:00 03/09/25 04:00 03/09/25 06:00 Temperature 98.2 F Pulse Rate 75 59 L 71 Respiratory Rate 18 Blood Pressure 130/64 Pulse Oximetry 90 Oxygen Delivery 03/09/25 08:00 03/09/25 09:11 Temperature 98.1 F Pulse Rate 63 75 Respiratory Rate 18 Blood Pressure 147/53 H Pulse Oximetry 93 Oxygen Delivery Intake/Output Intake/Output: Intake & Output 03/06/25 03/07/25 03/08/25 03/09/25 23:59 23:59 23:59 23:59 Intake Total 1197.3 625.8 355.5 240 Output Total 875 2250 3445 460 Balance 322.3 -1624.2 -3089.5 -220 Meds/Results Medications: Active Medications Generic Name Dose Route Start Last Admin Trade Name Freq PRN Reason Stop Dose Admin Acetaminophen 650 mg 03/05/25 07:49 03/09/25 09:11 Acetaminophen 325 Mg Tablet PO 650 mg Q4H PRN Administration Headache, pain or fever Amiodarone HCl 200 mg 03/08/25 08:00 03/09/25 09:11 Amiodarone Hcl 200 Mg Tablet PO 200 mg DAILY@0800 JEREMY Administration Carvedilol 3.125 mg 03/07/25 08:00 03/09/25 09:11 Carvedilol 3.125 Mg Tablet PO 3.125 mg Q12HR JEREMY Administration Furosemide 40 mg 03/07/25 09:00 03/09/25 09:10 Furosemide 40 Mg Tablet PO 40 mg DAILY JEREMY Administration Heparin Sodium (Porcine) 5,000 units 03/04/25 13:01 03/07/25 14:49 Heparin Sodium 5,000 Units/Ml Vial IV PUSH 5,000 units PRN PRN Administration aPTT less than 55 seconds Heparin Sodium (Porcine) 2,500 units 03/04/25 13:01 Heparin Sodium 5,000 Units/Ml Vial IV PUSH PRN PRN aPTT 55 - 70 seconds Meropenem 1 gm in 100 mls @ 200 mls/hr 03/05/25 08:45 03/09/25 06:08 IVPB 200 mls/hr Q8HR JEREMY Administration Losartan Potassium 25 mg 03/08/25 09:00 03/09/25 09:10 Losartan Potassium 25 Mg Tablet PO 25 mg DAILY JEREMY Administration Pantoprazole Sodium 40 mg 03/04/25 21:00 03/09/25 09:10 Pantoprazole Sodium Iv 40 Mg Vial IV PUSH 40 mg Q12HR JEREMY Administration Sodium Chloride 10 ml 03/04/25 22:00 03/09/25 06:09 Central Line Flush IV PUSH 10 ml Q8HR JEREMY Administration Sodium Chloride 10 ml 03/04/25 14:03 Central Line Flush IV PUSH PRN PRN with TPN bag changes Sodium Chloride 20 ml 03/04/25 14:03 Central Line Flush IV PUSH PRN PRN after blood draws Radiology Results: ITS Impressions Abdomen Ultrasound 03/04/25 17:27 IMPRESSION: Cholelithiasis with gallbladder wall thickening suggesting cholecystitis. No pericholecystic fluid is identified. Fatty infiltration of the liver, with phasic flow in the portal vein suggesting portal hypertension. Hepatobiliary Scan Nuclear Medicine 03/06/25 13:50 IMPRESSION: 1. No definitive gallbladder activity evident on the initial hour or on the 4 hour delayed images which is suspicious for acute cholecystitis. Modified Barium Swallow 03/06/25 14:15 IMPRESSION: Mild oropharyngeal dysphagia with without radiologic penetration or aspiration. Please correlate with speech pathologist findings and specific feeding recommendations. Chest X-Ray 03/08/25 16:07 IMPRESSION: 1. Improved aeration in the right lung with no pneumothorax post right thoracentesis. 2. Opacities in the bilateral lower lung zones which could represent small lateral pleural effusions, atelectasis, pneumonia or some combination thereof. 3. Cardiomegaly. Cholecystostomy 03/08/25 16:48 IMPRESSION: 1. Successful ultrasound-guided cholecystostomy tube placement. 2. 45 mL clear bile was sent for aerobic, anaerobic, and fungal cultures. 3. The catheter will be managed by Dr. Gaming. A catheter cholangiogram may be performed not less than 48 hours after tube placement if clinically indicated to assess cystic duct patency. If cholecystectomy is not eventually performed and the infectious episode has resolved, the tube may be removed over a guidewire, preferably not less than 3 weeks after placement to allow time for a mature catheter tract to form to prevent bile leakage and peritonitis. Thoracentesis Ultrasound 03/08/25 16:48 IMPRESSION: 1. Successful ultrasound-guided thoracentesis yielding 450 mL of yellow fluid. Labs Labs: Laboratory Results - last 24 hr 03/08/25 03/09/25 15:34 04:50 WBC 11.7 H RBC 3.73 L Hgb 10.1 L Hct 32.3 L MCV 86.6 MCH 27.1 MCHC 31.3 L RDW 14.8 H Plt Count 300 MPV 9.6 PT 15.7 H INR 1.2 Sodium 139 Potassium 2.9 L Chloride 103 Carbon Dioxide 33 H Anion Gap 3 L BUN 21 H Creatinine 0.65 L Estim Creat Clear Calc 74 Estimated GFR > 60 Glucose 91 Calcium 8.0 L Phosphorus 2.5 Magnesium 2.1 Total Bilirubin 0.7 AST 43 H ALT 75 H Alkaline Phosphatase 105 Total Protein 6.0 L Albumin 2.6 L Pleural pH > 7.500 H
--- NOTE | 2025-03-09 11:47 | PCNFU ---
Nutrition Follow-Up Complete: Increased Protein needs as related to wound healing as evidenced by pressure ulcers reported. Meet estimated nutritional needs. - Progressing slowly Goal: Pt current nutrition is Low fat, advanced for lunch. 25% clear liquids for breakfast Nutrition recommendation: Low fat diet as ordered. Oral nutrition supplements: Ensure Clear BID (240 kcal, 8 g protein each) Last recorded weight is 84.4 kg. Bowel Motility: Liquid stool per FMS Labs Reviewed: Hgb 10.1, Hct 32.3, Alb 2.6, K+ 2.9, BUN 21, Cre 0.65 Meds Noted: Lasix, protonix Skin: Deep tissue pressure injuries L heel, R back Additional Notes: Pt had thoracentesis and abdirahman tube placed yesterday. Wanted to increase diet. Will add Ensure Clear for low fat. Continue to monitor Will monitor weight, labs, skin, diet orders, meds every 3 days.
--- NOTE | 2025-03-09 16:30 | P.PNIM_ITS ---
Progress Note: A&P Assessment and Plan (1) Septic shock: Code(s): A41.9 - Sepsis, unspecified organism; R65.21 - Severe sepsis with septic shock Status: Acute Assessment and Plan: Septic shock most likely related to UTI, cellulitis, possible pneumonia, bacteremia, AFib RVR, pleural effusion -03/04: patient was transferred from [facility] in [facility] for septic shock, hypotension AFib RVR status post cardioversion at the outside hospital with return to sinus rhythm -dry oral mucosa, will give 500 mL IV fluid bolus -albumin for intravascular volume expansion -02/26 urine cultures: ESBL E coli -02/26 blood cultures: Group G Streptococcus -03/01 repeat blood cultures were negative x2 -03/04 repeat blood cultures pending -continue linezolid for 7 days and meropenem. Off all vasopressors -03/04: PICC line inserted 03/04/[address] chest, abdomen and pelvis IMPRESSION: 1. Moderate-sized right and small left pleural effusions with right lower lobe collapse, partial right middle lobe collapse and dependent atelectasis in the left lower lobe. 2. Cardiomegaly. 3. Air-fluid levels throughout the colon consistent with nonspecific diarrhea. 4. Severe thoracic and lumbar scoliosis with severe spondylosis. 5. Advanced osteoarthritis at the right hip and bilateral acromioclavicular joints. 6. Fibroid uterus. 7. Nonobstructing 2 mm left renal stone. (2) Cellulitis of lower extremity: Qualifiers: Laterality: unspecified laterality Qualified Code(s): L03.119 - Cellulitis of unspecified part of limb Code(s): L03.119 - Cellulitis of unspecified part of limb Status: Acute Assessment and Plan: Treatment as above (3) DANIEL (acute kidney injury): Code(s): N17.9 - Acute kidney failure, unspecified Status: Acute Assessment and Plan: Patient presented the outside hospital with acute kidney injury, -urine output has been adequate -creatinine has improved and normalized. Off IV fluids now -continue to monitor urine output, renal function electrolyte (4) AMS (altered mental status): Qualifiers: Altered mental status type: unspecified Qualified Code(s): R41.82 - Altered mental status, unspecified Code(s): R41.82 - Altered mental status, unspecified Status: Acute Assessment and Plan: Altered mental status could be related septic shock, AFib RVR, encephalopathy related to critical illness -continue to treat underlying cause -mental status improved and patient now AO x2 02/26: CT brain did not show any acute intracranial abnormality (5) Atrial fibrillation with rapid ventricular response: Code(s): I48.91 - Unspecified atrial fibrillation Status: Acute Assessment and Plan: Patient has a history of AFib, was on Eliquis at the outside hospital On 03/04 went into AFib RVR with hypotension and hemodynamic instability and had to be cardioverted by the ED doctor at the [facility] in [facility] Converted to sinus bradycardia and now off of amiodarone infusion Cardiology following and will defer further management Echo reviewed Continue heparin infusion. Will switch to Eliquis after thoracentesis Echo Summary 1. Left ventricular chamber dimension is normal. 2. Left ventricular systolic function is mildly reduced, estimated at 40-45. 3. The left ventricular diastolic function is grade I diastolic dysfunction. 4. Right ventricular chamber dimension is moderately enlarged. 5. Right ventricular systolic function is normal. 6. Left atrial chamber dimension is moderately enlarged. 7. Right atrial chamber dimension is severely enlarged. 8. There is mild tricuspid valve regurgitation. (6) Bacteremia: Code(s): R78.81 - Bacteremia Status: Acute Assessment and Plan: Treatment as above -repeat blood cultures were negative (7) Cholecystitis: Code(s): K81.9 - Cholecystitis, unspecified Status: Deleted Assessment and Plan: Abdominal ultrasound showed IMPRESSION: Cholelithiasis with gallbladder wall thickening suggesting cholecystitis. No pericholecystic fluid is identified. Fatty infiltration of the liver, with phasic flow in the portal vein suggesting portal hypertension. General surgery consulted HIDA scan ordered and pending (8) Elevated liver enzymes: Code(s): R74.8 - Abnormal levels of other serum enzymes Status: Acute Assessment and Plan: Right upper quadrant ultrasound as above Levels improving. Monitor (9) Pleural effusion: Code(s): J90 - Pleural effusion, not elsewhere classified Status: Acute Assessment and Plan: Right side thoracentesis fluid. Currently on heparin infusion. 03/04: CT scan of the chest showed Moderate-sized right and small left pleural effusions with right lower lobe collapse, partial right middle lobe collapse and dependent atelectasis in the left lower lobe. Thoracentesis ordered and pending (10) GERD (gastroesophageal reflux disease): Code(s): K21.9 - Gastro-esophageal reflux disease without esophagitis Status: Acute Assessment and Plan: Protonix Plan DVT prophylaxis: Heparin infusion Stress ulcer prophylaxis: Protonix Nutrition: NPO for now. Patient was evaluated by speech Patient has modified barium swallow ordered and pending Code Status: Full code PT OT Subjective Date/time seen: 03/09/25 16:30 Interval history: Patient underwent thoracentesis and cholecystostomy tube placement yesterday. Patient is currently doing well. Review of Systems Review of Systems: Patient denies fever, chest pain, shortness of breath, cough, nausea vomiting, abdominal pain,, diarrhea, headache or constipation.. All other systems were reviewed and were negative. All systems reviewed & are unremarkable except as noted in HPI and below (HPI) Exam Narrative: General: Ill-appearing female currently in no acute distress HEENT:? Pupils are small, equal and reactive, sclera is clear, dry oral mucosa Neck:? Supple Respiratory:? Coarse breath sounds bilaterally, decreased on right side, occasional rales bilaterally, no wheezing Cardiac:? S1-S2 normal, regular rate and rhythm Abdomen:? Soft, nondistended, mild diffuse tenderness, hypoactive bowel sound Extremities:? ,, palpable pedal pulses bilaterally Neuro:? Patient is on a awake, alert, AO x 2 Follows simple commands in all extremities Skin:? Bilateral lower extremity venous stasis changes, mild warmth, mild erythema, old scabs Psych:? Unable to assess Objective Data Vital Signs Vital Signs: Vital Signs - 24 hr 03/08/25 18:00 03/08/25 19:38 03/08/25 20:00 Temperature 98.2 F Pulse Rate 61 80 Respiratory Rate 18 Blood Pressure 115/56 L Pulse Oximetry 95 Oxygen Delivery Room Air 03/08/25 20:00 03/08/25 20:23 03/08/25 22:00 Temperature Pulse Rate 80 82 73 Respiratory Rate Blood Pressure Pulse Oximetry Oxygen Delivery 03/09/25 00:00 03/09/25 00:00 03/09/25 00:00 Temperature 98.2 F Pulse Rate 72 74 Respiratory Rate 20 Blood Pressure 132/58 L Pulse Oximetry 90 Oxygen Delivery Room Air 03/09/25 02:00 03/09/25 04:00 03/09/25 04:00 Temperature 98.2 F Pulse Rate 78 75 Respiratory Rate 18 Blood Pressure 130/64 Pulse Oximetry 90 Oxygen Delivery Room Air 03/09/25 04:00 03/09/25 06:00 03/09/25 08:00 Temperature 98.1 F Pulse Rate 59 L 71 63 Respiratory Rate 18 Blood Pressure 147/53 H Pulse Oximetry 93 Oxygen Delivery 03/09/25 08:00 03/09/25 08:00 03/09/25 09:11 Temperature Pulse Rate 59 L 85 75 Respiratory Rate 20 Blood Pressure Pulse Oximetry 93 Oxygen Delivery Room Air 03/09/25 11:33 03/09/25 12:00 03/09/25 16:00 Temperature 97.7 F Pulse Rate 59 L 60 61 Respiratory Rate 20 Blood Pressure 102/55 L Pulse Oximetry 93 Oxygen Delivery 03/09/25 16:12 Temperature 96.9 F L Pulse Rate 55 L Respiratory Rate 20 Blood Pressure 103/49 L Pulse Oximetry 94 Oxygen Delivery Intake/Output Intake/Output: Intake & Output 03/06/25 03/07/25 03/08/25 03/09/25 23:59 23:59 23:59 23:59 Intake Total 1197.3 625.8 355.5 460 Output Total 875 2250 3445 1710 Balance 322.3 -1624.2 -3089.5 -1250 Meds/Results Medications: Active Medications Generic Name Dose Route Start Last Admin Trade Name Freq PRN Reason Stop Dose Admin Acetaminophen 650 mg 03/05/25 07:49 03/09/25 15:50 Acetaminophen 325 Mg Tablet PO 650 mg Q4H PRN Administration Headache, pain or fever Amiodarone HCl 200 mg 03/08/25 08:00 03/09/25 09:11 Amiodarone Hcl 200 Mg Tablet PO 200 mg DAILY@0800 JEREMY Administration Carvedilol 3.125 mg 03/07/25 08:00 03/09/25 09:11 Carvedilol 3.125 Mg Tablet PO 3.125 mg Q12HR JEREMY Administration Furosemide 40 mg 03/07/25 09:00 03/09/25 09:10 Furosemide 40 Mg Tablet PO 40 mg DAILY JEREMY Administration Heparin Sodium (Porcine) 5,000 units 03/04/25 13:01 03/07/25 14:49 Heparin Sodium 5,000 Units/Ml Vial IV PUSH 5,000 units PRN PRN Administration aPTT less than 55 seconds Heparin Sodium (Porcine) 2,500 units 03/04/25 13:01 Heparin Sodium 5,000 Units/Ml Vial IV PUSH PRN PRN aPTT 55 - 70 seconds Meropenem 1 gm in 100 mls @ 200 mls/hr 03/05/25 08:45 03/09/25 15:10 IVPB 200 mls/hr Q8HR JEREMY Administration Losartan Potassium 25 mg 03/08/25 09:00 03/09/25 09:10 Losartan Potassium 25 Mg Tablet PO 25 mg DAILY JEREMY Administration Pantoprazole Sodium 40 mg 03/04/25 21:00 03/09/25 09:10 Pantoprazole Sodium Iv 40 Mg Vial IV PUSH 40 mg Q12HR JEREMY Administration Sodium Chloride 10 ml 03/04/25 22:00 03/09/25 15:10 Central Line Flush IV PUSH 10 ml Q8HR JEREMY Administration Sodium Chloride 10 ml 03/04/25 14:03 Central Line Flush IV PUSH PRN PRN with TPN bag changes Sodium Chloride 20 ml 03/04/25 14:03 Central Line Flush IV PUSH PRN PRN after blood draws Radiology Results: ITS Impressions Abdomen Ultrasound 03/04/25 17:27 IMPRESSION: Cholelithiasis with gallbladder wall thickening suggesting cholecystitis. No pericholecystic fluid is identified. Fatty infiltration of the liver, with phasic flow in the portal vein suggesting portal hypertension. Hepatobiliary Scan Nuclear Medicine 03/06/25 13:50 IMPRESSION: 1. No definitive gallbladder activity evident on the initial hour or on the 4 hour delayed images which is suspicious for acute cholecystitis. Modified Barium Swallow 03/06/25 14:15 IMPRESSION: Mild oropharyngeal dysphagia with without radiologic penetration or aspiration. Please correlate with speech pathologist findings and specific feeding recommendations. Chest X-Ray 03/08/25 16:07 IMPRESSION: 1. Improved aeration in the right lung with no pneumothorax post right thoracentesis. 2. Opacities in the bilateral lower lung zones which could represent small lateral pleural effusions, atelectasis, pneumonia or some combination thereof. 3. Cardiomegaly. Cholecystostomy 03/08/25 16:48 IMPRESSION: 1. Successful ultrasound-guided cholecystostomy tube placement. 2. 45 mL clear bile was sent for aerobic, anaerobic, and fungal cultures. 3. The catheter will be managed by Dr. Gaming. A catheter cholangiogram may be performed not less than 48 hours after tube placement if clinically indicated to assess cystic duct patency. If cholecystectomy is not eventually performed and the infectious episode has resolved, the tube may be removed over a guidewire, preferably not less than 3 weeks after placement to allow time for a mature catheter tract to form to prevent bile leakage and peritonitis. Thoracentesis Ultrasound 03/08/25 16:48 IMPRESSION: 1. Successful ultrasound-guided thoracentesis yielding 450 mL of yellow fluid. Labs Labs: Laboratory Results - last 24 hr 03/08/25 03/09/25 15:34 04:50 WBC 11.7 H RBC 3.73 L Hgb 10.1 L Hct 32.3 L MCV 86.6 MCH 27.1 MCHC 31.3 L RDW 14.8 H Plt Count 300 MPV 9.6 PT 15.7 H INR 1.2 Sodium 139 Potassium 2.9 L Chloride 103 Carbon Dioxide 33 H Anion Gap 3 L BUN 21 H Creatinine 0.65 L Estim Creat Clear Calc 74 Estimated GFR > 60 Glucose 91 Calcium 8.0 L Phosphorus 2.5 Magnesium 2.1 Total Bilirubin 0.7 AST 43 H ALT 75 H Alkaline Phosphatase 105 Total Protein 6.0 L Albumin 2.6 L Pleural pH > 7.500 H Quality VTE Prophylaxis VTE prophylaxis: pharmacologic ordered Hospitalist [facility] Advance Care Plan I have confirmed that the patient's Advanced Care Plan is present, code status is documented, or surrogate decision maker is listed in patient medical record.: Yes Medication Reconciliation I have utilized all available resources to obtain, update and review the patients current medications (includes all prescriptions, OTC, herbals, cannabis, and nutritional supplements).: Yes
--- NOTE | 2025-03-09 17:10 | PC.NURSE ---
Received from [facility] at 1700.
[2025-03-10] VITALS (11 sets, daily range): BP systolic 107–141; BP diastolic 50–81; PULSE 55–83; RESP 16–20; TEMP 36.5–37; O2SAT 91–95
[2025-03-10] MEDS: ACETAMINOPHEN 325 MG TABLET 650 MG PO ×4 (00:46→21:13)
[2025-03-10] MEDS: CENTRAL LINE FLUSH 20 ML IV PUSH (05:00)
[2025-03-10] MEDS: CENTRAL LINE FLUSH 10 ML IV PUSH ×3 (05:00→21:02)
[2025-03-10] MEDS: MEROPENEM 1 GM/NS 100 ML 1 GM/100 ML BAG IVPB ×3 (05:01→20:45)
[2025-03-10 05:21] LABS: Hematocrit 30.8 % (37.0-47.0); Hemoglobin 9.3 g/dL (12.0-15.0); Mean Corpuscular HGB Conc 30.2 g/dl (32-36); Mean Platelet Volume 9.9 fl (7.4-10.4); Platelet Count Result 284 k/mm3 (150-375); Red Blood Count 3.58 M/mm3 (4.2-5.4); Red Cell Distribution Width 14.8 % (11.5-14.5); White Blood Count 13.2 K/mm3 (4.5-10.0)
[2025-03-10 05:51] LABS: Alanine Aminotransferase 62 U/L (6-35); Albumin Level 2.4 g/dL (3.5-5.1); Alkaline Phosphatase 99 U/L (38-126); Anion Gap 2 mmol/L (4-12); Aspartate Amino Transferase 44 U/L (14-36); Bilirubin,Total 0.7 mg/dL (0.2-1.3); Blood Urea Nitrogen 19 mg/dL (7-17); Calcium 8.1 mg/dL (8.4-10.2); Carbon Dioxide 36 mmol/L (22-30); Chloride 100 mmol/L (98-107); Estimated CRCL calculation 75 ml/min; Estimated Glomerular Filt Rate > 60; Glucose 95 mg/dL (65-110); Phosphorus 2.4 mg/dL (2.5-4.5); Potassium 2.8 mmol/L (3.4-5.0); Sodium 138 mmol/L (137-145)
[2025-03-10] MEDS: POTASSIUM CHLORIDE 20 MEQ ER TABLET 40 MEQ PO (06:08)
[2025-03-10 06:15] LABS: INR 1.3; Prothrombin Time 17.1 Seconds (11.1-14.7)
[2025-03-10] MEDS: AMIODARONE HCL 200 MG TABLET PO (08:45)
[2025-03-10] MEDS: carvediloL 3.125 MG TABLET PO ×2 (08:46→21:02)
[2025-03-10] MEDS: FUROSEMIDE 40 MG TABLET PO (08:46)
[2025-03-10] MEDS: PANTOPRAZOLE SODIUM IV 40 MG VIAL IV PUSH ×2 (08:46→21:02)
[2025-03-10] MEDS: LOSARTAN POTASSIUM 25 MG TABLET PO (08:46)
[2025-03-10 12:43] LABS: Potassium 3.3 mmol/L (3.4-5.0)
[2025-03-10] MEDS: POTASSIUM CHLORIDE 20 MEQ ER TABLET 60 MEQ PO (14:16)
--- NOTE | 2025-03-10 15:17 | P.PNIM_ITS ---
Progress Note: A&P Assessment and Plan (1) Septic shock: Code(s): A41.9 - Sepsis, unspecified organism; R65.21 - Severe sepsis with septic shock Status: Acute Assessment and Plan: Septic shock most likely related to UTI, cellulitis, possible pneumonia, bacteremia, AFib RVR, pleural effusion -03/04: patient was transferred from [facility] in [facility] for septic shock, hypotension AFib RVR status post cardioversion at the outside hospital with return to sinus rhythm -dry oral mucosa, will give 500 mL IV fluid bolus -albumin for intravascular volume expansion -02/26 urine cultures: ESBL E coli -02/26 blood cultures: Group G Streptococcus -03/01 repeat blood cultures were negative x2 -03/04 repeat blood cultures pending -continue linezolid for 7 days and meropenem. Off all vasopressors -03/04: PICC line inserted 03/04/[address] chest, abdomen and pelvis IMPRESSION: 1. Moderate-sized right and small left pleural effusions with right lower lobe collapse, partial right middle lobe collapse and dependent atelectasis in the left lower lobe. 2. Cardiomegaly. 3. Air-fluid levels throughout the colon consistent with nonspecific diarrhea. 4. Severe thoracic and lumbar scoliosis with severe spondylosis. 5. Advanced osteoarthritis at the right hip and bilateral acromioclavicular joints. 6. Fibroid uterus. 7. Nonobstructing 2 mm left renal stone. (2) Cellulitis of lower extremity: Qualifiers: Laterality: unspecified laterality Qualified Code(s): L03.119 - Cellulitis of unspecified part of limb Code(s): L03.119 - Cellulitis of unspecified part of limb Status: Acute Assessment and Plan: Treatment as above (3) DANIEL (acute kidney injury): Code(s): N17.9 - Acute kidney failure, unspecified Status: Acute Assessment and Plan: Patient presented the outside hospital with acute kidney injury, -urine output has been adequate -creatinine has improved and normalized. Off IV fluids now -continue to monitor urine output, renal function electrolyte (4) AMS (altered mental status): Qualifiers: Altered mental status type: unspecified Qualified Code(s): R41.82 - Altered mental status, unspecified Code(s): R41.82 - Altered mental status, unspecified Status: Acute Assessment and Plan: Altered mental status could be related septic shock, AFib RVR, encephalopathy related to critical illness -continue to treat underlying cause -mental status improved and patient now AO x2 02/26: CT brain did not show any acute intracranial abnormality (5) Atrial fibrillation with rapid ventricular response: Code(s): I48.91 - Unspecified atrial fibrillation Status: Acute Assessment and Plan: Patient has a history of AFib, was on Eliquis at the outside hospital On 03/04 went into AFib RVR with hypotension and hemodynamic instability and had to be cardioverted by the ED doctor at the [facility] in [facility] Converted to sinus bradycardia and now off of amiodarone infusion Cardiology following and will defer further management Echo reviewed Continue heparin infusion. Will switch to Eliquis after thoracentesis Echo Summary 1. Left ventricular chamber dimension is normal. 2. Left ventricular systolic function is mildly reduced, estimated at 40-45. 3. The left ventricular diastolic function is grade I diastolic dysfunction. 4. Right ventricular chamber dimension is moderately enlarged. 5. Right ventricular systolic function is normal. 6. Left atrial chamber dimension is moderately enlarged. 7. Right atrial chamber dimension is severely enlarged. 8. There is mild tricuspid valve regurgitation. (6) Bacteremia: Code(s): R78.81 - Bacteremia Status: Acute Assessment and Plan: Treatment as above -repeat blood cultures were negative (7) Cholecystitis: Code(s): K81.9 - Cholecystitis, unspecified Status: Deleted Assessment and Plan: Abdominal ultrasound showed IMPRESSION: Cholelithiasis with gallbladder wall thickening suggesting cholecystitis. No pericholecystic fluid is identified. Fatty infiltration of the liver, with phasic flow in the portal vein suggesting portal hypertension. Placed cholecystostomy tube on 03/08 General surgery consulted HIDA scan ordered and pending (8) Elevated liver enzymes: Code(s): R74.8 - Abnormal levels of other serum enzymes Status: Acute Assessment and Plan: Right upper quadrant ultrasound as above Levels improving. Monitor (9) Pleural effusion: Code(s): J90 - Pleural effusion, not elsewhere classified Status: Acute Assessment and Plan: Right side thoracentesis fluid. Currently on heparin infusion. 03/04: CT scan of the chest showed Moderate-sized right and small left pleural effusions with right lower lobe collapse, partial right middle lobe collapse and dependent atelectasis in the left lower lobe. Thoracentesis performed on 03/09 Pending fluid analysis (10) GERD (gastroesophageal reflux disease): Code(s): K21.9 - Gastro-esophageal reflux disease without esophagitis Status: Acute Assessment and Plan: Protonix Plan DVT prophylaxis: Heparin infusion Stress ulcer prophylaxis: Protonix Nutrition: NPO for now. Patient was evaluated by speech Patient has modified barium swallow ordered and pending Code Status: Full code PT OT Subjective Date/time seen: 03/10/25 15:17 Interval history: Patient complains of vaginal bleeding. Patient reports that recently she stopped the medroxyprogesterone 10 days ago. Gynecology will be consulted. Holding Eliquis. Review of Systems Review of Systems: Patient denies fever, chest pain, shortness of breath, cough, nausea vomiting, abdominal pain,, diarrhea, headache or constipation.. All other systems were reviewed and were negative. All systems reviewed & are unremarkable except as noted in HPI and below (HPI) Exam Narrative: General: Ill-appearing female currently in no acute distress HEENT:? Pupils are small, equal and reactive, sclera is clear, dry oral mucosa Neck:? Supple Respiratory:? Coarse breath sounds bilaterally, decreased on right side, occasional rales bilaterally, no wheezing Cardiac:? S1-S2 normal, regular rate and rhythm Abdomen:? Soft, nondistended, mild diffuse tenderness, hypoactive bowel sound Extremities:? ,, palpable pedal pulses bilaterally Neuro:? Patient is on a awake, alert, AO x 2 Follows simple commands in all extremities Skin:? Bilateral lower extremity venous stasis changes, mild warmth, mild erythema, old scabs Psych:? Unable to assess Objective Data Vital Signs Vital Signs: Vital Signs - 24 hr 03/09/25 16:00 03/09/25 16:12 03/09/25 20:00 Temperature 96.9 F L Pulse Rate 61 55 L 69 Respiratory Rate 20 Blood Pressure 103/49 L Pulse Oximetry 94 Oxygen Delivery 03/09/25 20:40 03/09/25 20:40 03/09/25 20:52 Temperature 97.6 F Pulse Rate 58 L 58 L Respiratory Rate 18 Blood Pressure 120/58 L Pulse Oximetry 97 Oxygen Delivery Room Air 03/10/25 00:00 03/10/25 04:00 03/10/25 05:52 Temperature 97.7 F Pulse Rate 55 L 59 L 78 Respiratory Rate 20 Blood Pressure 141/81 H Pulse Oximetry 91 Oxygen Delivery 03/10/25 08:45 03/10/25 08:46 03/10/25 08:54 Temperature Pulse Rate 69 69 76 Respiratory Rate Blood Pressure 114/50 L Pulse Oximetry Oxygen Delivery 03/10/25 12:00 Temperature 98.6 F Pulse Rate 61 Respiratory Rate 18 Blood Pressure 107/54 L Pulse Oximetry 95 Oxygen Delivery Intake/Output Intake/Output: Intake & Output 03/07/25 03/08/25 03/09/25 03/10/25 23:59 23:59 23:59 23:59 Intake Total 625.8 355.5 1140 980 Output Total 2250 3445 1710 360 Balance -1624.2 -3089.5 -570 620 Meds/Results Medications: Active Medications Generic Name Dose Route Start Last Admin Trade Name Freq PRN Reason Stop Dose Admin Acetaminophen 650 mg 03/05/25 07:49 03/10/25 14:30 Acetaminophen 325 Mg Tablet PO 650 mg Q4H PRN Administration Headache, pain or fever Amiodarone HCl 200 mg 03/08/25 08:00 03/10/25 08:45 Amiodarone Hcl 200 Mg Tablet PO 200 mg DAILY@0800 JEREMY Administration Carvedilol 3.125 mg 03/07/25 08:00 03/10/25 08:46 Carvedilol 3.125 Mg Tablet PO 3.125 mg Q12HR JEREMY Administration Furosemide 40 mg 03/07/25 09:00 03/10/25 08:46 Furosemide 40 Mg Tablet PO 40 mg DAILY JEREMY Administration Heparin Sodium (Porcine) 5,000 units 03/04/25 13:01 03/07/25 14:49 Heparin Sodium 5,000 Units/Ml Vial IV PUSH 5,000 units PRN PRN Administration aPTT less than 55 seconds Heparin Sodium (Porcine) 2,500 units 03/04/25 13:01 Heparin Sodium 5,000 Units/Ml Vial IV PUSH PRN PRN aPTT 55 - 70 seconds Meropenem 1 gm in 100 mls @ 200 mls/hr 03/05/25 08:45 03/10/25 14:16 IVPB 200 mls/hr Q8HR JEREMY Administration Losartan Potassium 25 mg 03/08/25 09:00 03/10/25 08:46 Losartan Potassium 25 Mg Tablet PO 25 mg DAILY JEREMY Administration Pantoprazole Sodium 40 mg 05/19/25 21:00 03/10/25 08:46 Pantoprazole Sodium Iv 40 Mg Vial IV PUSH 40 mg Q12HR JEREMY Administration Sodium Chloride 10 ml 03/04/25 22:00 03/10/25 14:17 Central Line Flush IV PUSH 10 ml Q8HR JEREMY Administration Sodium Chloride 10 ml 03/04/25 14:03 Central Line Flush IV PUSH PRN PRN with TPN bag changes Sodium Chloride 20 ml 03/04/25 14:03 03/10/25 05:00 Central Line Flush IV PUSH 20 ml PRN PRN Administration after blood draws Radiology Results: ITS Impressions Abdomen Ultrasound 03/04/25 17:27 IMPRESSION: Cholelithiasis with gallbladder wall thickening suggesting cholecystitis. No pericholecystic fluid is identified. Fatty infiltration of the liver, with phasic flow in the portal vein suggesting portal hypertension. Hepatobiliary Scan Nuclear Medicine 03/06/25 13:50 IMPRESSION: 1. No definitive gallbladder activity evident on the initial hour or on the 4 hour delayed images which is suspicious for acute cholecystitis. Modified Barium Swallow 03/06/25 14:15 IMPRESSION: Mild oropharyngeal dysphagia with without radiologic penetration or aspiration. Please correlate with speech pathologist findings and specific feeding recommendations. Chest X-Ray 03/08/25 16:07 IMPRESSION: 1. Improved aeration in the right lung with no pneumothorax post right thoracentesis. 2. Opacities in the bilateral lower lung zones which could represent small lateral pleural effusions, atelectasis, pneumonia or some combination thereof. 3. Cardiomegaly. Cholecystostomy 03/08/25 16:48 IMPRESSION: 1. Successful ultrasound-guided cholecystostomy tube placement. 2. 45 mL clear bile was sent for aerobic, anaerobic, and fungal cultures. 3. The catheter will be managed by Dr. Gaming. A catheter cholangiogram may be performed not less than 48 hours after tube placement if clinically indicated to assess cystic duct patency. If cholecystectomy is not eventually performed and the infectious episode has resolved, the tube may be removed over a guidewire, preferably not less than 3 weeks after placement to allow time for a mature catheter tract to form to prevent bile leakage and peritonitis. Thoracentesis Ultrasound 03/08/25 16:48 IMPRESSION: 1. Successful ultrasound-guided thoracentesis yielding 450 mL of yellow fluid. Labs Labs: Laboratory Results - last 24 hr 03/10/25 03/10/25 04:57 12:22 WBC 13.2 H RBC 3.58 L Hgb 9.3 L Hct 30.8 L MCV 86.0 MCH 26.0 MCHC 30.2 L RDW 14.8 H Plt Count 284 MPV 9.9 PT 17.1 H INR 1.3 Sodium 138 Potassium 2.8 L* 3.3 L Chloride 100 Carbon Dioxide 36 H Anion Gap 2 L BUN 19 H Creatinine 0.63 L Estim Creat Clear Calc 75 Estimated GFR > 60 Glucose 95 Calcium 8.1 L Phosphorus 2.4 L Magnesium 2.0 Total Bilirubin 0.7 AST 44 H ALT 62 H Alkaline Phosphatase 99 Total Protein 6.0 L Albumin 2.4 L Quality VTE Prophylaxis VTE prophylaxis: pharmacologic ordered Hospitalist MIPS Advance Care Plan I have confirmed that the patient's Advanced Care Plan is present, code status is documented, or surrogate decision maker is listed in patient medical record.: Yes Medication Reconciliation I have utilized all available resources to obtain, update and review the patients current medications (includes all prescriptions, OTC, herbals, cannabis, and nutritional supplements).: Yes
--- NOTE | 2025-03-10 15:22 | P.PNGS_ITS ---
Progress Note: A&P Assessment and Plan (1) Acute calculous cholecystitis: Code(s): K80.00 - Calculus of gallbladder with acute cholecystitis without obstruction Status: Acute Assessment and Plan: * Continue antibiotics. Monitor drain output. Surgically stable for discharge once medically stable. (2) Gallbladder hydrops: Code(s): K82.1 - Hydrops of gallbladder Status: Acute (3) Septic shock: Code(s): A41.9 - Sepsis, unspecified organism; R65.21 - Severe sepsis with septic shock Status: Acute (4) Afib: Code(s): I48.91 - Unspecified atrial fibrillation Status: Acute Subjective Subjective Date/Time Seen: 03/10/25 15:22 Interval history: Tolerating diet, minimal abdominal pain, no fevers. Exam GI: Inspection: non-distended and other (Cholecystostomy tube with clear bilious output) GI Palp: Yes Soft to palpation, No Tenderness to palpation present (GI), No Guarding due to palpation present (GI) and No Rebound tenderness present Auscultation: normal bowel sounds Objective Data Vital Signs Vital Signs: Vital Signs - 24 hr 03/09/25 16:00 03/09/25 16:12 03/09/25 20:00 Temperature 96.9 F L Pulse Rate 61 55 L 69 Respiratory Rate 20 Blood Pressure 103/49 L Pulse Oximetry 94 Oxygen Delivery 03/09/25 20:40 03/09/25 20:40 03/09/25 20:52 Temperature 97.6 F Pulse Rate 58 L 58 L Respiratory Rate 18 Blood Pressure 120/58 L Pulse Oximetry 97 Oxygen Delivery Room Air 03/10/25 00:00 03/10/25 04:00 03/10/25 05:52 Temperature 97.7 F Pulse Rate 55 L 59 L 78 Respiratory Rate 20 Blood Pressure 141/81 H Pulse Oximetry 91 Oxygen Delivery 03/10/25 08:45 03/10/25 08:46 03/10/25 08:54 Temperature Pulse Rate 69 69 76 Respiratory Rate Blood Pressure 114/50 L Pulse Oximetry Oxygen Delivery 03/10/25 12:00 Temperature 98.6 F Pulse Rate 61 Respiratory Rate 18 Blood Pressure 107/54 L Pulse Oximetry 95 Oxygen Delivery Intake/Output Intake/Output: Intake & Output 03/07/25 03/08/25 03/09/25 03/10/25 23:59 23:59 23:59 23:59 Intake Total 625.8 355.5 1140 980 Output Total 9210 5469 1710 360 Balance -1624.2 -3089.5 -570 620 Meds/Results Medications: Active Medications Generic Name Dose Route Start Last Admin Trade Name Freq PRN Reason Stop Dose Admin Acetaminophen 650 mg 03/05/25 07:49 03/10/25 14:30 Acetaminophen 325 Mg Tablet PO 650 mg Q4H PRN Administration Headache, pain or fever Amiodarone HCl 200 mg 03/08/25 08:00 03/10/25 08:45 Amiodarone Hcl 200 Mg Tablet PO 200 mg DAILY@0800 JEREMY Administration Carvedilol 3.125 mg 03/07/25 08:00 03/10/25 08:46 Carvedilol 3.125 Mg Tablet PO 3.125 mg Q12HR JEREMY Administration Furosemide 40 mg 03/07/25 09:00 03/10/25 08:46 Furosemide 40 Mg Tablet PO 40 mg DAILY JEREMY Administration Heparin Sodium (Porcine) 5,000 units 03/04/25 13:01 03/07/25 14:49 Heparin Sodium 5,000 Units/Ml Vial IV PUSH 5,000 units PRN PRN Administration aPTT less than 55 seconds Heparin Sodium (Porcine) 2,500 units 03/04/25 13:01 Heparin Sodium 5,000 Units/Ml Vial IV PUSH PRN PRN aPTT 55 - 70 seconds Meropenem 1 gm in 100 mls @ 200 mls/hr 03/05/25 08:45 03/10/25 14:16 IVPB 200 mls/hr Q8HR JEREMY Administration Losartan Potassium 25 mg 03/08/25 09:00 03/10/25 08:46 Losartan Potassium 25 Mg Tablet PO 25 mg DAILY JEREMY Administration Pantoprazole Sodium 40 mg 03/04/25 21:00 03/10/25 08:46 Pantoprazole Sodium Iv 40 Mg Vial IV PUSH 40 mg Q12HR JEREMY Administration Sodium Chloride 10 ml 03/04/25 22:00 03/10/25 14:17 Central Line Flush IV PUSH 10 ml Q8HR JEREMY Administration Sodium Chloride 10 ml 03/04/25 14:03 Central Line Flush IV PUSH PRN PRN with TPN bag changes Sodium Chloride 20 ml 03/04/25 14:03 03/10/25 05:00 Central Line Flush IV PUSH 20 ml PRN PRN Administration after blood draws Radiology Results: ITS Impressions Abdomen Ultrasound 03/04/25 17:27 IMPRESSION: Cholelithiasis with gallbladder wall thickening suggesting cholecystitis. No pericholecystic fluid is identified. Fatty infiltration of the liver, with phasic flow in the portal vein suggesting portal hypertension. Hepatobiliary Scan Nuclear Medicine 03/06/25 13:50 IMPRESSION: 1. No definitive gallbladder activity evident on the initial hour or on the 4 hour delayed images which is suspicious for acute cholecystitis. Modified Barium Swallow 03/06/25 14:15 IMPRESSION: Mild oropharyngeal dysphagia with without radiologic penetration or aspiration. Please correlate with speech pathologist findings and specific feeding recommendations. Chest X-Ray 03/08/25 16:07 IMPRESSION: 1. Improved aeration in the right lung with no pneumothorax post right thoracentesis. 2. Opacities in the bilateral lower lung zones which could represent small lateral pleural effusions, atelectasis, pneumonia or some combination thereof. 3. Cardiomegaly. Cholecystostomy 03/08/25 16:48 IMPRESSION: 1. Successful ultrasound-guided cholecystostomy tube placement. 2. 45 mL clear bile was sent for aerobic, anaerobic, and fungal cultures. 3. The catheter will be managed by Dr. Gaming. A catheter cholangiogram may be performed not less than 48 hours after tube placement if clinically indicated to assess cystic duct patency. If cholecystectomy is not eventually performed and the infectious episode has resolved, the tube may be removed over a guidewire, preferably not less than 3 weeks after placement to allow time for a mature catheter tract to form to prevent bile leakage and peritonitis. Thoracentesis Ultrasound 03/08/25 16:48 IMPRESSION: 1. Successful ultrasound-guided thoracentesis yielding 450 mL of yellow fluid. Labs Labs: Laboratory Results - last 24 hr 03/10/25 03/10/25 04:57 12:22 WBC 13.2 H RBC 3.58 L Hgb 9.3 L Hct 30.8 L MCV 86.0 MCH 26.0 MCHC 30.2 L RDW 14.8 H Plt Count 284 MPV 9.9 PT 17.1 H INR 1.3 Sodium 138 Potassium 2.8 L* 3.3 L Chloride 100 Carbon Dioxide 36 H Anion Gap 2 L BUN 19 H Creatinine 0.63 L Estim Creat Clear Calc 75 Estimated GFR > 60 Glucose 95 Calcium 8.1 L Phosphorus 2.4 L Magnesium 2.0 Total Bilirubin 0.7 AST 44 H ALT 62 H Alkaline Phosphatase 99 Total Protein 6.0 L Albumin 2.4 L
[2025-03-11] VITALS (9 sets, daily range): BP systolic 113–126; BP diastolic 50–60; PULSE 53–79; RESP 16–24; TEMP 35.8–36.6; O2SAT 92–95
[2025-03-11] MEDS: MEROPENEM 1 GM/NS 100 ML 1 GM/100 ML BAG IVPB (05:05)
[2025-03-11] MEDS: CENTRAL LINE FLUSH 10 ML IV PUSH ×3 (05:06→21:17)
[2025-03-11 05:22] LABS: Hemoglobin 9.6 g/dL (12.0-15.0); Mean Corpuscular Hemoglobin 26.6 pg (26-34); Mean Corpuscular Volume 88.6 fl (80-100); Mean Platelet Volume 9.9 fl (7.4-10.4); Platelet Count Result 313 k/mm3 (150-375); Red Blood Count 3.61 M/mm3 (4.2-5.4); Red Cell Distribution Width 14.7 % (11.5-14.5); White Blood Count 12.6 K/mm3 (4.5-10.0)
[2025-03-11 05:37] LABS: Alanine Aminotransferase 52 U/L (6-35); Albumin Level 2.6 g/dL (3.5-5.1); Alkaline Phosphatase 111 U/L (38-126); Anion Gap 1 mmol/L (4-12); Aspartate Amino Transferase 33 U/L (14-36); Bilirubin,Total 0.7 mg/dL (0.2-1.3); Blood Urea Nitrogen 20 mg/dL (7-17); Calcium 8.1 mg/dL (8.4-10.2); Carbon Dioxide 36 mmol/L (22-30); Chloride 100 mmol/L (98-107); Estimated CRCL calculation 76 ml/min; Estimated Glomerular Filt Rate > 60; Glucose 89 mg/dL (65-110); Potassium 4.1 mmol/L (3.4-5.0); Sodium 137 mmol/L (137-145)
[2025-03-11] MEDS: PANTOPRAZOLE SODIUM IV 40 MG VIAL IV PUSH ×2 (08:46→21:01)
[2025-03-11] MEDS: FUROSEMIDE 40 MG TABLET PO (08:46)
[2025-03-11] MEDS: AMIODARONE HCL 200 MG TABLET PO (08:46)
[2025-03-11] MEDS: carvediloL 3.125 MG TABLET PO ×2 (08:46→21:01)
[2025-03-11] MEDS: LOSARTAN POTASSIUM 25 MG TABLET PO (08:47)
--- NOTE | 2025-03-11 08:59 | P.PNIM_ITS ---
Progress Note: A&P Assessment and Plan (1) Septic shock: Code(s): A41.9 - Sepsis, unspecified organism; R65.21 - Severe sepsis with septic shock Status: Acute Assessment and Plan: Septic shock most likely related to UTI, cellulitis, possible pneumonia, bacteremia, AFib RVR, pleural effusion -03/04: patient was transferred from [facility] in [facility] for septic shock, hypotension AFib RVR status post cardioversion at the outside hospital with return to sinus rhythm -dry oral mucosa, will give 500 mL IV fluid bolus -albumin for intravascular volume expansion -02/26 urine cultures: ESBL E coli -02/26 blood cultures: Group G Streptococcus -03/01 repeat blood cultures were negative x2 -03/04 repeat blood cultures pending -continue linezolid for 7 days and meropenem. Off all vasopressors -03/04: PICC line inserted 03/04/[address] chest, abdomen and pelvis IMPRESSION: 1. Moderate-sized right and small left pleural effusions with right lower lobe collapse, partial right middle lobe collapse and dependent atelectasis in the left lower lobe. 2. Cardiomegaly. 3. Air-fluid levels throughout the colon consistent with nonspecific diarrhea. 4. Severe thoracic and lumbar scoliosis with severe spondylosis. 5. Advanced osteoarthritis at the right hip and bilateral acromioclavicular joints. 6. Fibroid uterus. 7. Nonobstructing 2 mm left renal stone. (2) Cellulitis of lower extremity: Qualifiers: Laterality: unspecified laterality Qualified Code(s): L03.119 - Cellulitis of unspecified part of limb Code(s): L03.119 - Cellulitis of unspecified part of limb Status: Acute Assessment and Plan: Treatment as above (3) DANIEL (acute kidney injury): Code(s): N17.9 - Acute kidney failure, unspecified Status: Acute Assessment and Plan: Patient presented the outside hospital with acute kidney injury, -urine output has been adequate -creatinine has improved and normalized. Off IV fluids now -continue to monitor urine output, renal function electrolyte (4) AMS (altered mental status): Qualifiers: Altered mental status type: unspecified Qualified Code(s): R41.82 - Altered mental status, unspecified Code(s): R41.82 - Altered mental status, unspecified Status: Acute Assessment and Plan: Altered mental status could be related septic shock, AFib RVR, encephalopathy related to critical illness -continue to treat underlying cause -mental status improved and patient now AO x2 02/26: CT brain did not show any acute intracranial abnormality (5) Atrial fibrillation with rapid ventricular response: Code(s): I48.91 - Unspecified atrial fibrillation Status: Acute Assessment and Plan: Patient has a history of AFib, was on Eliquis at the outside hospital On 03/04 went into AFib RVR with hypotension and hemodynamic instability and had to be cardioverted by the ED doctor at the [facility] in [facility] Converted to sinus bradycardia and now off of amiodarone infusion Cardiology following and will defer further management Echo reviewed Continue heparin infusion. Will switch to Eliquis after thoracentesis Echo Summary 1. Left ventricular chamber dimension is normal. 2. Left ventricular systolic function is mildly reduced, estimated at 40-45. 3. The left ventricular diastolic function is grade I diastolic dysfunction. 4. Right ventricular chamber dimension is moderately enlarged. 5. Right ventricular systolic function is normal. 6. Left atrial chamber dimension is moderately enlarged. 7. Right atrial chamber dimension is severely enlarged. 8. There is mild tricuspid valve regurgitation. (6) Bacteremia: Code(s): R78.81 - Bacteremia Status: Acute Assessment and Plan: Treatment as above -repeat blood cultures were negative (7) Cholecystitis: Code(s): K81.9 - Cholecystitis, unspecified Status: Deleted Assessment and Plan: Abdominal ultrasound showed IMPRESSION: Cholelithiasis with gallbladder wall thickening suggesting cholecystitis. No pericholecystic fluid is identified. Fatty infiltration of the liver, with phasic flow in the portal vein suggesting portal hypertension. Placed cholecystostomy tube on 03/08 General surgery consulted HIDA scan ordered and pending (8) Elevated liver enzymes: Code(s): R74.8 - Abnormal levels of other serum enzymes Status: Acute Assessment and Plan: Right upper quadrant ultrasound as above Levels improving. Monitor (9) Pleural effusion: Code(s): J90 - Pleural effusion, not elsewhere classified Status: Acute Assessment and Plan: Right side thoracentesis fluid. Currently on heparin infusion. 03/04: CT scan of the chest showed Moderate-sized right and small left pleural effusions with right lower lobe collapse, partial right middle lobe collapse and dependent atelectasis in the left lower lobe. Thoracentesis performed on 03/09 Pending fluid analysis (10) GERD (gastroesophageal reflux disease): Code(s): K21.9 - Gastro-esophageal reflux disease without esophagitis Status: Acute Assessment and Plan: Protonix Plan DVT prophylaxis: Heparin infusion Stress ulcer prophylaxis: Protonix Nutrition: NPO for now. Patient was evaluated by speech Patient has modified barium swallow ordered and pending Code Status: Full code PT OT Subjective Date/time seen: 03/11/25 08:59 Interval history: Patient reports she is not feeling well and is a pain in the cholecystostomy tube site. Given Tylenol and feeling better. As per nursing no evidence of vaginal bleeding. DC Director Of Financial Planning consult. Review of Systems Review of Systems: Patient denies fever, chest pain, shortness of breath, cough, nausea vomiting, abdominal pain,, diarrhea, headache or constipation.. All other systems were reviewed and were negative. All systems reviewed & are unremarkable except as noted in HPI and below (HPI) Exam Narrative: General: Ill-appearing female currently in no acute distress HEENT:? Pupils are small, equal and reactive, sclera is clear, dry oral mucosa Neck:? Supple Respiratory:? Coarse breath sounds bilaterally, decreased on right side, occasional rales bilaterally, no wheezing Cardiac:? S1-S2 normal, regular rate and rhythm Abdomen:? Soft, nondistended, mild diffuse tenderness, hypoactive bowel sound Extremities:? ,, palpable pedal pulses bilaterally Neuro:? Patient is on a awake, alert, AO x 2 Follows simple commands in all extremities Skin:? Bilateral lower extremity venous stasis changes, mild warmth, mild erythema, old scabs Psych:? Unable to assess Objective Data Vital Signs Vital Signs: Vital Signs - 24 hr 03/10/25 12:00 03/10/25 12:00 03/10/25 16:00 Temperature 98.6 F Pulse Rate 61 55 L 62 Respiratory Rate 18 Blood Pressure 107/54 L Pulse Oximetry 95 Oxygen Delivery 03/10/25 20:00 03/10/25 20:00 03/10/25 21:49 Temperature 97.7 F Pulse Rate 83 68 Respiratory Rate 16 Blood Pressure 124/60 Pulse Oximetry 95 Oxygen Delivery Room Air 03/11/25 00:00 03/11/25 04:00 03/11/25 04:00 Temperature 97.9 F Pulse Rate 79 53 L 76 Respiratory Rate 16 Blood Pressure 113/54 L Pulse Oximetry 92 Oxygen Delivery 03/11/25 08:46 03/11/25 08:46 Temperature Pulse Rate 76 76 Respiratory Rate Blood Pressure Pulse Oximetry Oxygen Delivery Intake/Output Intake/Output: Intake & Output 03/08/25 03/09/25 03/10/25 03/11/25 23:59 23:59 23:59 23:59 Intake Total 355.5 1140 1600 240 Output Total 3445 1710 2185 200 Balance -3089.5 -570 -585 40 Meds/Results Medications: Active Medications Generic Name Dose Route Start Last Admin Trade Name Freq PRN Reason Stop Dose Admin Acetaminophen 650 mg 03/05/25 07:49 03/10/25 21:13 Acetaminophen 325 Mg Tablet PO 650 mg Q4H PRN Administration Headache, pain or fever Amiodarone HCl 200 mg 03/08/25 08:00 03/11/25 08:46 Amiodarone Hcl 200 Mg Tablet PO 200 mg DAILY@0800 JEREMY Administration Carvedilol 3.125 mg 03/07/25 08:00 03/11/25 08:46 Carvedilol 3.125 Mg Tablet PO 3.125 mg Q12HR JEREMY Administration Furosemide 40 mg 03/07/25 09:00 03/11/25 08:46 Furosemide 40 Mg Tablet PO 40 mg DAILY JEREMY Administration Heparin Sodium (Porcine) 5,000 units 03/04/25 13:01 03/07/25 14:49 Heparin Sodium 5,000 Units/Ml Vial IV PUSH 5,000 units PRN PRN Administration aPTT less than 55 seconds Heparin Sodium (Porcine) 2,500 units 03/04/25 13:01 Heparin Sodium 5,000 Units/Ml Vial IV PUSH PRN PRN aPTT 55 - 70 seconds Meropenem 1 gm in 100 mls @ 200 mls/hr 03/05/25 08:45 03/11/25 05:05 IVPB 200 mls/hr Q8HR JEREMY Administration Losartan Potassium 25 mg 03/08/25 09:00 03/11/25 08:47 Losartan Potassium 25 Mg Tablet PO 25 mg DAILY JEREMY Administration Pantoprazole Sodium 40 mg 03/04/25 21:00 03/11/25 08:46 Pantoprazole Sodium Iv 40 Mg Vial IV PUSH 40 mg Q12HR JEREMY Administration Sodium Chloride 10 ml 03/04/25 22:00 03/11/25 05:06 Central Line Flush IV PUSH 10 ml Q8HR JEREMY Administration Sodium Chloride 10 ml 03/04/25 14:03 Central Line Flush IV PUSH PRN PRN with TPN bag changes Sodium Chloride 20 ml 03/04/25 14:03 03/10/25 05:00 Central Line Flush IV PUSH 20 ml PRN PRN Administration after blood draws Radiology Results: ITS Impressions Abdomen Ultrasound 03/04/25 17:27 IMPRESSION: Cholelithiasis with gallbladder wall thickening suggesting cholecystitis. No pericholecystic fluid is identified. Fatty infiltration of the liver, with phasic flow in the portal vein suggesting portal hypertension. Hepatobiliary Scan Nuclear Medicine 03/06/25 13:50 IMPRESSION: 1. No definitive gallbladder activity evident on the initial hour or on the 4 hour delayed images which is suspicious for acute cholecystitis. Modified Barium Swallow 03/06/25 14:15 IMPRESSION: Mild oropharyngeal dysphagia with without radiologic penetration or aspiration. Please correlate with speech pathologist findings and specific feeding recommendations. Chest X-Ray 03/08/25 16:07 IMPRESSION: 1. Improved aeration in the right lung with no pneumothorax post right thoracentesis. 2. Opacities in the bilateral lower lung zones which could represent small lateral pleural effusions, atelectasis, pneumonia or some combination thereof. 3. Cardiomegaly. Cholecystostomy 03/08/25 16:48 IMPRESSION: 1. Successful ultrasound-guided cholecystostomy tube placement. 2. 45 mL clear bile was sent for aerobic, anaerobic, and fungal cultures. 3. The catheter will be managed by Dr. Gaming. A catheter cholangiogram may be performed not less than 48 hours after tube placement if clinically indicated to assess cystic duct patency. If cholecystectomy is not eventually performed and the infectious episode has resolved, the tube may be removed over a guidewire, preferably not less than 3 weeks after placement to allow time for a mature catheter tract to form to prevent bile leakage and peritonitis. Thoracentesis Ultrasound 03/08/25 16:48 IMPRESSION: 1. Successful ultrasound-guided thoracentesis yielding 450 mL of yellow fluid. Labs Labs: Laboratory Results - last 24 hr 03/10/25 03/11/25 12:22 05:10 WBC 12.6 H RBC 3.61 L Hgb 9.6 L Hct 32.0 L MCV 88.6 MCH 26.6 MCHC 30.0 L RDW 14.7 H Plt Count 313 MPV 9.9 Sodium 137 Potassium 3.3 L 4.1 Chloride 100 Carbon Dioxide 36 H Anion Gap 1 L BUN 20 H Creatinine 0.62 L Estim Creat Clear Calc 76 Estimated GFR > 60 Glucose 89 Calcium 8.1 L Total Bilirubin 0.7 AST 33 ALT 52 H Alkaline Phosphatase 111 Total Protein 6.0 L Albumin 2.6 L Quality VTE Prophylaxis VTE prophylaxis: pharmacologic ordered Hospitalist MIPS Advance Care Plan I have confirmed that the patient's Advanced Care Plan is present, code status is documented, or surrogate decision maker is listed in patient medical record.: Yes Medication Reconciliation I have utilized all available resources to obtain, update and review the patients current medications (includes all prescriptions, OTC, herbals, cannabis, and nutritional supplements).: Yes
--- NOTE | 2025-03-11 10:03 | P.PNGS_ITS ---
Progress Note: A&P Assessment and Plan (1) Acute calculous cholecystitis: Code(s): K80.00 - Calculus of gallbladder with acute cholecystitis without obstruction Status: Acute Assessment and Plan: * Continue antibiotics. Monitor drain output. Surgically stable for discharge once medically stable. She can follow up outpatient with Dr. Gaming in 2-3 weeks. (2) Gallbladder hydrops: Code(s): K82.1 - Hydrops of gallbladder Status: Acute (3) Septic shock: Code(s): A41.9 - Sepsis, unspecified organism; R65.21 - Severe sepsis with septic shock Status: Acute (4) Afib: Code(s): I48.91 - Unspecified atrial fibrillation Status: Acute Subjective Subjective Date/Time Seen: 03/11/25 10:03 Patient reports: no new complaints and afebrile Interval history: No acute events overnight. WBC count overall trending down. No abdominal pain today. Minimal output from cholecystostomy tube. Exam GI: Inspection: non-distended and other (Cholecystostomy tube with clear bilious output) GI Palp: Yes Soft to palpation, No Tenderness to palpation present (GI), No Guarding due to palpation present (GI) and No Rebound tenderness present Auscultation: normal bowel sounds Objective Data Vital Signs Vital Signs: Vital Signs - 24 hr 03/10/25 12:00 03/10/25 12:00 03/10/25 16:00 Temperature 98.6 F Pulse Rate 61 55 L 62 Respiratory Rate 18 Blood Pressure 107/54 L Pulse Oximetry 95 Oxygen Delivery 03/10/25 20:00 03/10/25 20:00 03/10/25 21:49 Temperature 97.7 F Pulse Rate 83 68 Respiratory Rate 16 Blood Pressure 124/60 Pulse Oximetry 95 Oxygen Delivery Room Air 03/11/25 00:00 03/11/25 04:00 03/11/25 04:00 Temperature 97.9 F Pulse Rate 79 53 L 76 Respiratory Rate 16 Blood Pressure 113/54 L Pulse Oximetry 92 Oxygen Delivery 03/11/25 08:46 03/11/25 08:46 Temperature Pulse Rate 76 76 Respiratory Rate Blood Pressure Pulse Oximetry Oxygen Delivery Intake/Output Intake/Output: Intake & Output 03/08/25 03/09/25 03/10/25 03/11/25 23:59 23:59 23:59 23:59 Intake Total 355.5 1140 1600 240 Output Total 3445 1710 2185 200 [facility]3089.5 -570 -585 40 Meds/Results Medications: Active Medications Generic Name Dose Route Start Last Admin Trade Name Freq PRN Reason Stop Dose Admin Acetaminophen 650 mg 03/05/25 07:49 03/10/25 21:13 Acetaminophen 325 Mg Tablet PO 650 mg Q4H PRN Administration Headache, pain or fever Amiodarone HCl 200 mg 03/08/25 08:00 03/11/25 08:46 Amiodarone Hcl 200 Mg Tablet PO 200 mg DAILY@0800 JEREMY Administration Carvedilol 3.125 mg 03/07/25 08:00 03/11/25 08:46 Carvedilol 3.125 Mg Tablet PO 3.125 mg Q12HR JEREMY Administration Furosemide 40 mg 03/07/25 09:00 03/11/25 08:46 Furosemide 40 Mg Tablet PO 40 mg DAILY JEREMY Administration Heparin Sodium (Porcine) 5,000 units 03/04/25 13:01 03/07/25 14:49 Heparin Sodium 5,000 Units/Ml Vial IV PUSH 5,000 units PRN PRN Administration aPTT less than 55 seconds Heparin Sodium (Porcine) 2,500 units 03/04/25 13:01 Heparin Sodium 5,000 Units/Ml Vial IV PUSH PRN PRN aPTT 55 - 70 seconds Meropenem 1 gm in 100 mls @ 200 mls/hr 03/05/25 08:45 03/11/25 05:05 IVPB 200 mls/hr Q8HR JEREMY Administration Losartan Potassium 25 mg 03/08/25 09:00 03/11/25 08:47 Losartan Potassium 25 Mg Tablet PO 25 mg DAILY JEREMY Administration Pantoprazole Sodium 40 mg 03/04/25 21:00 03/11/25 08:46 Pantoprazole Sodium Iv 40 Mg Vial IV PUSH 40 mg Q12HR JEREMY Administration Sodium Chloride 10 ml 03/04/25 22:00 03/11/25 05:06 Central Line Flush IV PUSH 10 ml Q8HR JEREMY Administration Sodium Chloride 10 ml 03/04/25 14:03 Central Line Flush IV PUSH PRN PRN with TPN bag changes Sodium Chloride 20 ml 03/04/25 14:03 03/10/25 05:00 Central Line Flush IV PUSH 20 ml PRN PRN Administration after blood draws Radiology Results: ITS Impressions Abdomen Ultrasound 03/04/25 17:27 IMPRESSION: Cholelithiasis with gallbladder wall thickening suggesting cholecystitis. No pericholecystic fluid is identified. Fatty infiltration of the liver, with phasic flow in the portal vein suggesting portal hypertension. Hepatobiliary Scan Nuclear Medicine 03/06/25 13:50 IMPRESSION: 1. No definitive gallbladder activity evident on the initial hour or on the 4 hour delayed images which is suspicious for acute cholecystitis. Modified Barium Swallow 03/06/25 14:15 IMPRESSION: Mild oropharyngeal dysphagia with without radiologic penetration or aspiration. Please correlate with speech pathologist findings and specific feeding recommendations. Chest X-Ray 03/08/25 16:07 IMPRESSION: 1. Improved aeration in the right lung with no pneumothorax post right thoracentesis. 2. Opacities in the bilateral lower lung zones which could represent small lateral pleural effusions, atelectasis, pneumonia or some combination thereof. 3. Cardiomegaly. Cholecystostomy 03/08/25 16:48 IMPRESSION: 1. Successful ultrasound-guided cholecystostomy tube placement. 2. 45 mL clear bile was sent for aerobic, anaerobic, and fungal cultures. 3. The catheter will be managed by Dr. Gaming. A catheter cholangiogram may be performed not less than 48 hours after tube placement if clinically indicated to assess cystic duct patency. If cholecystectomy is not eventually performed and the infectious episode has resolved, the tube may be removed over a guidewire, preferably not less than 3 weeks after placement to allow time for a mature catheter tract to form to prevent bile leakage and peritonitis. Thoracentesis Ultrasound 03/08/25 16:48 IMPRESSION: 1. Successful ultrasound-guided thoracentesis yielding 450 mL of yellow fluid. Labs Labs: Laboratory Results - last 24 hr 03/10/25 03/11/25 12:22 05:10 WBC 12.6 H RBC 3.61 L Hgb 9.6 L Hct 32.0 L MCV 88.6 MCH 26.6 MCHC 30.0 L RDW 14.7 H Plt Count 313 MPV 9.9 Sodium 137 Potassium 3.3 L 4.1 Chloride 100 Carbon Dioxide 36 H Anion Gap 1 L BUN 20 H Creatinine 0.62 L Estim Creat Clear Calc 76 Estimated GFR > 60 Glucose 89 Calcium 8.1 L Total Bilirubin 0.7 AST 33 ALT 52 H Alkaline Phosphatase 111 Total Protein 6.0 L Albumin 2.6 L
[2025-03-11] MEDS: ACETAMINOPHEN 325 MG TABLET 650 MG PO ×3 (12:07→23:54)
[2025-03-11] MEDS: metroNIDAZOLE 500 MG TABLET PO ×2 (13:59→21:01)
[2025-03-11] MEDS: CEFDINIR 300 MG CAPSULE PO ×2 (13:59→21:01)
[2025-03-12] VITALS (8 sets, daily range): BP systolic 87–129; BP diastolic 49–67; PULSE 58–72; RESP 20; TEMP 35.9–36.9; O2SAT 94–96
[2025-03-12] MEDS: metroNIDAZOLE 500 MG TABLET PO ×2 (05:27→13:35)
[2025-03-12] MEDS: ACETAMINOPHEN 325 MG TABLET 650 MG PO ×3 (05:27→17:15)
[2025-03-12] MEDS: CENTRAL LINE FLUSH 10 ML IV PUSH ×2 (05:28→13:35)
[2025-03-12 05:58] LABS: Hematocrit 28.3 % (37.0-47.0); Hemoglobin 8.9 g/dL (12.0-15.0); Mean Corpuscular HGB Conc 31.4 g/dl (32-36); Mean Corpuscular Hemoglobin 27.5 pg (26-34); Mean Corpuscular Volume 87.3 fl (80-100); Mean Platelet Volume 10.1 fl (7.4-10.4); Platelet Count Result 354 k/mm3 (150-375); Red Blood Count 3.24 M/mm3 (4.2-5.4); Red Cell Distribution Width 14.6 % (11.5-14.5); White Blood Count 10.3 K/mm3 (4.5-10.0)
[2025-03-12 06:05] LABS: Alanine Aminotransferase 42 U/L (6-35); Albumin Level 2.4 g/dL (3.5-5.1); Alkaline Phosphatase 109 U/L (38-126); Anion Gap 1 mmol/L (4-12); Aspartate Amino Transferase 31 U/L (14-36); Bilirubin,Total 0.8 mg/dL (0.2-1.3); Blood Urea Nitrogen 20 mg/dL (7-17); Calcium 7.9 mg/dL (8.4-10.2); Carbon Dioxide 38 mmol/L (22-30); Chloride 96 mmol/L (98-107); Estimated CRCL calculation 80 ml/min; Estimated Glomerular Filt Rate > 60; Glucose 88 mg/dL (65-110); Potassium 3.9 mmol/L (3.4-5.0); Sodium 135 mmol/L (137-145)
[2025-03-12] MEDS: PANTOPRAZOLE SODIUM IV 40 MG VIAL IV PUSH (09:34)
[2025-03-12] MEDS: CEFDINIR 300 MG CAPSULE PO (09:35)
[2025-03-12] MEDS: carvediloL 3.125 MG TABLET PO (09:35)
[2025-03-12] MEDS: LOSARTAN POTASSIUM 25 MG TABLET PO (09:35)
[2025-03-12] MEDS: AMIODARONE HCL 200 MG TABLET PO (09:35)
[2025-03-12] MEDS: FUROSEMIDE 40 MG TABLET PO (09:35)
--- NOTE | 2025-03-12 10:45 | PCNFU ---
Nutrition Follow-Up Complete: Increased Protein needs as related to wound healing as evidenced by pressure ulcers reported. Goal: Meet estimated nutritional needs. Patient is progressing towards goal. We will continue current goal. Pt current nutrition is Low Fat with Ensure Clear BID. Last recorded weight is 83.9 kg, stable Bowel Motility: Last reported BM 03/11 Labs Reviewed: Cr 0.59, BUN 20, Na 135, Hct 28.3, Hgb 8.9 Meds Noted: Protonix, Flagyl, Lasix Skin: Left heel-deep tissue, right back-deep tissue. Additional Notes: Diet order has advanced to Low fat diet. Oral Intake improving. Diet supplements of Ensure Clear providing an additional 240 kcal and 8 gm protein. Agree with diet orders. Will monitor weight, labs, skin, diet orders, meds every 5 days.
--- NOTE | 2025-03-12 11:05 | P.PNGS_ITS ---
Progress Note: A&P Assessment and Plan (1) Acute calculous cholecystitis: Code(s): K80.00 - Calculus of gallbladder with acute cholecystitis without obstruction Status: Acute Assessment and Plan: * Continue antibiotics. Monitor drain output. Surgically stable for discharge once medically stable. She can follow up outpatient with Dr. Gaming in 2-3 weeks. (2) Gallbladder hydrops: Code(s): K82.1 - Hydrops of gallbladder Status: Acute (3) Cholelithiasis with cholecystitis: Code(s): K80.10 - Calculus of gallbladder with chronic cholecystitis without obstruction Status: Acute (4) Septic shock: Code(s): A41.9 - Sepsis, unspecified organism; R65.21 - Severe sepsis with septic shock Status: Acute (5) Afib: Code(s): I48.91 - Unspecified atrial fibrillation Status: Acute Subjective Subjective Date/Time Seen: 03/12/25 11:05 Interval history: No acute events overnight. Vital signs stable. WBC down-trending. Minimal clear output from cholecystostomy tube. Patient reports less abdominal pain today. Exam GI: Inspection: non-distended, no scars and other (Cholecystostomy tube with clear bilious output) GI Palp: Yes Soft to palpation, No Guarding due to palpation present (GI) and No Hernia present Auscultation: normal bowel sounds and abnormal bowel sounds (hypoactive) Rectal Exam: deferred Other: Cholecystostomy tube with minimal clear output. Minimal tenderness to palpation localized to RUQ. Objective Data Vital Signs Vital Signs: Vital Signs - 24 hr 03/11/25 12:05 03/11/25 14:00 03/11/25 16:05 Temperature 97.7 F Pulse Rate 61 61 69 Respiratory Rate 20 Blood Pressure 116/60 Pulse Oximetry 94 Oxygen Delivery 03/11/25 20:00 03/11/25 20:00 03/11/25 21:16 Temperature 96.4 F L Pulse Rate 71 65 Respiratory Rate 24 H Blood Pressure 126/50 L Pulse Oximetry 95 Oxygen Delivery Room Air 03/12/25 00:00 03/12/25 04:00 03/12/25 05:43 Temperature 96.7 F L Pulse Rate 66 64 59 L Respiratory Rate 20 Blood Pressure 107/49 L Pulse Oximetry 94 Oxygen Delivery 03/12/25 09:35 03/12/25 09:35 03/12/25 09:37 Temperature Pulse Rate 67 67 Respiratory Rate Blood Pressure 129/67 Pulse Oximetry Oxygen Delivery Intake/Output Intake/Output: Intake & Output 03/09/25 03/10/25 03/11/25 03/12/25 23:59 23:59 23:59 23:59 Intake Total 1140 1600 1030 0 Output Total 1710 2185 1800 425 Balance -570 -585 -770 -425 Meds/Results Medications: Active Medications Generic Name Dose Route Start Last Admin Trade Name Freq PRN Reason Stop Dose Admin Acetaminophen 650 mg 03/05/25 07:49 03/12/25 09:34 Acetaminophen 325 Mg Tablet PO 650 mg Q4H PRN Administration Headache, pain or fever Amiodarone HCl 200 mg 03/08/25 08:00 03/12/25 09:35 Amiodarone Hcl 200 Mg Tablet PO 200 mg DAILY@0800 JEREMY Administration Carvedilol 3.125 mg 03/07/25 08:00 03/12/25 09:35 Carvedilol 3.125 Mg Tablet PO 3.125 mg Q12HR JEREMY Administration Cefdinir 300 mg 03/11/25 12:30 03/12/25 09:35 Cefdinir 300 Mg Capsule PO 300 mg Q12HR JEREMY Administration Furosemide 40 mg 03/07/25 09:00 03/12/25 09:35 Furosemide 40 Mg Tablet PO 40 mg DAILY JEREMY Administration Heparin Sodium (Porcine) 5,000 units 03/04/25 13:01 03/07/25 14:49 Heparin Sodium 5,000 Units/Ml Vial IV PUSH 5,000 units PRN PRN Administration aPTT less than 55 seconds Heparin Sodium (Porcine) 2,500 units 03/04/25 13:01 Heparin Sodium 5,000 Units/Ml Vial IV PUSH PRN PRN aPTT 55 - 70 seconds Losartan Potassium 25 mg 03/08/25 09:00 03/12/25 09:35 Losartan Potassium 25 Mg Tablet PO 25 mg DAILY JEREMY Administration Metronidazole 500 mg 03/11/25 14:00 03/12/25 05:27 Metronidazole 500 Mg Tablet PO 500 mg Q8HR JEREMY Administration Pantoprazole Sodium 40 mg 03/04/25 21:00 03/12/25 09:34 Pantoprazole Sodium Iv 40 Mg Vial IV PUSH 40 mg Q12HR JEREMY Administration Sodium Chloride 10 ml 03/04/25 22:00 03/12/25 05:28 Central Line Flush IV PUSH 10 ml Q8HR JEREMY Administration Sodium Chloride 10 ml 03/04/25 14:03 Central Line Flush IV PUSH PRN PRN with TPN bag changes Sodium Chloride 20 ml 03/04/25 14:03 03/10/25 05:00 Central Line Flush IV PUSH 20 ml PRN PRN Administration after blood draws Radiology Results: ITS Impressions Abdomen Ultrasound 03/04/25 17:27 IMPRESSION: Cholelithiasis with gallbladder wall thickening suggesting cholecystitis. No pericholecystic fluid is identified. Fatty infiltration of the liver, with phasic flow in the portal vein suggesting portal hypertension. Hepatobiliary Scan Nuclear Medicine 03/06/25 13:50 IMPRESSION: 1. No definitive gallbladder activity evident on the initial hour or on the 4 hour delayed images which is suspicious for acute cholecystitis. Modified Barium Swallow 03/06/25 14:15 IMPRESSION: Mild oropharyngeal dysphagia with without radiologic penetration or aspiration. Please correlate with speech pathologist findings and specific fee ding recommendations. Chest X-Ray 03/08/25 16:07 IMPRESSION: 1. Improved aeration in the right lung with no pneumothorax post right tho racentesis. 2. Opacities in the bilateral lower lung zones which could represent small lateral pleural effusions, atelectasis, pneumonia or some combination thereof. 3. Cardiomegaly. Cholecystostomy 03/08/25 16:48 IMPRESSION: 1. Successful ultrasound-guided cholecystostomy tube placement. 2. 45 mL clear bile was sent for aerobic, anaerobic, and fungal cultures. 3. The catheter will be managed by Dr. Gamign. A catheter cholangiogram may be performed not less than 48 hours after tube placement if clinically indicated to assess cystic duct patency. If cholecystectomy is not eventually performed and the infectious episode has resolved, the tube may be removed over a guidewire, preferably not less than 3 weeks after placement to allow time for a mature catheter tract to form to prevent bile leakage and peritonitis. Thoracentesis Ultrasound 03/08/25 16:48 IMPRESSION: 1. Successful ultrasound-guided thoracentesis yielding 450 mL of yellow fluid. Labs Labs: Laboratory Results - last 24 hr 03/12/25 05:35 WBC 10.3 H RBC 3.24 L Hgb 8.9 L Hct 28.3 L MCV 87.3 MCH 27.5 MCHC 31.4 L RDW 14.6 H Plt Count 354 MPV 10.1 Sodium 135 L Potassium 3.9 Chloride 96 L Carbon Dioxide 38 H Anion Gap 1 L BUN 20 H Creatinine 0.59 L Estim Creat Clear Calc 80 Estimated GFR > 60 Glucose 88 Calcium 7.9 L Total Bilirubin 0.8 AST 31 ALT 42 H Alkaline Phosphatase 109 Total Protein 6.0 L Albumin 2.4 L
--- NOTE | 2025-03-12 14:57 | P.DS_ITS ---
DS: Admitting Diagnosis Discharge Date 03/12/25 Admitting Diagnosis Septic shock DS: Discharge Diagnosis Discharge Diagnosis (1) Septic shock: Code(s): A41.9 - Sepsis, unspecified organism; R65.21 - Severe sepsis with septic shock Status: Acute (2) Cholelithiasis with cholecystitis: Code(s): K80.10 - Calculus of gallbladder with chronic cholecystitis without obstruction Status: Acute DS: Summary Hospital Course Hospital Course: 69-year-old with past medical history of past medical history of stroke, hypertension, atrial fibrillation, status who was transferred from [place] the rehab account of septic shock. Patient was admitted over there on a 14 managed for sepsis from cellulitis, and blood culture was positive for strep g. She was intially on Linezolid and Rocephin , however was switched to MEropenem hypotensive and went into atrial fibrillation right rapid ventricular response. Repeat CT abdomen chest showed large right pleural effusion with compressive atelectasis. Patient was started on Levophed transferred to our facility for critical care. She was also started on amiodarone infusion. Patient is a poor historian lethargic at time of this encounter. Lab review showed white count 20.1, hemoglobin 9.9, sodium 149, creatinine 0.0 trickle AST 3 history of at L2 through 3 6 troponin 0.11, proBNP 20 300, MRSA negative. Patient was managed in the ICU intially, was on Levophed, Meropenem and Linezolid. Blood culture positive for Group G streptococcus and urine positive for ESBL E coli. ALso managed for Cellulitis, and Cholecystitis. Gen surgery was consulted and Gall bladder drain was put in place. Bile cutlure negative. GEn surgery recommended continueing abx and drain and will follow up outpatient. Cardiology was consutled and patient was managed for Afib RVR eventaully conver to NSR, discharged on AMiodarone. patient did not toelrated Metoprolol< ECHO showed EF 40-45 patient. Todya patient is discharged on 14 more daysof Cefdinir and Flagyl and will follow up with Gen surgery for drain removal F/u with PCP in 3-5 days, F/u with cardiololgy and GEn surgery as instructed Time Spent with Patient Time attestation: Total time spent providing and/or coordinating discharge services: DS: Data Data Completed and Pending Pending studies at discharge: Pending at discharge 03/08/25 15:47 Cytology [PTH] Routine Labs on day of discharge: Labs from last 24 hours 03/12/25 05:35 WBC 10.3 H RBC 3.24 L Hgb 8.9 L Hct 28.3 L MCV 87.3 MCH 27.5 MCHC 31.4 L RDW 14.6 H Plt Count 354 MPV 10.1 Sodium 135 L Potassium 3.9 Chloride 96 L Carbon Dioxide 38 H Anion Gap 1 L BUN 20 H Creatinine 0.59 L Estim Creat Clear Calc 80 Estimated GFR > 60 Glucose 88 Calcium 7.9 L Total Bilirubin 0.8 AST 31 ALT 42 H Alkaline Phosphatase 109 Total Protein 6.0 L Albumin 2.4 L Preliminary micro results at discharge 03/08/25 15:34 Anaerobic Culture - Preliminary Gallbladder Aerobic Culture - Preliminary 03/08/25 15:34 Anaerobic Culture - Preliminary Other Aerobic Culture - Preliminary Micrococcus species Discharge Plan Discharge Attending physician on discharge: Bakari Carreon Consulting providers: Max Bermudez; Tim Gaming Discharging Clinician: Bakari Carreon Anticipated Discharge Date/Time: 03/12/25 14:54 Patient Disposition: NH Shelter/Asst Living Activity: as tolerated Diet: as tolerated Discharge Instructions: Cholecystostomy tube care: * Empty and record output from drain 1-2 times daily * OK to sponge bathe while drain is in place. Keep drain dry. * May remove bandage and clean around drain every 3 days. Re-apply 4x4 gauze and Tegaderm dressing every 3 days. * Call to schedule a follow-up appointment with Dr. Gaming in 2-3 weeks in our office. [phone] Patient Instructions: Antibiotic Form, Apixaban (By mouth) Patient Language: [place] Stand Alone Forms: General Discharge Information Follow-up/Referrals: Max Bermudez MD [Physician] - 3 Weeks Tim Gaming DO [Physician] - Call for Appointment Discharge Medications: New losartan 25 mg Tablet 25 mg PO DAILY 30 Days Qty: 30 1RF amiodarone [Pacerone] 200 mg Tablet 200 mg PO DAILY@0800 30 Days Qty: 30 1RF cefdinir 300 mg Capsule 300 mg PO Q12HR 14 Days Qty: 28 0RF metronidazole 500 mg Tablet 500 mg PO Q8HR 14 Days Qty: 42 0RF Continued acetazolamide 250 mg tablet 250 mg PO QAM Eliquis 5 mg tablet 5 mg PO Q12H carvedilol 3.125 mg tablet 3.125 mg PO Q12H furosemide 40 mg tablet 40 mg PO QAM pantoprazole 40 mg tablet,delayed release (DR/EC) 40 mg PO DAILY potassium chloride 20 mEq tablet,ER particles/crystals 40 meq PO DAILY Date of admission: 03/04/25 09:01 Primary Care Provider: Farrukh Neri Admitting Provider: Bakari Carreon Attending physician on admission: Bakari Carreon Condition: Improved
== END 2025-03-12 17:18 | DRG 871 ==
LOC: ANHICU 03-05 11:22 → ANHIMU 03-06 18:41 → ANH3MED 03-09 16:31
PROVIDERS: General Practice; Internal Medicine; Admitting Provider Internal Medicine; PCP Family Medicine; Visit Provider Internal Medicine
DX: A41.9 Sepsis, unspecified organism (principal); R65.21 Severe sepsis with septic shock; K80.10 Calculus of gallbladder with chronic cholecystitis without obstruction; L03.116 Cellulitis of left lower limb; L03.115 Cellulitis of right lower limb; I48.20 Chronic atrial fibrillation, unspecified; J90 Pleural effusion, not elsewhere classified; L97.919 Non-pressure chronic ulcer of unspecified part of right lower leg with unspecified severity; L97.929 Non-pressure chronic ulcer of unspecified part of left lower leg with unspecified severity; N17.9 Acute kidney failure, unspecified; G93.49 Other encephalopathy; I42.9 Cardiomyopathy, unspecified; K82.1 Hydrops of gallbladder; I10 Essential (primary) hypertension; I95.9 Hypotension, unspecified; K21.9 Gastro-esophageal reflux disease without esophagitis; Y95 Nosocomial condition; Z79.01 Long term (current) use of anticoagulants
CPT/HCPCS: 32555; 36415; 36569; 47490; 71045; 76705; 78226; 80053; 80074; 82140; 82550; 82945; 83605; 83615; 83690; 83735; 83880; 83986; 84100; 84132; 84157; 84443; 84484; 85025; 85027; 85610; 85730; 86140; 87070; 87075; 87102; 87205; 87206; 87493; 87641; 88108; 88305; 92610; 92611; 93306; A9270; A9537; C1729; C1751; J0282; J1644; J2003; J2020; J2185; J2270; J2470; J3430; J7060; J7120; P9047

== ENCOUNTER 2025-03-15 13:26 | Outpatient (CLI) | payer MEDICARE, MEDICAID, SELFPAY ==
--- OUTSIDE RECORDS SUMMARY | 2025-03-15 13:29 | XMS_ITS | Encounter Summary ---
Author Organization [facility] Address [address] [place] [address] Phone Care Team Providers Care Property Claims Manager Name Role Phone Meredith Montano MD Primary Care Provider [phone] Luis Fernando Hilton MD Unavailable [phone] Jesica Cook NP Primary Care Provider Farrah Sanz MD Unavailable [phone] No, Physician Primary Care Provider [phone] Encounter Details Date Type Department Care Team (Late st Contact Info) Description 07/31/2020 Telephone [facility] Obstetrics and Gynecology [address] [facility] [address] [place] [address] [place] [address] Jessie Guzman Social History Tobacco Use Types Packs/Day Years Used Date Smoking Tobacco: Never Smokeless Tobacco: Never Alcohol Use Standard Drinks/Week Comments Never 0 (1 standard drink = 0.6 oz pur e alcohol) AUDIT-C Answer Date Recorded Q1: How often do you have a drink containing alc ohol? 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 Gender Identity Female 06/13/2020 10:39 AM CDT Sexual Orientation Straight 06/13/2020 10 :39 AM CDT documented as of this encounter Plan of Treatment Not on file documented as of this encounter Visit Diagnoses Not on filedocumented in this encounter Care Teams Property Claims Manager Relationship Specialty Start Date End Date Meredith Montano MD PCP - General 08/13/16 11/11/20 Jesica Cook NP [address] [place] [address] DR PRIETO [facility] [place] [address] PCP - General Family Medicine 11/12/20 09/12/23 No, Physician PCP - General 09/13/23 Luis Fernando Hilton MD [address] [place] [address] DR PRIETO [address] [place], [place] [address] [address] Life Skills Trainer Obstetrics and Gynecology 05/27/20 Farrah Sanz MD [address] [place] [address] DR [address]IETO [address] [place], [place] [address] [address] Resident Obstetrics and Gynecology 11/12/20 documented as of this encounter
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
--- OUTSIDE RECORDS SUMMARY | 2025-03-15 13:30 | XMS_ITS | CONTINUITY OF CARE DOCUMENT ---
Author Name alison rosas Address Unknown Organization [facility] Address [address] [place] [address] Phone [phone] Care Team Providers Care Obstetrics Scrub Nurse Name Role Phone Jack Reed MD Unavailable [phone] Jack Reed MD Unavailable [phone] INSURANCE PROVIDERS Payer name Policy type / Coverage type [place] red democrat [place] MEDIC[place] PART B Medicare [id number]
--- OUTSIDE RECORDS SUMMARY | 2025-03-15 13:30 | XMS_ITS | Referral Summary ---
Author Organization [facility] Address [address] [place] [address] Care Team Providers Care Rotary Operator Name Role Phone Luis Fernando Hilton MD Unavailable Farrah Sanz MD Unavailable [phone] No, Physician Primary Care Provider [phone] Encounters Date Type Department Care Team Description 03/08/2025 Orders Only [facility] Cardiology [address] [place] [address] Chuck Mckenzie MD from Last 3 Months Allergies Active Allergy Reactions Criticality Noted Date [...] Meclizine Unknown Mold Unknown 06/13/2020 Morphine Unknown Hvqmbhcs-Vvrthvvsgw-Fzs ymyxin Other (See comments) Low 06/13/2020 Blisters [...] mg total) by mouth nightly 30 capsule 11 4 08/24/20 25 Active furosemide (LASIX) 40 mg tablet Take 1 tablet (40 mg total) by mouth daily 4 Active gabapentin (NEURONTIN) 100 mg capsule Take 1 capsule (100 mg total) by mouth 2 (two) times a day 08/24/[address] (PROTONIX) 40 mg EC tabletIndicatio ns:Treatment of Non-Bleeding Gastric Disorder Take 1 tablet (40 mg total) by mouth daily Active sacubitriL-vals roxie (ENTRESTO) 24-26 mg tabletIndicatio ns:chronic heart failure Take 0.5 tablets by mouth 2 (two) times a day Active Active Problems Problem Noted Date Diagnosed [...] 09/13/2023 Assessment & Plan (09/14/2023 12:17 PM YARD SWITCHER): Reason for admission. She was sitting in [...] (01/07/2021): Added automatically from request for surgery [id number] Mixed hyperlipidemia 11/14/2020 Overview (11/14/2020): Recommended patient take a statin. Received message back from patient she does not want to start statin. Assessment & Plan (09/14/2023 12:14 PM YARD SWITCHER): Patient previously informed that she should be [...] 11/12/2020 Assessment & Plan (09/14/2023 12:16 PM YARD SWITCHER): Presenting with bilateral foot swelling and dermatitis. Possibly allergic, most likely due to chronic changes (6 years). Venous stasis dermatitis is possible. Will trial 40 mg Solu-Medrol and see if she is treatment responsive. Assessment & Plan (11/12/2020 11:26 AM YARD SWITCHER): HPI: Condition is worsening , she hasn't [...] 11/12/2020 Assessment & Plan (11/12/2020 12:24 PM YARD SWITCHER): She talks to someone on the [facility] well line and [place] Warm line which are counseling services. They help her. She knows she needs therapy, but doesn't want to do that until she moves back to the [facility], but she doesn't have enough money to move. treatment significantly limited by social determinants of health Chronic allergic rhinitis 11/12/2020 Assessment & Plan (11/12/2020 11:27 AM YARD SWITCHER): HPI: Condition is stable Discussed environmental controls [...] we may need to send her to director of analytics, but she wants to wait for now. Vitamin D deficiency 11/12/2020 Assessment & Plan (11/12/2020 11:14 AM YARD SWITCHER): HPI: Condition is stable A&P: Discussed/ordered labs, encouraged healthy, low carbohydrate lifestyle and at least 150min/week of exercise, continue on vit d3 5000units daily GERD (gastroesophageal reflux disease) Assessment & Plan (11/12/2020 12:23 PM YARD SWITCHER): HPI: Condition is stable Continue on current meds-esomeprazole 20mg as needed, encouraged healthy diet and exercise Avoid trigger foods including: carbonated beverages, caffeine, spicy, fried foods, tomatoes, cucumbers, and mint Avoid eating/drinking anything for at least 2 hours before bed. Sleep with bed propped. Discussed increased risk of cdif and vit B12 deficiency with local company intermodal truck driver use of PPI with pt, would like to remain on medication at this time treatment significantly limited by social determinants of health Arthritis 11/12/2020 Assessment & Plan (11/12/2020 12:22 PM YARD SWITCHER): Discussed with pt that I would recommend she not take ibuprofen Due to increased risk of GI bleed. Would recommend tylenol arthritis. Patient is in wheelchair during today's visit Blood pressure elevated without history of HTN 0 11/12/2020 Assessment & Plan (09/14/2023 12:21 PM YARD SWITCHER): BP elevated in ED 168/74. Pt denies [...] PCP. Assessment & Plan (11/12/2020 12:09 PM YARD SWITCHER): Patient states she has white coat syndrome. She is very anxious about being here as a new patient today with her last doctor's experience being quite negative in [place]. She also did not take her triamterene hydrochlorothiazide today either due to traveling to the doctor's office today. Class 2 severe obesity due t o excess calories with serious comorbidity and body mass index (BMI) of 39.0 to 39.9 in adult 11/12/2020 Assessment & Plan (11/12/2020 12:23 PM YARD SWITCHER): HPI: Condition is stable A&P: Healthy, low [...] in much longer they will become mushy [place] and/or coconut flour instead of regular flour For pizza dough, try fathead pizza dough recipe online. To get a crispy crust, bake on one side for 8-12 min, then flip over and bake on the other side for 8-12 min, then put toppings on and bake until the cheese on top of pizza melts chaffles recipe online For ice cream, try the brand Enlightened To replace coffee creamer and make it low carb, use heavy creamer with sugar free Torani sweetener For chips, try Whisps or pork rinds For yogurt, try Two Good korean yogurt Use Pinterest for recipe ideas. Type in low carb... treatment significantly limited by social determinants of health Endometrial cancer 07/09/2020 Overview (01/07/2021): Presented with heavy vaginal bleeding. [facility] pathology with grade [address] with fundal fibroid, no notable lymph nodes. Plan: - [facility] to review pathology - consents signed 07/09 [...] BID Assessment & Plan (11/12/2020 11:16 AM YARD SWITCHER): HPI: Condition is Active and being treated at [facility]. A&P: Discussed/ordered labs, encouraged healthy, low carbohydrate lifestyle and at least 150min/week of exercise, continue follow up with Dr. Sanz (getterer) and Dr. Hilton (getterer) She is awaiting appointment for hysterectomy. She has appointment for reevaluation in Nov at [facility]. She is taking medroxyprogesterone 10mg tablet daily Generalized anxiety disorder 06/13/2020 Assessment & Plan (11/12/2020 12:23 PM YARD SWITCHER): Patient reiterated no suicidal thoughts at this [...] 06/13/2020 Assessment & Plan (11/12/2020 11:28 AM YARD SWITCHER): HPI: Condition is stable A&P: Discussed/ordered labs, encouraged healthy, low carbohydrate lifestyle and at least 150min/week of exercise, continue follow up with Dr. Sanz (getterer) for endometrial cancer. She has not been taking ferrous sulfate since Sep 2020 Discussed with pt that I would recommend she not take ibuprofen Due to increased risk of GI bleed. Would recommend tylenol arthritis. Resolved Problems Problem Noted Date Diagnosed Date Resolved Date Moderate protein-calorie malnutrition 06/11/2024 08/21/2024 Social History Tobacco Use Types Packs/Day Years Used Date Smoking Tobacco: Never Smokeless Tobacco: Never Alcohol Use Standard Drinks/Week Comments Never 0 (1 standard drink = 0.6 oz pur e alcohol) [facility] Utilities Answer Date Recorded In the past 12 months has [employer], gas, oil, or water [employer] threatened to shut off services in your [...] often do you attend chur ch or temple services? Never 08/20/2024 Do you belong to any clubs o r organizations such as evangelical groups, unions, fraternal or athletic groups, or [...] place to sleep or slept in a skilled nursing (including now)? No 09/14/2023 Housing Stability Vital Sign Answer Rusty e Recorded In the last 12 months, was t here a time when you were not able to pay the mortgage or rent on time? No 08/20/2024 In the past 12 months, how m any times have you moved where you were living? 2 08/20/2024 At any time in the past 12 m [facility], were you homeless or living in a skilled nursing (including now)? No 08/20/2024 Personal Safety Answer Date Recorded Have you ever been in or are you currently in a harmful physical or emotional relationship or is someone making you feel afraid or unsafe? Denies 08/19/2024 Comments No Sex and Gender Information Value Date Recorded Sex Assigned at Not on file Legal Sex Female 4:13 AM YARD SWITCHER Gender Identity Female 06/13/2020 10:39 AM CDT Sexual Orientation Straight 06/13/2020 10 :39 AM CDT Last Filed Vital Signs Vital Sign Reading Time Taken Comments Blood Pressure 110/62 08/24/2024 3:45 PM YARD SWITCHER Pulse 76 08/24/2024 2:31 PM YARD SWITCHER Temperature 36.2 C (97.2 F) 08/24/2024 2:31 PM YARD SWITCHER Respiratory Rate 18 08/24/2024 2:31 PM YARD SWITCHER Oxygen Saturation 91% 08/24/2024 2:31 PM YARD SWITCHER Inhaled Oxygen Concentration - - Weight 96 kg (211 lb 9.6 oz) 08/19/2024 12:10 AM CDT Height 162.6 cm (5' 4) 08/19/2024 12:10 AM CDT Body Mass Index 36.32 08/19/2024 12:10 AM CDT Plan of Treatment Not on file Procedures Procedure Name Priority Date/Time Associated Diagnosis Comments CARDIOLOGY DOCUMENT SCAN Routine 03/07/2025 2:19 PM CDT CARDIOLOGY DOCUMENT SCAN Routine 03/06/2025 2:36 PM CDT CARDIOLOGY DOCUMENT SCAN Routine 03/05/2025 2:07 PM CDT HEPATITIS C ANTIBODY Routine 11/12/2020 11:46 AM YARD SWITCHER Encounter for hepatitis C screening test for [...] * Hepatitis C antibody (11/12/2020 11:46 AM YARD SWITCHER) Hep C Ab Nonreactive Nonreactive [facility] [...] last revised on 2020. Testing performed by: [facility], [address] [place] [address], [place]., [address] Blood specimen (specimen) 11/12/2020 11:46 AM YARD SWITCHER 11/12/2020 4:32 PM YARD SWITCHER us Jesica Cook NP LAB MICROBIOLOGY - GENERAL ORDERABLES Final Result [facility]) 1 [facility] Department [place] [address] from Last 3 Months or Most Recently Relevant to Health Maintenance Insurance MEDICARE [place] [address] [place] [address] MEDICARE MEDICARE [employer]CA Advance Directives For more information, please contact: [phone] * Full Code (Latest Code Status on File) Date Activated Date Inactivated Comments 08/19/2024 12:11 AM 08/24/2024 11:38 PM * Full Code Date Activated Date Inactivated Comments 06/14/2024 11:12 AM 06/15/2024 6:35 PM * Full Code Date Activated Date Inactivated Comments 05/26/2020 3:06 AM 05/27/2020 10:48 PM Care Teams Rotary Operator Relationship Specialty Start Date End Date No, Physician PCP - General 09/13/23 Luis Fernando Hilton MD [address] [place] [address] [place] [address] Finish Machine Tender Obstetrics and Gynecology 05/27/20 Farrah Sanz MD [address] [place] [address] [address] [place] [id number] Resident Obstetrics and Gynecology 11/12/20
[2025-03-15 13:54] LABS: Basophils Absolute Auto 0.05 K/mm3 (0.00-0.10); Basophils Percent Auto 0.8 % (0.0-1.0); Eosinophils Absolute Auto 0.27 K/mm3 (0.02-0.50); Eosinophils Percent Auto 4.3 % (1.0-6.0); Hematocrit 29.5 % (35.0-42.0); Hemoglobin 8.8 g/dL (11.7-13.8); Immature Granulocyte Absolute 0.09 K/mm3 (0.00-0.00); Immature Granulocyte Percent A 1.4 % (0.0-0.0); Immature Platelet Fraction Pct 1.1 % (1.0-7.0); Lymphocytes Absolute Auto 0.91 K/mm3 (1.10-4.50); Lymphocytes Percent Auto 14.4 % (18.0-42.0); Mean Corpuscular HGB Conc 29.8 g/dL (32-36); Mean Corpuscular Hemoglobin 26.6 pg (27.0-31.0); Mean Corpuscular Volume 89.1 fL (78.0-102.0); Mean Platelet Volume 9.4 fl (9.2-11.8); Monocytes Absolute Auto 0.75 K/mm3 (0.10-0.90); Monocytes Percent Auto 11.9 % (2.0-11.0); Neutrophils Absolute Auto 4.25 K/mm3 (1.70-7.20); Neutrophils Percent Auto 67.2 % (50.0-70.0); Platelet Count Result 634 K/mm3 (150-420); Red Blood Count 3.31 M/mm3 (4.20-5.40); Red Cell Distribution Width 14.9 % (11.6-14.4); White Blood Count 6.3 K/mm3 (4.8-10.8)
[2025-03-15 14:07] LABS: Alanine Aminotransferase 23 U/L (6-35); Albumin Level 2.7 g/dL (3.5-5.1); Alkaline Phosphatase 136 U/L (38-126); Anion Gap 1 mmol/L (4-12); Aspartate Amino Transferase 20 U/L (14-36); Bilirubin,Total 0.7 mg/dL (0.2-1.3); Blood Urea Nitrogen 12 mg/dL (7-17); Calcium 8.4 mg/dL (8.4-10.2); Carbon Dioxide 34 mmol/L (22-30); Chloride 100 mmol/L (98-107); Estimated Glomerular Filt Rate > 60; Glucose 108 mg/dL (65-110); Osmolality Calculated 280 mOsm/kg (285-295); Potassium 4.1 mmol/L (3.4-5.0); Sodium 135 mmol/L (137-145); Total Protein 6.1 g/dL (6.3-8.2)
== END 2025-03-15 13:27 | disposition home or self-care (01) ==
PROVIDERS: PCP Family Medicine; Visit Provider Family Medicine
DX: I48.91 Unspecified atrial fibrillation (principal); L03.90 Cellulitis, unspecified
CPT/HCPCS: 36415; 80053; 85025; 85055

== ENCOUNTER 2025-03-20 10:53 | Outpatient (CLI) | payer MEDICARE, MEDICAID, SELFPAY ==
--- OUTSIDE RECORDS SUMMARY | 2025-03-20 11:01 | XMS_ITS | CONTINUITY OF CARE DOCUMENT ---
Author Name alison rosas Address Unknown Organization [facility] Address [address] [place] [address] Phone [phone] Care Team Providers Care Purification Operator Helper Name Role Phone Jack Reed MD Unavailable [phone] Jack Reed MD Unavailable [phone] INSURANCE PROVIDERS Payer name Policy type / Coverage type [place] [employer] party [place] MEDIC[place] PART B Medicare [id number]
--- OUTSIDE RECORDS SUMMARY | 2025-03-20 11:01 | XMS_ITS | Clinical Summary ---
Author Organization [facility] Address [address] [place] [address] Care Team Providers Care Finish Grinder Name Role Phone Luis Fernando Hilton MD Unavailable [phone] Farrah Sanz MD Unavailable [phone] No, Physician Primary Care Provider [phone] Allergies Active Allergy Reactions Criticality Noted Date [...] Meclizine Unknown Mold Unknown 06/13/2020 Morphine Unknown Ynqlttqq-Uxggorwpbi-Uvz ymyxin Other (See comments) Low 06/13/2020 Blisters [...] 09/13/2023 Assessment & Plan (09/14/2023 12:17 PM FARM OPERATIONS MANAGER): Reason for admission. She was sitting in [...] (01/07/2021): Added automatically from request for surgery [id number] Mixed hyperlipidemia 11/14/2020 Overview (11/14/2020): Recommended patient take a statin. Received message back from patient she does not want to start statin. Assessment & Plan (09/14/2023 12:14 PM FARM OPERATIONS MANAGER): Patient previously informed that she should be [...] 11/12/2020 Assessment & Plan (09/14/2023 12:16 PM FARM OPERATIONS MANAGER): Presenting with bilateral foot swelling and dermatitis. Possibly allergic, most likely due to chronic changes (6 years). Venous stasis dermatitis is possible. Will trial 40 mg Solu-Medrol and see if she is treatment responsive. Assessment & Plan (11/12/2020 11:26 AM FARM OPERATIONS MANAGER): HPI: Condition is worsening , she hasn't [...] 11/12/2020 Assessment & Plan (11/12/2020 12:24 PM FARM OPERATIONS MANAGER): She talks to someone on the [facility] well line and [place] Warm line which are counseling services. They help her. She knows she needs therapy, but doesn't want to do that until she moves back to the [facility], but she doesn't have enough money to move. treatment significantly limited by social determinants of health Chronic allergic rhinitis 11/12/2020 Assessment & Plan (11/12/2020 11:27 AM FARM OPERATIONS MANAGER): HPI: Condition is stable Discussed environmental controls [...] we may need to send her to criminal judge, but she wants to wait for now. Vitamin D deficiency 11/12/2020 Assessment & Plan (11/12/2020 11:14 AM FARM OPERATIONS MANAGER): HPI: Condition is stable A&P: Discussed/ordered labs, encouraged healthy, low carbohydrate lifestyle and at least 150min/week of exercise, continue on vit d3 5000units daily GERD (gastroesophageal reflux disease) Assessment & Plan (11/12/2020 12:23 PM FARM OPERATIONS MANAGER): HPI: Condition is stable Continue on current meds-esomeprazole 20mg as needed, encouraged healthy diet and exercise Avoid trigger foods including: carbonated beverages, caffeine, spicy, fried foods, tomatoes, cucumbers, and mint Avoid eating/drinking anything for at least 2 hours before bed. Sleep with bed propped. Discussed increased risk of cdif and vit B12 deficiency with watermelon inspector use of PPI with pt, would like to remain on medication at this time treatment significantly limited by social determinants of health Arthritis 11/12/2020 Assessment & Plan (11/12/2020 12:22 PM FARM OPERATIONS MANAGER): Discussed with pt that I would recommend she not take ibuprofen Due to increased risk of GI bleed. Would recommend tylenol arthritis. Patient is in wheelchair during today's visit Blood pressure elevated without history of HTN 0 11/12/2020 Assessment & Plan (09/14/2023 12:21 PM FARM OPERATIONS MANAGER): BP elevated in ED 168/74. Pt denies [...] PCP. Assessment & Plan (11/12/2020 12:09 PM FARM OPERATIONS MANAGER): Patient states she has white coat syndrome. She is very anxious about being here as a new patient today with her last doctor's experience being quite negative in [place]. She also did not take her triamterene hydrochlorothiazide today either due to traveling to the doctor's office today. Class 2 severe obesity due t o excess calories with serious comorbidity and body mass index (BMI) of 39.0 to 39.9 in adult 11/12/2020 Assessment & Plan (11/12/2020 12:23 PM FARM OPERATIONS MANAGER): HPI: Condition is stable A&P: Healthy, low [...] in much longer they will become mushy [place] and/or coconut flour instead of regular flour [...] pork rinds For yogurt, try Two Good grenadian yogurt Use Pinterest for recipe ideas. Type [...] BID Assessment & Plan (11/12/2020 11:16 AM FARM OPERATIONS MANAGER): HPI: Condition is Active and being treated at [facility]. A&P: Discussed/ordered labs, encouraged healthy, low carbohydrate lifestyle and at least 150min/week of exercise, continue follow up with Dr. Sanz (propeller mechanic) and Dr. Hilton (propeller mechanic) She is awaiting appointment for hysterectomy. She has appointment for reevaluation in Nov at [facility]. She is taking medroxyprogesterone 10mg tablet daily Generalized anxiety disorder 06/13/2020 Assessment & Plan (11/12/2020 12:23 PM FARM OPERATIONS MANAGER): Patient reiterated no suicidal thoughts at this [...] is living in a housing [facility]. She was homeless and lived in a [...] 06/13/2020 Assessment & Plan (11/12/2020 11:28 AM FARM OPERATIONS MANAGER): HPI: Condition is stable A&P: Discussed/ordered labs, encouraged healthy, low carbohydrate lifestyle and at least 150min/week of exercise, continue follow up with Dr. Sanz (propeller mechanic) for endometrial cancer. She has not been taking ferrous sulfate since Sep 2020 Discussed with pt that I would recommend she not take ibuprofen Due to increased risk of GI bleed. Would recommend tylenol arthritis. Resolved Problems Problem Noted Date Diagnosed Date Resolved Date Moderate protein-calorie malnutrition 06/11/2024 08/21/2024 Encounters Date Type Department Care Team Description 03/08/2025 Orders Only [facility] Cardiology [address] [place] [address] Chuck Mckenzie MD from Last [...] drink = 0.6 oz pur e alcohol) [facility] Utilities Answer Date Recorded In the past 12 months has [email or web address], gas, oil, or water [employer] threatened to shut off services in your [...] often do you attend chur ch or taoist services? Never 08/20/2024 Do you belong to any clubs o r organizations such as baptist groups, unions, fraternal or athletic groups, or [...] place to sleep or slept in a alf (including now)? No 09/14/2023 Housing Stability Vital Sign Answer Rusty e Recorded In the last 12 months, was t here a time when you were not able to pay the mortgage or rent on time? No 08/20/2024 In the past 12 months, how m any times have you moved where you were living? 2 08/20/2024 At any time in the past 12 m [facility], were you homeless or living in a alf (including now)? No 08/20/2024 Personal Safety Answer Date Recorded Have you ever been in or are you currently in a harmful physical or emotional relationship or is someone making you feel afraid or unsafe? Denies 08/19/2024 Comments No Sex and Gender Information Value Date Recorded Sex Assigned at Not on file Legal Sex Female 4:13 AM FARM OPERATIONS MANAGER Gender Identity Female 06/13/2020 10:39 AM CDT Sexual Orientation Straight 06/13/2020 10 :39 AM CDT Obstetrics History Para Term AB IAB SAB Ectopic Multiple Livin g Live Births 0 0 0 0 0 0 0 0 0 0 0 Last Filed Vital Signs Vital Sign Reading Time Taken Comments Blood Pressure 110/62 08/24/2024 3:45 PM FARM OPERATIONS MANAGER Pulse 76 08/24/2024 2:31 PM FARM OPERATIONS MANAGER Temperature 36.2 C (97.2 F) 08/24/2024 2:31 PM FARM OPERATIONS MANAGER Respiratory Rate 18 08/24/2024 2:31 PM FARM OPERATIONS MANAGER Oxygen Saturation 91% 08/24/2024 2:31 PM FARM OPERATIONS MANAGER Inhaled Oxygen Concentration - - Weight 96 [...] HEPATITIS C ANTIBODY Routine 11/12/2020 11:46 AM FARM OPERATIONS MANAGER Encounter for hepatitis C screening test for [...] * Hepatitis C antibody (11/12/2020 11:46 AM FARM OPERATIONS MANAGER) Hep C Ab Nonreactive Nonreactive [facility] [...] last revised on 2020. Testing performed by: [facility], [address] [place] [address], [place]., [address] Blood specimen (specimen) 11/12/2020 11:46 AM FARM OPERATIONS MANAGER 11/12/2020 4:32 PM FARM OPERATIONS MANAGER us Jesica Cook NP LAB MICROBIOLOGY - GENERAL ORDERABLES Final Result [facility] 1 [facility] Department [place] [address] from Last 3 Months or Most Recently Relevant to Health Maintenance Insurance MEDICARE IDPA [facility] MEDICARE MEDICARE IDPA Advance Directives For more information, please contact: [phone] * Full Code (Latest Code Status on File) Date Activated Date Inactivated Comments 08/19/2024 12:11 AM 08/24/2024 11:38 PM * Full Code Date Activated Date Inactivated Comments 06/14/2024 11:12 AM 06/15/2024 6:35 PM * Full Code Date Activated Date Inactivated Comments 05/26/2020 3:06 AM 05/27/2020 10:48 PM Care Teams Finish Grinder Relationship Specialty Start Date End Date No, Physician PCP - General 09/13/23 Luis Fernando Hilton MD [address] [place] [address] [address] [place] [address] Bookkeeping Machine Operator Obstetrics and Gynecology 05/27/20 Farrah Sanz MD [address] [place] [address] [address] [place] [address] Resident Obstetrics and Gynecology 11/12/20
--- OUTSIDE RECORDS SUMMARY | 2025-03-20 11:01 | XMS_ITS | Referral Summary ---
Author Organization [facility] Medical Office Building B Address [address] [place] [address] Care Team Providers Care Trailhead Maintenance Worker Name Role Phone Luis Fernando Hilton MD Unavailable [phone] Farrah Sanz MD Unavailable [phone] No, Physician Primary Care Provider [phone] Encounters Date Type Department Care Team Description 03/08/2025 Orders Only [facility] Medical Group Cardiology [address] [place] [address] Chuck Mckenzie MD from Last [...] Meclizine Unknown Mold Unknown 06/13/2020 Morphine Unknown Wwezsgtc-Rwbxwvfpqs-Wku ymyxin Other (See comments) Low 06/13/2020 Blisters [...] 09/13/2023 Assessment & Plan (09/14/2023 12:17 PM FRONT DESK): Reason for admission. She was sitting in [...] (01/07/2021): Added automatically from request for surgery [id number] Mixed hyperlipidemia 11/14/2020 Overview (11/14/2020): Recommended patient take a statin. Received message back from patient she does not want to start statin. Assessment & Plan (09/14/2023 12:14 PM FRONT DESK): Patient previously informed that she should be [...] 11/12/2020 Assessment & Plan (09/14/2023 12:16 PM FRONT DESK): Presenting with bilateral foot swelling and dermatitis. Possibly allergic, most likely due to chronic changes (6 years). Venous stasis dermatitis is possible. Will trial 40 mg Solu-Medrol and see if she is treatment responsive. Assessment & Plan (11/12/2020 11:26 AM FRONT DESK): HPI: Condition is worsening , she hasn't [...] 11/12/2020 Assessment & Plan (11/12/2020 12:24 PM FRONT DESK): She talks to someone on the [facility] well line and [place] Warm line which are counseling services. They help her. She knows she needs therapy, but doesn't want to do that until she moves back to the [facility], but she doesn't have enough money to move. treatment significantly limited by social determinants of health Chronic allergic rhinitis 11/12/2020 Assessment & Plan (11/12/2020 11:27 AM FRONT DESK): HPI: Condition is stable Discussed environmental controls [...] we may need to send her to heading repairer, but she wants to wait for now. Vitamin D deficiency 11/12/2020 Assessment & Plan (11/12/2020 11:14 AM FRONT DESK): HPI: Condition is stable A&P: Discussed/ordered labs, encouraged healthy, low carbohydrate lifestyle and at least 150min/week of exercise, continue on vit d3 5000units daily GERD (gastroesophageal reflux disease) Assessment & Plan (11/12/2020 12:23 PM FRONT DESK): HPI: Condition is stable Continue on current meds-esomeprazole 20mg as needed, encouraged healthy diet and exercise Avoid trigger foods including: carbonated beverages, caffeine, spicy, fried foods, tomatoes, cucumbers, and mint Avoid eating/drinking anything for at least 2 hours before bed. Sleep with bed propped. Discussed increased risk of cdif and vit B12 deficiency with truck terminal manager use of PPI with pt, would like to remain on medication at this time treatment significantly limited by social determinants of health Arthritis 11/12/2020 Assessment & Plan (11/12/2020 12:22 PM FRONT DESK): Discussed with pt that I would recommend she not take ibuprofen Due to increased risk of GI bleed. Would recommend tylenol arthritis. Patient is in wheelchair during today's visit Blood pressure elevated without history of HTN 0 11/12/2020 Assessment & Plan (09/14/2023 12:21 PM FRONT DESK): BP elevated in ED 168/74. Pt denies [...] PCP. Assessment & Plan (11/12/2020 12:09 PM FRONT DESK): Patient states she has white coat syndrome. She is very anxious about being here as a new patient today with her last doctor's experience being quite negative in [place]. She also did not take her triamterene hydrochlorothiazide today either due to traveling to the doctor's office today. Class 2 severe obesity due t o excess calories with serious comorbidity and body mass index (BMI) of 39.0 to 39.9 in adult 11/12/2020 Assessment & Plan (11/12/2020 12:23 PM FRONT DESK): HPI: Condition is stable A&P: Healthy, low [...] in much longer they will become mushy [place] and/or coconut flour instead of regular flour [...] pork rinds For yogurt, try Two Good arabic yogurt Use Pinterest for recipe ideas. Type in low carb... treatment significantly limited by social determinants of health Endometrial cancer 07/09/2020 Overview (01/07/2021): Presented with heavy vaginal bleeding. [facility] pathology with grade [address] with fundal fibroid, no notable lymph nodes. Plan: - [facility] to review pathology - consents signed 07/09 [...] BID Assessment & Plan (11/12/2020 11:16 AM FRONT DESK): HPI: Condition is Active and being treated at [facility]. A&P: Discussed/ordered labs, encouraged healthy, low carbohydrate lifestyle and at least 150min/week of exercise, continue follow up with Dr. Sanz (profile saw operator) and Dr. Hilton (profile saw operator) She is awaiting appointment for hysterectomy. She has appointment for reevaluation in Nov at [facility]. She is taking medroxyprogesterone 10mg tablet daily Generalized anxiety disorder 06/13/2020 Assessment & Plan (11/12/2020 12:23 PM FRONT DESK): Patient reiterated no suicidal thoughts at this [...] is living in a housing unit in [facility]. She was homeless and lived in a [...] 06/13/2020 Assessment & Plan (11/12/2020 11:28 AM FRONT DESK): HPI: Condition is stable A&P: Discussed/ordered labs, encouraged healthy, low carbohydrate lifestyle and at least 150min/week of exercise, continue follow up with Dr. Sanz (profile saw operator) for endometrial cancer. She has not been [...] drink = 0.6 oz pur e alcohol) [facility] Utilities Answer Date Recorded In the past 12 months has [employer], gas, oil, or water [employer] threatened to shut off services in your [...] often do you attend chur ch or mandaeism services? Never 08/20/2024 Do you belong to any clubs o r organizations such as christian groups, unions, fraternal or athletic groups, or [...] place to sleep or slept in a chcf (including now)? No 09/14/2023 Housing Stability Vital Sign Answer Rusty e Recorded In the last 12 months, was t here a time when you were not able to pay the mortgage or rent on time? No 08/20/2024 In the past 12 months, how m any times have you moved where you were living? 2 08/20/2024 At any time in the past 12 m [facility], were you homeless or living in a chcf (including now)? No 08/20/2024 Personal Safety Answer Date Recorded Have you ever been in or are you currently in a harmful physical or emotional relationship or is someone making you feel afraid or unsafe? Denies 08/19/2024 Comments No Sex and Gender Information Value Date Recorded Sex Assigned at Not on file Legal Sex Female 4:13 AM FRONT DESK Gender Identity Female 06/13/2020 10:39 AM CDT Sexual Orientation Straight 06/13/2020 10 :39 AM CDT Last Filed Vital Signs Vital Sign Reading Time Taken Comments Blood Pressure 110/62 08/24/2024 3:45 PM FRONT DESK Pulse 76 08/24/2024 2:31 PM FRONT DESK Temperature 36.2 C (97.2 F) 08/24/2024 2:31 PM FRONT DESK Respiratory Rate 18 08/24/2024 2:31 PM FRONT DESK Oxygen Saturation 91% 08/24/2024 2:31 PM FRONT DESK Inhaled Oxygen Concentration - - Weight 96 [...] HEPATITIS C ANTIBODY Routine 11/12/2020 11:46 AM FRONT DESK Encounter for hepatitis C screening test for [...] * Hepatitis C antibody (11/12/2020 11:46 AM FRONT DESK) Hep C Ab Nonreactive Nonreactive [facility] [...] last revised on 2020. Testing performed by: [facility], [address] [place] [address], [place]., [address] Blood specimen (specimen) 11/12/2020 11:46 AM FRONT DESK 11/12/2020 4:32 PM FRONT DESK us Jesica Cook NP LAB MICROBIOLOGY - GENERAL ORDERABLES Final Result [facility] ([place]) [facility] Department [place] [address] from Last 3 Months or Most Recently Relevant to Health Maintenance Insurance MEDICARE ID[place] [address] [place] [address] MEDICARE MEDICARE [employer] Advance Directives For more information, please contact: [phone] * Full Code (Latest Code Status on File) Date Activated Date Inactivated Comments 08/19/2024 12:11 AM 08/24/2024 11:38 PM * Full Code Date Activated Date Inactivated Comments 06/14/2024 11:12 AM 06/15/2024 6:35 PM * Full Code Date Activated Date Inactivated Comments 05/26/2020 3:06 AM 05/27/2020 10:48 PM Care Teams Trailhead Maintenance Worker Relationship Specialty Start Date End Date No, Physician PCP - General 09/13/23 Luis Fernando Hilton MD [address] [place] [address] [place] [address] Driver Trainee Obstetrics and Gynecology 05/27/20 Farrah Sanz MD [address] [place] [address] [address] [place] [address] Resident Obstetrics and Gynecology 11/12/20
--- OUTSIDE RECORDS SUMMARY | 2025-03-20 11:01 | XMS_ITS | Encounter Summary ---
Author Organization [facility] Address [address] [place] [address] Phone Care Team Providers Care Glassine Machine Tender Name Role Phone Meredith Montano MD Primary Care Provider [phone] Luis Fernando Hilton MD Unavailable [phone] Jesica Cook NP Primary Care Provider [phone] Farrah Sanz MD Unavailable No, Physician Primary Care Provider [phone] Encounter Details Date Type Department Care Team (Late st Contact Info) Description 07/31/2020 Telephone [facility] Obstetrics and Gynecology [address] [facility] [address]th [place] [address] [place] [address] Jessie Guzman Social History Tobacco [...] on file Legal Sex Female 4:13 AM BRIDGE CONTRACTOR Gender Identity Female 06/13/2020 10:39 AM CDT Sexual Orientation Straight 06/13/2020 10 :39 AM CDT documented as of this encounter Plan of Treatment Not on file documented as of this encounter Visit Diagnoses Not on filedocumented in this encounter Care Teams Glassine Machine Tender Relationship Specialty Start Date End Date Meredith Montano MD PCP - General 08/13/16 11/11/20 Jesica Cook NP [address] [place] [address] DR PRIET[address] [facility] [place] [address] PCP - General Family Medicine 11/12/20 09/12/23 No, Physician PCP - General 09/13/23 Luis Fernando Hilton MD [address] [place] [address] [address] [place], [place] [address], [place] [address] Gauge Maker Obstetrics and Gynecology 05/27/20 Farrah Sanz MD [address] [place] [address] [address] [place], [place] [address], [place] [address] Resident Obstetrics and Gynecology 11/12/20 documented as of this encounter
[2025-03-20 11:11] LABS: Basophils Absolute Auto 0.07 K/mm3 (0.00-0.10); Eosinophils Absolute Auto 0.28 K/mm3 (0.02-0.50); Eosinophils Percent Auto 3.9 % (1.0-6.0); Hematocrit 29.5 % (35.0-42.0); Hemoglobin 8.7 g/dL (11.7-13.8); Immature Granulocyte Absolute 0.08 K/mm3 (0.00-0.00); Immature Granulocyte Percent A 1.1 % (0.0-0.0); Immature Platelet Fraction Pct 0.6 % (1.0-7.0); Lymphocytes Absolute Auto 0.98 K/mm3 (1.10-4.50); Lymphocytes Percent Auto 13.5 % (18.0-42.0); Mean Corpuscular HGB Conc 29.5 g/dL (32-36); Mean Corpuscular Hemoglobin 26.2 pg (27.0-31.0); Mean Corpuscular Volume 88.9 fL (78.0-102.0); Mean Platelet Volume 8.6 fl (9.2-11.8); Monocytes Absolute Auto 0.76 K/mm3 (0.10-0.90); Monocytes Percent Auto 10.5 % (2.0-11.0); Platelet Count Result 725 K/mm3 (150-420); Red Blood Count 3.32 M/mm3 (4.20-5.40); Red Cell Distribution Width 15.3 % (11.6-14.4); White Blood Count 7.3 K/mm3 (4.8-10.8)
[2025-03-20 11:31] LABS: Alanine Aminotransferase 12 U/L (6-35); Albumin Level 2.9 g/dL (3.5-5.1); Alkaline Phosphatase 136 U/L (38-126); Anion Gap 3 mmol/L (4-12); Aspartate Amino Transferase 18 U/L (14-36); Bilirubin,Total 0.3 mg/dL (0.2-1.3); Blood Urea Nitrogen 14 mg/dL (7-17); Calcium 8.6 mg/dL (8.4-10.2); Carbon Dioxide 27 mmol/L (22-30); Chloride 107 mmol/L (98-107); Estimated Glomerular Filt Rate > 60; Glucose 100 mg/dL (65-110); Osmolality Calculated 284 mOsm/kg (285-295); Potassium 4.3 mmol/L (3.4-5.0); Sodium 137 mmol/L (137-145); Total Protein 6.7 g/dL (6.3-8.2)
== END 2025-03-20 10:54 | disposition home or self-care (01) ==
PROVIDERS: PCP Family Medicine; Visit Provider Family Medicine
DX: L03.90 Cellulitis, unspecified (principal); I48.91 Unspecified atrial fibrillation
CPT/HCPCS: 36415; 80053; 85025; 85055

== ENCOUNTER 2025-03-26 21:20 | Outpatient (NON) | payer MEDICARE, MEDICAID, SELFPAY ==
--- OUTSIDE RECORDS SUMMARY | 2025-03-26 21:26 | XMS_ITS | Referral Summary ---
Author Organization [facility] Medical Office Building B Address [address] [place] [address] Care Team Providers Care Financial Service Rep Name Role Phone Luis Fernando Hilton MD Unavailable Farrah Sanz MD Unavailable [phone] No, Physician Primary Care Provider [phone] Encounters Date Type Department Care Team Description 03/08/2025 Orders Only [facility] Medical Group Cardiology [address] [place] [address] Chuck Mckenzie MD from Last [...] Meclizine Unknown Mold Unknown 06/13/2020 Morphine Unknown Objlfkmy-Dqfzswpmdw-Gou ymyxin Other (See comments) Low 06/13/2020 Blisters [...] 09/13/2023 Assessment & Plan (09/14/2023 12:17 PM FREELANCE INTERPRETER/TRANSLATOR): Reason for admission. She was sitting in [...] (01/07/2021): Added automatically from request for surgery [id number] Mixed hyperlipidemia 11/14/2020 Overview (11/14/2020): Recommended patient take a statin. Received message back from patient she does not want to start statin. Assessment & Plan (09/14/2023 12:14 PM FREELANCE INTERPRETER/TRANSLATOR): Patient previously informed that she should be [...] 11/12/2020 Assessment & Plan (09/14/2023 12:16 PM FREELANCE INTERPRETER/TRANSLATOR): Presenting with bilateral foot swelling and dermatitis. Possibly allergic, most likely due to chronic changes (6 years). Venous stasis dermatitis is possible. Will trial 40 mg Solu-Medrol and see if she is treatment responsive. Assessment & Plan (11/12/2020 11:26 AM FREELANCE INTERPRETER/TRANSLATOR): HPI: Condition is worsening , she hasn't [...] 11/12/2020 Assessment & Plan (11/12/2020 12:24 PM FREELANCE INTERPRETER/TRANSLATOR): She talks to someone on the [facility] well line and [place] Warm line which are counseling services. They help her. She knows she needs therapy, but doesn't want to do that until she moves back to the [facility], but she doesn't have enough money to move. treatment significantly limited by social determinants of health Chronic allergic rhinitis 11/12/2020 Assessment & Plan (11/12/2020 11:27 AM FREELANCE INTERPRETER/TRANSLATOR): HPI: Condition is stable Discussed environmental controls [...] we may need to send her to tennis racket repairer, but she wants to wait for now. Vitamin D deficiency 11/12/2020 Assessment & Plan (11/12/2020 11:14 AM FREELANCE INTERPRETER/TRANSLATOR): HPI: Condition is stable A&P: Discussed/ordered labs, encouraged healthy, low carbohydrate lifestyle and at least 150min/week of exercise, continue on vit d3 5000units daily GERD (gastroesophageal reflux disease) Assessment & Plan (11/12/2020 12:23 PM FREELANCE INTERPRETER/TRANSLATOR): HPI: Condition is stable Continue on current meds-esomeprazole 20mg as needed, encouraged healthy diet and exercise Avoid trigger foods including: carbonated beverages, caffeine, spicy, fried foods, tomatoes, cucumbers, and mint Avoid eating/drinking anything for at least 2 hours before bed. Sleep with bed propped. Discussed increased risk of cdif and vit B12 deficiency with long-term use of PPI with pt, would like to remain on medication at this time treatment significantly limited by social determinants of health Arthritis 11/12/2020 Assessment & Plan (11/12/2020 12:22 PM FREELANCE INTERPRETER/TRANSLATOR): Discussed with pt that I would recommend she not take ibuprofen Due to increased risk of GI bleed. Would recommend tylenol arthritis. Patient is in wheelchair during today's visit Blood pressure elevated without history of HTN 0 11/12/2020 Assessment & Plan (09/14/2023 12:21 PM FREELANCE INTERPRETER/TRANSLATOR): BP elevated in ED 168/74. Pt denies [...] PCP. Assessment & Plan (11/12/2020 12:09 PM FREELANCE INTERPRETER/TRANSLATOR): Patient states she has white coat syndrome. She is very anxious about being here as a new patient today with her last doctor's experience being quite negative in [place]. She also did not take her triamterene hydrochlorothiazide today either due to traveling to the doctor's office today. Class 2 severe obesity due t o excess calories with serious comorbidity and body mass index (BMI) of 39.0 to 39.9 in adult 11/12/2020 Assessment & Plan (11/12/2020 12:23 PM FREELANCE INTERPRETER/TRANSLATOR): HPI: Condition is stable A&P: Healthy, low [...] in much longer they will become mushy [place] and/or coconut flour instead of regular flour [...] pork rinds For yogurt, try Two Good bengali yogurt Use Pinterest for recipe ideas. Type in low carb... treatment significantly limited by social determinants of health Endometrial cancer 07/09/2020 Overview (01/07/2021): Presented with heavy vaginal bleeding. [facility] pathology with grade [address] with fundal fibroid, no notable lymph nodes. Plan: - [facility] to review pathology - consents signed 07/09 [...] BID Assessment & Plan (11/12/2020 11:16 AM FREELANCE INTERPRETER/TRANSLATOR): HPI: Condition is Active and being treated at [facility]. A&P: Discussed/ordered labs, encouraged healthy, low carbohydrate lifestyle and at least 150min/week of exercise, continue follow up with Dr. Sanz (income tax auditor) and Dr. Hilton (income tax auditor) She is awaiting appointment for hysterectomy. She has appointment for reevaluation in Nov at [facility]. She is taking medroxyprogesterone 10mg tablet daily Generalized anxiety disorder 06/13/2020 Assessment & Plan (11/12/2020 12:23 PM FREELANCE INTERPRETER/TRANSLATOR): Patient reiterated no suicidal thoughts at this [...] is living in a housing unit in [facility]. She was homeless and lived [...] 06/13/2020 Assessment & Plan (11/12/2020 11:28 AM FREELANCE INTERPRETER/TRANSLATOR): HPI: Condition is stable A&P: Discussed/ordered labs, encouraged healthy, low carbohydrate lifestyle and at least 150min/week of exercise, continue follow up with Dr. Sanz (income tax auditor) for endometrial cancer. She has not been [...] drink = 0.6 oz pur e alcohol) [facility] Utilities Answer Date Recorded In the past 12 months has [employer], gas, oil, or water [employer] threatened to shut off services in your [...] often do you attend chur ch or moravian services? Never 08/20/2024 Do you belong to any clubs o r organizations such as sabianism groups, unions, fraternal or athletic groups, or [...] place to sleep or slept in a care home (including now)? No 09/14/2023 Housing Stability Vital Sign Answer Rusty e Recorded In the last 12 months, was t here a time when you were not able to pay the mortgage or rent on time? No 08/20/2024 In the past 12 months, how m any times have you moved where you were living? 2 08/20/2024 At any time in the past 12 m [facility], were you homeless or living in a care home (including now)? No 08/20/2024 Personal Safety Answer Date Recorded Have you ever been in or are you currently in a harmful physical or emotional relationship or is someone making you feel afraid or unsafe? Denies 08/19/2024 Comments No Sex and Gender Information Value Date Recorded Sex Assigned at Not on file Legal Sex Female 4:13 AM FREELANCE INTERPRETER/TRANSLATOR Gender Identity Female 06/13/2020 10:39 AM CDT Sexual Orientation Straight 06/13/2020 10 :39 AM CDT Last Filed Vital Signs Vital Sign Reading Time Taken Comments Blood Pressure 110/62 08/24/2024 3:45 PM FREELANCE INTERPRETER/TRANSLATOR Pulse 76 08/24/2024 2:31 PM FREELANCE INTERPRETER/TRANSLATOR Temperature 36.2 C (97.2 F) 08/24/2024 2:31 PM FREELANCE INTERPRETER/TRANSLATOR Respiratory Rate 18 08/24/2024 2:31 PM FREELANCE INTERPRETER/TRANSLATOR Oxygen Saturation 91% 08/24/2024 2:31 PM FREELANCE INTERPRETER/TRANSLATOR Inhaled Oxygen Concentration - - Weight 96 [...] HEPATITIS C ANTIBODY Routine 11/12/2020 11:46 AM FREELANCE INTERPRETER/TRANSLATOR Encounter for hepatitis C screening test for [...] * Hepatitis C antibody (11/12/2020 11:46 AM FREELANCE INTERPRETER/TRANSLATOR) Hep C Ab Nonreactive Nonreactive [facility] [...] last revised on 2020. Testing performed by: [facility], [address] [place] [address], [place]., [address] Blood specimen (specimen) 11/12/2020 11:46 AM FREELANCE INTERPRETER/TRANSLATOR 11/12/2020 4:32 PM FREELANCE INTERPRETER/TRANSLATOR us Jesica Cook NP LAB MICROBIOLOGY - GENERAL ORDERABLES Final Result [facility] ([place]) 1 [facility] [place] [address] from Last 3 Months or Most Recently Relevant to Health Maintenance Insurance MEDICARE [facility] Address: [address] [place] [address] [place] [address] [address] MEDICARE MEDICARE [employer] Advance Directives For more information, please contact: [phone] * Full Code (Latest Code Status on File) Date Activated Date Inactivated Comments 08/19/2024 12:11 AM 08/24/2024 11:38 PM * Full Code Date Activated Date Inactivated Comments 06/14/2024 11:12 AM 06/15/2024 6:35 PM * Full Code Date Activated Date Inactivated Comments 05/26/2020 3:06 AM 05/27/2020 10:48 PM Care Teams Financial Service Rep Relationship Specialty Start Date End Date No, Physician PCP - General 09/13/23 Luis Fernando Hilton MD [address] [place] [address] [place] [address] Masonry Inspector Obstetrics and Gynecology 05/27/20 Farrah Sanz MD [address] [place] [address] [address] [place] [address] Resident Obstetrics and Gynecology 11/12/20
--- OUTSIDE RECORDS SUMMARY | 2025-03-26 21:26 | XMS_ITS | CONTINUITY OF CARE DOCUMENT ---
Author Name alison rosas Address Unknown Organization [facility] Address [address] [place] [address] Phone [phone] Care Team Providers Care Assistant Speech Language Pathologist Name Role Phone Jack Reed MD Unavailable [phone] Jack Reed MD Unavailable [phone] INSURANCE PROVIDERS Payer name Policy type / Coverage type [place] [employer] party [place] PART B Medicare [id number]
--- OUTSIDE RECORDS SUMMARY | 2025-03-26 21:26 | XMS_ITS | Clinical Summary ---
Author Organization [facility] Medical Office Building B Address [address] [place] [address] Care Team Providers Care Power House Control Room Operator Name Role Phone Luis Fernando Hilton MD Unavailable [phone] Farrah Sanz MD Unavailable [phone] No, Physician Primary Care Provider [phone] Allergies Active Allergy Reactions Criticality Noted Date [...] Meclizine Unknown Mold Unknown 06/13/2020 Morphine Unknown Xjxbqffg-Sbicuoymeh-Pvu ymyxin Other (See comments) Low 06/13/2020 Blisters [...] 09/13/2023 Assessment & Plan (09/14/2023 12:17 PM NUTS AND BOLTS ASSEMBLER): Reason for admission. She was sitting in [...] (01/07/2021): Added automatically from request for surgery [id number] Mixed hyperlipidemia 11/14/2020 Overview (11/14/2020): Recommended patient take a statin. Received message back from patient she does not want to start statin. Assessment & Plan (09/14/2023 12:14 PM NUTS AND BOLTS ASSEMBLER): Patient previously informed that she should be [...] 11/12/2020 Assessment & Plan (09/14/2023 12:16 PM NUTS AND BOLTS ASSEMBLER): Presenting with bilateral foot swelling and dermatitis. Possibly allergic, most likely due to chronic changes (6 years). Venous stasis dermatitis is possible. Will trial 40 mg Solu-Medrol and see if she is treatment responsive. Assessment & Plan (11/12/2020 11:26 AM NUTS AND BOLTS ASSEMBLER): HPI: Condition is worsening , she hasn't [...] 11/12/2020 Assessment & Plan (11/12/2020 12:24 PM NUTS AND BOLTS ASSEMBLER): She talks to someone on the [facility] well line and [place] Warm line which are counseling services. They help her. She knows she needs therapy, but doesn't want to do that until she moves back to the [facility], but she doesn't have enough money to move. treatment significantly limited by social determinants of health Chronic allergic rhinitis 11/12/2020 Assessment & Plan (11/12/2020 11:27 AM NUTS AND BOLTS ASSEMBLER): HPI: Condition is stable Discussed environmental controls [...] we may need to send her to skiagrapher, but she wants to wait for now. Vitamin D deficiency 11/12/2020 Assessment & Plan (11/12/2020 11:14 AM NUTS AND BOLTS ASSEMBLER): HPI: Condition is stable A&P: Discussed/ordered labs, encouraged healthy, low carbohydrate lifestyle and at least 150min/week of exercise, continue on vit d3 5000units daily GERD (gastroesophageal reflux disease) Assessment & Plan (11/12/2020 12:23 PM NUTS AND BOLTS ASSEMBLER): HPI: Condition is stable Continue on current meds-esomeprazole 20mg as needed, encouraged healthy diet and exercise Avoid trigger foods including: carbonated beverages, caffeine, spicy, fried foods, tomatoes, cucumbers, and mint Avoid eating/drinking anything for at least 2 hours before bed. Sleep with bed propped. Discussed increased risk of cdif and vit B12 deficiency with termite helper use of PPI with pt, would like to remain on medication at this time treatment significantly limited by social determinants of health Arthritis 11/12/2020 Assessment & Plan (11/12/2020 12:22 PM NUTS AND BOLTS ASSEMBLER): Discussed with pt that I would recommend she not take ibuprofen Due to increased risk of GI bleed. Would recommend tylenol arthritis. Patient is in wheelchair during today's visit Blood pressure elevated without history of HTN 0 11/12/2020 Assessment & Plan (09/14/2023 12:21 PM NUTS AND BOLTS ASSEMBLER): BP elevated in ED 168/74. Pt denies [...] PCP. Assessment & Plan (11/12/2020 12:09 PM NUTS AND BOLTS ASSEMBLER): Patient states she has white coat syndrome. She is very anxious about being here as a new patient today with her last doctor's experience being quite negative in [place]. She also did not take her triamterene hydrochlorothiazide today either due to traveling to the doctor's office today. Class 2 severe obesity due t o excess calories with serious comorbidity and body mass index (BMI) of 39.0 to 39.9 in adult 11/12/2020 Assessment & Plan (11/12/2020 12:23 PM NUTS AND BOLTS ASSEMBLER): HPI: Condition is stable A&P: Healthy, low [...] in much longer they will become mushy [place] and/or coconut flour instead of regular flour [...] pork rinds For yogurt, try Two Good taiwanese yogurt Use Pinterest for recipe ideas. Type [...] BID Assessment & Plan (11/12/2020 11:16 AM NUTS AND BOLTS ASSEMBLER): HPI: Condition is Active and being treated at [facility]. A&P: Discussed/ordered labs, encouraged healthy, low carbohydrate lifestyle and at least 150min/week of exercise, continue follow up with Dr. Sanz (electronic device monitor) and Dr. Hilton (electronic device monitor) She is awaiting appointment for hysterectomy. She has appointment for reevaluation in Nov at [facility]. She is taking medroxyprogesterone 10mg tablet daily Generalized anxiety disorder 06/13/2020 Assessment & Plan (11/12/2020 12:23 PM NUTS AND BOLTS ASSEMBLER): Patient reiterated no suicidal thoughts at this [...] is living in a housing unit in [facility]. She was homeless and lived in a [...] 06/13/2020 Assessment & Plan (11/12/2020 11:28 AM NUTS AND BOLTS ASSEMBLER): HPI: Condition is stable A&P: Discussed/ordered labs, encouraged healthy, low carbohydrate lifestyle and at least 150min/week of exercise, continue follow up with Dr. Sanz (electronic device monitor) for endometrial cancer. She has not been taking ferrous sulfate since Sep 2020 Discussed with pt that I would recommend she not take ibuprofen Due to increased risk of GI bleed. Would recommend tylenol arthritis. Resolved Problems Problem Noted Date Diagnosed Date Resolved Date Moderate protein-calorie malnutrition 06/11/2024 08/21/2024 Encounters Date Type Department Care Team Description 03/08/2025 Orders Only [facility] Medical Group Cardiology [address] [place] [address] Chuck Mckenzie MD from Last [...] drink = 0.6 oz pur e alcohol) [facility] Utilities Answer Date Recorded In the past 12 months has [place], gas, oil, or water [employer] threatened to shut off services in your [...] often do you attend chur ch or jewish services? Never 08/20/2024 Do you belong to any clubs o r organizations such as worship groups, unions, fraternal or athletic groups, or [...] place to sleep or slept in a mcc (including now)? No 09/14/2023 Housing Stability Vital Sign Answer Rusty e Recorded In the last 12 months, was t here a time when you were not able to pay the mortgage or rent on time? No 08/20/2024 In the past 12 months, how m any times have you moved where you were living? 2 08/20/2024 At any time in the past 12 m [facility], were you homeless or living in a mcc (including now)? No 08/20/2024 Personal Safety Answer Date Recorded Have you ever been in or are you currently in a harmful physical or emotional relationship or is someone making you feel afraid or unsafe? Denies 08/19/2024 Comments No Sex and Gender Information Value Date Recorded Sex Assigned at Not on file Legal Sex Female 4:13 AM NUTS AND BOLTS ASSEMBLER Gender Identity Female 06/13/2020 10:39 AM CDT Sexual Orientation Straight 06/13/2020 10 :39 AM CDT Obstetrics History Para Term AB IAB SAB Ectopic Multiple Livin g Live Births 0 0 0 0 0 0 0 0 0 0 0 Last Filed Vital Signs Vital Sign Reading Time Taken Comments Blood Pressure 110/62 08/24/2024 3:45 PM NUTS AND BOLTS ASSEMBLER Pulse 76 08/24/2024 2:31 PM NUTS AND BOLTS ASSEMBLER Temperature 36.2 C (97.2 F) 08/24/2024 2:31 PM NUTS AND BOLTS ASSEMBLER Respiratory Rate 18 08/24/2024 2:31 PM NUTS AND BOLTS ASSEMBLER Oxygen Saturation 91% 08/24/2024 2:31 PM NUTS AND BOLTS ASSEMBLER Inhaled Oxygen Concentration - - Weight 96 [...] HEPATITIS C ANTIBODY Routine 11/12/2020 11:46 AM NUTS AND BOLTS ASSEMBLER Encounter for hepatitis C screening test for [...] * Hepatitis C antibody (11/12/2020 11:46 AM NUTS AND BOLTS ASSEMBLER) Hep C Ab Nonreactive Nonreactive [facility] [...] last revised on 2020. Testing performed by: [facility], [address] [place] [address], [place]., [address] Blood specimen (specimen) 11/12/2020 11:46 AM NUTS AND BOLTS ASSEMBLER 11/12/2020 4:32 PM NUTS AND BOLTS ASSEMBLER us Jesica Cook NP LAB MICROBIOLOGY - GENERAL ORDERABLES Final Result [facility] ([place]) 1 [facility] Department [place] [address] from Last 3 Months or Most Recently Relevant to Health Maintenance [place] [address] [facility] [place] [address] MEDICARE MEDICARE IDPA Advance Directives For more information, please contact: [phone] * Full Code (Latest Code Status on File) Date Activated Date Inactivated Comments 08/19/2024 12:11 AM 08/24/2024 11:38 PM * Full Code Date Activated Date Inactivated Comments 06/14/2024 11:12 AM 06/15/2024 6:35 PM * Full Code Date Activated Date Inactivated Comments 05/26/2020 3:06 AM 05/27/2020 10:48 PM Care Teams Power House Control Room Operator Relationship Specialty Start Date End Date No, Physician PCP - General 09/13/23 Luis Fernando Hilton MD [address] [place] [address] [address] [place] [address] Welding Process Engineer Obstetrics and Gynecology 05/27/20 Farrah Sanz MD [address] [place] [address] [address] [place] [address] Resident Obstetrics and Gynecology 11/12/20
--- OUTSIDE RECORDS SUMMARY | 2025-03-26 21:26 | XMS_ITS | Encounter Summary ---
Author Organization [facility] Address [address] [place] [address] Phone Care Team Providers Care Hard Metals Engraver Hand Name Role Phone Meredith Montano MD Primary Care Provider [phone] Luis Fernando Hilton MD Unavailable [phone] Jesica Cook NP Primary Care Provider Farrah Sanz MD Unavailable [phone] No, Physician Primary Care Provider [phone] Encounter Details Date Type Department Care Team (Late st Contact Info) Description 07/31/2020 Telephone [facility] Obstetrics and Gynecology [address] [facility] Advanced Medicine 13th [place] [address] [place] [address] Jessie Guzman Social History Tobacco [...] on file Legal Sex Female 4:13 AM TEST BORING CREW CHIEF Gender Identity Female 06/13/2020 10:39 AM CDT Sexual Orientation Straight 06/13/2020 10 :39 AM CDT documented as of this encounter Plan of Treatment Not on file documented as of this encounter Visit Diagnoses Not on filedocumented in this encounter Care Teams Hard Metals Engraver Hand Relationship Specialty Start Date End Date Meredith Montano MD PCP - General 08/13/16 11/11/20 Jesica Cook NP [address] [place] [address] [address] [facility] [place] [address] PCP - General Family Medicine 11/12/20 09/12/23 No, Physician PCP - General 09/13/23 Luis Fernando Hilton MD [address] [place] [address] [address] [place], [place] [address] [address] Spring Former Hand Obstetrics and Gynecology 05/27/20 Farrah Sanz MD [address] [place] [address] [address] [place], [place] [address] [address] Resident Obstetrics and Gynecology 11/12/20 documented as of this encounter
[2025-03-26 22:13] LABS: Toxigenic C. Diff NEGATIVE (NEGATIVE)
== END 2025-03-26 21:21 | disposition home or self-care (01) ==
LOC: CHSLAB 21:24
PROVIDERS: PCP Family Medicine; Visit Provider Family Medicine
DX: R19.7 Diarrhea, unspecified (principal)
CPT/HCPCS: 87493

== ENCOUNTER 2025-03-28 10:11 | Outpatient (CLI) | payer MEDICARE, MEDICAID, SELFPAY ==
[2025-03-28 10:31] LABS: Hematocrit 33.3 % (35.0-42.0); Hemoglobin 9.9 g/dL (11.7-13.8); Mean Corpuscular HGB Conc 29.7 g/dL (32-36); Mean Corpuscular Hemoglobin 26.5 pg (27.0-31.0); Mean Platelet Volume 8.7 fl (9.2-11.8); Platelet Count Result 423 K/mm3 (150-420); Red Blood Count 3.74 M/mm3 (4.20-5.40); Red Cell Distribution Width 15.9 % (11.6-14.4); White Blood Count 5.1 K/mm3 (4.8-10.8)
--- OUTSIDE RECORDS SUMMARY | 2025-03-28 11:05 | XMS_ITS | Clinical Summary ---
Author Organization [facility] Medical Office Building B Address [address] [place] [address] Care Team Providers Care Enterprise Sales Person Name Role Phone Luis Fernando Hilton MD Unavailable [phone] Farrah Sanz MD Unavailable [phone] No, Physician Primary Care Provider [phone] Allergies Active Allergy Reactions Criticality Noted Date [...] Meclizine Unknown Mold Unknown 06/13/2020 Morphine Unknown Gggkfojx-Rkvfzpgcwp-Gof ymyxin Other (See comments) Low 06/13/2020 Blisters [...] 09/13/2023 Assessment & Plan (09/14/2023 12:17 PM STARCHER AND TENTER RANGE FEEDER): Reason for admission. She was sitting in [...] (01/07/2021): Added automatically from request for surgery [id number] Mixed hyperlipidemia 11/14/2020 Overview (11/14/2020): Recommended patient take a statin. Received message back from patient she does not want to start statin. Assessment & Plan (09/14/2023 12:14 PM STARCHER AND TENTER RANGE FEEDER): Patient previously informed that she should be [...] 11/12/2020 Assessment & Plan (09/14/2023 12:16 PM STARCHER AND TENTER RANGE FEEDER): Presenting with bilateral foot swelling and dermatitis. Possibly allergic, most likely due to chronic changes (6 years). Venous stasis dermatitis is possible. Will trial 40 mg Solu-Medrol and see if she is treatment responsive. Assessment & Plan (11/12/2020 11:26 AM STARCHER AND TENTER RANGE FEEDER): HPI: Condition is worsening , she hasn't [...] 11/12/2020 Assessment & Plan (11/12/2020 12:24 PM STARCHER AND TENTER RANGE FEEDER): She talks to someone on the [facility] well line and [place] Warm line which are counseling services. They help her. She knows she needs therapy, but doesn't want to do that until she moves back to the [facility], but she doesn't have enough money to move. treatment significantly limited by social determinants of health Chronic allergic rhinitis 11/12/2020 Assessment & Plan (11/12/2020 11:27 AM STARCHER AND TENTER RANGE FEEDER): HPI: Condition is stable Discussed environmental controls [...] we may need to send her to lead dental assistant, but she wants to wait for now. Vitamin D deficiency 11/12/2020 Assessment & Plan (11/12/2020 11:14 AM STARCHER AND TENTER RANGE FEEDER): HPI: Condition is stable A&P: Discussed/ordered labs, encouraged healthy, low carbohydrate lifestyle and at least 150min/week of exercise, continue on vit d3 5000units daily GERD (gastroesophageal reflux disease) Assessment & Plan (11/12/2020 12:23 PM STARCHER AND TENTER RANGE FEEDER): HPI: Condition is stable Continue on current meds-esomeprazole 20mg as needed, encouraged healthy diet and exercise Avoid trigger foods including: carbonated beverages, caffeine, spicy, fried foods, tomatoes, cucumbers, and mint Avoid eating/drinking anything for at least 2 hours before bed. Sleep with bed propped. Discussed increased risk of cdif and vit B12 deficiency with corn shucker use of PPI with pt, would like to remain on medication at this time treatment significantly limited by social determinants of health Arthritis 11/12/2020 Assessment & Plan (11/12/2020 12:22 PM STARCHER AND TENTER RANGE FEEDER): Discussed with pt that I would recommend she not take ibuprofen Due to increased risk of GI bleed. Would recommend tylenol arthritis. Patient is in wheelchair during today's visit Blood pressure elevated without history of HTN 0 11/12/2020 Assessment & Plan (09/14/2023 12:21 PM STARCHER AND TENTER RANGE FEEDER): BP elevated in ED 168/74. Pt denies [...] PCP. Assessment & Plan (11/12/2020 12:09 PM STARCHER AND TENTER RANGE FEEDER): Patient states she has white coat syndrome. She is very anxious about being here as a new patient today with her last doctor's experience being quite negative in [place]. She also did not take her triamterene hydrochlorothiazide today either due to traveling to the doctor's office today. Class 2 severe obesity due t o excess calories with serious comorbidity and body mass index (BMI) of 39.0 to 39.9 in adult 11/12/2020 Assessment & Plan (11/12/2020 12:23 PM STARCHER AND TENTER RANGE FEEDER): HPI: Condition is stable A&P: Healthy, low [...] in much longer they will become mushy [place] and/or coconut flour instead of regular flour [...] pork rinds For yogurt, try Two Good cymraes yogurt Use Pinterest for recipe ideas. Type [...] BID Assessment & Plan (11/12/2020 11:16 AM STARCHER AND TENTER RANGE FEEDER): HPI: Condition is Active and being treated at [facility]. A&P: Discussed/ordered labs, encouraged healthy, low carbohydrate lifestyle and at least 150min/week of exercise, continue follow up with Dr. Sanz (plate grinder) and Dr. Hilton (plate grinder) She is awaiting appointment for hysterectomy. She has appointment for reevaluation in Nov at [facility]. She is taking medroxyprogesterone 10mg tablet daily Generalized anxiety disorder 06/13/2020 Assessment & Plan (11/12/2020 12:23 PM STARCHER AND TENTER RANGE FEEDER): Patient reiterated no suicidal thoughts at this [...] is living in a housing unit in [facility]. She was homeless and lived in [...] 06/13/2020 Assessment & Plan (11/12/2020 11:28 AM STARCHER AND TENTER RANGE FEEDER): HPI: Condition is stable A&P: Discussed/ordered labs, encouraged healthy, low carbohydrate lifestyle and at least 150min/week of exercise, continue follow up with Dr. Sanz (plate grinder) for endometrial cancer. She has not been taking ferrous sulfate since Sep 2020 Discussed with pt that I would recommend she not take ibuprofen Due to increased risk of GI bleed. Would recommend tylenol arthritis. Resolved Problems Problem Noted Date Diagnosed Date Resolved Date Moderate protein-calorie malnutrition 06/11/2024 08/21/2024 Encounters Date Type Department Care Team Description 03/08/2025 Orders Only [facility] Medical Group Cardiology [address] [place] [address] Chuck Mckenzie MD from Last [...] drink = 0.6 oz pur e alcohol) [facility] Utilities Answer Date Recorded In the past 12 months has [place], gas, oil, or water [employer] threatened to shut off services in your [...] often do you attend chur ch or scientologist services? Never 08/20/2024 Do you belong to any clubs o r organizations such as advent groups, unions, fraternal or athletic groups, or [...] place to sleep or slept in a correction (including now)? No 09/14/2023 Housing Stability Vital [...] were you homeless or living in a correction (including now)? No 08/20/2024 Personal Safety Answer Date Recorded Have you ever been in or are you currently in a harmful physical or emotional relationship or is someone making you feel afraid or unsafe? Denies 08/19/2024 Comments No Sex and Gender Information Value Date Recorded Sex Assigned at Not on file Legal Sex Female 4:13 AM STARCHER AND TENTER RANGE FEEDER Gender Identity Female 06/13/2020 10:39 AM CDT Sexual Orientation Straight 06/13/2020 10 :39 AM CDT Obstetrics History Para Term AB IAB SAB Ectopic Multiple Livin g Live Births 0 0 0 0 0 0 0 0 0 0 0 Last Filed Vital Signs Vital Sign Reading Time Taken Comments Blood Pressure 110/62 08/24/2024 3:45 PM STARCHER AND TENTER RANGE FEEDER Pulse 76 08/24/2024 2:31 PM STARCHER AND TENTER RANGE FEEDER Temperature 36.2 C (97.2 F) 08/24/2024 2:31 PM STARCHER AND TENTER RANGE FEEDER Respiratory Rate 18 08/24/2024 2:31 PM STARCHER AND TENTER RANGE FEEDER Oxygen Saturation 91% 08/24/2024 2:31 PM STARCHER AND TENTER RANGE FEEDER Inhaled Oxygen Concentration - - Weight 96 [...] HEPATITIS C ANTIBODY Routine 11/12/2020 11:46 AM STARCHER AND TENTER RANGE FEEDER Encounter for hepatitis C screening test for [...] * Hepatitis C antibody (11/12/2020 11:46 AM STARCHER AND TENTER RANGE FEEDER) Hep C Ab Nonreactive Nonreactive [facility] [...] last revised on 2020. Testing performed by: [facility], [address] [place] [address], [place]., [address] Blood specimen (specimen) 11/12/2020 11:46 AM STARCHER AND TENTER RANGE FEEDER 11/12/2020 4:32 PM STARCHER AND TENTER RANGE FEEDER us Jesica Cook NP LAB MICROBIOLOGY - GENERAL ORDERABLES Final Result [facility] ([place]) 1 [facility] Department [place] [address] from Last 3 Months or Most Recently Relevant to Health Maintenance Insurance MEDICARE IDPA [facility] MEDICARE MEDICARE IDPA Advance Directives For more information, please contact: [phone] * Full Code (Latest Code Status on File) Date Activated Date Inactivated Comments 08/19/2024 12:11 AM 08/24/2024 11:38 PM * Full Code Date Activated Date Inactivated Comments 06/14/2024 11:12 AM 06/15/2024 6:35 PM * Full Code Date Activated Date Inactivated Comments 05/26/2020 3:06 AM 05/27/2020 10:48 PM Care Teams Enterprise Sales Person Relationship Specialty Start Date End Date No, Physician PCP - General 09/13/23 Luis Fernando Hilton MD [address] [place] [address] [address] [place] [address] Bedspread Cutter Obstetrics and Gynecology 05/27/20 Farrah Sanz MD [address] [place] [address] [address] [place] [address] Resident Obstetrics and Gynecology 11/12/20
--- OUTSIDE RECORDS SUMMARY | 2025-03-28 11:05 | XMS_ITS | Encounter Summary ---
Author Organization [facility] Address [address] [place] [address] Phone Care Team Providers Care Fashion Illustrator Name Role Phone Meredith Montano MD Primary Care Provider [phone] Luis Fernando Hliton MD Unavailable [phone] Jesica Cook NP Primary Care Provider Farrah Sanz MD Unavailable No, Physician Primary Care Provider [phone] Encounter Details Date Type Department Care Team (Late st Contact Info) Description 07/31/2020 Telephone [facility] Obstetrics and Gynecology [address] [facility] Advanced Medicine 13th [place] [address] [place] [address] Jessie Guzman Social History Tobacco [...] on file Legal Sex Female 4:13 AM TRAIN GATEMAN Gender Identity Female 06/13/2020 10:39 AM CDT Sexual Orientation Straight 06/13/2020 10 :39 AM CDT documented as of this encounter Plan of Treatment Not on file documented as of this encounter Visit Diagnoses Not on filedocumented in this encounter Care Teams Fashion Illustrator Relationship Specialty Start Date End Date Meredith Montano MD PCP - General 08/13/16 11/11/20 Jesica Cook NP [address] [place] [address] [address] [facility] [place] [address] PCP - General Family Medicine 11/12/20 09/12/23 No, Physician PCP - General 09/13/23 Luis Fernando Hilton MD [address] [place] [address] [address] [place], [place] [address], [place] [address] Reconciliation Specialist Obstetrics and Gynecology 05/27/20 Farrah Sanz MD [address] [place] [address] [address] [place], [place] [address], [place] [address] Resident Obstetrics and Gynecology 11/12/20 documented as of this encounter
--- OUTSIDE RECORDS SUMMARY | 2025-03-28 11:05 | XMS_ITS | Referral Summary ---
Author Organization [facility] Medical Office Building B Address [address] [place] [address] Care Team Providers Care Production Line Technician Name Role Phone Luis Fernando Hilton MD Unavailable [phone] Farrah Sanz MD Unavailable [phone] No, Physician Primary Care Provider [phone] Encounters Date Type Department Care Team Description 03/08/2025 Orders Only [facility] Medical Group Cardiology [address] [place] [address] Chuck Mckenzie MD from Last [...] Meclizine Unknown Mold Unknown 06/13/2020 Morphine Unknown Flzqftog-Fzmbredhlg-Lah ymyxin Other (See comments) Low 06/13/2020 Blisters [...] 09/13/2023 Assessment & Plan (09/14/2023 12:17 PM ADVERTISING PHOTOGRAPHER): Reason for admission. She was sitting in [...] (01/07/2021): Added automatically from request for surgery [id number] Mixed hyperlipidemia 11/14/2020 Overview (11/14/2020): Recommended patient take a statin. Received message back from patient she does not want to start statin. Assessment & Plan (09/14/2023 12:14 PM ADVERTISING PHOTOGRAPHER): Patient previously informed that she should be [...] 11/12/2020 Assessment & Plan (09/14/2023 12:16 PM ADVERTISING PHOTOGRAPHER): Presenting with bilateral foot swelling and dermatitis. Possibly allergic, most likely due to chronic changes (6 years). Venous stasis dermatitis is possible. Will trial 40 mg Solu-Medrol and see if she is treatment responsive. Assessment & Plan (11/12/2020 11:26 AM ADVERTISING PHOTOGRAPHER): HPI: Condition is worsening , she hasn't [...] 11/12/2020 Assessment & Plan (11/12/2020 12:24 PM ADVERTISING PHOTOGRAPHER): She talks to someone on the [facility] well line and [place] Warm line which are counseling services. They help her. She knows she needs therapy, but doesn't want to do that until she moves back to the [facility], but she doesn't have enough money to move. treatment significantly limited by social determinants of health Chronic allergic rhinitis 11/12/2020 Assessment & Plan (11/12/2020 11:27 AM ADVERTISING PHOTOGRAPHER): HPI: Condition is stable Discussed environmental controls [...] we may need to send her to manager lean, but she wants to wait for now. Vitamin D deficiency 11/12/2020 Assessment & Plan (11/12/2020 11:14 AM ADVERTISING PHOTOGRAPHER): HPI: Condition is stable A&P: Discussed/ordered labs, encouraged healthy, low carbohydrate lifestyle and at least 150min/week of exercise, continue on vit d3 5000units daily GERD (gastroesophageal reflux disease) Assessment & Plan (11/12/2020 12:23 PM ADVERTISING PHOTOGRAPHER): HPI: Condition is stable Continue on current meds-esomeprazole 20mg as needed, encouraged healthy diet and exercise Avoid trigger foods including: carbonated beverages, caffeine, spicy, fried foods, tomatoes, cucumbers, and mint Avoid eating/drinking anything for at least 2 hours before bed. Sleep with bed propped. Discussed increased risk of cdif and vit B12 deficiency with correction use of PPI with pt, would like to remain on medication at this time treatment significantly limited by social determinants of health Arthritis 11/12/2020 Assessment & Plan (11/12/2020 12:22 PM ADVERTISING PHOTOGRAPHER): Discussed with pt that I would recommend she not take ibuprofen Due to increased risk of GI bleed. Would recommend tylenol arthritis. Patient is in wheelchair during today's visit Blood pressure elevated without history of HTN 0 11/12/2020 Assessment & Plan (09/14/2023 12:21 PM ADVERTISING PHOTOGRAPHER): BP elevated in ED 168/74. Pt denies [...] PCP. Assessment & Plan (11/12/2020 12:09 PM ADVERTISING PHOTOGRAPHER): Patient states she has white coat syndrome. She is very anxious about being here as a new patient today with her last doctor's experience being quite negative in [place]. She also did not take her triamterene hydrochlorothiazide today either due to traveling to the doctor's office today. Class 2 severe obesity due t o excess calories with serious comorbidity and body mass index (BMI) of 39.0 to 39.9 in adult 11/12/2020 Assessment & Plan (11/12/2020 12:23 PM ADVERTISING PHOTOGRAPHER): HPI: Condition is stable A&P: Healthy, low [...] in much longer they will become mushy [place] and/or coconut flour instead of regular flour [...] pork rinds For yogurt, try Two Good armenian yogurt Use Pinterest for recipe ideas. Type in low carb... treatment significantly limited by social determinants of health Endometrial cancer 07/09/2020 Overview (01/07/2021): Presented with heavy vaginal bleeding. [facility] pathology with grade [address] with fundal fibroid, no notable lymph nodes. Plan: - [facility] to review pathology - consents [...] BID Assessment & Plan (11/12/2020 11:16 AM ADVERTISING PHOTOGRAPHER): HPI: Condition is Active and being treated at [place]. A&P: Discussed/ordered labs, encouraged healthy, low carbohydrate lifestyle and at least 150min/week of exercise, continue follow up with Dr. Sanz (second floor operator) and Dr. Hilton (second floor operator) She is awaiting appointment for hysterectomy. She has appointment for reevaluation in Nov at [place]. She is taking medroxyprogesterone 10mg tablet daily Generalized anxiety disorder 06/13/2020 Assessment & Plan (11/12/2020 12:23 PM ADVERTISING PHOTOGRAPHER): Patient reiterated no suicidal thoughts at this [...] is living in a housing unit in [facility]. She was homeless and lived in a [...] 06/13/2020 Assessment & Plan (11/12/2020 11:28 AM ADVERTISING PHOTOGRAPHER): HPI: Condition is stable A&P: Discussed/ordered labs, encouraged healthy, low carbohydrate lifestyle and at least 150min/week of exercise, continue follow up with Dr. Sanz (second floor operator) for endometrial cancer. She has not [...] drink = 0.6 oz pur e alcohol) [facility] Utilities Answer Date Recorded In the past 12 months has [employer], gas, oil, or water [employer] threatened to shut off services in your [...] any clubs o r organizations such as scientology groups, unions, fraternal or athletic groups, or [...] place to sleep or slept in a senior care (including now)? No 09/14/2023 Housing Stability Vital Sign Answer Rusty e Recorded In the last 12 months, was t here a time when you were not able to pay the mortgage or rent on time? No 08/20/2024 In the past 12 months, how m any times have you moved where you were living? 2 08/20/2024 At any time in the past 12 m [facility], were you homeless or living in a senior care (including now)? No 08/20/2024 Personal Safety Answer Date Recorded Have you ever been in or are you currently in a harmful physical or emotional relationship or is someone making you feel afraid or unsafe? Denies 08/19/2024 Comments No Sex and Gender Information Value Date Recorded Sex Assigned at Not on file Legal Sex Female 4:13 AM ADVERTISING PHOTOGRAPHER Gender Identity Female 06/13/2020 10:39 AM CDT Sexual Orientation Straight 06/13/2020 10 :39 AM CDT Last Filed Vital Signs Vital Sign Reading Time Taken Comments Blood Pressure 110/62 08/24/2024 3:45 PM ADVERTISING PHOTOGRAPHER Pulse 76 08/24/2024 2:31 PM ADVERTISING PHOTOGRAPHER Temperature 36.2 C (97.2 F) 08/24/2024 2:31 PM ADVERTISING PHOTOGRAPHER Respiratory Rate 18 08/24/2024 2:31 PM ADVERTISING PHOTOGRAPHER Oxygen Saturation 91% 08/24/2024 2:31 PM ADVERTISING PHOTOGRAPHER Inhaled Oxygen Concentration - - Weight 96 [...] HEPATITIS C ANTIBODY Routine 11/12/2020 11:46 AM ADVERTISING PHOTOGRAPHER Encounter for hepatitis C screening test for [...] * Hepatitis C antibody (11/12/2020 11:46 AM ADVERTISING PHOTOGRAPHER) Hep C Ab Nonreactive Nonreactive [facility] [...] last revised on 2020. Testing performed by: [facility], [address] [place] [address], [place]., [address] Blood specimen (specimen) 11/12/2020 11:46 AM ADVERTISING PHOTOGRAPHER 11/12/2020 4:32 PM ADVERTISING PHOTOGRAPHER us Jesica Cook NP LAB MICROBIOLOGY - GENERAL ORDERABLES Final Result [facility] ([place]) 1 [facility] [place] [address] from Last 3 Months or Most Recently Relevant to Health Maintenance Insurance [place] [address] [place] [address] MEDICARE MEDICARE IDCT Advance Directives For more information, please contact: [phone] * Full Code (Latest Code Status on File) Date Activated Date Inactivated Comments 08/19/2024 12:11 AM 08/24/2024 11:38 PM * Full Code Date Activated Date Inactivated Comments 06/14/2024 11:12 AM 06/15/2024 6:35 PM * Full Code Date Activated Date Inactivated Comments 05/26/2020 3:06 AM 05/27/2020 10:48 PM Care Teams Production Line Technician Relationship Specialty Start Date End Date No, Physician PCP - General 09/13/23 Luis Fernando Hilton MD [address] [place] [address] [place] [address] [employer]ed Circuit [employer] Pcb Draftsman Obstetrics and Gynecology 05/27/20 Farrah Sanz MD [address] [place] [address] [address] PRIETO [address] [place] [address] Resident Obstetrics and Gynecology 11/12/20
[2025-03-28 11:44] LABS: Alanine Aminotransferase 12 U/L (6-35); Albumin Level 3.5 g/dL (3.5-5.1); Alkaline Phosphatase 145 U/L (38-126); Anion Gap 9 mmol/L (4-12); Aspartate Amino Transferase 26 U/L (14-36); Bilirubin,Total 0.4 mg/dL (0.2-1.3); Blood Urea Nitrogen 11 mg/dL (7-17); Calcium 9.1 mg/dL (8.4-10.2); Carbon Dioxide 22 mmol/L (22-30); Chloride 107 mmol/L (98-107); Estimated Glomerular Filt Rate > 60; Glucose 94 mg/dL (65-110); Osmolality Calculated 285 mOsm/kg (285-295); Potassium 4.6 mmol/L (3.4-5.0); Sodium 138 mmol/L (137-145); Total Protein 7.4 g/dL (6.3-8.2)
== END 2025-03-28 10:12 | disposition home or self-care (01) ==
LOC: CHSLAB 10:12
PROVIDERS: PCP Family Medicine; Visit Provider Family Medicine
DX: L03.90 Cellulitis, unspecified (principal); I48.91 Unspecified atrial fibrillation
CPT/HCPCS: 36415; 80053; 85027

== ENCOUNTER 2025-04-03 10:34 | Outpatient (CLI) | payer MEDICARE, SELFPAY ==
[2025-04-03 10:57] LABS: Hematocrit 34.1 % (35.0-42.0); Hemoglobin 10.2 g/dL (11.7-13.8); Immature Platelet Fraction Pct 0.6 % (1.0-7.0); Mean Corpuscular HGB Conc 29.9 g/dL (32-36); Mean Corpuscular Hemoglobin 26.4 pg (27.0-31.0); Mean Corpuscular Volume 88.3 fL (78.0-102.0); Mean Platelet Volume 9.1 fl (9.2-11.8); Platelet Count Result 597 K/mm3 (150-420); Red Blood Count 3.86 M/mm3 (4.20-5.40); Red Cell Distribution Width 16.6 % (11.6-14.4); White Blood Count 8.1 K/mm3 (4.8-10.8)
[2025-04-03 11:07] LABS: Alanine Aminotransferase 13 U/L (6-35); Albumin Level 3.6 g/dL (3.5-5.1); Alkaline Phosphatase 120 U/L (38-126); Anion Gap 7 mmol/L (4-12); Aspartate Amino Transferase 27 U/L (14-36); Bilirubin,Total 0.4 mg/dL (0.2-1.3); Blood Urea Nitrogen 12 mg/dL (7-17); Calcium 8.8 mg/dL (8.4-10.2); Carbon Dioxide 24 mmol/L (22-30); Chloride 106 mmol/L (98-107); Estimated Glomerular Filt Rate > 60; Glucose 111 mg/dL (65-110); Osmolality Calculated 284 mOsm/kg (285-295); Potassium 4.1 mmol/L (3.4-5.0); Sodium 137 mmol/L (137-145)
--- OUTSIDE RECORDS SUMMARY | 2025-04-03 12:06 | XMS_ITS | CONTINUITY OF CARE DOCUMENT ---
Author Name alison rosas Address Unknown Organization [facility] Address [address] [address] [place] [address] Phone [phone] Care Team Providers Care Surfacing Machine Operator Name Role Phone Jack Reed MD Unavailable [phone] Jack Reed MD Unavailable [phone] INSURANCE PROVIDERS Payer name Policy type / Coverage type Sebree red libertarian [place]IC[place] PART B Medicare [id number]
--- OUTSIDE RECORDS SUMMARY | 2025-04-03 12:06 | XMS_ITS | Encounter Summary ---
Author Organization [facility] Address [address] [place] [address] Phone Care Team Providers Care Calender Operator Name Role Phone Meredith Montano MD Primary Care Provider [phone] Luis Fernando Hilton MD Unavailable [phone] Jesica Cook NP Primary Care Provider Farrah Sanz MD Unavailable [phone] No, Physician Primary Care Provider [phone] Encounter Details Date Type Department Care Team (Late st Contact Info) Description 07/31/2020 Telephone [facility] Obstetrics and Gynecology [address] Advanced Medicine 13th [place] [address] [place] [address] Jessie Guzman Social History Tobacco [...] on file Legal Sex Female 4:13 AM QUALITY CONTROL SPECIALIST Gender Identity Female 06/13/2020 10:39 AM CDT Sexual Orientation Straight 06/13/2020 10 :39 AM CDT documented as of this encounter Plan of Treatment Not on file documented as of this encounter Visit Diagnoses Not on filedocumented in this encounter Care Teams Calender Operator Relationship Specialty Start Date End Date Meredith Montano MD PCP - General 08/13/16 11/11/20 Jesica Cook NP [address] [place] [address] [address] [facility] [place] [address] PCP - General Family Medicine 11/12/20 09/12/23 No, Physician PCP - General 09/13/23 Luis Fernando Hilton MD [address] [place] [address] [address] [place], [place] [address], [place] [address] General Operations Agent Obstetrics and Gynecology 05/27/20 Farrah Sanz MD [address] [place] [address] [address] [place], [place] [address], [place] [address] Resident Obstetrics and Gynecology 11/12/20 documented as of this encounter
--- OUTSIDE RECORDS SUMMARY | 2025-04-03 12:06 | XMS_ITS | Referral Summary ---
Author Organization [facility] Medical Office Building B Address [address] [place] [address] Care Team Providers Care Cartridge Maker Name Role Phone Luis Fernando Hilton MD Unavailable Farrah Sanz MD Unavailable [phone] No, Physician Primary Care Provider [phone] Encounters Date Type Department Care Team Description 03/08/2025 Orders Only [facility] Medical Group Cardiology [address] [place] [address] Chuck Mckenzie MD from Last [...] Meclizine Unknown Mold Unknown 06/13/2020 Morphine Unknown Inqdfsja-Ckbrstfgal-Rbs ymyxin Other (See comments) Low 06/13/2020 Blisters [...] 09/13/2023 Assessment & Plan (09/14/2023 12:17 PM CORN CHIP MAKER): Reason for admission. She was sitting in [...] (01/07/2021): Added automatically from request for surgery [id number] Mixed hyperlipidemia 11/14/2020 Overview (11/14/2020): Recommended patient take a statin. Received message back from patient she does not want to start statin. Assessment & Plan (09/14/2023 12:14 PM CORN CHIP MAKER): Patient previously informed that she should be [...] 11/12/2020 Assessment & Plan (09/14/2023 12:16 PM CORN CHIP MAKER): Presenting with bilateral foot swelling and dermatitis. Possibly allergic, most likely due to chronic changes (6 years). Venous stasis dermatitis is possible. Will trial 40 mg Solu-Medrol and see if she is treatment responsive. Assessment & Plan (11/12/2020 11:26 AM CORN CHIP MAKER): HPI: Condition is worsening , she hasn't [...] 11/12/2020 Assessment & Plan (11/12/2020 12:24 PM CORN CHIP MAKER): She talks to someone on the [facility] well line and [place] Warm line which are counseling services. They help her. She knows she needs therapy, but doesn't want to do that until she moves back to the [facility], but she doesn't have enough money to move. treatment significantly limited by social determinants of health Chronic allergic rhinitis 11/12/2020 Assessment & Plan (11/12/2020 11:27 AM CORN CHIP MAKER): HPI: Condition is stable Discussed environmental controls [...] we may need to send her to electric transfer operator, but she wants to wait for now. Vitamin D deficiency 11/12/2020 Assessment & Plan (11/12/2020 11:14 AM CORN CHIP MAKER): HPI: Condition is stable A&P: Discussed/ordered labs, encouraged healthy, low carbohydrate lifestyle and at least 150min/week of exercise, continue on vit d3 5000units daily GERD (gastroesophageal reflux disease) Assessment & Plan (11/12/2020 12:23 PM CORN CHIP MAKER): HPI: Condition is stable Continue on current meds-esomeprazole 20mg as needed, encouraged healthy diet and exercise Avoid trigger foods including: carbonated beverages, caffeine, spicy, fried foods, tomatoes, cucumbers, and mint Avoid eating/drinking anything for at least 2 hours before bed. Sleep with bed propped. Discussed increased risk of cdif and vit B12 deficiency with penitentiary use of PPI with pt, would like to remain on medication at this time treatment significantly limited by social determinants of health Arthritis 11/12/2020 Assessment & Plan (11/12/2020 12:22 PM CORN CHIP MAKER): Discussed with pt that I would recommend she not take ibuprofen Due to increased risk of GI bleed. Would recommend tylenol arthritis. Patient is in wheelchair during today's visit Blood pressure elevated without history of HTN 0 11/12/2020 Assessment & Plan (09/14/2023 12:21 PM CORN CHIP MAKER): BP elevated in ED 168/74. Pt denies [...] PCP. Assessment & Plan (11/12/2020 12:09 PM CORN CHIP MAKER): Patient states she has white coat syndrome. She is very anxious about being here as a new patient today with her last doctor's experience being quite negative in [place]. She also did not take her triamterene hydrochlorothiazide today either due to traveling to the doctor's office today. Class 2 severe obesity due t o excess calories with serious comorbidity and body mass index (BMI) of 39.0 to 39.9 in adult 11/12/2020 Assessment & Plan (11/12/2020 12:23 PM CORN CHIP MAKER): HPI: Condition is stable A&P: Healthy, low [...] in much longer they will become mushy [place] and/or coconut flour instead of regular flour [...] pork rinds For yogurt, try Two Good slovenian yogurt Use Pinterest for recipe ideas. Type in low carb... treatment significantly limited by social determinants of health Endometrial cancer 07/09/2020 Overview (01/07/2021): Presented with heavy vaginal bleeding. [facility] pathology with grade [address] with fundal fibroid, no notable lymph nodes. Plan: - [facility] to review pathology - consents signed 07/09 [...] BID Assessment & Plan (11/12/2020 11:16 AM CORN CHIP MAKER): HPI: Condition is Active and being treated at [place]. A&P: Discussed/ordered labs, encouraged healthy, low carbohydrate lifestyle and at least 150min/week of exercise, continue follow up with Dr. Sanz (pharmacy manager) and Dr. Hilton (pharmacy manager) She is awaiting appointment for hysterectomy. She has appointment for reevaluation in Nov at [place]. She is taking medroxyprogesterone 10mg tablet daily Generalized anxiety disorder 06/13/2020 Assessment & Plan (11/12/2020 12:23 PM CORN CHIP MAKER): Patient reiterated no suicidal thoughts at this [...] is living in a housing unit in [facility]. She was homeless and lived in [...] 06/13/2020 Assessment & Plan (11/12/2020 11:28 AM CORN CHIP MAKER): HPI: Condition is stable A&P: Discussed/ordered labs, encouraged healthy, low carbohydrate lifestyle and at least 150min/week of exercise, continue follow up with Dr. Sanz (pharmacy manager) for endometrial cancer. She has not been [...] drink = 0.6 oz pur e alcohol) [facility] Utilities Answer Date Recorded In the past 12 months has [employer], gas, oil, or water [employer] threatened to shut off services in your [...] often do you attend chur ch or jain services? Never 08/20/2024 Do you belong to [...] place to sleep or slept in a prison (including now)? No 09/14/2023 Housing Stability Vital Sign Answer Rusty e Recorded In the last 12 months, was t here a time when you were not able to pay the mortgage or rent on time? No 08/20/2024 In the past 12 months, how m any times have you moved where you were living? 2 08/20/2024 At any time in the past 12 m [facility], were you homeless or living in a prison (including now)? No 08/20/2024 Personal Safety Answer Date Recorded Have you ever been in or are you currently in a harmful physical or emotional relationship or is someone making you feel afraid or unsafe? Denies 08/19/2024 Comments No Sex and Gender Information Value Date Recorded Sex Assigned at Not on file Legal Sex Female 4:13 AM CORN CHIP MAKER Gender Identity Female 06/13/2020 10:39 AM CDT Sexual Orientation Straight 06/13/2020 10 :39 AM CDT Last Filed Vital Signs Vital Sign Reading Time Taken Comments Blood Pressure 110/62 08/24/2024 3:45 PM CORN CHIP MAKER Pulse 76 08/24/2024 2:31 PM CORN CHIP MAKER Temperature 36.2 C (97.2 F) 08/24/2024 2:31 PM CORN CHIP MAKER Respiratory Rate 18 08/24/2024 2:31 PM CORN CHIP MAKER Oxygen Saturation 91% 08/24/2024 2:31 PM CORN CHIP MAKER Inhaled Oxygen Concentration - - Weight 96 [...] HEPATITIS C ANTIBODY Routine 11/12/2020 11:46 AM CORN CHIP MAKER Encounter for hepatitis C screening test for [...] * Hepatitis C antibody (11/12/2020 11:46 AM CORN CHIP MAKER) Hep C Ab Nonreactive Nonreactive [facility] [...] last revised on 2020. Testing performed by: [facility], [address] [place] [address], [place]., [address] Blood specimen (specimen) 11/12/2020 11:46 AM CORN CHIP MAKER 11/12/2020 4:32 PM CORN CHIP MAKER us Jesica Cook NP LAB MICROBIOLOGY - GENERAL ORDERABLES Final Result [facility] ([place]) 1 [facility] Department [place] [address] from Last 3 Months or Most Recently Relevant to Health Maintenance Insurance [place] [address] [place] [address] MEDICARE MEDICARE IDVT Advance Directives For more information, please contact: [phone] * Full Code (Latest Code Status on File) Date Activated Date Inactivated Comments 08/19/2024 12:11 AM 08/24/2024 11:38 PM * Full Code Date Activated Date Inactivated Comments 06/14/2024 11:12 AM 06/15/2024 6:35 PM * Full Code Date Activated Date Inactivated Comments 05/26/2020 3:06 AM 05/27/2020 10:48 PM Care Teams Cartridge Maker Relationship Specialty Start Date End Date No, Physician PCP - General 09/13/23 Luis Fernando Hilton MD [address] [place] [address] [place] [address] District Attorney Obstetrics and Gynecology 05/27/20 Farrah Sanz MD [address] [place] [address] [address] [place] [address] Resident Obstetrics and Gynecology 11/12/20
--- OUTSIDE RECORDS SUMMARY | 2025-04-03 12:06 | XMS_ITS | Clinical Summary ---
Author Organization [facility] Medical Office Building B Address [address] [place] [address] Care Team Providers Care Insulation Cupola Charger Name Role Phone Luis Fernando Hilton MD Unavailable [phone] Farrah Sanz MD Unavailable [phone] No, Physician Primary Care Provider [phone] Allergies Active Allergy Reactions Criticality Noted Date [...] Meclizine Unknown Mold Unknown 06/13/2020 Morphine Unknown Dygfznrh-Jutwcqccqs-Cmy ymyxin Other (See comments) Low 06/13/2020 Blisters [...] 09/13/2023 Assessment & Plan (09/14/2023 12:17 PM LIME SLAKER): Reason for admission. She was sitting in [...] (01/07/2021): Added automatically from request for surgery [id number] Mixed hyperlipidemia 11/14/2020 Overview (11/14/2020): Recommended patient take a statin. Received message back from patient she does not want to start statin. Assessment & Plan (09/14/2023 12:14 PM LIME SLAKER): Patient previously informed that she should be [...] 11/12/2020 Assessment & Plan (09/14/2023 12:16 PM LIME SLAKER): Presenting with bilateral foot swelling and dermatitis. Possibly allergic, most likely due to chronic changes (6 years). Venous stasis dermatitis is possible. Will trial 40 mg Solu-Medrol and see if she is treatment responsive. Assessment & Plan (11/12/2020 11:26 AM LIME SLAKER): HPI: Condition is worsening , she hasn't [...] 11/12/2020 Assessment & Plan (11/12/2020 12:24 PM LIME SLAKER): She talks to someone on the [facility] well line and [place] Warm line which are counseling services. They help her. She knows she needs therapy, but doesn't want to do that until she moves back to the [facility], but she doesn't have enough money to move. treatment significantly limited by social determinants of health Chronic allergic rhinitis 11/12/2020 Assessment & Plan (11/12/2020 11:27 AM LIME SLAKER): HPI: Condition is stable Discussed environmental controls [...] we may need to send her to [facility], but she wants to wait for now. Vitamin D deficiency 11/12/2020 Assessment & Plan (11/12/2020 11:14 AM LIME SLAKER): HPI: Condition is stable A&P: Discussed/ordered labs, encouraged healthy, low carbohydrate lifestyle and at least 150min/week of exercise, continue on vit d3 5000units daily GERD (gastroesophageal reflux disease) Assessment & Plan (11/12/2020 12:23 PM LIME SLAKER): HPI: Condition is stable Continue on current meds-esomeprazole 20mg as needed, encouraged healthy diet and exercise Avoid trigger foods including: carbonated beverages, caffeine, spicy, fried foods, tomatoes, cucumbers, and mint Avoid eating/drinking anything for at least 2 hours before bed. Sleep with bed propped. Discussed increased risk of cdif and vit B12 deficiency with tank terminal gauger use of PPI with pt, would like to remain on medication at this time treatment significantly limited by social determinants of health Arthritis 11/12/2020 Assessment & Plan (11/12/2020 12:22 PM LIME SLAKER): Discussed with pt that I would recommend she not take ibuprofen Due to increased risk of GI bleed. Would recommend tylenol arthritis. Patient is in wheelchair during today's visit Blood pressure elevated without history of HTN 0 11/12/2020 Assessment & Plan (09/14/2023 12:21 PM LIME SLAKER): BP elevated in ED 168/74. Pt denies [...] PCP. Assessment & Plan (11/12/2020 12:09 PM LIME SLAKER): Patient states she has white coat syndrome. She is very anxious about being here as a new patient today with her last doctor's experience being quite negative in [place]. She also did not take her triamterene hydrochlorothiazide today either due to traveling to the doctor's office today. Class 2 severe obesity due t o excess calories with serious comorbidity and body mass index (BMI) of 39.0 to 39.9 in adult 11/12/2020 Assessment & Plan (11/12/2020 12:23 PM LIME SLAKER): HPI: Condition is stable A&P: Healthy, low [...] in much longer they will become mushy [place] and/or coconut flour instead of regular flour [...] pork rinds For yogurt, try Two Good qatari yogurt Use Pinterest for recipe ideas. Type [...] BID Assessment & Plan (11/12/2020 11:16 AM LIME SLAKER): HPI: Condition is Active and being treated at [facility]. A&P: Discussed/ordered labs, encouraged healthy, low carbohydrate lifestyle and at least 150min/week of exercise, continue follow up with Dr. Sanz (grey goods marker) and Dr. Hilton (grey goods marker) She is awaiting appointment for hysterectomy. She has appointment for reevaluation in Nov at [facility]. She is taking medroxyprogesterone 10mg tablet daily Generalized anxiety disorder 06/13/2020 Assessment & Plan (11/12/2020 12:23 PM LIME SLAKER): Patient reiterated no suicidal thoughts at this [...] is living in a housing unit in [place]. She was homeless and lived in [...] 06/13/2020 Assessment & Plan (11/12/2020 11:28 AM LIME SLAKER): HPI: Condition is stable A&P: Discussed/ordered labs, encouraged healthy, low carbohydrate lifestyle and at least 150min/week of exercise, continue follow up with Dr. Sanz (grey goods marker) for endometrial cancer. She has not been taking ferrous sulfate since Sep 2020 Discussed with pt that I would recommend she not take ibuprofen Due to increased risk of GI bleed. Would recommend tylenol arthritis. Resolved Problems Problem Noted Date Diagnosed Date Resolved Date Moderate protein-calorie malnutrition 06/11/2024 08/21/2024 Encounters Date Type Department Care Team Description 03/08/2025 Orders Only [facility] Medical Group Cardiology [address] [place] [address] Chuck Mckenzie MD from Last [...] drink = 0.6 oz pur e alcohol) [facility] Utilities Answer Date Recorded In the past 12 months has [employer], gas, oil, or water [employer] threatened to shut off services in your [...] often do you attend chur ch or quaker services? Never 08/20/2024 Do you belong to any clubs o r organizations such as sabianist groups, unions, fraternal or athletic groups, or [...] place to sleep or slept in a detention (including now)? No 09/14/2023 Housing Stability Vital [...] in the past 12 m [facility], were you homeless or living in a detention (including now)? No 08/20/2024 Personal Safety Answer Date Recorded Have you ever been in or are you currently in a harmful physical or emotional relationship or is someone making you feel afraid or unsafe? Denies 08/19/2024 Comments No Sex and Gender Information Value Date Recorded Sex Assigned at Not on file Legal Sex Female 4:13 AM LIME SLAKER Gender Identity Female 06/13/2020 10:39 AM CDT Sexual Orientation Straight 06/13/2020 10 :39 AM CDT Obstetrics History Para Term AB IAB SAB Ectopic Multiple Livin g Live Births 0 0 0 0 0 0 0 0 0 0 0 Last Filed Vital Signs Vital Sign Reading Time Taken Comments Blood Pressure 110/62 08/24/2024 3:45 PM LIME SLAKER Pulse 76 08/24/2024 2:31 PM LIME SLAKER Temperature 36.2 C (97.2 F) 08/24/2024 2:31 PM LIME SLAKER Respiratory Rate 18 08/24/2024 2:31 PM LIME SLAKER Oxygen Saturation 91% 08/24/2024 2:31 PM LIME SLAKER Inhaled Oxygen Concentration - - Weight 96 [...] HEPATITIS C ANTIBODY Routine 11/12/2020 11:46 AM LIME SLAKER Encounter for hepatitis C screening test for [...] * Hepatitis C antibody (11/12/2020 11:46 AM LIME SLAKER) Hep C Ab Nonreactive Nonreactive [facility] [...] last revised on 2020. Testing performed by: [facility], [address] [place] [address], [place]., [address] Blood specimen (specimen) 11/12/2020 11:46 AM LIME SLAKER 11/12/2020 4:32 PM LIME SLAKER us Jesica Cook NP LAB MICROBIOLOGY - GENERAL ORDERABLES Final Result [facility] ([place]) 1 [facility] Department [place] [address] from Last 3 Months or Most Recently Relevant to Health Maintenance Insurance MEDICARE IDPA [facility] MEDICARE MEDICARE IDPA Advance Directives For more information, please contact: [phone] * Full Code (Latest Code Status on File) Date Activated Date Inactivated Comments 08/19/2024 12:11 AM 08/24/2024 11:38 PM * Full Code Date Activated Date Inactivated Comments 06/14/2024 11:12 AM 06/15/2024 6:35 PM * Full Code Date Activated Date Inactivated Comments 05/26/2020 3:06 AM 05/27/2020 10:48 PM Care Teams Insulation Cupola Charger Relationship Specialty Start Date End Date No, Physician PCP - General 09/13/23 Luis Fernando Hilton MD [address] [place] [address] [address] [place] [address] Clerical Warehouseman Obstetrics and Gynecology 05/27/20 Farrah Sanz MD [address] [place] [address] [address] [place] [address] Resident Obstetrics and Gynecology 11/12/20
[2025-04-03 14:03] LABS: Iron 31 ug/dL (37-170)
[2025-04-03 14:12] LABS: Percent Iron Saturation 15 % (20-50)
== END 2025-04-03 10:35 | disposition home or self-care (01) ==
PROVIDERS: PCP Family Medicine; Visit Provider Family Medicine
DX: D64.9 Anemia, unspecified (principal); L03.90 Cellulitis, unspecified
CPT/HCPCS: 36415; 80053; 82728; 83540; 83550; 85027; 85055

== ENCOUNTER 2025-04-09 10:48 | Outpatient (CLI) | payer MEDICARE, MEDICAID, SELFPAY ==
[2025-04-09 11:05] LABS: Basophils Absolute Auto 0.06 K/mm3 (0.00-0.10); Basophils Percent Auto 0.9 % (0.0-1.0); Eosinophils Absolute Auto 0.11 K/mm3 (0.02-0.50); Eosinophils Percent Auto 1.7 % (1.0-6.0); Hematocrit 35.1 % (35.0-42.0); Hemoglobin 10.6 g/dL (11.7-13.8); Immature Granulocyte Absolute 0.05 K/mm3 (0.00-0.00); Immature Granulocyte Percent A 0.8 % (0.0-0.0); Immature Platelet Fraction Pct 0.4 % (1.0-7.0); Lymphocytes Absolute Auto 1.17 K/mm3 (1.10-4.50); Lymphocytes Percent Auto 18.5 % (18.0-42.0); Mean Corpuscular HGB Conc 30.2 g/dL (32-36); Mean Corpuscular Volume 89.5 fL (78.0-102.0); Mean Platelet Volume 8.6 fl (9.2-11.8); Monocytes Absolute Auto 0.79 K/mm3 (0.10-0.90); Monocytes Percent Auto 12.5 % (2.0-11.0); Neutrophils Absolute Auto 4.15 K/mm3 (1.70-7.20); Neutrophils Percent Auto 65.6 % (50.0-70.0); Platelet Count Result 548 K/mm3 (150-420); Red Blood Count 3.92 M/mm3 (4.20-5.40); Red Cell Distribution Width 16.4 % (11.6-14.4); White Blood Count 6.3 K/mm3 (4.8-10.8)
[2025-04-09 11:43] LABS: Alanine Aminotransferase 9 U/L (6-35); Albumin Level 3.7 g/dL (3.5-5.1); Alkaline Phosphatase 120 U/L (38-126); Anion Gap 8 mmol/L (4-12); Aspartate Amino Transferase 22 U/L (14-36); Bilirubin Direct < 0.1 mg/dL (0-0.3); Bilirubin,Total 0.5 mg/dL (0.2-1.3); Blood Urea Nitrogen 15 mg/dL (7-17); Calcium 9.5 mg/dL (8.4-10.2); Carbon Dioxide 24 mmol/L (22-30); Chloride 104 mmol/L (98-107); Estimated Glomerular Filt Rate 50; Glucose 97 mg/dL (65-110); Osmolality Calculated 282 mOsm/kg (285-295); Potassium 4.7 mmol/L (3.4-5.0); Sodium 136 mmol/L (137-145); Total Protein 7.6 g/dL (6.3-8.2)
== END 2025-04-09 10:49 | disposition home or self-care (01) ==
LOC: CHSLAB 10:50
PROVIDERS: PCP Family Medicine; Visit Provider Family Medicine
DX: L03.90 Cellulitis, unspecified (principal); I48.91 Unspecified atrial fibrillation
CPT/HCPCS: 36415; 80053; 82248; 85025; 85055

== ENCOUNTER 2025-04-10 10:30 | Outpatient (CLI) | payer MEDICARE, MEDICAID, SELFPAY ==
--- NOTE | ~2025-04-10 | XR_ITS ---
EXAMINATION: XR catheter cholangiogram DATE: 04/10/2025 11:33 INDICATION: Calculus of gallbladder with acute cholecystitis TECHNIQUE: 4 fluoroscopic images of the right upper quadrant of the abdomen were obtained during inje ction of 50 mL Omnipaque 240 water-soluble contrast into the patient's percutaneous cholecystostomy t ube. At the conclusion of the procedure the contrast was reaspirated from the gallbladder the tube fl ushed with 10 mL sterile saline and reattached to gravity drainage. The amount of fluoroscopy time us ed during this procedure was 0.4 minutes. Total DAP was 2.441 mGym^2. COMPARISON: None. FINDINGS: Images demonstrate contrast filling the gallbladder. There is a lucent filling defect within the gall bladder consistent with a gallstone. No contrast extending into the common bile duct. IMPRESSION: 1. Percutaneous cholecystostomy tube in expected position within the fundus of the gallbladder. 2. Cholelithiasis and occluded cystic duct. Reviewed, dictated and finalized at location A.
== END 2025-04-10 10:31 | disposition home or self-care (01) ==
PROVIDERS: PCP Family Medicine; Visit Provider Surgery
DX: K80.00 Calculus of gallbladder with acute cholecystitis without obstruction (principal)
CPT/HCPCS: 47531

== ENCOUNTER 2025-05-29 11:08 | Outpatient (CLI) | payer MEDICARE, MEDICAID, SELFPAY ==
--- OUTSIDE RECORDS SUMMARY | 2025-05-29 11:19 | XMS_ITS | Clinical Summary ---
Author Organization [facility] Medical Office Building B Address [address] [place] [address] Care Team Providers Care Energy Conservation Technician Name Role Phone Luis Fernando Hilton MD Unavailable [phone] Farrah Sanz MD Unavailable [phone] No, Physician Primary Care Provider [phone] Allergies Active Allergy Reactions Criticality Noted Date [...] Meclizine Unknown Mold Unknown 06/13/2020 Morphine Unknown Jrmrhxpv-Eckdgmlvvs-Zar ymyxin Other (See comments) Low 06/13/2020 Blisters [...] 09/13/2023 Assessment & Plan (09/14/2023 12:17 PM GYPSUM CALCINER): Reason for admission. She was sitting in [...] (01/07/2021): Added automatically from request for surgery [id number] Mixed hyperlipidemia 11/14/2020 Overview (11/14/2020): Recommended patient take a statin. Received message back from patient she does not want to start statin. Assessment & Plan (09/14/2023 12:14 PM GYPSUM CALCINER): Patient previously informed that she should be [...] 11/12/2020 Assessment & Plan (09/14/2023 12:16 PM GYPSUM CALCINER): Presenting with bilateral foot swelling and dermatitis. Possibly allergic, most likely due to chronic changes (6 years). Venous stasis dermatitis is possible. Will trial 40 mg Solu-Medrol and see if she is treatment responsive. Assessment & Plan (11/12/2020 11:26 AM GYPSUM CALCINER): HPI: Condition is worsening , she hasn't [...] 11/12/2020 Assessment & Plan (11/12/2020 12:24 PM GYPSUM CALCINER): She talks to someone on the [facility] well line and [place] Warm line which are counseling services. They help her. She knows she needs therapy, but doesn't want to do that until she moves back to the [facility], but she doesn't have enough money to move. treatment significantly limited by social determinants of health Chronic allergic rhinitis 11/12/2020 Assessment & Plan (11/12/2020 11:27 AM GYPSUM CALCINER): HPI: Condition is stable Discussed environmental controls [...] we may need to send her to second vp hr assessment, but she wants to wait for now. Vitamin D deficiency 11/12/2020 Assessment & Plan (11/12/2020 11:14 AM GYPSUM CALCINER): HPI: Condition is stable A&P: Discussed/ordered labs, encouraged healthy, low carbohydrate lifestyle and at least 150min/week of exercise, continue on vit d3 5000units daily GERD (gastroesophageal reflux disease) Assessment & Plan (11/12/2020 12:23 PM GYPSUM CALCINER): HPI: Condition is stable Continue on current meds-esomeprazole 20mg as needed, encouraged healthy diet and exercise Avoid trigger foods including: carbonated beverages, caffeine, spicy, fried foods, tomatoes, cucumbers, and mint Avoid eating/drinking anything for at least 2 hours before bed. Sleep with bed propped. Discussed increased risk of cdif and vit B12 deficiency with fdc use of PPI with pt, would like to remain on medication at this time treatment significantly limited by social determinants of health Arthritis 11/12/2020 Assessment & Plan (11/12/2020 12:22 PM GYPSUM CALCINER): Discussed with pt that I would recommend she not take ibuprofen Due to increased risk of GI bleed. Would recommend tylenol arthritis. Patient is in wheelchair during today's visit Blood pressure elevated without history of HTN 0 11/12/2020 Assessment & Plan (09/14/2023 12:21 PM GYPSUM CALCINER): BP elevated in ED 168/74. Pt denies [...] PCP. Assessment & Plan (11/12/2020 12:09 PM GYPSUM CALCINER): Patient states she has white coat syndrome. She is very anxious about being here as a new patient today with her last doctor's experience being quite negative in [place]. She also did not take her triamterene hydrochlorothiazide today either due to traveling to the doctor's office today. Class 2 severe obesity due t o excess calories with serious comorbidity and body mass index (BMI) of 39.0 to 39.9 in adult 11/12/2020 Assessment & Plan (11/12/2020 12:23 PM GYPSUM CALCINER): HPI: Condition is stable A&P: Healthy, low [...] in much longer they will become mushy [place] and/or coconut flour instead of regular flour [...] pork rinds For yogurt, try Two Good german yogurt Use Pinterest for recipe ideas. Type [...] BID Assessment & Plan (11/12/2020 11:16 AM GYPSUM CALCINER): HPI: Condition is Active and being treated at [facility]. A&P: Discussed/ordered labs, encouraged healthy, low carbohydrate lifestyle and at least 150min/week of exercise, continue follow up with Dr. Sanz (cushion assembler) and Dr. Hilton (cushion assembler) She is awaiting appointment for hysterectomy. She has appointment for reevaluation in Nov at [facility]. She is taking medroxyprogesterone 10mg tablet daily Generalized anxiety disorder 06/13/2020 Assessment & Plan (11/12/2020 12:23 PM GYPSUM CALCINER): Patient reiterated no suicidal thoughts at this [...] is living in a housing unit in [facility]. She was homeless and lived in [...] 06/13/2020 Assessment & Plan (11/12/2020 11:28 AM GYPSUM CALCINER): HPI: Condition is stable A&P: Discussed/ordered labs, encouraged healthy, low carbohydrate lifestyle and at least 150min/week of exercise, continue follow up with Dr. Sanz (cushion assembler) for endometrial cancer. She has not been taking ferrous sulfate since Sep 2020 Discussed with pt that I would recommend she not take ibuprofen Due to increased risk of GI bleed. Would recommend tylenol arthritis. Resolved Problems Problem Noted Date Diagnosed Date Resolved Date Moderate protein-calorie malnutrition 06/11/2024 08/21/2024 Encounters Date Type Department Care Team Description 03/08/2025 Orders Only [facility] Medical Group Cardiology [address] [place] [address] Chuck Mckenzie MD from Last [...] hot grease Tremor, hereditary, benign Endometrial cancer 05/26/2020 Allergic 2019 Family History Medical History Relation Name Comments [...] drink = 0.6 oz pur e alcohol) [facility] Utilities Answer Date Recorded In the past 12 months has e [employer], gas, oil, or water [employer] threatened to shut off services in your home? No 08/20/2024 Social Connection and Isolation Panel Answer Date Recorded In a typical week, how many times do you talk on the phone with family, friends, or neighbors? Three times a week 08/20/2024 How often do you get togethe r with friends or relatives? Never 08/20/2024 How often do you attend [facility] or congregation services? Never 08/20/2024 Do you belong to any clubs o r organizations such as jainism groups, unions, fraternal or athletic groups, or [...] any time in the past 12 m [facility], were you homeless or living in a [...] on file Legal Sex Female 4:13 AM GYPSUM CALCINER Gender Identity Female 06/13/2020 10:39 AM CDT Sexual Orientation Straight 06/13/2020 10 :39 AM CDT Obstetrics History Para Term AB IAB SAB Ectopic Multiple Livin g Live Births 0 0 0 0 0 0 0 0 0 0 0 Last Filed Vital Signs Vital Sign Reading Time Taken Comments Blood Pressure 110/62 08/24/2024 3:45 PM GYPSUM CALCINER Pulse 76 08/24/2024 2:31 PM GYPSUM CALCINER Temperature 36.2 C (97.2 F) 08/24/2024 2:31 PM GYPSUM CALCINER Respiratory Rate 18 08/24/2024 2:31 PM GYPSUM CALCINER Oxygen Saturation 91% 08/24/2024 2:31 PM GYPSUM CALCINER Inhaled Oxygen Concentration - - Weight 96 [...] Screening 11/17/2022 11/17/2021, 11/12/2020, 11/12/2020 Influenza Vaccine (#1) 2025 Fall Risk Assessment 08/24/2025 08/24/2024, 11/17/2021, 11/12/2020 Hepatitis C Screening Completed 11/12/2020 Procedures Procedure Name Priority Date/Time Associated Diagnosis Comments CARDIOLOGY DOCUMENT SCAN Routine 03/07/2025 2:19 PM CDT CARDIOLOGY DOCUMENT SCAN Routine 03/06/2025 2:36 PM CDT CARDIOLOGY DOCUMENT SCAN Routine 03/05/2025 2:07 PM CDT HEPATITIS C ANTIBODY Routine 11/12/2020 11:46 AM GYPSUM CALCINER Encounter for hepatitis C screening test for [...] * Hepatitis C antibody (11/12/2020 11:46 AM GYPSUM CALCINER) Hep C Ab Nonreactive Nonreactive [facility] [...] last revised on 2020. Testing performed by: [facility], [address] [place] [address], [place]., [address] Blood specimen (specimen) 11/12/2020 11:46 AM GYPSUM CALCINER 11/12/2020 4:32 PM GYPSUM CALCINER us Jesica Cook NP LAB MICROBIOLOGY - GENERAL ORDERABLES Final Result [facility] ([place]) 1 [facility] Department [place] [address] from Last 3 Months or Most Recently Relevant to Health Maintenance Insurance MEDICARE [facility] Address: [address] [place] [id number] [address] MEDICARE MEDICARE [facility] Address: [address] [address] [place] [address] IDPA Advance Directives For more information, please contact: [phone] * Full Code (Latest Code Status on File) Date Activated Date Inactivated Comments 08/19/2024 12:11 AM 08/24/2024 11:38 PM * Full Code Date Activated Date Inactivated Comments 06/14/2024 11:12 AM 06/15/2024 6:35 PM * Full Code Date Activated Date Inactivated Comments 05/26/2020 3:06 AM 05/27/2020 10:48 PM Care Teams Energy Conservation Technician Relationship Specialty Start Date End Date No, Physician PCP - General 09/13/23 Luis Fernando Hilton MD [address] [place] [address] [place] [address] Hearse Driver Obstetrics and Gynecology 05/27/20 Farrah Sanz MD [address] [place] [address] [place] [address] Resident Obstetrics and Gynecology 11/12/20
--- OUTSIDE RECORDS SUMMARY | 2025-05-29 11:19 | XMS_ITS | Encounter Summary ---
Author Organization [facility] Address [address] [place] [address] Phone Care Team Providers Care Bead Machine Operator Name Role Phone Meredith Montano MD Primary Care Provider [phone] Luis Fernando Hilton MD Unavailable [phone] Jesica Cook NP Primary Care Provider [phone] Farrah Sanz MD Unavailable [phone] No, Physician Primary Care Provider [phone] Encounter Details Date Type Department Care Team (Late st Contact Info) Description 07/31/2020 Telephone [facility] Obstetrics and Gynecology [address] [facility] Advanced Medicine 13th [place] [address] [place] [address] Jessie Guzman Social History Tobacco [...] on file Legal Sex Female 4:13 AM HAIRSPRING TRUING INSPECTOR Gender Identity Female 06/13/2020 10:39 AM CDT Sexual Orientation Straight 06/13/2020 10 :39 AM CDT documented as of this encounter Plan of Treatment Not on file documented as of this encounter Visit Diagnoses Not on filedocumented in this encounter Care Teams Bead Machine Operator Relationship Specialty Start Date End Date Meredith Montano MD PCP - General 08/13/16 11/11/20 Jesica Cook NP [address] [place] [address] DR PRIETO [facility] [place] [address] PCP - General Family Medicine 11/12/20 09/12/23 No, Physician PCP - General 09/13/23 Luis Fernando Hilton MD [address] [place] [address] DR PRIET[address] [place], [place] [address], [place] [address] Merchandise Presentation Associate Obstetrics and Gynecology 05/27/20 Farrah Sanz MD [address] [place] [address] DR PRIETO [address] [place], [place] [address], [place] [address] Resident Obstetrics and Gynecology 11/12/20 documented as of this encounter
[2025-05-29 11:30] LABS: Hematocrit 35.7 % (35.0-42.0); Hemoglobin 10.8 g/dL (11.7-13.8)
[2025-05-29 11:46] LABS: INR 1.0; Partial Thromboplastin Time 28.4 Sec (23.9-30.70); Prothrombin Time 10.9 Seconds (9.50-12.1)
[2025-05-29 12:31] LABS: Alanine Aminotransferase 14 U/L (6-35); Albumin Level 3.9 g/dL (3.5-5.1); Alkaline Phosphatase 84 U/L (38-126); Amylase 68 U/L (30-110); Anion Gap 4 mmol/L (4-12); Aspartate Amino Transferase 24 U/L (14-36); Bilirubin,Total 0.7 mg/dL (0.2-1.3); Blood Urea Nitrogen 20 mg/dL (7-17); Calcium 10.1 mg/dL (8.4-10.2); Carbon Dioxide 28 mmol/L (22-30); Chloride 106 mmol/L (98-107); Estimated Glomerular Filt Rate > 60; Glucose 94 mg/dL (65-110); Lipase 94 U/L (23-300); Osmolality Calculated 288 mOsm/kg (285-295); Potassium 4.4 mmol/L (3.4-5.0); Sodium 138 mmol/L (137-145); Total Protein 7.1 g/dL (6.3-8.2)
== END 2025-05-29 11:09 | disposition home or self-care (01) ==
PROVIDERS: Anesthesiology; PCP Surgery; Visit Provider Surgery
DX: N17.9 Acute kidney failure, unspecified (principal); K80.10 Calculus of gallbladder with chronic cholecystitis without obstruction; K82.1 Hydrops of gallbladder
CPT/HCPCS: 36415; 80053; 82150; 82248; 83690; 85014; 85018; 85610; 85730

== ENCOUNTER 2025-06-01 15:50 | Emergency (ER) | payer MEDICARE, MEDICAID, SELFPAY ==
--- NOTE | ~2025-06-01 | CT_ITS ---
EXAMINATION: CT abdomen pelvis w con DATE: 06/01/2025 17:27 INDICATION: pain, diarrhea, firmness in abd TECHNIQUE: Computed tomography (CT) of the abdomen and pelvis was performed with 100 mL Omnipaque-350 intravenous contrast. Automated exposure control and iterative reconstruction technique were employe d. The dose-length product was 791.78 mGy-cm. COMPARISON: None. FINDINGS: Lower thorax: Subsegmental right basilar consolidation. Mild coronary artery calcifications. Mitral c alcification. Liver: Normal. Biliary/Gallbladder: Absent gallbladder. Cholecystostomy tube in the gallbladder fossa. Trace fluid/s tranding in the gallbladder fossa. Mildly dilated remnant cystic duct. 9 mm common hepatic duct. Pancreas: Mild fatty atrophy. Spleen: Normal. Adrenals:No mass. Kidneys: Multiple simple left renal cysts. No obstructing calcification. Mild bilateral hydronephrosi s. GI tract: Small hiatal hernia. Mild distal esophageal and gastric wall edema. No small bowel dilation . Rectum is markedly dilated to 9.9 cm by formed stool, with surrounding wall thickening. Appendix no t confidently visualized Mesentery/Peritoneum: No ascites, mass, or free air. Retroperitoneum: No mass. Pelvis: Markedly distended urinary bladder. Multiple uterine fibroids. Normal bilateral ovaries. Pres acral edema/fluid. Soft Tissues: Soft tissues and body wall unremarkable. Bones: No acute osseous finding. Severe scoliosis. Severe right hip arthritis, with femoral head fra cture/collapse and large joint effusion. IMPRESSION: Subsegmental right basilar consolidation, probably representing atelectasis. Infection not excluded. Mild esophagitis/gastritis. Right upper quadrant cholecystostomy tube, in good position. Small amount of residual gallbladder fos sa fluid. Slightly dilated and hyperemic remnant cystic duct. Mild common hepatic duct dilation, presumably related to cholecystectomy. Marked urinary bladder distention, with mild bilateral hydronephrosis. Severe fecal impaction, with findings concerning for early stercoral colitis. Severe right hip arthritis with femoral head fracture/collapse, new since the prior study. Large righ t hip joint effusion. Consider septic arthritis in the differential. Reviewed, dictated and finalized at location K. IMPRESSION: Subsegmental right basilar consolidation, probably representing atelectasis. In fection not excluded. Mild esophagitis/gastritis. Right upper quadrant cholecystostomy tube, in good position. Small amount of re sidual gallbladder fossa fluid. Slightly dilated and hyperemic remnant cystic duct. Mild common hepatic duct dilation, presumably related to cholecystectomy. Marked urinary bladder distention, with mild bilateral hydronephrosis. Severe fecal impaction, with findings concerning for early stercoral colitis. Severe right hip arthritis with femoral head fracture/collapse, new since the p rior study. Large right hip joint effusion. Consider septic arthritis in the di fferential.
[2025-06-01 15:50] VITALS: PULSE 100; RESP 18; TEMP 36.9; O2SAT 97
--- NOTE | 2025-06-01 16:16 | ECG_ITS ---
Test Date: 2025-06-01 16:43:30 Measurements Intervals Baxter Rate: 83 P: 0 DC: 0 QRS: -17 QRSD: 98 T: 73 QT: 384 QTc: 452 Interpretive Statements SINUS RHYTHM WITH FIRST DEGREE AV BLOCK INCOMPLETE RIGHT BUNDLE BRANCH BLOCK LEFT VENTRICULAR HYPERTROPHY WITH ST-T CHANGE POSSIBLE ANTERIOR MYOCARDIAL INFARCTION , OF INDETERMINATE AGE BASELINE ARTIFACT- I, II, III, AVR, AVL,A VF, V1-V6 ABNORMAL ECG Compared to ECG 03/04/2025 08:47:32 NO SIGNIFICANT CHANGE Electronically Signed On 06-01-2025 19:54:13 CDT by Manuel Dunn D.O.
[2025-06-01 16:46] LABS: Hematocrit 37.3 % (37.0-47.0); Hemoglobin 11.5 g/dL (12.0-15.0); Immature Granulocyte Percent A 0.7 % (0-0.5); Lymphocytes Absolute Auto 1.01 K/mm3 (0.9-3.2); Mean Corpuscular HGB Conc 30.8 g/dl (32-36); Mean Corpuscular Hemoglobin 27.9 pg (26-34); Mean Corpuscular Volume 90.5 fl (80-100); Nucleated Red Blood Cells Absolute Auto 0.000 K/mm3 (0.0-0.012); Nucleated Red Blood Cells Perc 0.0 % (0.0-0.2); Platelet Count Result 482 k/mm3 (150-375); Red Blood Count 4.12 M/mm3 (4.2-5.4); White Blood Count 9.0 K/mm3 (4.5-10.0)
[2025-06-01 17:00] LABS: Alanine Aminotransferase 16 U/L (6-35); Albumin Level 4.3 g/dL (3.5-5.1); Alkaline Phosphatase 90 U/L (38-126); Anion Gap 13 mmol/L (4-12); Aspartate Amino Transferase 26 U/L (14-36); Bilirubin,Total 0.6 mg/dL (0.2-1.3); Blood Urea Nitrogen 17 mg/dL (7-17); Calcium 9.8 mg/dL (8.4-10.2); Carbon Dioxide 20 mmol/L (22-30); Chloride 104 mmol/L (98-107); Estimated CRCL calculation 58 ml/min; Estimated Glomerular Filt Rate > 60; Glucose 102 mg/dL (65-110); Lipase 52 U/L (23-300); Potassium 3.9 mmol/L (3.4-5.0); Sodium 137 mmol/L (137-145); Total Protein 8.4 g/dL (6.3-8.2)
[2025-06-01 17:10] LABS: Troponin I < 0.012 ng/mL (0.000-0.034)
--- NOTE | 2025-06-01 17:18 | ED_ITS ---
HPI - Abdominal Pain General Chief Complaint: Abdominal Pain Stated Complaint: abd pain Source: patient Mode of arrival: EMS Limitations: no limitations History of Present Illness HPI narrative: Patient is a 70 y/o female, with past medical history of AFib on amiodarone and Eliquis, hypertension, GERD, who presents to the ED via EMS with report of abdominal pain and fullness. Patient is a resident of [facility]. Patient reports she has been having diarrhea for the past few weeks. Has also been dealing with hemorrhoids, using [id number] hydrocortisone for this. She states she has not felt well over the last 1 week. She none states today she noticed firmness and fullness in her left mid to lower abdomen. Asked [facility] staff to be brought in for further evaluation. Denies significant nausea, vomiting, fevers. Patient currently has a cholecystostomy tube in is scheduled to undergo cholecystectomy next week. Related Data Home Medications ?Medication ?Instructions ?Recorded ?Confirmed ?Last Taken ?Type acetazolamide 250 mg tablet 250 mg PO QAM 02/26/25 05/28/25 Unknown History apixaban 5 mg tablet (Eliquis) 5 mg PO Q12H 02/26/25 05/28/25 Unknown History furosemide 40 mg tablet 40 mg PO QAM 02/26/25 05/28/25 Unknown History pantoprazole 40 mg tablet,delayed 40 mg PO DAILY 03/04/25 05/28/25 Unknown History release potassium chloride 20 mEq 40 meq PO DAILY 03/04/25 05/28/25 Unknown History tablet,extended release(part/cryst) hydrocortisone 2 % lotion 1 applic topical TID PRN skin 03/28/25 05/28/25 Unknown History irritation acetaminophen 325 mg capsule 650 mg PO Q6H PRN pain 05/28/25 05/28/25 Unknown History Allergies Allergy/AdvReac Type Severity Reaction Status Date / Time adhesive tape Allergy Mild Unknown Verified 06/01/25 16:44 amoxicillin (From Augmentin) Allergy Mild Unknown Verified 06/01/25 16:44 aspirin Allergy Mild Unknown Verified 06/01/25 16:44 azithromycin (From Zithromax) Allergy Mild Unknown Verified 06/01/25 16:44 bacitracin Allergy Mild Unknown Verified 06/01/25 16:44 cefaclor Allergy Mild Unknown Verified 06/01/25 16:44 cetirizine (From Zyrtec) Allergy Mild Unknown Verified 06/01/25 16:44 ciprofloxacin (From Cipro) Allergy Mild Unknown Verified 06/01/25 16:44 citalopram Allergy Mild Unknown Verified 06/01/25 16:44 clavulanic acid (From Allergy Mild Unknown Verified 06/01/25 16:44 Augmentin) clindamycin Allergy Mild Unknown Verified 06/01/25 16:44 codeine Allergy Mild Unknown Verified 06/01/25 16:44 diphtheria,pertussis Allergy Mild Unknown Verified 06/01/25 16:44 (acellular),te (From Adacel(Tdap Adolesn/Adult)(PF)) erythromycin base Allergy Mild Unknown Verified 06/01/25 16:44 ethinyl estradiol Allergy Mild Unknown Verified 06/01/25 16:44 fexofenadine (From Henrietta) Allergy Mild Unknown Verified 06/01/25 16:44 guaifenesin (From Dilaudid Allergy Mild Unknown Verified 06/01/25 16:44 Cough) hydromorphone Allergy Mild Unknown Verified 06/01/25 16:44 hydroxyzine Allergy Mild Unknown Verified 06/01/25 16:44 lactase Allergy Mild Unknown Verified 06/01/25 16:44 latex Allergy Mild Unknown Verified 06/01/25 16:44 lisinopril Allergy Mild Unknown Verified 06/01/25 16:44 loracarbef Allergy Mild Unknown Verified 06/01/25 16:44 meclizine Allergy Mild Unknown Verified 06/01/25 16:44 metoprolol Allergy Mild Unknown Verified 06/01/25 16:44 mold Allergy Mild Unknown Verified 06/01/25 16:44 morphine Allergy Mild Unknown Verified 06/01/25 16:44 neomycin (From Neosporin Allergy Mild Unknown Verified 06/01/25 16:44 ([id number])) nizatidine Allergy Mild Unknown Verified 06/01/25 16:44 norethindrone Allergy Mild Unknown Verified 06/01/25 16:44 ofloxacin (From Floxin) Allergy Mild Unknown Verified 06/01/25 16:44 oxycodone Allergy Mild Unknown Verified 06/01/25 16:44 Penicillins Allergy Mild Unknown Verified 06/01/25 16:44 polymyxin B (From Neosporin Allergy Mild Unknown Verified 06/01/25 16:44 ([id number])) prednisolone Allergy Mild Unknown Verified 06/01/25 16:44 silicone Allergy Mild Unknown Verified 06/01/25 16:44 Sulfa (Sulfonamide Allergy Mild Unknown Verified 06/01/25 16:44 Antibiotics) tetanus toxoid, adsorbed Allergy Mild Unknown Verified 06/01/25 16:44 zolpidem Allergy Mild Unknown Verified 06/01/25 16:44 mayonnaise Allergy Unknown Unknown Verified 06/01/25 16:44 wheat Allergy Unknown Unknown Verified 06/01/25 16:44 eggs Allergy Unknown Unknown Uncoded 06/01/25 16:44 Review of Systems 2 Review of Systems: All systems reviewed & are unremarkable except as noted in HPI. All systems reviewed & are unremarkable except as noted in HPI and below PMFSH Past Medical History Medical History Cardiomyopathy GERD (gastroesophageal reflux disease) Scoliosis Venous stasis CVA (cerebral vascular accident) Afib Social History Social History Smoking status: Never smoker Second hand tobacco smoke exposure: No Alcohol intake: never Substance use: never Substance use type: does not use Do You Feel Safe in your Home?: Yes Lack of Transportation: No Lack of Food: Never True Current Housing: I Have Housing Concerned About Future Housing: No Difficulty Paying Gas/Electric Bills: No Difficulty Paying for Meds: No Currently Unemployed: No Education: High School Diploma/GED Difficulty w/ Childcare or Family Care: No Living arrangements: other Additional living arrangements comments: [facility] Spiritual care concerns: No Exam 2 Narrative: GENERAL: Elderly, chronically ill-appearing, non-toxic, in no acute distress. HEAD: Normocephalic, atraumatic. RESPIRATORY: Airway patent, respirations nonlabored. Clear to auscultation bilaterally, no rales, rhonchi, wheezing. CARDIOVASCULAR: Regular rate and rhythm without murmurs, rubs, or gallops. ABDOMINAL: Soft, mild fullness and tenderness mid to abdomen/periumbilical region. Nondistended. Slightly hypoactive BS. Cholecystostomy tube in right upper quadrant with scant amount of drainage in tubing bag RECTAL: Large external hemorrhoid w/o evidence of thrombosis, bleeding. Normal rectal tone. Stool brown. MUSCULOSKELETAL: Moves all extremities. No gross deformities. SKIN: Warm, dry, normal color. NEURO: A&O X3. Speech clear. Cranial nerves II-XII grossly intact. Steady gait. Diffusely tremulous PSYCHIATRIC: Appropriate mood and affect. Normal interaction. Course Vital Signs Vital signs: Vital Signs Temperature 98.4 F 06/01/25 15:50 Pulse Rate 100 06/01/25 15:50 Respiratory Rate 18 06/01/25 15:50 Pulse Oximetry 97 06/01/25 15:50 Oxygen Delivery Room Air 06/01/25 15:50 Temperature 98.4 F 06/01/25 15:50 Pulse Rate 82 06/01/25 17:49 Respiratory Rate 19 06/01/25 17:49 Blood Pressure 127/75 06/01/25 17:49 Pulse Oximetry 95 06/01/25 17:49 Oxygen Delivery Room Air 06/01/25 15:50 MDM - Abdominal Pain MDM Narrative Medical decision making narrative: Patient presented to ED with abdominal pain/fullness, diarrhea. Vital signs are stable upon arrival. Patient is in no acute distress. Cbc without leukocytosis. Mild anemia noted, slightly hemoconcentrated. Fluids initiated. CMP is fairly unremarkable. Bicarb 20, anion gap of 13. Otherwise stable electrolytes, stable kidney function. Normal LFTs and lipase. Lactic acid 1.2. EKG without concerning ST changes, troponin undetectable. UA without evidence of infection. CT scan of abdomen/pelvis was obtained - showing cholecystostomy tube, in good position, showing RUQ changes related to this. Does also show marked urinary bladder distention with bilateral hydronephrosis. Patient was straight cathed prior to CT scan and approximately 700 mL of urine was drained. The UA does not appear infectious, however given that the bladder still appears as large as it does on imaging, will place Beth catheter. CT showing severe fecal impaction, likely the cause of acute retention. Patient denies previous issues with retention. Discussed these findings with patient. She would like to manage constipation first before receiving catheter. Does also show severe right hip arthritis with femoral head collapse with joint effusion. Advised to consider septic arthritis in the differential. Discussed this with patient. She has not been ambulatory for the past 2 years. She denies any hip pain or pain with flexion at the hip. There is no overlying erythema, warmth, other skin changes. No fevers or leukocytosis. Very low suspicion for septic arthritis. I discussed femoral fx/collapse with Dr. Martin, orthopedics, advised no intervention indicated given patient is nonambulatory. SUJATHA was performed in the ED with a large amount of stool able to be removed/broken up. Patient is agreeable to enema for additional management of constipation. Given soapsuds enema. She tolerated this fairly well. Had a few bowel movements in the ED. Feeling improved. Bladder scan afterwards did show >700 ml of urine persistently in bladder. Discussed beth catheter with patient. Patient is adamantly refusing catheter. Had an extensive discussion with patient regarding risks and benefits, however patient is adamant that she will not receive Beth catheter at this time. She is alert oriented x4 and capable of making her own decisions. I did advise against this. Patient voiced understanding of risks, but still would like to decline Beth catheter. Patient is still safe for discharge back to [facility] at this time. Discussed constipation management with continued MiraLax and Dulcolax. This should hopefully help with retention. Given strict return precautions. Patient in agreement with plan. Discharged in stable condition. Medical Records Attestation: I reviewed the patient's medical records. Lab Data Attestation: I reviewed the patient's lab results. 06/01/25 16:40 06/01/25 16:40 Labs: Lab Results 06/01/25 06/01/25 06/01/25 Range/Units 16:40 16:41 17:01 WBC 9.0 (4.5-10.0) K/mm3 RBC 4.12 L (4.2-5.4) M/mm3 Hgb 11.5 L (12.0-15.0) g/dL Hct 37.3 (37.0-47.0) % MCV 90.5 (80-100) fl MCH 27.9 (26-34) pg MCHC 30.8 L (32-36) g/dl RDW 16.1 H (11.5-14.5) % Plt Count 482 H (150-375) k/mm3 MPV 9.8 (7.4-10.4) fl Immature Gran % (Auto) 0.7 H (0-0.5) % Neut % (Auto) 77.0 H (45.5-73.1) % Lymph % (Auto) 11.3 L (18.3-44.2) % [place] % (Auto) 8.9 H (2.6-8.5) % Eos % (Auto) 1.3 (0-4.4) % Baso % (Auto) 0.8 (0.2-1.2) % Lymph # (Auto) 1.01 (0.9-3.2) K/mm3 [place] # (Auto) 0.8 H (0.1-0.6) K/mm3 Eos # (Auto) 0.1 (0-0.3) K/mm3 Baso # (Auto) 0.1 (0.0-0.1) K/mm3 Abs Immat Gran (auto) 0.06 H (0.00-0.031) K/mm3 Absolute Neuts (auto) 6.9 H (1.3-6.7) K/mm3 Absolute Nucleated RBC 0.000 (0.0-0.012) K/mm3 Nucleated RBC % 0.0 (0.0-0.2) % Sodium 137 (137-145) mmol/L Potassium 3.9 (3.4-5.0) mmol/L Chloride 104 (98-107) mmol/L Carbon Dioxide 20 L (22-30) mmol/L Anion Gap 13 H (4-12) mmol/L BUN 17 (7-17) mg/dL Creatinine 0.80 (0.7-1.0) mg/dL Estim Creat Clear Calc 58 ml/min Estimated GFR > 60 (59 - ) Glucose 102 (65-110) mg/dL Lactic Acid 1.2 (0.7-2.0) mmol/L Calcium 9.8 (8.4-10.2) mg/dL Total Bilirubin 0.6 (0.2-1.3) mg/dL AST 26 (14-36) U/L ALT 16 (6-35) U/L Alkaline Phosphatase 90 (38-126) U/L Troponin I < 0.012 (0.000-0.034) ng/mL Total Protein 8.4 H (6.3-8.2) g/dL Albumin 4.3 (3.5-5.1) g/dL Lipase 52 (23-300) U/L Urine Color Yellow (Yellow) Urine Appearance Clear (Clear) Urine pH 6.0 (5.0-9.0) Ur Specific [place] 1.010 (1.001-1.035) Urine Protein Negative (Negative) mg/dL Urine Glucose (UA) Negative (Negative) mg/dL Urine Ketones Negative (Negative) mg/dL Ur Blood (Man) 1+ H (Negative) Urine Nitrate Negative (Negative) Urine Bilirubin Negative (Negative) Urine Urobilinogen 0.2 (<2.0) mg/dL Add Ur Microanalysis Reviewed Leukocyte Esterase Rfl Negative (Negative) URMILA/UL Urine RBC 3-5 H (0-2) /hpf Urine WBC 0-5 (0-3) /hpf Ur Squamous Epith Cells None seen (Few) /hpf Urine Bacteria None seen /hpf Urine Casts 0-2 Imaging Data Attestation: I personally reviewed and interpreted this imaging study as follows: Radiologist's impression: ITS Impressions Abdomen/Pelvis CT 06/01/25 17:32 IMPRESSION: Subsegmental right basilar consolidation, probably representing atelectasis. Infection not excluded. Mild esophagitis/gastritis. Right upper quadrant cholecystostomy tube, in good position. Small amount of residual gallbladder fossa fluid. Slightly dilated and hyperemic remnant cystic duct. Mild common hepatic duct dilation, presumably related to cholecystectomy. Marked urinary bladder distention, with mild bilateral hydronephrosis. Severe fecal impaction, with findings concerning for early stercoral colitis. Severe right hip arthritis with femoral head fracture/collapse, new since the prior study. Large right hip joint effusion. Consider septic arthritis in the differential. ECG Data EKG #1: Attestation: I personally reviewed and interpreted this ECG as follows: ECG completion date: 06/01/25 ECG completion time: 16:43 normal rate (83), sinus rhythm, non-specific ST changes and RBBB (incomplete) Discharge Plan Discharge Clinical Impression: Acute urinary retention Constipation Qualifiers: Constipation type: unspecified constipation type Qualified Code(s): K59.00 - Constipation, unspecified Patient Disposition: [facility] Living Condition: Stable Instructions: Antibiotic Form, Constipation (ED), High Fiber Diet (ED), Acute Urinary Retention in Women (ED) Additional Instructions: You were diagnosed with urinary retention today. It was recommended you receive a Beth catheter, but declined this. Recommend follow up with Urology if needed. Recommend staying well hydrated, high-fiber diet, MiraLax and Dulcolax up to twice daily for the next 1 week to help with constipation. If you developed diarrhea with this, you may decrease to once per day or every other day. Return to the ED if you experience worsening or severe pain, unable to urinate, unable to keep down food or drink, persistent fevers, rectal bleeding, melena, or other symptoms of concern. Patient Language: Portuguese Prescriptions: New polyethylene glycol 3350 [Miralax] 17 gram/dose powder 17 g PO BID PRN (Reason: constipation) Qty: 119 0RF bisacodyl [Dulcolax (bisacodyl)] 5 mg tablet,delayed release (DR/EC) 5 mg PO BID PRN (Reason: constipation) Qty: 20 0RF No Action acetazolamide 250 mg tablet 250 mg PO QAM Eliquis 5 mg tablet 5 mg PO Q12H Patient Comments: HOLD PREOP as instructed furosemide 40 mg tablet 40 mg PO QAM hydrocortisone 2 % lotion 1 applic topical TID PRN (Reason: skin irritation) pantoprazole 40 mg tablet,delayed release (DR/EC) 40 mg PO DAILY potassium chloride 20 mEq tablet,ER particles/crystals 40 meq PO DAILY amiodarone [Pacerone] 200 mg Tablet 200 mg PO DAILY@0800 30 Days Qty: 30 1RF losartan 25 mg Tablet 25 mg PO DAILY 30 Days Qty: 30 1RF cefdinir 300 mg Capsule 300 mg PO Q12HR 14 Days Qty: 28 0RF acetaminophen 325 mg capsule 650 mg PO Q6H PRN (Reason: pain) Follow-up/Referrals: Joseph Arias MD [Physician] - (UROLOGY) Tim Gaming DO [Physician] - Time of Disposition: 00:45
[2025-06-01 17:22] LABS: Add Urine Microscopic? YES; Appearance Urine Clear (Clear); Glucose Urine UA Negative (Negative); Leukocyte Esterase Ur Negative LEU/UL (Negative); Need Manual Microscopic Reviewed; Nitrate Urine Negative (Negative); Non Pathogenic Casts 0-2; Specific Grav Ur 1.010 (1.001-1.035)
[2025-06-01] MEDS: SODIUM CHLORIDE 0.9% IV 1,000 ML 999 ML IV CONT (17:38)
--- OUTSIDE RECORDS SUMMARY | 2025-06-01 17:42 | XMS_ITS | Encounter Summary ---
Author Organization [facility] Address [address] [place] [address] Phone Care Team Providers Care Warp Tension Tester Name Role Phone Meredith Montano MD Primary Care Provider [phone] Luis Fernando Hilton MD Unavailable Jesica Cook NP Primary Care Provider Farrah Sanz MD Unavailable [phone] No, Physician Primary Care Provider [phone] Encounter Details Date Type Department Care Team (Late st Contact Info) Description 07/31/[address] 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 Gender Identity Female 06/13/2020 10:39 AM CDT Sexual Orientation Straight 06/13/2020 10 :39 AM CDT documented as of this encounter Plan of Treatment Not on file documented as of this encounter Visit Diagnoses Not on filedocumented in this encounter Care Teams Warp Tension Tester Relationship Specialty Start Date End Date Meredith Montano MD PCP - General 08/13/16 11/11/20 Jesica Cook NP [address] [place] [address] DR PRIETO [facility] [place] [address] PCP - General Family Medicine 11/12/20 09/12/23 No, Physician PCP - General 09/13/23 Luis Fernando Hilton MD [address] [place] [address] DR PRIETO [address] [place], [place] [address] [address] Wide Area Network Systems Administrator Obstetrics and Gynecology 05/27/20 Farrah Sanz MD [address] [place] [address] DR PRIETO [address] [place], [place] [address] [address] Resident Obstetrics and Gynecology 11/12/20 documented as of this encounter
--- OUTSIDE RECORDS SUMMARY | 2025-06-01 17:43 | XMS_ITS | Clinical Summary ---
Author Organization [facility] Medical Office Building B Address [address] [place] [address] Care Team Providers Care Supervisor Harvesting Name Role Phone Luis Fernando Hilton MD Unavailable [phone] Farrah Sanz MD Unavailable [phone] No, Physician Primary Care Provider [phone] Allergies Active Allergy Reactions Criticality Noted Date [...] Meclizine Unknown Mold Unknown 06/13/2020 Morphine Unknown Gqkjiimd-Ltqnhlcpoj-Ipb ymyxin Other (See comments) Low 06/13/2020 Blisters [...] 09/13/2023 Assessment & Plan (09/14/2023 12:17 PM WATER CONTROL STATION ENGINEER): Reason for admission. She was sitting in [...] (01/07/2021): Added automatically from request for surgery [id number] Mixed hyperlipidemia 11/14/2020 Overview (11/14/2020): Recommended patient take a statin. Received message back from patient she does not want to start statin. Assessment & Plan (09/14/2023 12:14 PM WATER CONTROL STATION ENGINEER): Patient previously informed that she should be [...] 11/12/2020 Assessment & Plan (09/14/2023 12:16 PM WATER CONTROL STATION ENGINEER): Presenting with bilateral foot swelling and dermatitis. Possibly allergic, most likely due to chronic changes (6 years). Venous stasis dermatitis is possible. Will trial 40 mg Solu-Medrol and see if she is treatment responsive. Assessment & Plan (11/12/2020 11:26 AM WATER CONTROL STATION ENGINEER): HPI: Condition is worsening , she hasn't [...] 11/12/2020 Assessment & Plan (11/12/2020 12:24 PM WATER CONTROL STATION ENGINEER): She talks to someone on the [facility] well line and [place] Warm line which are counseling services. They help her. She knows she needs therapy, but doesn't want to do that until she moves back to the [facility], but she doesn't have enough money to move. treatment significantly limited by social determinants of health Chronic allergic rhinitis 11/12/2020 Assessment & Plan (11/12/2020 11:27 AM WATER CONTROL STATION ENGINEER): HPI: Condition is stable Discussed environmental controls [...] we may need to send her to [facility], but she wants to wait for now. Vitamin D deficiency 11/12/2020 Assessment & Plan (11/12/2020 11:14 AM WATER CONTROL STATION ENGINEER): HPI: Condition is stable A&P: Discussed/ordered labs, encouraged healthy, low carbohydrate lifestyle and at least 150min/week of exercise, continue on vit d3 5000units daily GERD (gastroesophageal reflux disease) Assessment & Plan (11/12/2020 12:23 PM WATER CONTROL STATION ENGINEER): HPI: Condition is stable Continue on current meds-esomeprazole 20mg as needed, encouraged healthy diet and exercise Avoid trigger foods including: carbonated beverages, caffeine, spicy, fried foods, tomatoes, cucumbers, and mint Avoid eating/drinking anything for at least 2 hours before bed. Sleep with bed propped. Discussed increased risk of cdif and vit B12 deficiency with fci use of PPI with pt, would like to remain on medication at this time treatment significantly limited by social determinants of health Arthritis 11/12/2020 Assessment & Plan (11/12/2020 12:22 PM WATER CONTROL STATION ENGINEER): Discussed with pt that I would recommend she not take ibuprofen Due to increased risk of GI bleed. Would recommend tylenol arthritis. Patient is in wheelchair during today's visit Blood pressure elevated without history of HTN 0 11/12/2020 Assessment & Plan (09/14/2023 12:21 PM WATER CONTROL STATION ENGINEER): BP elevated in ED 168/74. Pt denies [...] PCP. Assessment & Plan (11/12/2020 12:09 PM WATER CONTROL STATION ENGINEER): Patient states she has white coat syndrome. She is very anxious about being here as a new patient today with her last doctor's experience being quite negative in [place]. She also did not take her triamterene hydrochlorothiazide today either due to traveling to the doctor's office today. Class 2 severe obesity due t o excess calories with serious comorbidity and body mass index (BMI) of 39.0 to 39.9 in adult 11/12/2020 Assessment & Plan (11/12/2020 12:23 PM WATER CONTROL STATION ENGINEER): HPI: Condition is stable A&P: Healthy, low [...] in much longer they will become mushy [place] and/or coconut flour instead of regular flour [...] pork rinds For yogurt, try [employer] frisian yogurt Use Pinterest for recipe ideas. Type [...] BID Assessment & Plan (11/12/2020 11:16 AM WATER CONTROL STATION ENGINEER): HPI: Condition is Active and being treated at [facility]. A&P: Discussed/ordered labs, encouraged healthy, low carbohydrate lifestyle and at least 150min/week of exercise, continue follow up with Dr. Sanz (assistant commissioner) and Dr. Hilton (assistant commissioner) She is awaiting appointment for hysterectomy. She has appointment for reevaluation in Nov at [facility]. She is taking medroxyprogesterone 10mg tablet daily Generalized anxiety disorder 06/13/2020 Assessment & Plan (11/12/2020 12:23 PM WATER CONTROL STATION ENGINEER): Patient reiterated no suicidal thoughts at this [...] is living in a housing unit in [facility]. She was homeless and lived in [...] 06/13/2020 Assessment & Plan (11/12/2020 11:28 AM WATER CONTROL STATION ENGINEER): HPI: Condition is stable A&P: Discussed/ordered labs, encouraged healthy, low carbohydrate lifestyle and at least 150min/week of exercise, continue follow up with Dr. Sanz (assistant commissioner) for endometrial cancer. She has not been taking ferrous sulfate since Sep 2020 Discussed with pt that I would recommend she not take ibuprofen Due to increased risk of GI bleed. Would recommend tylenol arthritis. Resolved Problems Problem Noted Date Diagnosed Date Resolved Date Moderate protein-calorie malnutrition 06/11/2024 08/21/2024 Encounters Date Type Department Care Team Description 03/08/2025 Orders Only [facility] Medical Group Cardiology [address] [place] [address] Chuck Mckenzie MD from Last [...] drink = 0.6 oz pur e alcohol) [facility] Utilities Answer Date Recorded In the past 12 months has e [employer], gas, oil, or water [employer] threatened to shut off services in your home? No 08/20/2024 Social Connection and Isolation Panel Answer Date Recorded In a typical week, how many times do you talk on the phone with family, friends, or neighbors? Three times a week 08/20/2024 How often do you get togethe r with friends or relatives? Never 08/20/2024 How often do you attend [facility] or holiness services? Never 08/20/2024 Do you belong to any clubs o r organizations such as scientologist groups, unions, fraternal or athletic groups, or [...] place to sleep or slept in a assisted (including now)? No 09/14/2023 Housing Stability Vital [...] were you homeless or living in a assisted (including now)? No 08/20/2024 Personal Safety Answer Date Recorded Have you ever been in or are you currently in a harmful physical or emotional relationship or is someone making you feel afraid or unsafe? Denies 08/19/2024 Comments No Sex and Gender Information Value Date Recorded Sex Assigned at Not on file Legal Sex Female 4:13 AM WATER CONTROL STATION ENGINEER Gender Identity Female 06/13/2020 10:39 AM CDT Sexual Orientation Straight 06/13/2020 10 :39 AM CDT Obstetrics History Para Term AB IAB SAB Ectopic Multiple Livin g Live Births 0 0 0 0 0 0 0 0 0 0 0 Last Filed Vital Signs Vital Sign Reading Time Taken Comments Blood Pressure 110/62 08/24/2024 3:45 PM WATER CONTROL STATION ENGINEER Pulse 76 08/24/2024 2:31 PM WATER CONTROL STATION ENGINEER Temperature 36.2 C (97.2 F) 08/24/2024 2:31 PM WATER CONTROL STATION ENGINEER Respiratory Rate 18 08/24/2024 2:31 PM WATER CONTROL STATION ENGINEER Oxygen Saturation 91% 08/24/2024 2:31 PM WATER CONTROL STATION ENGINEER Inhaled Oxygen Concentration - - Weight 96 [...] HEPATITIS C ANTIBODY Routine 11/12/2020 11:46 AM WATER CONTROL STATION ENGINEER Encounter for hepatitis C screening test for [...] * Hepatitis C antibody (11/12/2020 11:46 AM WATER CONTROL STATION ENGINEER) Hep C Ab Nonreactive Nonreactive [facility] [...] last revised on 2020. Testing performed by: [facility], [address] [place] [address], [place]., [address] Blood specimen (specimen) 11/12/2020 11:46 AM WATER CONTROL STATION ENGINEER 11/12/2020 4:32 PM WATER CONTROL STATION ENGINEER us Jesica Cook NP LAB MICROBIOLOGY - GENERAL ORDERABLES Final Result [facility] ([place]) [facility] [place] [address] from Last 3 Months or Most Recently Relevant to Health Maintenance Insurance [place] [address] [place] [address] MEDICARE MEDICARE IDPA Advance Directives For more information, please contact: [phone] * Full Code (Latest Code Status on File) Date Activated Date Inactivated Comments 08/19/2024 12:11 AM 08/24/2024 11:38 PM * Full Code Date Activated Date Inactivated Comments 06/14/2024 11:12 AM 06/15/2024 6:35 PM * Full Code Date Activated Date Inactivated Comments 05/26/2020 3:06 AM 05/27/2020 10:48 PM Care Teams Supervisor Harvesting Relationship Specialty Start Date End Date No, Physician PCP - General 09/13/23 Luis Fernando Hilton MD [address] [place] [address] [place] [address] Memorial Marker Designer Obstetrics and Gynecology 05/27/20 Farrah Sanz MD [address] [place] [address] [place] [address] Resident Obstetrics and Gynecology 11/12/20
[2025-06-01 17:49] VITALS: BP 127/75; PULSE 82; RESP 19; O2SAT 95
--- NOTE | 2025-06-01 19:37 | PC.NURSE ---
Received report from TAMMY Ayala for cont of care. Pt lying on stretcher, reports feeling abdominal discomfort. Pt repositioned in bed, and VS WNL
--- NOTE | 2025-06-01 19:49 | PC.NURSE ---
Pt placed on bedpan
[2025-06-01] MEDS: BISACODYL 5 MG TABLET EC PO (23:35)
--- NOTE | 2025-06-02 00:30 | PC.NURSE ---
MD MADE AWARE, BLADDER SCAN SHOWING 734ml. PT REFUSING RODRIGUES CATHETER.
== END 2025-06-02 01:55 ==
PROVIDERS: Emergency Provider Physician Assistant; PCP Family Medicine
DX: K59.00 Constipation, unspecified (principal); R33.9 Retention of urine, unspecified; I48.91 Unspecified atrial fibrillation; I10 Essential (primary) hypertension; I42.9 Cardiomyopathy, unspecified; K21.9 Gastro-esophageal reflux disease without esophagitis; Z86.73 Personal history of transient ischemic attack (TIA), and cerebral infarction without residual deficits; Z79.899 Other long term (current) drug therapy; Z79.01 Long term (current) use of anticoagulants; K20.90 Esophagitis, unspecified without bleeding; K29.70 Gastritis, unspecified, without bleeding; R91.8 Other nonspecific abnormal finding of lung field; N13.30 Unspecified hydronephrosis; M16.11 Unilateral primary osteoarthritis, right hip; Z96.89 Presence of other specified functional implants
CPT/HCPCS: 36415; 74177; 80053; 81001; 83605; 83690; 84484; 85025; 93005; 96360; 99284; A9270; J7030; Q9967

== ENCOUNTER 2025-06-02 19:08 | Emergency (ER) | payer MEDICARE, MEDICAID, SELFPAY ==
[2025-06-02 19:10] VITALS: BP 147/109; PULSE 87; RESP 19; TEMP 37.1; O2SAT 96
[2025-06-02 19:25] VITALS: BP 147/109; PULSE 87; RESP 20; TEMP 37.1; O2SAT 96
--- OUTSIDE RECORDS SUMMARY | 2025-06-02 19:37 | XMS_ITS | Encounter Summary ---
Author Organization [facility] Address [address] [place] [address] Phone Care Team Providers Care Institutional Research Coordinator Name Role Phone Meredith Montano MD Primary Care Provider [phone] Luis Fernando Hilton MD Unavailable [phone] Jesiac Cook NP Primary Care Provider Farrah Sanz MD Unavailable [phone] No, Physician Primary Care Provider [phone] Encounter Details Date Type Department Care Team (Late st Contact Info) Description 07/31/[address] [facility] Obstetrics and Gynecology [address] [facility] [address] [place] [address] [place] [address] Jessie Guzman Social History Tobacco [...] on file Legal Sex Female 4:13 AM INSURANCE AGENT Gender Identity Female 06/13/2020 10:39 AM CDT Sexual Orientation Straight 06/13/2020 10 :39 AM CDT documented as of this encounter Plan of Treatment Not on file documented as of this encounter Visit Diagnoses Not on filedocumented in this encounter Care Teams Institutional Research Coordinator Relationship Specialty Start Date End Date Meredith Montano MD PCP - General 08/13/16 11/11/20 Jesica Cook NP [address] [place] [address] DR PRIETO [facility] [place] [address] PCP - General Family Medicine 11/12/20 09/12/23 No, Physician PCP - General 09/13/23 Luis Fernando Hilton MD [address] [place] [address] DR [address]IET[address] [place], [place] [address], [place] [address] Deck Molder Obstetrics and Gynecology 05/27/20 Farrah Sanz MD [address] [place] [address] DR [address]IET[address] [place], [place] [address], [place] [address] Resident Obstetrics and Gynecology 11/12/20 documented as of this encounter
--- OUTSIDE RECORDS SUMMARY | 2025-06-02 19:37 | XMS_ITS | Clinical Summary ---
Author Organization [facility] Medical Office Building B Address [address] [place] [address] Care Team Providers Care Commercial Collector Name Role Phone Luis Fernando Hilton MD Unavailable [phone] Farrah Sanz MD Unavailable [phone] No, Physician Primary Care Provider [phone] Allergies Active Allergy Reactions Criticality Noted Date [...] Meclizine Unknown Mold Unknown 06/13/2020 Morphine Unknown Rdxcwapr-Wrzhqmbwht-Ujh ymyxin Other (See comments) Low 06/13/2020 Blisters [...] 09/13/2023 Assessment & Plan (09/14/2023 12:17 PM HEAD REFRIGERATING ENGINEER): Reason for admission. She was sitting [...] (01/07/2021): Added automatically from request for surgery [id number] Mixed hyperlipidemia 11/14/2020 Overview (11/14/2020): Recommended patient take a statin. Received message back from patient she does not want to start statin. Assessment & Plan (09/14/2023 12:14 PM HEAD REFRIGERATING ENGINEER): Patient previously informed that she should [...] 11/12/2020 Assessment & Plan (09/14/2023 12:16 PM HEAD REFRIGERATING ENGINEER): Presenting with bilateral foot swelling and dermatitis. Possibly allergic, most likely due to chronic changes (6 years). Venous stasis dermatitis is possible. Will trial 40 mg Solu-Medrol and see if she is treatment responsive. Assessment & Plan (11/12/2020 11:26 AM HEAD REFRIGERATING ENGINEER): HPI: Condition is worsening , she [...] 11/12/2020 Assessment & Plan (11/12/2020 12:24 PM HEAD REFRIGERATING ENGINEER): She talks to someone on the [facility] well line and [place] Warm line which are counseling services. They help her. She knows she needs therapy, but doesn't want to do that until she moves back to the [facility], but she doesn't have enough money to move. treatment significantly limited by social determinants of health Chronic allergic rhinitis 11/12/2020 Assessment & Plan (11/12/2020 11:27 AM HEAD REFRIGERATING ENGINEER): HPI: Condition is stable Discussed environmental [...] we may need to send her to retail loss prevention investigator, but she wants to wait for now. Vitamin D deficiency 11/12/2020 Assessment & Plan (11/12/2020 11:14 AM HEAD REFRIGERATING ENGINEER): HPI: Condition is stable A&P: Discussed/ordered labs, encouraged healthy, low carbohydrate lifestyle and at least 150min/week of exercise, continue on vit d3 5000units daily GERD (gastroesophageal reflux disease) Assessment & Plan (11/12/2020 12:23 PM HEAD REFRIGERATING ENGINEER): HPI: Condition is stable Continue on [...] 11/12/2020 Assessment & Plan (11/12/2020 12:22 PM HEAD REFRIGERATING ENGINEER): Discussed with pt that I would recommend she not take ibuprofen Due to increased risk of GI bleed. Would recommend tylenol arthritis. Patient is in wheelchair during today's visit Blood pressure elevated without history of HTN 0 11/12/2020 Assessment & Plan (09/14/2023 12:21 PM HEAD REFRIGERATING ENGINEER): BP elevated in ED 168/74. Pt [...] PCP. Assessment & Plan (11/12/2020 12:09 PM HEAD REFRIGERATING ENGINEER): Patient states she has white coat syndrome. She is very anxious about being here as a new patient today with her last doctor's experience being quite negative in [place]. She also did not take her triamterene hydrochlorothiazide today either due to traveling to the doctor's office today. Class 2 severe obesity due t o excess calories with serious comorbidity and body mass index (BMI) of 39.0 to 39.9 in adult 11/12/2020 Assessment & Plan (11/12/2020 12:23 PM HEAD REFRIGERATING ENGINEER): HPI: Condition is stable A&P: Healthy, [...] in much longer they will become mushy [place] and/or coconut flour instead of regular flour [...] BID Assessment & Plan (11/12/2020 11:16 AM HEAD REFRIGERATING ENGINEER): HPI: Condition is Active and being treated at [facility]. A&P: Discussed/ordered labs, encouraged healthy, low carbohydrate lifestyle and at least 150min/week of exercise, continue follow up with Dr. Sanz (creative services producer) and Dr. Hilton (creative services producer) She is awaiting appointment for hysterectomy. She has appointment for reevaluation in Nov at [place]. She is taking medroxyprogesterone 10mg tablet daily Generalized anxiety disorder 06/13/2020 Assessment & Plan (11/12/2020 12:23 PM HEAD REFRIGERATING ENGINEER): Patient reiterated no suicidal thoughts at [...] is living in a housing unit in [facility]. She was homeless and lived in [...] 06/13/2020 Assessment & Plan (11/12/2020 11:28 AM HEAD REFRIGERATING ENGINEER): HPI: Condition is stable A&P: Discussed/ordered labs, encouraged healthy, low carbohydrate lifestyle and at least 150min/week of exercise, continue follow up with Dr. Sanz (creative services producer) for endometrial cancer. She has not been taking ferrous sulfate since Sep 2020 Discussed with pt that I would recommend she not take ibuprofen Due to increased risk of GI bleed. Would recommend tylenol arthritis. Resolved Problems Problem Noted Date Diagnosed Date Resolved Date Moderate protein-calorie malnutrition 06/11/2024 08/21/2024 Encounters Date Type Department Care Team Description 03/08/2025 Orders Only [facility] Medical Group Cardiology [address] [place] [address] Chuck Mckenzie MD from Last [...] drink = 0.6 oz pur e alcohol) [place] Utilities Answer Date Recorded In the past 12 months has e [employer], gas, oil, or water [employer] threatened to shut off services in your home? No 08/20/2024 Social Connection and Isolation Panel Answer Date Recorded In a typical week, how many times do you talk on the phone with family, friends, or neighbors? Three times a week 08/20/2024 How often do you get togethe r with friends or relatives? Never 08/20/2024 How often do you attend [facility] or pentecostal services? Never 08/20/2024 Do you belong to any clubs o r organizations such as mandaeism groups, unions, fraternal or athletic groups, or [...] any time in the past 12 m [facility], were you homeless or living [...] on file Legal Sex Female 4:13 AM HEAD REFRIGERATING ENGINEER Gender Identity Female 06/13/2020 10:39 AM CDT Sexual Orientation Straight 06/13/2020 10 :39 AM CDT Obstetrics History Para Term AB IAB SAB Ectopic Multiple Livin g Live Births 0 0 0 0 0 0 0 0 0 0 0 Last Filed Vital Signs Vital Sign Reading Time Taken Comments Blood Pressure 110/62 08/24/2024 3:45 PM HEAD REFRIGERATING ENGINEER Pulse 76 08/24/2024 2:31 PM HEAD REFRIGERATING ENGINEER Temperature 36.2 C (97.2 F) 08/24/2024 2:31 PM HEAD REFRIGERATING ENGINEER Respiratory Rate 18 08/24/2024 2:31 PM HEAD REFRIGERATING ENGINEER Oxygen Saturation 91% 08/24/2024 2:31 PM HEAD REFRIGERATING ENGINEER Inhaled Oxygen Concentration - - Weight [...] HEPATITIS C ANTIBODY Routine 11/12/2020 11:46 AM HEAD REFRIGERATING ENGINEER Encounter for hepatitis C screening test [...] * Hepatitis C antibody (11/12/2020 11:46 AM HEAD REFRIGERATING ENGINEER) Hep C Ab Nonreactive Nonreactive [facility] [...] last revised on 2020. Testing performed by: , [address] [place] [address], [place]., [address] Blood specimen (specimen) 11/12/2020 11:46 AM HEAD REFRIGERATING ENGINEER 11/12/2020 4:32 PM HEAD REFRIGERATING ENGINEER us Jesica Cook NP LAB MICROBIOLOGY - GENERAL ORDERABLES Final Result [facility] ([place]) 1 [facility] Department [place] [address] from Last 3 Months or Most Recently Relevant to Health Maintenance Insurance [place] [address] [place] [address] MEDICARE MEDICARE IDPA Advance Directives For more information, please contact: [phone] * Full Code (Latest Code Status on File) Date Activated Date Inactivated Comments 08/19/2024 12:11 AM 08/24/2024 11:38 PM * Full Code Date Activated Date Inactivated Comments 06/14/2024 11:12 AM 06/15/2024 6:35 PM * Full Code Date Activated Date Inactivated Comments 05/26/2020 3:06 AM 05/27/2020 10:48 PM Care Teams Commercial Collector Relationship Specialty Start Date End Date No, Physician PCP - General 09/13/23 Luis Fernando Hilton MD [address] [place] [address] [place] [address] Objective C Developer Obstetrics and Gynecology 05/27/20 Farrah Sanz MD [address] [place] [address] [place] [address] Resident Obstetrics and Gynecology 11/12/20
--- NOTE | 2025-06-02 19:53 | ED.FEMALEGU ---
HPI - Female Genitourinary General Chief complaint: Urogenital-Female Stated complaint: Groin Pain Time Seen by Provider: 06/02/25 19:23 History of Present Illness HPI Narrative: 70-year-old female past medical history including atrial fibrillation on amiodarone and Eliquis, hypertension, GERD. Patient presents to the emergency department with abdominal fullness and frequency/urgency sensation. She has a cholecystostomy tube in place that is draining. Patient was seen and evaluated yesterday with extensive medical workup with labs and imaging. She was found to have urinary retention and constipation. The constipation was relieved and she has been going to the bathroom much more and feels much better from a GI standpoint, but still having difficulty urinating. She declined a catheter yesterday for urinary retention, but is willing to undergo a catheterization today to relieve her urinary issues. Denies any new symptoms. Otherwise been doing well at the nursing facility. No fever, chills, chest pain, shortness of breath. Related Data Home Medications ?Medication ?Instructions ?Recorded ?Confirmed ?Last Taken ?Type acetazolamide 250 mg tablet 250 mg PO QAM 02/26/25 05/28/25 Unknown History apixaban 5 mg tablet (Eliquis) 5 mg PO Q12H 02/26/25 05/28/25 Unknown History furosemide 40 mg tablet 40 mg PO QAM 02/26/25 05/28/25 Unknown History pantoprazole 40 mg tablet,delayed 40 mg PO DAILY 03/04/25 05/28/25 Unknown History release potassium chloride 20 mEq 40 meq PO DAILY 03/04/25 05/28/25 Unknown History tablet,extended release(part/cryst) hydrocortisone 2 % lotion 1 applic topical TID PRN skin 03/28/25 05/28/25 Unknown History irritation acetaminophen 325 mg capsule 650 mg PO Q6H PRN pain 05/28/25 05/28/25 Unknown History Allergies Allergy/AdvReac Type Severity Reaction Status Date / Time adhesive tape Allergy Mild Unknown Verified 06/01/25 16:44 amoxicillin (From Augmentin) Allergy Mild Unknown Verified 06/01/25 16:44 aspirin Allergy Mild Unknown Verified 06/01/25 16:44 azithromycin (From Zithromax) Allergy Mild Unknown Verified 06/01/25 16:44 bacitracin Allergy Mild Unknown Verified 06/01/25 16:44 cefaclor Allergy Mild Unknown Verified 06/01/25 16:44 cetirizine (From Zyrtec) Allergy Mild Unknown Verified 06/01/25 16:44 ciprofloxacin (From Cipro) Allergy Mild Unknown Verified 06/01/25 16:44 citalopram Allergy Mild Unknown Verified 06/01/25 16:44 clavulanic acid (From Allergy Mild Unknown Verified 06/01/25 16:44 Augmentin) clindamycin Allergy Mild Unknown Verified 06/01/25 16:44 codeine Allergy Mild Unknown Verified 06/01/25 16:44 diphtheria,pertussis Allergy Mild Unknown Verified 06/01/25 16:44 (acellular),te (From Adacel(Tdap Adolesn/Adult)(PF)) erythromycin base Allergy Mild Unknown Verified 06/01/25 16:44 ethinyl estradiol Allergy Mild Unknown Verified 06/01/25 16:44 fexofenadine (From Henrietta) Allergy Mild Unknown Verified 06/01/25 16:44 guaifenesin (From Dilaudid Allergy Mild Unknown Verified 06/01/25 16:44 Cough) hydromorphone Allergy Mild Unknown Verified 06/01/25 16:44 hydroxyzine Allergy Mild Unknown Verified 06/01/25 16:44 lactase Allergy Mild Unknown Verified 06/01/25 16:44 latex Allergy Mild Unknown Verified 06/01/25 16:44 lisinopril Allergy Mild Unknown Verified 06/01/25 16:44 loracarbef Allergy Mild Unknown Verified 06/01/25 16:44 meclizine Allergy Mild Unknown Verified 06/01/25 16:44 metoprolol Allergy Mild Unknown Verified 06/01/25 16:44 mold Allergy Mild Unknown Verified 06/01/25 16:44 morphine Allergy Mild Unknown Verified 06/01/25 16:44 neomycin (From Neosporin Allergy Mild Unknown Verified 06/01/25 16:44 ([id number])) nizatidine Allergy Mild Unknown Verified 06/01/25 16:44 norethindrone Allergy Mild Unknown Verified 06/01/25 16:44 ofloxacin (From Floxin) Allergy Mild Unknown Verified 06/01/25 16:44 oxycodone Allergy Mild Unknown Verified 06/01/25 16:44 Penicillins Allergy Mild Unknown Verified 06/01/25 16:44 polymyxin B (From Neosporin Allergy Mild Unknown Verified 06/01/25 16:44 ([id number])) prednisolone Allergy Mild Unknown Verified 06/01/25 16:44 silicone Allergy Mild Unknown Verified 06/01/25 16:44 Sulfa (Sulfonamide Allergy Mild Unknown Verified 06/01/25 16:44 Antibiotics) tetanus toxoid, adsorbed Allergy Mild Unknown Verified 06/01/25 16:44 zolpidem Allergy Mild Unknown Verified 06/01/25 16:44 mayonnaise Allergy Unknown Unknown Verified 06/01/25 16:44 wheat Allergy Unknown Unknown Verified 06/01/25 16:44 eggs Allergy Unknown Unknown Uncoded 06/01/25 16:44 Review of Systems Review of Systems: As reviewed above in HPI. [facility] Past Medical History Medical History Cardiomyopathy GERD (gastroesophageal reflux disease) Scoliosis Venous stasis CVA (cerebral vascular accident) Afib Social History Social History Smoking status: Never smoker Second hand tobacco smoke exposure: No Alcohol intake: never Substance use: never Substance use type: does not use Do You Feel Safe in your Home?: Yes Lack of Transportation: No Lack of Food: Never True Current Housing: I Have Housing Concerned About Future Housing: No Difficulty Paying Gas/Electric Bills: No Difficulty Paying for Meds: No Currently Unemployed: No Education: High School Diploma/GED Difficulty w/ Childcare or Family Care: No Living arrangements: other Additional living arrangements comments: [place] [facility] Spiritual care concerns: No Exam Narrative: GENERAL: Elderly, chronically ill-appearing, non-toxic, in no acute distress. HEAD: Normocephalic, atraumatic. RESPIRATORY: Airway patent, respirations nonlabored. Clear to auscultation bilaterally, no rales, rhonchi, wheezing. CARDIOVASCULAR: Regular rate and rhythm without murmurs, rubs, or gallops. ABDOMINAL: Soft, suprapubic fullness with bladder distention. Cholecystostomy tube in right upper quadrant with scant amount of drainage in tubing bag MUSCULOSKELETAL: Moves all extremities. No gross deformities. SKIN: Venous stasis discoloration of bilateral lower extremities without any signs of asymmetry or pain NEURO: A&O X3. Moving all extremities, speech clear, no facial asymmetry PSYCHIATRIC: Appropriate mood and affect. Normal interaction. Course Vital Signs Vital signs: Vital Signs Temperature 37.1 C 06/02/25 19:10 Pulse Rate 87 06/02/25 19:10 Respiratory Rate 19 06/02/25 19:10 Blood Pressure 147/109 H 06/02/25 19:10 Pulse Oximetry 96 06/02/25 19:10 Oxygen Delivery Room Air 06/02/25 19:10 Temperature 37.1 C 06/02/25 19:25 Pulse Rate 82 06/02/25 21:13 Respiratory Rate 20 06/02/25 21:13 Blood Pressure 132/69 06/02/25 21:13 Pulse Oximetry 100 06/02/25 21:13 Oxygen Delivery Room Air 06/02/25 19:10 MDM - Female Genitourinary MDM Narrative Medical decision making narrative: 70-year-old female past medical history including atrial fibrillation on amiodarone and Eliquis, hypertension, GERD. Patient presents to the emergency department with abdominal fullness and frequency/urgency sensation. She has a cholecystostomy tube in place that is draining. Patient was seen and evaluated yesterday with extensive medical workup with labs and imaging. She was found to have urinary retention and constipation. The constipation was relieved and she has been going to the bathroom much more and feels much better from a GI standpoint, but still having difficulty urinating. She declined a catheter yesterday for urinary retention, but is willing to undergo a catheterization today to relieve her urinary issues. Denies any new symptoms. Otherwise been doing well at the nursing facility. No fever, chills, chest pain, shortness of breath. Patient is in her chronic state of health, has suprapubic fullness and distension consistent with urinary retention. Review of patient's workup yesterday shows extensive discussions with the patient about River catheterization for relieving her urinary retention and she declined at that time. Her remaining workup revealed constipation which was treated with disimpaction, enema and medications. She has been feeling better from constipation standpoint. Has an upcoming appointment with her general surgeon. Patient has a normal reassuring set of vitals here without any significant blood pressure concerns. No tachycardia, fever, tachypnea or hypoxemia. Symptoms most consistent with urinary retention causing suprapubic fullness and pain. Bladder scan conducted shows 1591mL of urinary tension. She agreed to River catheterization at this time. Patient had immediate relief after River catheterization. Urinalysis shows 4+ bacteria but no signs of infection. Given patient's history of frequent urinary tract infections with a new indwelling River catheter we will discharge her home with antibiotics. Previous culture susceptibilities show susceptibility to Macrobid so she was given a 1st dose here and prescription sent with her upon discharge. Questions were answered she was safe for discharge via BLS ambulance back to facility. Medical Records Attestation: I reviewed the patient's medical records. Lab Data Attestation: I reviewed the patient's lab results. Labs: Lab Results 06/02/25 Range/Units 20:12 Urine Color Yellow (Yellow) Urine Appearance Clear (Clear) Urine pH 5.5 (5.0-9.0) Ur Specific [place] 1.019 (1.001-1.035) Urine Protein Negative (Negative) mg/dL Urine Glucose (UA) Negative (Negative) mg/dL Urine Ketones Negative (Negative) mg/dL Ur Blood (Man) Trace (Negative) Urine Nitrate Negative (Negative) Urine Bilirubin Negative (Negative) Urine Urobilinogen 0.2 (<2.0) mg/dL Leukocyte Esterase Rfl Negative (Negative) URMILA/UL Urine RBC 0-2 (0-2) /hpf Urine WBC 0-5 (0-3) /hpf Ur Squamous Epith Cells None seen (Few) /hpf Urine Bacteria 4+ H /hpf Urine Casts 0-2 Discharge Plan Discharge Clinical Impression: Acute urinary retention, Asymptomatic bacteriuria Patient Disposition: NH Longterm/Asst Living Condition: Stable Instructions: Antibiotic Form, Acute Urinary Retention in Women (ED) Additional Instructions: You had some urinary retention here that was treated with a River catheter. You have some bacteria in the urine without any signs of urinary tract infection and no symptoms of UTI but with your complex medical history will treat this with a course of antibiotics to make sure you do not develop any problem. Follow-up with Urology for an outpatient evaluation of the catheter and to have it removed at their direction. Return with any emergent concerns. Patient Language: Hebrew Prescriptions: New nitrofurantoin monohyd/m-cryst [Macrobid] 100 mg capsule 100 mg PO Q12H 7 Days Qty: 14 0RF Rx Instructions: must administer with a meal/food No Action acetazolamide 250 mg tablet 250 mg PO QAM Eliquis 5 mg tablet 5 mg PO Q12H Patient Comments: HOLD PREOP as instructed furosemide 40 mg tablet 40 mg PO QAM hydrocortisone 2 % lotion 1 applic topical TID PRN (Reason: skin irritation) pantoprazole 40 mg tablet,delayed release (DR/EC) 40 mg PO DAILY potassium chloride 20 mEq tablet,ER particles/crystals 40 meq PO DAILY amiodarone [Pacerone] 200 mg Tablet 200 mg PO DAILY@0800 30 Days Qty: 30 1RF losartan 25 mg Tablet 25 mg PO DAILY 30 Days Qty: 30 1RF cefdinir 300 mg Capsule 300 mg PO Q12HR 14 Days Qty: 28 0RF acetaminophen 325 mg capsule 650 mg PO Q6H PRN (Reason: pain) polyethylene glycol 3350 [Miralax] 17 gram/dose powder 17 g PO BID PRN (Reason: constipation) Qty: 119 0RF bisacodyl [Dulcolax (bisacodyl)] 5 mg tablet,delayed release (DR/EC) 5 mg PO BID PRN (Reason: constipation) Qty: 20 0RF Follow-up/Referrals: Joseph Arias MD [Physician] - 1 Week (Urinary retention, recurrent UTI) Farrukh Neri MD [Primary Care Provider] - Time of Disposition: 21:12
[2025-06-02 20:25] LABS: Add Urine Microscopic? YES; Appearance Urine Clear (Clear); Glucose Urine UA Negative (Negative); Leukocyte Esterase Ur Negative LEU/UL (Negative); Nitrate Urine Negative (Negative); Non Pathogenic Casts 0-2; Specific Grav Ur 1.019 (1.001-1.035)
[2025-06-02] MEDS: NITROFURANTOIN MONOHYD MACROCR 100 MG CAP PO (21:12)
[2025-06-02 21:13] VITALS: BP 132/69; PULSE 82; RESP 20; O2SAT 100
== END 2025-06-02 21:45 ==
PROVIDERS: Emergency Provider Student in an Organized Health Care Education/Training Program; PCP Family Medicine
DX: R33.9 Retention of urine, unspecified (principal); R82.71 Bacteriuria; I48.91 Unspecified atrial fibrillation; Z79.01 Long term (current) use of anticoagulants; I10 Essential (primary) hypertension; K21.9 Gastro-esophageal reflux disease without esophagitis
CPT/HCPCS: 51702; 81001; 99283; A9270

== ENCOUNTER 2025-06-05 12:11 | Outpatient (CLI) | payer MEDICARE, MEDICAID, SELFPAY ==
--- OUTSIDE RECORDS SUMMARY | 2025-06-05 12:21 | XMS_ITS | Encounter Summary ---
Author Organization [facility] Address [address] [place] [address] Phone Care Team Providers Care Manager Interventional Name Role Phone Meredith Montano MD Primary Care Provider [phone] Luis Fernando Hilton MD Unavailable [phone] Jesica Cook NP Primary Care Provider Farrah Sanz MD Unavailable [phone] No, Physician Primary Care Provider [phone] Encounter Details Date Type Department Care Team (Late st Contact Info) Description 07/31/2020 Telephone [facility] Medicine Obstetrics and Gynecology [address] [facility] Advanced Medicine 13th [place] [address] [place] [address] Jessie Guzman Social History Tobacco [...] on file Legal Sex Female 4:13 AM [employer] Gender Identity Female 06/13/2020 10:39 AM CDT Sexual Orientation Straight 06/13/2020 10 :39 AM CDT documented as of this encounter Plan of Treatment Not on file documented as of this encounter Visit Diagnoses Not on filedocumented in this encounter Care Teams Manager Interventional Relationship Specialty Start Date End Date Meredith Montano MD PCP - General 08/13/16 11/11/20 Jesica Cook NP [address] [place] [address] [place] [address] PCP - General Family Medicine 11/12/20 09/12/23 No, Physician PCP - General 09/13/23 Luis Fernando Hilton MD [address] [place] [address] [place] [address] [employer] Obstetrics and Gynecology 05/27/20 Farrah Sanz MD [address] [place] [address] [place] [address] Resident Obstetrics and Gynecology 11/12/20 documented as of this encounter
--- OUTSIDE RECORDS SUMMARY | 2025-06-05 12:22 | XMS_ITS | Clinical Summary ---
Author Organization [facility] Office Building [facility] Address [address] [place] [address] Care Team Providers Care Respiratory Director Name Role Phone Luis Fernando Hilton MD Unavailable [phone] Farrah Sanz MD Unavailable [phone] No, Physician Primary Care Provider [phone] Allergies Active Allergy Reactions Criticality Noted Date [...] Meclizine Unknown Mold Unknown 06/13/2020 Morphine Unknown Uiylqhzc-Mhiardkylp-Dey ymyxin Other (See comments) Low 06/13/2020 Blisters [...] 09/13/2023 Assessment & Plan (09/14/2023 12:17 PM SYSTEMS TECHNICIAN): Reason for admission. She was sitting in [...] (01/07/2021): Added automatically from request for surgery [id number] Mixed hyperlipidemia 11/14/2020 Overview (11/14/2020): Recommended patient take a statin. Received message back from patient she does not want to start statin. Assessment & Plan (09/14/2023 12:14 PM SYSTEMS TECHNICIAN): Patient previously informed that she should be [...] 11/12/2020 Assessment & Plan (09/14/2023 12:16 PM SYSTEMS TECHNICIAN): Presenting with bilateral foot swelling and dermatitis. Possibly allergic, most likely due to chronic changes (6 years). Venous stasis dermatitis is possible. Will trial 40 mg Solu-Medrol and see if she is treatment responsive. Assessment & Plan (11/12/2020 11:26 AM SYSTEMS TECHNICIAN): HPI: Condition is worsening , she hasn't [...] 11/12/2020 Assessment & Plan (11/12/2020 12:24 PM SYSTEMS TECHNICIAN): She talks to someone on the [facility] well line and [place] Warm line which are counseling services. They help her. She knows she needs therapy, but doesn't want to do that until she moves back to the [facility], but she doesn't have enough money to move. treatment significantly limited by social determinants of health Chronic allergic rhinitis 11/12/2020 Assessment & Plan (11/12/2020 11:27 AM SYSTEMS TECHNICIAN): HPI: Condition is stable Discussed environmental controls [...] we may need to send her to residential tech, but she wants to wait for now. Vitamin D deficiency 11/12/2020 Assessment & Plan (11/12/2020 11:14 AM SYSTEMS TECHNICIAN): HPI: Condition is stable A&P: Discussed/ordered labs, encouraged healthy, low carbohydrate lifestyle and at least 150min/week of exercise, continue on vit d3 5000units daily GERD (gastroesophageal reflux disease) Assessment & Plan (11/12/2020 12:23 PM SYSTEMS TECHNICIAN): HPI: Condition is stable Continue on current meds-esomeprazole 20mg as needed, encouraged healthy diet and exercise Avoid trigger foods including: carbonated beverages, caffeine, spicy, fried foods, tomatoes, cucumbers, and mint Avoid eating/drinking anything for at least 2 hours before bed. Sleep with bed propped. Discussed increased risk of cdif and vit B12 deficiency with residential use of PPI with pt, would like to remain on medication at this time treatment significantly limited by social determinants of health Arthritis 11/12/2020 Assessment & Plan (11/12/2020 12:22 PM SYSTEMS TECHNICIAN): Discussed with pt that I would recommend she not take ibuprofen Due to increased risk of GI bleed. Would recommend tylenol arthritis. Patient is in wheelchair during today's visit Blood pressure elevated without history of HTN 0 11/12/2020 Assessment & Plan (09/14/2023 12:21 PM SYSTEMS TECHNICIAN): BP elevated in ED 168/74. Pt denies [...] PCP. Assessment & Plan (11/12/2020 12:09 PM SYSTEMS TECHNICIAN): Patient states she has white coat syndrome. She is very anxious about being here as a new patient today with her last doctor's experience being quite negative in [place]. She also did not take her triamterene hydrochlorothiazide today either due to traveling to the doctor's office today. Class 2 severe obesity due t o excess calories with serious comorbidity and body mass index (BMI) of 39.0 to 39.9 in adult 11/12/2020 Assessment & Plan (11/12/2020 12:23 PM SYSTEMS TECHNICIAN): HPI: Condition is stable A&P: Healthy, low [...] in much longer they will become mushy [place] and/or coconut flour instead of regular flour [...] pork rinds For yogurt, try [employer] setswana yogurt Use Pinterest for recipe ideas. Type [...] BID Assessment & Plan (11/12/2020 11:16 AM SYSTEMS TECHNICIAN): HPI: Condition is Active and being treated at [facility]. A&P: Discussed/ordered labs, encouraged healthy, low carbohydrate lifestyle and at least 150min/week of exercise, continue follow up with Dr. Sanz (bottom pounder cement shoes) and Dr. Hilton (bottom pounder cement shoes) She is awaiting appointment for hysterectomy. She has appointment for reevaluation in Nov at [facility]. She is taking medroxyprogesterone 10mg tablet daily Generalized anxiety disorder 06/13/2020 Assessment & Plan (11/12/2020 12:23 PM SYSTEMS TECHNICIAN): Patient reiterated no suicidal thoughts at this [...] is living in a housing unit in [facility]. She was homeless and lived [...] 06/13/2020 Assessment & Plan (11/12/2020 11:28 AM SYSTEMS TECHNICIAN): HPI: Condition is stable A&P: Discussed/ordered labs, encouraged healthy, low carbohydrate lifestyle and at least 150min/week of exercise, continue follow up with Dr. Sanz (bottom pounder cement shoes) for endometrial cancer. She has not been taking ferrous sulfate since Sep 2020 Discussed with pt that I would recommend she not take ibuprofen Due to increased risk of GI bleed. Would recommend tylenol arthritis. Resolved Problems Problem Noted Date Diagnosed Date Resolved Date Moderate protein-calorie malnutrition 06/11/2024 08/21/2024 Encounters Date Type Department Care Team Description 03/08/2025 Orders Only [facility] Cardiology [address] [place] [address] Chuck Mckenzie MD from Last [...] drink = 0.6 oz pur e alcohol) [facility] Utilities Answer Date Recorded In the past 12 months has e [employer], gas, oil, or water [employer] threatened to shut off services in your home? No 08/20/2024 Social Connection and Isolation Panel Answer Date Recorded In a typical week, how many times do you talk on the phone with family, friends, or neighbors? Three times a week 08/20/2024 How often do you get togethe r with friends or relatives? Never 08/20/2024 How often do you attend [facility] or pentecostalism services? Never 08/20/2024 Do you belong to any clubs o r organizations such as latter-day groups, unions, fraternal or athletic groups, or [...] any time in the past 12 m [facility], were you homeless or living [...] on file Legal Sex Female 4:13 AM SYSTEMS TECHNICIAN Gender Identity Female 06/13/2020 10:39 AM CDT Sexual Orientation Straight 06/13/2020 10 :39 AM CDT Obstetrics History Para Term AB IAB SAB Ectopic Multiple Livin g Live Births 0 0 0 0 0 0 0 0 0 0 0 Last Filed Vital Signs Vital Sign Reading Time Taken Comments Blood Pressure 110/62 08/24/2024 3:45 PM SYSTEMS TECHNICIAN Pulse 76 08/24/2024 2:31 PM SYSTEMS TECHNICIAN Temperature 36.2 C (97.2 F) 08/24/2024 2:31 PM SYSTEMS TECHNICIAN Respiratory Rate 18 08/24/2024 2:31 PM SYSTEMS TECHNICIAN Oxygen Saturation 91% 08/24/2024 2:31 PM SYSTEMS TECHNICIAN Inhaled Oxygen Concentration - - Weight 96 [...] HEPATITIS C ANTIBODY Routine 11/12/2020 11:46 AM SYSTEMS TECHNICIAN Encounter for hepatitis C screening test for [...] * Hepatitis C antibody (11/12/2020 11:46 AM SYSTEMS TECHNICIAN) Hep C Ab Nonreactive Nonreactive [facility] [...] revised on 2020. Testing performed by: [facility], [address] [place] [address], [place]., [address] Blood specimen (specimen) 11/12/2020 11:46 AM SYSTEMS TECHNICIAN 11/12/2020 4:32 PM SYSTEMS TECHNICIAN us Jesica Cook NP LAB MICROBIOLOGY - GENERAL ORDERABLES Final Result [facility] ([place]) [facility] Department [place] [address] from Last 3 Months or Most Recently Relevant to Health Maintenance Insurance [place] [address] [place] [address] MEDICARE MEDICARE IDPA Advance Directives For more information, please contact: [phone] * Full Code (Latest Code Status on File) Date Activated Date Inactivated Comments 08/19/2024 12:11 AM 08/24/2024 11:38 PM * Full Code Date Activated Date Inactivated Comments 06/14/2024 11:12 AM 06/15/2024 6:35 PM * Full Code Date Activated Date Inactivated Comments 05/26/2020 3:06 AM 05/27/2020 10:48 PM Care Teams Respiratory Director Relationship Specialty Start Date End Date No, Physician PCP - General 09/13/23 Luis Fernando Hilton MD [address] [place] [address] [place] [address] Athletic Team Physician Obstetrics and Gynecology 05/27/20 Farrah Sanz MD [address] [place] [address] [place] [address] Resident Obstetrics and Gynecology 11/12/20
[2025-06-05 12:45] LABS: Hematocrit 37.9 % (35.0-42.0); Hemoglobin 11.4 g/dL (11.7-13.8); Mean Corpuscular HGB Conc 30.1 g/dL (32-36); Mean Corpuscular Hemoglobin 28.1 pg (27.0-31.0); Mean Corpuscular Volume 93.3 fL (78.0-102.0); Platelet Count Result 484 K/mm3 (150-420); Red Blood Count 4.06 M/mm3 (4.20-5.40); White Blood Count 7.2 K/mm3 (4.8-10.8)
[2025-06-05 13:34] LABS: Anion Gap 9 mmol/L (4-12); Blood Urea Nitrogen 17 mg/dL (7-17); Calcium 10.2 mg/dL (8.4-10.2); Carbon Dioxide 26 mmol/L (22-30); Chloride 103 mmol/L (98-107); Estimated Glomerular Filt Rate > 60; Glucose 109 mg/dL (65-110); Osmolality Calculated 288 mOsm/kg (285-295); Potassium 4.8 mmol/L (3.4-5.0); Sodium 138 mmol/L (137-145)
== END 2025-06-05 12:12 | disposition home or self-care (01) ==
PROVIDERS: PCP Family Medicine; Visit Provider Family Medicine
DX: D64.9 Anemia, unspecified (principal)
CPT/HCPCS: 36415; 80048; 85027; 85652

== ENCOUNTER 2025-06-08 13:05 | Observation (INO) | payer MEDICARE, MEDICAID, SELFPAY ==
[2025-05-28 11:14] VITALS: BMI 26.6
--- NOTE | 2025-05-28 11:38 | PC.NURSE ---
Report to the Outpatient Waiting Room, entrance under the green pavilion located off [facility], at time __1000am on date ___06/07/25____. Planned Procedure Time: __1200pm .? Time changes happen often and if your time is changed the preop area will call you the afternoon before. - You and your visitor will be asked to self-screen and do not enter if you have any COVID symptoms. Please call surgeon if you need to reschedule. - A mask is optional within the hospital at this time. Patients may have clear liquids (water, carbonated beverages, clear teas, apple juice) until 3 hours prior to surgery with a maximum of 20 ounces. - No food from midnight until time of surgery and no smoking, or chewing tobacco (or any form of nicotine). No chewing gum, candy or mints. (0900am) Take only the following medications with a SIP of water on the morning of surgery: Pacerone, Tylenol if needed DO NOT STOP ANY OF YOUR OTHER PRESCRIPTION MEDICATIONS PRIOR TO SURGERY EXCEPT THE FOLLOWING Hold all vitamins and supplements for 3 days per anesthesiologist. Date of last dose is 06/03/25 Medications to discontinue per physician Brady per Dr Gaming office Date to take last dose 06/03/25 Please no make-up, nail mohawk, hairspray, perfume, deodorant, or body powder the day of surgery.? No jewelry (including any body piercings) or valuables the day of surgery, leave them at home.? Please take a shower or bath the night before, or the morning of, surgery with an antibacterial soap.? Wear comfortable, loose fitting clothing.? - Jewelry must be removed prior to entering the operating room.? Rings and piercings that are not removed may be cut off. - The hospital will not accept responsibility for valuables.? - Please leave all valuables, including medications, at home the day of surgery. If you are going home after surgery, a licensed pedicab driver must drive you home.? - NO public transportation without another adult if you receive anesthesia. - We recommend that an adult stay with you for 24 hours following discharge. - We also recommend that you do not drive, make important decision, drink alcoholic beverages, or take any drugs that were not prescribed by your health care provider for at least 24 hours after your discharge time. Follow any additional instructions given to you from your surgeon. Telephone instructions given to __TAMMY White at [facility], and Faxed this note w info to [phone] Joseph Wells RN and that pt needs Labs done at [facility], NEEDS H &H, PT/INR, PTT, CMP, Amylase, Lipase, Hepatic Panel - orders in system-and asked if any additional questions and then verbalized understanding. Patient advised to call surgeon office or pre surgery nurse liaison [phone] if any additional questions.
[2025-06-07] VITALS (16 sets, daily range): BP systolic 116–141; BP diastolic 55–90; PULSE 64–85; RESP 14–18; TEMP 36.5–36.8; O2SAT 93–100; BMI 26.5
[2025-06-07] MEDS: LACTATED RINGERS 1,000 ML 30 ML IV CONT ×2 (10:15→13:55)
[2025-06-07] MEDS: KETOROLAC 15 MG/ML VIAL (*BKC) IV PUSH (11:23)
[2025-06-07] MEDS: ONDANSETRON INJ 4 MG/2 ML VIAL IV PUSH (11:23)
--- NOTE | 2025-06-07 11:40 | WPDHPUPDATE1 ---
History and Physical Update Update Date/Time: 06/07/25 11:40 History and Physical has been reviewed, including an updated exam of the patient. There are NO changes in the patient's condition. Risks, benefits, and alternatives have been discussed and questions answered. Patient agrees to proceed with procedure.
--- NOTE | 2025-06-07 11:40 | PM.IMHP ---
H&P: HPI History of Present Illness Date/Time: 06/07/25 11:40 Chief Complaint: Acute cholecystitis Narrative: 70 yo woman presents for lap abdirahman. She was previously hospitalized for Acute cholecystitis and had a percutaneous drain placed. She has been managing said drain since then. She denies any changes with the drain care since being back at her facility. Review of Systems Review of Systems: All systems reviewed & are unremarkable except as noted in HPI and below PMFSH Past Medical History Medical History Cardiomyopathy GERD (gastroesophageal reflux disease) Scoliosis Venous stasis CVA (cerebral vascular accident) Afib Social History Social History Smoking status: Never smoker Second hand tobacco smoke exposure: No Alcohol intake: never Substance use: never Substance use type: does not use Do You Feel Safe in your Home?: Yes Lack of Transportation: No Lack of Food: Never True Current Housing: I Have Housing Concerned About Future Housing: No Difficulty Paying Gas/Electric Bills: No Difficulty Paying for Meds: No Currently Unemployed: No Education: High School Diploma/GED Difficulty w/ Childcare or Family Care: No Living arrangements: other Additional living arrangements comments: [facility] Spiritual care concerns: No Meds Home Medications and Allergies Home Medications ?Medication ?Instructions ?Recorded ?Confirmed ?Type acetazolamide 250 mg tablet 250 mg PO QAM 02/26/25 05/28/25 History apixaban 5 mg tablet (Eliquis) 5 mg PO Q12H 02/26/25 06/07/25 History furosemide 40 mg tablet 40 mg PO QAM 02/26/25 05/28/25 History pantoprazole 40 mg tablet,delayed 40 mg PO DAILY 03/04/25 05/28/25 History release potassium chloride 20 mEq 40 meq PO DAILY 03/04/25 05/28/25 History tablet,extended release(part/cryst) amiodarone 200 mg tablet (Pacerone) 200 mg PO DAILY@0800 30 days #30 03/12/25 05/28/25 Rx tabs cefdinir 300 mg capsule 300 mg PO Q12HR 14 days #28 caps 03/12/25 05/28/25 Rx losartan 25 mg tablet 25 mg PO DAILY 30 days #30 tabs 03/12/25 05/28/25 Rx hydrocortisone 2 % lotion 1 applic topical TID PRN skin 03/28/25 05/28/25 History irritation acetaminophen 325 mg capsule 650 mg PO Q6H PRN pain 05/28/25 05/28/25 History bisacodyl 5 mg tablet,delayed 5 mg PO BID PRN constipation #20 06/02/25 Rx release (Dulcolax (bisacodyl)) tabs nitrofurantoin 100 mg PO Q12H 7 days #14 caps 06/02/25 Rx monohydrate/macrocrystals 100 mg capsule (Macrobid) polyethylene glycol 3350 17 17 g PO BID PRN constipation #119 06/02/25 Rx gram/dose oral powder (Miralax) grams Allergies Allergy/AdvReac Type Severity Reaction Status Date / Time adhesive tape Allergy Mild Unknown Verified 06/07/25 11:21 amoxicillin (From Augmentin) Allergy Mild Unknown Verified 06/07/25 11:21 aspirin Allergy Mild Unknown Verified 06/07/25 11:21 azithromycin (From Zithromax) Allergy Mild Unknown Verified 06/07/25 11:21 bacitracin Allergy Mild Unknown Verified 06/07/25 11:21 cefaclor Allergy Mild Unknown Verified 06/07/25 11:21 cetirizine (From Zyrtec) Allergy Mild Unknown Verified 06/07/25 11:21 ciprofloxacin (From Cipro) Allergy Mild Unknown Verified 06/07/25 11:21 citalopram Allergy Mild Unknown Verified 06/07/25 11:21 clavulanic acid (From Allergy Mild Unknown Verified 06/07/25 11:21 Augmentin) clindamycin Allergy Mild Unknown Verified 06/07/25 11:21 codeine Allergy Mild Unknown Verified 06/07/25 11:21 diphtheria,pertussis Allergy Mild Unknown Verified 06/07/25 11:21 (acellular),te (From Adacel(Tdap Adolesn/Adult)(PF)) erythromycin base Allergy Mild Unknown Verified 06/07/25 11:21 ethinyl estradiol Allergy Mild Unknown Verified 06/07/25 11:21 fexofenadine (From Henrietta) Allergy Mild Unknown Verified 06/07/25 11:21 guaifenesin (From Dilaudid Allergy Mild Unknown Verified 06/07/25 11:21 Cough) hydromorphone Allergy Mild Unknown Verified 06/07/25 11:21 hydroxyzine Allergy Mild Unknown Verified 06/07/25 11:21 lactase Allergy Mild Unknown Verified 06/07/25 11:21 latex Allergy Mild Unknown Verified 06/07/25 11:21 lisinopril Allergy Mild Unknown Verified 06/07/25 11:21 loracarbef Allergy Mild Unknown Verified 06/07/25 11:21 meclizine Allergy Mild Unknown Verified 06/07/25 11:21 metoprolol Allergy Mild Unknown Verified 06/07/25 11:21 mold Allergy Mild Unknown Verified 06/07/25 11:21 morphine Allergy Mild Unknown Verified 06/07/25 11:21 neomycin (From Neosporin Allergy Mild Unknown Verified 06/07/25 11:21 ([id number])) nizatidine Allergy Mild Unknown Verified 06/07/25 11:21 norethindrone Allergy Mild Unknown Verified 06/07/25 11:21 ofloxacin (From Floxin) Allergy Mild Unknown Verified 06/07/25 11:21 oxycodone Allergy Mild Unknown Verified 06/07/25 11:21 Penicillins Allergy Mild Unknown Verified 06/07/25 11:21 polymyxin B (From Neosporin Allergy Mild Unknown Verified 06/07/25 11:21 ([id number])) prednisolone Allergy Mild Unknown Verified 06/07/25 11:21 silicone Allergy Mild Unknown Verified 06/07/25 11:21 Sulfa (Sulfonamide Allergy Mild Unknown Verified 06/07/25 11:21 Antibiotics) tetanus toxoid, adsorbed Allergy Mild Unknown Verified 06/07/25 11:21 zolpidem Allergy Mild Unknown Verified 06/07/25 11:21 mayonnaise Allergy Unknown Unknown Verified 06/07/25 11:21 wheat Allergy Unknown Unknown Verified 06/07/25 11:21 eggs Allergy Unknown Unknown Uncoded 06/07/25 11:21 Vital Signs Vital Signs - 24 hr 06/07/25 11:29 Temperature 97.7 F Pulse Rate 75 Respiratory Rate 16 Blood Pressure 140/77 Pulse Oximetry 98 Oxygen Delivery Room Air Exam Const: General: no acute distress and alert Orientation/consciousness: patient oriented x3 HENMT: Head: normocephalic and atraumatic Ears: hearing grossly normal bilaterally Face/Nose/Sinus: Normal nares present Mouth: Yes Normal oral and palatal mucosa present Eyes: Periorbital: periorbital findings normal Sclera: sclerae normal EOM: EOMs intact bilaterally Neck: Neck: normal visual inspection, no lymphadenopathy and trachea midline Chest: Chest palpation & inspection: normal inspection of the chest Resp: Effort & Inspection: normal respiratory effort Auscultation: clear to auscultation bilaterally Cardio: Jugular venous distension: no JVD Rate: regular rate Rhythm: regular rhythm Heart sounds: S1 normal heart sound present and S2 normal heart sound present Peripheral pulses: Peripheral pulses 2+ throughout GI: Inspection: normal to inspection GI Palp: Yes Soft to palpation, No Tenderness to palpation present (GI), No Guarding due to palpation present (GI) and No Rebound tenderness present Percussion: Yes normal to percussion Auscultation: normal bowel sounds : General: Yes no CVA tenderness Back/Spine/Pelvis: Back: no CVA tenderness Neuro: General: patient oriented x3, no focal motor deficits and CN's II-XI intact bilaterally Cognition (Neuro): normal cognition Speech: normal speech Extrem: General: capillary refill normal and no clubbing, cyanosis or edema Assessment and Plan Assessment and plan (1) Acute calculous cholecystitis: Code(s): K80.00 - Calculus of gallbladder with acute cholecystitis without obstruction Status: Acute Assessment and Plan: I have recommended laparoscopic cholecystectomy, possible open. I have discussed the procedure, risks, benefits, and alternatives with the patient. All questions answered. No changes since last seen in office.
--- NOTE | 2025-06-07 11:42 | WPDANESEPPF ---
Anes - Initial Pre Proc Eval Procedure: Operation Date: 06/07/25 12:00 Proposed Procedures p Laparoscopic Cholecystectomy, Possible Open - Tim Gaming DO Date/Time: 06/07/25 11:42 Surgeon: Tim Gaming DO Pre Op Diagnosis: acute calculous cholecystitis Patient Data Age: 70 Gender: F Height: 1.63 m Weight: 70.2 kg Last Vital Signs Temp 36.5 C 06/07/25 11:29 Pulse 75 06/07/25 11:29 Resp 16 06/07/25 11:29 BP 140/77 06/07/25 11:29 Pulse Ox 98 06/07/25 11:29 O2 Del Method Room Air 06/07/25 11:29 Allergies Allergy/AdvReac Type Severity Reaction Status Date / Time adhesive tape Allergy Mild Unknown Verified 06/07/25 11:21 amoxicillin (From Augmentin) Allergy Mild Unknown Verified 06/07/25 11:21 aspirin Allergy Mild Unknown Verified 06/07/25 11:21 azithromycin (From Zithromax) Allergy Mild Unknown Verified 06/07/25 11:21 bacitracin Allergy Mild Unknown Verified 06/07/25 11:21 cefaclor Allergy Mild Unknown Verified 06/07/25 11:21 cetirizine (From Zyrtec) Allergy Mild Unknown Verified 06/07/25 11:21 ciprofloxacin (From Cipro) Allergy Mild Unknown Verified 06/07/25 11:21 citalopram Allergy Mild Unknown Verified 06/07/25 11:21 clavulanic acid (From Allergy Mild Unknown Verified 06/07/25 11:21 Augmentin) clindamycin Allergy Mild Unknown Verified 06/07/25 11:21 codeine Allergy Mild Unknown Verified 06/07/25 11:21 diphtheria,pertussis Allergy Mild Unknown Verified 06/07/25 11:21 (acellular),te (From Adacel(Tdap Adolesn/Adult)(PF)) erythromycin base Allergy Mild Unknown Verified 06/07/25 11:21 ethinyl estradiol Allergy Mild Unknown Verified 06/07/25 11:21 fexofenadine (From Henrietta) Allergy Mild Unknown Verified 06/07/25 11:21 guaifenesin (From Dilaudid Allergy Mild Unknown Verified 06/07/25 11:21 Cough) hydromorphone Allergy Mild Unknown Verified 06/07/25 11:21 hydroxyzine Allergy Mild Unknown Verified 06/07/25 11:21 lactase Allergy Mild Unknown Verified 06/07/25 11:21 latex Allergy Mild Unknown Verified 06/07/25 11:21 lisinopril Allergy Mild Unknown Verified 06/07/25 11:21 loracarbef Allergy Mild Unknown Verified 06/07/25 11:21 meclizine Allergy Mild Unknown Verified 06/07/25 11:21 metoprolol Allergy Mild Unknown Verified 06/07/25 11:21 mold Allergy Mild Unknown Verified 06/07/25 11:21 morphine Allergy Mild Unknown Verified 06/07/25 11:21 neomycin (From Neosporin Allergy Mild Unknown Verified 06/07/25 11:21 ([id number])) nizatidine Allergy Mild Unknown Verified 06/07/25 11:21 norethindrone Allergy Mild Unknown Verified 06/07/25 11:21 ofloxacin (From Floxin) Allergy Mild Unknown Verified 06/07/25 11:21 oxycodone Allergy Mild Unknown Verified 06/07/25 11:21 Penicillins Allergy Mild Unknown Verified 06/07/25 11:21 polymyxin B (From Neosporin Allergy Mild Unknown Verified 06/07/25 11:21 ([id number])) prednisolone Allergy Mild Unknown Verified 06/07/25 11:21 silicone Allergy Mild Unknown Verified 06/07/25 11:21 Sulfa (Sulfonamide Allergy Mild Unknown Verified 06/07/25 11:21 Antibiotics) tetanus toxoid, adsorbed Allergy Mild Unknown Verified 06/07/25 11:21 zolpidem Allergy Mild Unknown Verified 06/07/25 11:21 mayonnaise Allergy Unknown Unknown Verified 06/07/25 11:21 wheat Allergy Unknown Unknown Verified 06/07/25 11:21 eggs Allergy Unknown Unknown Uncoded 06/07/25 11:21 Home Medications ?Medication ?Instructions ?Recorded ?Confirmed ?Type acetazolamide 250 mg tablet 250 mg PO QAM 02/26/25 05/28/25 History apixaban 5 mg tablet (Eliquis) 5 mg PO Q12H 02/26/25 06/07/25 History furosemide 40 mg tablet 40 mg PO QAM 02/26/25 05/28/25 History pantoprazole 40 mg tablet,delayed 40 mg PO DAILY 03/04/25 05/28/25 History release potassium chloride 20 mEq 40 meq PO DAILY 03/04/25 05/28/25 History tablet,extended release(part/cryst) amiodarone 200 mg tablet (Pacerone) 200 mg PO DAILY@0800 30 days #30 03/12/25 05/28/25 Rx tabs cefdinir 300 mg capsule 300 mg PO Q12HR 14 days #28 caps 03/12/25 05/28/25 Rx losartan 25 mg tablet 25 mg PO DAILY 30 days #30 tabs 03/12/25 05/28/25 Rx hydrocortisone 2 % lotion 1 applic topical TID PRN skin 03/28/25 05/28/25 History irritation acetaminophen 325 mg capsule 650 mg PO Q6H PRN pain 05/28/25 05/28/25 History bisacodyl 5 mg tablet,delayed 5 mg PO BID PRN constipation #20 06/02/25 Rx release (Dulcolax (bisacodyl)) tabs nitrofurantoin 100 mg PO Q12H 7 days #14 caps 06/02/25 Rx monohydrate/macrocrystals 100 mg capsule (Macrobid) polyethylene glycol 3350 17 17 g PO BID PRN constipation #119 06/02/25 Rx gram/dose oral powder (Miralax) grams Patient hx anesthesia problems: none Family hx anesthesia problems: none Results Review: All pre-operative results and documents have been reviewed as part of the pre-operative evaluation. [facility] Past Medical History Medical History Cardiomyopathy GERD (gastroesophageal reflux disease) Scoliosis Venous stasis CVA (cerebral vascular accident) Afib Social History Social History Smoking status: Never smoker Second hand tobacco smoke exposure: No Alcohol intake: never Substance use: never Substance use type: does not use Do You Feel Safe in your Home?: Yes Lack of Transportation: No Lack of Food: Never True Current Housing: I Have Housing Concerned About Future Housing: No Difficulty Paying Gas/Electric Bills: No Difficulty Paying for Meds: No Currently Unemployed: No Education: High School Diploma/GED Difficulty w/ Childcare or Family Care: No Living arrangements: other Additional living arrangements comments: [facility] Spiritual care concerns: No Anes - Eval Final PreProcedure Day of Procedure 06/07/25 11:42 Patient weight: overweight Heart: regular rate and rhythm Lungs: clear to auscultation Airway: Mallampati scale class III and special considerations poor dentition Neurological: alert and oriented Last oral intake: >/= 8 hours ASA classification: IV Emergent: no Anesthetic plan: proceed Anesthesia type and monitoring: general ETT and standard monitoring Results Review: All pre-operative results and documents have been reviewed as part of the pre-operative evaluation. Informed Consent: The patient's anesthetic plan and its attendant risks and benefits were discussed with the patient/family/POA. Questions were solicited and answers provided to the satisfaction of the patient/family/POA.
[2025-06-07] MEDS: ceFAZolin 2 GM in SODIUM CHLORIDE 0.9% IV 50 ML 100 ML IVPB (12:16)
[2025-06-07] MEDS: BUPIVACAINE/EPINEPHRINE 0.5% 30 ML VIAL INFILTRATE (12:16)
--- NOTE | 2025-06-07 13:03 | S_PTH ---
PATIENT: Dolly Dinh LOC: [id number] #:[id number] AGE/SX: 70/F ROOM: 319 RE06/08/[address]: Mahi Rocha APRN : 1955 BED: 01 DIS: 06/10/2025 SPEC #: [id number] RECD: 06/07/25 13:58 STATUS: RAIZA REVineet #: [id number] DAVID: 06/07/25 13:[address]: Tim Gaming DEPT: [facility] Surgical RECD BY: Iglesia Valerio ENTERED: 06/07/25 13:58 SP TYPE: Surgical OTHR DR: Farrukh Neri MD Tissues: A - Gallbladder Procedures: Hematoxylin and Eosin Stain Gross and Microscopic Level 3
--- NOTE | 2025-06-07 13:45 | W.PM.PROC2 ---
Procedure Note - Detailed Date of Procedure 06/07/25 Pre-op Diagnosis acute calculous cholecystitis Post-op Diagnosis Same Procedure Performed Laparoscopic cholecystectomy Surgeon Tim Gaming, DO Anesthesia General and Local (0.5% bupivacaine) Indications This is a 70-year-old woman who presented with a prior history of sepsis related to acute calculous cholecystitis about 3 months ago. She was too unstable for surgery at the time and underwent percutaneous cholecystostomy tube placement. She has been managing the tube since it was placed and has completely recovered from the previous episode. Discussions were made with the patient about treatment options and decision was made to proceed with laparoscopic cholecystectomy, possible open. Findings Laparoscopic cholecystectomy was performed. There was an area of adhesion of the omentum up to the area of the percutaneous drain. This was right near the hepatic flexure of the colon as well. The adhesions were carefully taken down using hook electrocautery and care was taken to stay far enough away from the bowel. The gallbladder appeared decompressed and somewhat contracted. There was still a gallstone lodged in the neck of the gallbladder. The cystic duct appeared to taper down to normal size just beyond this. There were a few pericholecystic adhesions but most of the inflammatory signs had significantly improved. The gallbladder was removed and sent to the lab for pathology and the drain was completely removed. Description of Procedure Procedure as well as risks, benefits, and alternatives were discussed with patient. Written consent was obtained and placed in chart prior to procedure. The patient was brought back to surgical suite. Patient was placed in supine position on operating table. Time-out was done to confirm patient and procedure. Patient was then intubated by the anesthesia department. Abdomen was prepped and draped in sterile fashion using chlorhexidine prep. 0.5% bupivacaine with epinephrine was infiltrated at each site of incision. A 5 millimeter incision was made near the umbilicus, and a 5 millimeter Optiview trocar was advanced through the abdominal layers under direct visualization. Once inside the abdominal cavity, carbon dioxide was insufflated to create a pneumoperitoneum. The camera was inserted and the abdomen was inspected. No immediate abnormalities were identified. The patient was placed in reverse Trendelenburg position and rotated slightly to the left. An 11 millimeter incision was made in the subxiphoid region, and an 11 millimeter trocar was inserted under direct visualization. Two 5 millimeter incisions were made in the right upper quadrant, and two 5 millimeter trocars were inserted under direct visualization. The gallbladder was identified and grasped at the fundus and retracted superiorly. It was then grasped at the infundibulum retracted laterally. Careful dissection around the neck of the gallbladder was performed using blunt dissection with a [place] grasper and hook electrocautery. The cystic duct was identified, and a window was created behind it. The cystic artery was also identified and a window was created behind it. The critical view of safety was identified, visualizing the cystic duct running directly into the neck of the gallbladder, and the cystic artery running directly into the wall of the gallbladder. A 5 millimeter clip warehouse logistics coordinator was then used to place 2 clips proximally and 1 clip distally on both the cystic duct and cystic artery. They were then both transected using endoscopic scissors. Once safely away from the hiram hepatitis, the gallbladder was dissected free from the liver bed using hook electrocautery. Hemostasis was achieved along the way. As we got to the upper part of the body of the gallbladder the drain was cut at the level of the skin and completely removed. The gallbladder was removed completely and then removed through the subxiphoid port. The liver bed was then inspected. Hemostasis appeared adequate, and our clips appeared secure. The area was gently irrigated with sterile saline. No other abnormalities were seen. The patient was flattened out in bed, and 1 final inspection was made around the abdominal cavity. The subxiphoid port was removed, and a Maximo Jose cone was used to approximate the fascia with an 0-Vicryl simple interrupted suture. The remaining ports were then removed under direct visualization, the camera was removed, and the pneumoperitoneum was released. The skin of the incisions was approximated using 4-0 Monocryl subcuticular sutures. Exofin glue was applied on top. The patient was then awakened from anesthesia, extubated, and transferred to recovery. Estimated Blood Loss 20 Pathology Yes (Gallbladder) Complications No immediate complications Condition Stable Disposition Observation [facility] Billing Surgery - Charge Forward: Surgery Billing
[2025-06-07] MEDS: fentaNYL CITRATE INJ (*CRX) 100 MCG/2 ML VIAL 25 MCG IV PUSH ×2 (13:49→14:12)
[2025-06-07] MEDS: LACTATED RINGERS 1,000 ML 100 ML IV CONT (17:29)
[2025-06-07] MEDS: IBUPROFEN IV 800 MG/200 ML 800 MG/200 ML BAG 400 MG IVPB (17:30)
--- NOTE | 2025-06-07 17:49 | ADMGEN ---
This patient, Dolly Dinh, was admitted to 3 [facility] Surg Room 319-01. Patient/family oriented to hospital policies and general routines including ID bracelet, bed and alarms, visiting hours, pain management, procedures, bathroom and other care routines, personal items, smoking policy, room service/diet, and visiting hours. Information on how to activate the Rapid Response Team has been discussed. Patient/Family are encouraged to report perceived risks to care and to ask questions if they do not understand what they are told or what they should do.
[2025-06-07] MEDS: CEFDINIR 300 MG CAPSULE PO (21:45)
[2025-06-08 01:17] VITALS: BP 131/79; PULSE 87; RESP 18; TEMP 36.6; O2SAT 95
[2025-06-08] MEDS: IBUPROFEN IV 800 MG/200 ML 800 MG/200 ML BAG 400 MG IVPB ×3 (02:56→20:40)
[2025-06-08 05:17] VITALS: BP 131/81; PULSE 88; RESP 18; TEMP 36.7; O2SAT 99
[2025-06-08 06:24] LABS: Hematocrit 30.2 % (37.0-47.0); Hemoglobin 9.4 g/dL (12.0-15.0); Mean Corpuscular HGB Conc 31.1 g/dl (32-36); Mean Corpuscular Hemoglobin 28.7 pg (26-34); Mean Corpuscular Volume 92.1 fl (80-100); Platelet Count Result 378 k/mm3 (150-375); Red Blood Count 3.28 M/mm3 (4.2-5.4); White Blood Count 7.5 K/mm3 (4.5-10.0)
[2025-06-08 06:45] LABS: Anion Gap 5 mmol/L (4-12); Blood Urea Nitrogen 17 mg/dL (7-17); Calcium 9.0 mg/dL (8.4-10.2); Carbon Dioxide 25 mmol/L (22-30); Chloride 103 mmol/L (98-107); Estimated CRCL calculation 50 ml/min; Estimated Glomerular Filt Rate > 60; Glucose 98 mg/dL (65-110); Potassium 4.2 mmol/L (3.4-5.0); Sodium 133 mmol/L (137-145)
[2025-06-08] MEDS: LOSARTAN POTASSIUM 25 MG TABLET PO (10:49)
[2025-06-08] MEDS: acetaZOLAMIDE TAB 250 MG TABLET PO (10:49)
[2025-06-08] MEDS: CEFDINIR 300 MG CAPSULE PO ×2 (10:49→20:45)
[2025-06-08 10:50] VITALS: PULSE 88
[2025-06-08] MEDS: AMIODARONE HCL 200 MG TABLET PO (10:50)
[2025-06-08] MEDS: ENOXAPARIN 40 MG/0.4 ML SYRINGE SUB-Q (10:50)
[2025-06-08] MEDS: POTASSIUM CHLORIDE 20 MEQ ER TABLET 40 MEQ PO (10:51)
[2025-06-08] MEDS: FUROSEMIDE 40 MG TABLET PO (10:51)
[2025-06-08] MEDS: PANTOPRAZOLE 40 MG TABLET PO (10:51)
--- NOTE | 2025-06-08 11:49 | PM.PNGS ---
Progress Note: A&P Assessment and Plan (1) Acute calculous cholecystitis: Code(s): K80.00 - Calculus of gallbladder with acute cholecystitis without obstruction Status: Chronic Assessment and Plan: Having considerable postoperative pain. Not eating very much either. Wounds look good and patient has active bowel sounds. Up today and continue analgesics. Recheck labs in a.m. as well as clinical follow-up. 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 Status: Chronic Assessment and Plan: Continue to hold Eliquis (4) Anemia: Qualifiers: Anemia type: unspecified type Qualified Code(s): D64.9 - Anemia, unspecified Code(s): D64.9 - Anemia, unspecified Status: Chronic Assessment and Plan: No significant postoperative change Subjective Subjective Date/Time Seen: 06/08/25 11:49 Post Op day: 1 Patient reports: still having pain, no bowel movement and afebrile Exam Const: General: cooperative, comfortable, alert and awake Orientation/consciousness: patient oriented x3 GI: Inspection: non-distended, incision (Healing) and scaphoid GI Palp: Yes Soft to palpation and Yes Tenderness to palpation present (GI) Auscultation: normal bowel sounds Psych: Speech and movement: Clear speech present Attitude: cooperative Insight: Fair insight present (Psych) Objective Data Vital Signs Vital Signs: Vital Signs - 24 hr 06/07/25 13:25 06/07/25 13:40 06/07/25 13:55 Temperature 36.5 C Pulse Rate 75 76 78 Respiratory Rate 16 16 16 Blood Pressure 129/71 141/71 H 122/81 Pulse Oximetry 98 96 96 Oxygen Delivery Room Air Room Air Room Air 06/07/25 14:10 06/07/25 14:25 06/07/25 14:25 Temperature Pulse Rate 85 77 77 Respiratory Rate 16 16 16 Blood Pressure 126/64 117/55 L 116/70 Pulse Oximetry 96 93 96 Oxygen Delivery Room Air Room Air Room Air 06/07/25 14:40 06/07/25 14:55 06/07/25 15:05 Temperature Pulse Rate 77 76 75 Respiratory Rate 14 17 18 Blood Pressure 117/59 L 117/57 L 121/62 Pulse Oximetry 98 94 95 Oxygen Delivery Room Air Room Air Room Air 06/07/25 15:10 06/07/25 15:25 06/07/25 15:45 Temperature 36.6 C Pulse Rate 76 64 84 Respiratory Rate 16 16 16 Blood Pressure 121/62 137/76 130/62 Pulse Oximetry 98 94 95 Oxygen Delivery Room Air Room Air 06/07/25 16:00 06/07/25 16:30 06/07/25 17:30 Temperature 36.6 C 36.6 C 36.8 C Pulse Rate 84 82 85 Respiratory Rate 16 16 18 Blood Pressure 139/90 130/75 135/80 Pulse Oximetry 98 100 98 Oxygen Delivery 06/07/25 20:00 06/07/25 21:17 06/08/25 01:17 Temperature 36.6 C 36.6 C Pulse Rate 82 87 Respiratory Rate 18 18 Blood Pressure 135/83 131/79 Pulse Oximetry 97 95 Oxygen Delivery Room Air 06/08/25 05:17 06/08/25 10:50 Temperature 36.7 C Pulse Rate 88 88 Respiratory Rate 18 Blood Pressure 131/81 Pulse Oximetry 99 Oxygen Delivery Intake/Output Intake/Output: Intake & Output 06/05/25 06/06/25 06/07/25 06/08/25 23:59 23:59 23:59 23:59 Intake Total 550 1640 Output Total 800 Balance 550 840 Meds/Results Medications: Active Medications Generic Name Dose Route Start Last Admin Trade Name Ciroq PRN Reason Stop Dose Admin Acetaminophen 650 mg 06/07/25 18:00 06/08/25 05:50 Acetaminophen 325 Mg Tablet PO Not Given Q6HR [facility] Acetazolamide 250 mg 06/08/25 09:00 06/08/25 10:49 Acetazolamide Tab 250 Mg Tablet PO 250 mg QAM [facility] Administration Amiodarone HCl 200 mg 06/08/25 08:00 06/08/25 10:50 Amiodarone Hcl 200 Mg Tablet PO 200 mg DAILY@0800 [facility] Administration Cefdinir 300 mg 06/07/25 21:00 06/08/25 10:49 Cefdinir 300 Mg Capsule PO 300 mg Q12HR [facility] Administration Enoxaparin Sodium 40 mg 06/08/25 09:00 06/08/25 10:50 Enoxaparin 40 Mg/0.4 Ml Syringe SUB-Q 40 mg DAILY JEREMY Administration Fentanyl Citrate 12.5 mcg 06/07/25 15:32 Fentanyl Citrate Inj (*Crx) 100 Mcg/2 Ml Vial IV PUSH Q2H PRN Breakthrough Pain Rated 4-6 or NPO Fentanyl Citrate 25 mcg 06/07/25 15:32 Fentanyl Citrate Inj (*Crx) 100 Mcg/2 Ml Vial IV PUSH Q2H PRN Breakthrough Pain Rated 7-10 or NPO Furosemide 40 mg 06/08/25 09:00 06/08/25 10:51 Furosemide 40 Mg Tablet PO 40 mg QAM JEREMY Administration Ibuprofen 800 mg in 200 mls @ 400 mls/hr 06/07/25 15:32 06/08/25 11:08 Caldolor 800 Mg/200 Ml IVPB 400 mls/hr Q6H PRN Administration Breakthrough Pain Rated 1-3 or NPO Ibuprofen 400 mg 06/07/25 15:32 Ibuprofen 400 Mg Tablet PO Q6H PRN Pain Rated 1-3 Losartan Potassium 25 mg 06/08/25 09:00 06/08/25 10:49 Losartan Potassium 25 Mg Tablet PO 25 mg DAILY JEREMY Administration Miscellaneous Information 0 each 06/07/25 00:01 06/08/25 01:15 Hydrocortisone Lotion 2% = Nonformulary. Can We Substitute Cream 1%? XX 07/07/25 00:00 Not Given CLARIFY JEREMY Naloxone HCl 0.1 mg 06/07/25 15:32 Naloxone Hcl 0.4 Mg/Ml Vial IV PUSH Q2M PRN Opiate Reversal Non-Formulary Medication 1 applic 06/07/25 15:32 Hydrocortisone TOPICAL TID PRN skin irritation Ondansetron HCl 4 mg 06/07/25 15:32 Ondansetron Inj 4 Mg/2 Ml Vial IV PUSH Q4H PRN Nausea And Vomiting Pantoprazole Sodium 40 mg 06/08/25 09:00 06/08/25 10:51 Pantoprazole 40 Mg Tablet PO 40 mg DAILY JEREMY Administration Polyethylene Glycol 17 gm 06/08/25 09:00 06/08/25 10:51 Polyethylene Glycol 3350 17 Gm Powd.Pack PO 17 gm QAM JEREMY Administration Potassium Chloride 40 meq 06/08/25 09:00 06/08/25 10:51 Potassium Chloride 20 Meq Er Tablet PO 40 meq DAILY JEREMY Administration Tramadol HCl 50 mg 06/07/25 15:32 Tramadol Hcl (*Crx) 50 Mg Tablet PO Q4H PRN Pain Rated 4-6 Labs Labs: Laboratory Results - last 24 hr 06/08/25 06:16 WBC 7.5 RBC 3.28 L Hgb 9.4 L Hct 30.2 L MCV 92.1 MCH 28.7 MCHC 31.1 L RDW 15.4 H Plt Count 378 H MPV 9.1 Sodium 133 L Potassium 4.2 Chloride 103 Carbon Dioxide 25 Anion Gap 5 BUN 17 Creatinine 0.78 Estim Creat Clear Calc 50 Estimated GFR > 60 Glucose 98 Calcium 9.0
[2025-06-08 14:00] VITALS: BP 114/74; PULSE 69; RESP 18; TEMP 36.5; O2SAT 97
--- NOTE | 2025-06-08 16:10 | PCPTNOTE ---
pt uses ben lift to wheelchair at custodial, per OT-note pt is supposed to be non weight bearing until she is able to get her hip fracture repaired and was advised by surgeon to use ben and wheelchair at this time, DC'ing therapy orders
[2025-06-08 17:17] VITALS: BP 120/64; PULSE 73; RESP 18; TEMP 36.5; O2SAT 96
[2025-06-08 21:46] VITALS: BP 119/67; PULSE 64; RESP 18; TEMP 36.9; O2SAT 98
[2025-06-09] MEDS: IBUPROFEN 400 MG TABLET PO (01:03)
[2025-06-09 05:56] VITALS: BP 117/70; PULSE 57; RESP 20; TEMP 36.6; O2SAT 98
[2025-06-09 05:57] LABS: Hematocrit 31.6 % (37.0-47.0); Hemoglobin 9.4 g/dL (12.0-15.0); Mean Corpuscular HGB Conc 29.7 g/dl (32-36); Mean Corpuscular Hemoglobin 28.0 pg (26-34); Mean Corpuscular Volume 94.0 fl (80-100); Platelet Count Result 389 k/mm3 (150-375); Red Blood Count 3.36 M/mm3 (4.2-5.4); White Blood Count 6.3 K/mm3 (4.5-10.0)
[2025-06-09 06:17] LABS: Anion Gap 5 mmol/L (4-12); Blood Urea Nitrogen 18 mg/dL (7-17); Calcium 8.9 mg/dL (8.4-10.2); Carbon Dioxide 26 mmol/L (22-30); Chloride 104 mmol/L (98-107); Estimated CRCL calculation 48 ml/min; Estimated Glomerular Filt Rate > 60; Glucose 84 mg/dL (65-110); Potassium 3.7 mmol/L (3.4-5.0); Sodium 135 mmol/L (137-145)
[2025-06-09] MEDS: traMADol HCL (*CRX) 50 MG TABLET PO (08:55)
[2025-06-09 09:18] VITALS: PULSE 57
[2025-06-09] MEDS: AMIODARONE HCL 200 MG TABLET PO (09:18)
[2025-06-09] MEDS: CEFDINIR 300 MG CAPSULE PO ×2 (09:18→20:31)
[2025-06-09] MEDS: FUROSEMIDE 40 MG TABLET PO (09:18)
[2025-06-09] MEDS: POTASSIUM CHLORIDE 20 MEQ ER TABLET 40 MEQ PO (09:18)
[2025-06-09] MEDS: PANTOPRAZOLE 40 MG TABLET PO (09:18)
[2025-06-09] MEDS: acetaZOLAMIDE TAB 250 MG TABLET PO (09:18)
[2025-06-09] MEDS: LOSARTAN POTASSIUM 25 MG TABLET PO (09:18)
[2025-06-09] MEDS: ENOXAPARIN 40 MG/0.4 ML SYRINGE SUB-Q (10:08)
[2025-06-09] MEDS: IBUPROFEN IV 800 MG/200 ML 800 MG/200 ML BAG 400 MG IVPB ×2 (10:21→17:33)
--- NOTE | 2025-06-09 13:39 | P.PNGS_ITS ---
Progress Note: A&P Assessment and Plan (1) Acute calculous cholecystitis: Code(s): K80.00 - Calculus of gallbladder with acute cholecystitis without obstruction Status: Chronic Assessment and Plan: Still having considerable pain and does not feel she would be safe to go home today. She does feel better than yesterday and thinks that tomorrow she can hopefully go. Her appetite has improved. Her hemoglobin and hematocrit are stable. Her wounds are healing well. Renal function is stable advanced to low- fat diet. 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 Recheck labs again tomorrow Subjective Subjective Date/Time Seen: 06/09/25 13:39 Post Op day: 2 Patient reports: still having pain (Oral pain medications help, patient still will not take narcotics), tolerating liquids well, no bowel movement and afebrile Exam Const: General: comfortable and awake Orientation/consciousness: No confusion GI: Inspection: incision (Dry and healing well) and scaphoid GI Palp: Yes Soft to palpation and Yes Tenderness to palpation present (GI) (Especially on the right) Auscultation: normoactive bowel sounds Objective Data Vital Signs Vital Signs: Vital Signs - 24 hr 06/08/25 14:00 06/08/25 17:17 06/08/25 21:46 Temperature 36.5 C 36.5 C 36.9 C Pulse Rate 69 73 64 Respiratory Rate 18 18 18 Blood Pressure 114/74 120/64 119/67 Pulse Oximetry 97 96 98 Oxygen Delivery 06/09/25 05:56 06/09/25 08:00 06/09/25 09:18 Temperature 36.6 C Pulse Rate 57 L 57 L Respiratory Rate 20 Blood Pressure 117/70 Pulse Oximetry 98 Oxygen Delivery Room Air Intake/Output Intake/Output: Intake & Output 06/06/25 06/07/25 06/08/25 06/09/25 23:59 23:59 23:59 23:59 Intake Total 550 3760 150 Output Total 2100 250 Balance 550 1660 -100 Meds/Results Medications: Active Medications Generic Name Dose Route Start Last Admin Trade Name Freq PRN Reason Stop Dose Admin Acetaminophen 650 mg 06/07/25 18:00 06/09/25 09:33 Acetaminophen 325 Mg Tablet PO Not Given Q6HR JER[facility]Y Acetazolamide 250 mg 06/08/25 09:00 06/09/25 09:18 Acetazolamide Tab 250 Mg Tablet PO 250 mg QAM JER[facility]Y Administration Amiodarone HCl 200 mg 06/08/25 08:00 06/09/25 09:18 Amiodarone Hcl 200 Mg Tablet PO 200 mg DAILY@0800 JEREMY Administration Cefdinir 300 mg 06/07/25 21:00 06/09/25 09:18 Cefdinir 300 Mg Capsule PO 300 mg Q12HR JEREMY Administration Enoxaparin Sodium 40 mg 06/08/25 09:00 06/09/25 10:08 Enoxaparin 40 Mg/0.4 Ml Syringe SUB-Q 40 mg DAILY JEREMY Administration Fentanyl Citrate 12.5 mcg 06/07/25 15:32 Fentanyl Citrate Inj (*Crx) 100 Mcg/2 Ml Vial IV PUSH Q2H PRN Breakthrough Pain Rated 4-6 or NPO Fentanyl Citrate 25 mcg 06/07/25 15:32 Fentanyl Citrate Inj (*Crx) 100 Mcg/2 Ml Vial IV PUSH Q2H PRN Breakthrough Pain Rated 7-10 or NPO Furosemide 40 mg 06/08/25 09:00 06/09/25 09:18 Furosemide 40 Mg Tablet PO 40 mg QAM JEREMY Administration Ibuprofen 800 mg in 200 mls @ 400 mls/hr 06/07/25 15:32 06/09/25 10:21 Caldolor 800 Mg/200 Ml IVPB 400 mls/hr Q6H PRN Administration Breakthrough Pain Rated 1-3 or NPO Ibuprofen 400 mg 06/07/25 15:32 06/09/25 01:03 Ibuprofen 400 Mg Tablet PO 400 mg Q6H PRN Administration Pain Rated 1-3 Losartan Potassium 25 mg 06/08/25 09:00 06/09/25 09:18 Losartan Potassium 25 Mg Tablet PO 25 mg DAILY JEREMY Administration Miscellaneous Information 0 each 06/07/25 00:01 06/09/25 00:01 Hydrocortisone Lotion 2% = Nonformulary. Can We Substitute Cream 1%? XX 07/07/25 00:00 Not Given CLARIFY JEREMY Naloxone HCl 0.1 mg 06/07/25 15:32 Naloxone Hcl 0.4 Mg/Ml Vial IV PUSH Q2M PRN Opiate Reversal Non-Formulary Medication 1 applic 06/07/25 15:32 Hydrocortisone TOPICAL TID PRN skin irritation Ondansetron HCl 4 mg 06/07/25 15:32 Ondansetron Inj 4 Mg/2 Ml Vial IV PUSH Q4H PRN Nausea And Vomiting Pantoprazole Sodium 40 mg 06/08/25 09:00 06/09/25 09:18 Pantoprazole 40 Mg Tablet PO 40 mg DAILY JEREMY Administration Polyethylene Glycol 17 gm 06/08/25 09:00 06/09/25 09:18 Polyethylene Glycol 3350 17 Gm Powd.Pack PO 17 gm QAM JEREMY Administration Potassium Chloride 40 meq 06/08/25 09:00 06/09/25 09:18 Potassium Chloride 20 Meq Er Tablet PO 40 meq DAILY JEREMY Administration Tramadol HCl 50 mg 06/07/25 15:32 Tramadol Hcl (*Crx) 50 Mg Tablet PO Q4H PRN Pain Rated 4-6 Labs Labs: Laboratory Results - last 24 hr 06/09/25 05:41 WBC 6.3 RBC 3.36 L Hgb 9.4 L Hct 31.6 L MCV 94.0 MCH 28.0 MCHC 29.7 L RDW 15.7 H Plt Count 389 H MPV 9.4 Sodium 135 L Potassium 3.7 Chloride 104 Carbon Dioxide 26 Anion Gap 5 BUN 18 H Creatinine 0.83 Estim Creat Clear Calc 48 Estimated GFR > 60 Glucose 84 Calcium 8.9
[2025-06-09 14:00] VITALS: BP 108/60; PULSE 61; RESP 20; TEMP 36.2; O2SAT 99
[2025-06-09 22:00] VITALS: BP 124/62; PULSE 63; RESP 20; TEMP 36.6; O2SAT 99
[2025-06-10 04:40] VITALS: BP 133/68; PULSE 62; RESP 18; TEMP 36.1; O2SAT 100
[2025-06-10 05:54] LABS: Hematocrit 33.3 % (37.0-47.0); Hemoglobin 9.8 g/dL (12.0-15.0); Mean Corpuscular HGB Conc 29.4 g/dl (32-36); Mean Corpuscular Hemoglobin 27.9 pg (26-34); Mean Corpuscular Volume 94.9 fl (80-100); Platelet Count Result 388 k/mm3 (150-375); Red Blood Count 3.51 M/mm3 (4.2-5.4); White Blood Count 5.9 K/mm3 (4.5-10.0)
[2025-06-10 06:09] LABS: Alanine Aminotransferase 15 U/L (6-35); Albumin Level 3.4 g/dL (3.5-5.1); Alkaline Phosphatase 65 U/L (38-126); Anion Gap 7 mmol/L (4-12); Aspartate Amino Transferase 23 U/L (14-36); Bilirubin,Total 0.3 mg/dL (0.2-1.3); Blood Urea Nitrogen 15 mg/dL (7-17); Calcium 8.9 mg/dL (8.4-10.2); Carbon Dioxide 26 mmol/L (22-30); Chloride 101 mmol/L (98-107); Estimated CRCL calculation 47 ml/min; Estimated Glomerular Filt Rate > 60; Glucose 95 mg/dL (65-110); Potassium 3.4 mmol/L (3.4-5.0); Sodium 134 mmol/L (137-145); Total Protein 6.6 g/dL (6.3-8.2)
--- NOTE | 2025-06-10 07:26 | PC.NURSE ---
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 Pt uses bed murray, no blood in urine has been noted. Pt informed and then states that she is having diarrhea. Pt has not had diarrhea. Pt informed and then c/o all over pain. 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 Pt pending d/c to [facility] today after several days of being ready for d/c and stating she is not ready. Will continue to monitor pt.
[2025-06-10] MEDS: IBUPROFEN 400 MG TABLET PO (07:44)
[2025-06-10 08:00] VITALS: PULSE 62; RESP 18; O2SAT 100
[2025-06-10] MEDS: ENOXAPARIN 40 MG/0.4 ML SYRINGE SUB-Q (08:53)
[2025-06-10 08:54] VITALS: PULSE 62
[2025-06-10] MEDS: PANTOPRAZOLE 40 MG TABLET PO (08:54)
[2025-06-10] MEDS: AMIODARONE HCL 200 MG TABLET PO (08:54)
[2025-06-10] MEDS: acetaZOLAMIDE TAB 250 MG TABLET PO (08:54)
[2025-06-10] MEDS: LOSARTAN POTASSIUM 25 MG TABLET PO (08:54)
[2025-06-10] MEDS: POTASSIUM CHLORIDE 20 MEQ ER TABLET 40 MEQ PO (08:54)
[2025-06-10] MEDS: FUROSEMIDE 40 MG TABLET PO (08:54)
[2025-06-10] MEDS: CEFDINIR 300 MG CAPSULE PO (08:57)
--- NOTE | 2025-06-10 11:11 | PM.DS ---
DS: Admitting Diagnosis Discharge Date 06/10/2025 Admitting Diagnosis Acute calculous cholecystitis Atrial fibrillation on anticoagulation Cardiomyopathy DS: Discharge Diagnosis Discharge Diagnosis (1) Acute calculous cholecystitis: Code(s): K80.00 - Calculus of gallbladder with acute cholecystitis without obstruction Status: Chronic (2) Afib: Qualifiers: Atrial fibrillation type: paroxysmal Qualified Code(s): I48.0 - Paroxysmal atrial fibrillation Code(s): I48.91 - Unspecified atrial fibrillation Status: Chronic (3) Anticoagulated by anticoagulation treatment: Code(s): Z79.01 - retirement (current) use of anticoagulants Status: Chronic (4) Cardiomyopathy: Code(s): I42.9 - Cardiomyopathy, unspecified Status: Acute DS: Summary Hospital Course Reason for hospitalization: 70 yo woman presents for laparoscopic cholecystectomy. She was previously hospitalized for Acute cholecystitis and had a percutaneous cholecystostomy tube placed. She has been managing said drain since then and presented back on 06/07/2025 for interval cholecystectomy. Hospital Course: She underwent laparoscopic cholecystectomy on 06/07/[address] Mcarthur. Surgery was straightforward. Labs were monitored postoperatively and have for remained stable. She was initially kept overnight for monitoring. She had issues with pain control, which eventually improved and she was able to eventually transition to oral analgesics. Her diet was advanced as tolerated to a low-fat diet. By postop day 3, she is tolerating a diet and at her baseline activity. She is nonambulatory at the correction. She reports expected incisional soreness. Bowels are moving. She had her River catheter removed yesterday and is voiding without difficulty. After discussing with Dr. Mcarthur, patient is stable for discharge today. Status at Discharge Functional status at discharge: bed bound Overall status at discharge: patient is progressing back to baseline Time Spent with Patient Time attestation: Total time spent providing and/or coordinating discharge services: Exam Const: General: comfortable and no acute distress GI: Inspection: non-distended and incision (incisions dry and intact, no erythema or drainage) GI Palp: Yes Soft to palpation, Yes Tenderness to palpation present (GI) (expected incisional tenderness, no other tenderness throughout), No Guarding due to palpation present (GI) and No Rebound tenderness present Auscultation: normal bowel sounds Neuro: General: moves all extremities and no focal motor deficits Extrem: General: no calf tenderness and no edema Psych: Mental Status: mental status grossly normal Insight: Good insight present (Psych) DS: Data Data Completed and Pending Completed studies during hospitalization: Pending at discharge 06/07/25 13:03 Surgical [PTH] Routine Labs on day of discharge: Labs from last 24 hours 06/10/25 05:21 WBC 5.9 RBC 3.51 L Hgb 9.8 L Hct 33.3 L MCV 94.9 MCH 27.9 MCHC 29.4 L RDW 15.8 H Plt Count 388 H MPV 9.6 Sodium 134 L Potassium 3.4 Chloride 101 Carbon Dioxide 26 Anion Gap 7 BUN 15 Creatinine 0.84 Estim Creat Clear Calc 47 Estimated GFR > 60 Glucose 95 Calcium 8.9 Total Bilirubin 0.3 AST 23 ALT 15 Alkaline Phosphatase 65 Total Protein 6.6 Albumin 3.4 L Procedures/Treatments: Procedures Operation Date: 06/07/25 12:00 Actual Procedure Side Surgeon p Laparoscopic Cholecystectomy Not Applicable Tim Mcarthur DO Discharge Plan Discharge Attending physician on discharge: Tim Mcarthur Discharging Clinician: Mahi Rocha Anticipated Discharge Date/Time: 06/10/25 11:17 Patient Disposition: NH Fpc/Asst Living Activity: may shower Diet: low fat Wound Care Instructions: other - see discharge instructions Discharge Instructions: DISCHARGE INSTRUCTION SHEET FOR HERNIA, GALLBLADDER AND APPENDIX SURGERIES DR. MCARTHUR 1. May shower, no soaking in bath x 2weeks. Apply gauze dressing and tape to RUQ incision once daily for 3-4 days. Okay to leave open to air after this if no drainage. 2. Call office for: Wound increasingly painful or bleeding Vomiting Fever of greater than 101 degrees 3. If no bowel movement for three days, take 1 oz. (30 ml) Milk of Magnesia or MiraLax 17g 1 to 2 times daily. 4. No heavy lifting > 10-15 pounds x 2 weeks for laparoscopic cholecystectomy or appendectomy. 5. No driving for 3 days or while taking narcotic pain medications. 6. Ice to surgical site for 48 hours (30 min on, then 30 min off). 7. Resume previous home medications. 8. Follow-up as scheduled with Dr. Mcarthur in office for wound check on 06/21/25 at 10:15 am. ([phone]) 9. Oral pain medications prescription sent to pharmacy electronically. Take Tylenol 500mg every 6 hours and Ibuprofen 600mg every 6 hours for the first 2 days, then as needed. 10. Low Fat Diet for 2 weeks Patient Instructions: Antibiotic Form, Low Fat Diet (DC) Patient Language: Azerbaijani Stand Alone Forms: General Discharge Information Follow-up/Referrals: Tim Mcarthur, DO [Physician, General Surgery] Discharge Medications: Continued acetazolamide 250 mg tablet 250 mg PO QAM Eliquis 5 mg tablet 5 mg PO Q12H Patient Comments: HOLD PREOP as instructed furosemide 40 mg tablet 40 mg PO QAM hydrocortisone 2 % lotion 1 applic topical TID PRN (Reason: skin irritation) pantoprazole 40 mg tablet,delayed release (DR/EC) 40 mg PO DAILY potassium chloride 20 mEq tablet,ER particles/crystals 40 meq PO DAILY amiodarone [Pacerone] 200 mg Tablet 200 mg PO DAILY@0800 30 Days Qty: 30 1RF losartan 25 mg Tablet 25 mg PO DAILY 30 Days Qty: 30 1RF cefdinir 300 mg Capsule 300 mg PO Q12HR 14 Days Qty: 28 0RF acetaminophen 325 mg capsule 650 mg PO Q6H PRN (Reason: pain) polyethylene glycol 3350 [Miralax] 17 gram/dose powder 17 g PO BID PRN (Reason: constipation) Qty: 119 0RF bisacodyl [Dulcolax (bisacodyl)] 5 mg tablet,delayed release (DR/EC) 5 mg PO BID PRN (Reason: constipation) Qty: 20 0RF nitrofurantoin monohyd/m-cryst [Macrobid] 100 mg capsule 100 mg PO Q12H 7 Days Qty: 14 0RF Rx Instructions: must administer with a meal/food Date of admission: 06/08/25 13:05 Primary Care Provider: Farrukh Neri Admitting Provider: Tim Mcarthur Attending physician on admission: Tim Mcarthur Condition: Stable Quality VTE Prophylaxis VTE prophylaxis: mechanical ordered and pharmacologic ordered
--- NOTE | 2025-06-10 12:02 | PC.NURSE ---
Called report to [facility]. Awaiting ambulance for transfer.
== END 2025-06-10 12:51 ==
LOC: ANHSURGERY 13:22 → ANH3MEDSUR 13:22
PROVIDERS: Surgery; Admitting Provider Surgery; PCP Family Medicine; Visit Provider Nurse Practitioner Family
PROC: 0FT44ZZ Resection of Gallbladder, Percutaneous Endoscopic Approach (ICD-10-PCS; CPT 47562; principal; 2025-06-07 12:00)
DX: K80.10 Calculus of gallbladder with chronic cholecystitis without obstruction (principal); I48.0 Paroxysmal atrial fibrillation; D64.9 Anemia, unspecified; I42.9 Cardiomyopathy, unspecified; K21.9 Gastro-esophageal reflux disease without esophagitis; I87.8 Other specified disorders of veins; Z79.01 Long term (current) use of anticoagulants; Z86.73 Personal history of transient ischemic attack (TIA), and cerebral infarction without residual deficits
CPT/HCPCS: 47562; 36415; 80048; 80053; 85027; 88304; 97166; J0690; A9270; G0378; J1100; J1650; J1741; J1885; J2003; J2405; J2704; J3010; J7030; J7120

== ENCOUNTER 2025-07-16 12:08 | Outpatient (CLI) | payer MEDICARE, MEDICAID, SELFPAY ==
[2025-07-16 12:26] LABS: Hematocrit 36.7 % (35.0-42.0); Hemoglobin 11.5 g/dL (11.7-13.8); Mean Corpuscular HGB Conc 31.3 g/dL (32-36); Mean Corpuscular Hemoglobin 27.8 pg (27.0-31.0); Mean Corpuscular Volume 88.9 fL (78.0-102.0); Platelet Count Result 457 K/mm3 (150-420); Red Blood Count 4.13 M/mm3 (4.20-5.40); White Blood Count 6.3 K/mm3 (4.8-10.8)
[2025-07-16 12:27] LABS: Add Urine Microscopic? YES; Appearance Urine Cloudy (Clear); Glucose Urine UA Negative (Negative); Leukocyte Esterase Ur 2+ LEU/UL (Negative); Nitrate Urine Positive (Negative); Specific Grav Ur <= 1.005 (1.010-1.020)
[2025-07-16 13:22] LABS: Alanine Aminotransferase 11 U/L (6-35); Albumin Level 3.9 g/dL (3.5-5.1); Alkaline Phosphatase 91 U/L (38-126); Amylase 51 U/L (30-110); Anion Gap 12 mmol/L (4-12); Aspartate Amino Transferase 20 U/L (14-36); Bilirubin,Total 0.5 mg/dL (0.2-1.3); Blood Urea Nitrogen 21 mg/dL (7-17); Calcium 10.1 mg/dL (8.4-10.2); Carbon Dioxide 26 mmol/L (22-30); Chloride 99 mmol/L (98-107); Estimated Glomerular Filt Rate 58; Glucose 99 mg/dL (65-110); Lipase 64 U/L (23-300); Osmolality Calculated 287 mOsm/kg (285-295); Potassium 4.1 mmol/L (3.4-5.0); Sodium 137 mmol/L (137-145); Total Protein 8.2 g/dL (6.3-8.2)
[2025-07-16 17:19] LABS: Toxigenic C. Diff NEGATIVE (NEGATIVE)
== END 2025-07-16 12:09 | disposition home or self-care (01) ==
PROVIDERS: PCP Family Medicine; Visit Provider Family Medicine
DX: R19.7 Diarrhea, unspecified (principal); R53.1 Weakness; R53.83 Other fatigue
CPT/HCPCS: 36415; 80053; 81001; 82150; 83690; 85027; 87086; 87186; 87493

== ENCOUNTER 2025-09-04 06:45 | Outpatient (NON) | payer MEDICARE, MEDICAID, SELFPAY ==
--- OUTSIDE RECORDS SUMMARY | 2025-09-04 06:53 | XMS_ITS | Encounter Summary ---
Author Organization [facility] Address [address] [place] [address] Phone Care Team Providers Care Publications Writer Name Role Phone Meredith Montano MD Primary Care Provider [phone] Luis Fernando Hilton MD Unavailable [phone] Jesica Cook NP Primary Care Provider Farrah Sanz MD Unavailable [phone] No, Physician Primary Care Provider [phone] Encounter Details Date Type Department Care Team (Late st Contact Info) Description 07/31/2020 Telephone [facility] Medicine Obstetrics and Gynecology [address] 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 Gender Identity Female 06/13/2020 10:39 AM CDT Sexual Orientation Straight 06/13/2020 10 :39 AM CDT documented as of this encounter Plan of Treatment Not on file documented as of this encounter Visit Diagnoses Not on filedocumented in this encounter Care Teams Publications Writer Relationship Specialty Start Date End Date Meredith Montano MD PCP - General 08/13/16 11/11/20 Jesica Cook NP [address] [place] [address] [place] [address] PCP - General Family Medicine 11/12/20 09/12/23 No, Physician PCP - General 09/13/23 Luis Fernando Hilton MD [address] [place] [address] [place] [address] Ebd Teacher Obstetrics and Gynecology 05/27/20 Farrah Sanz MD [address] [place] [address] [place] [address] Resident Obstetrics and Gynecology 11/12/20 documented as of this encounter
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
[2025-09-04 07:19] LABS: Hematocrit 29.8 % (35.0-42.0); Hemoglobin 8.8 g/dL (11.7-13.8); Mean Corpuscular HGB Conc 29.5 g/dL (32-36); Mean Corpuscular Hemoglobin 27.2 pg (27.0-31.0); Mean Corpuscular Volume 92.0 fL (78.0-102.0); Platelet Count Result 406 K/mm3 (150-420); Red Blood Count 3.24 M/mm3 (4.20-5.40); White Blood Count 5.4 K/mm3 (4.8-10.8)
[2025-09-04 07:35] LABS: Alanine Aminotransferase 10 U/L (6-35); Albumin Level 3.7 g/dL (3.5-5.1); Alkaline Phosphatase 84 U/L (38-126); Anion Gap 8 mmol/L (4-12); Aspartate Amino Transferase 19 U/L (14-36); Bilirubin,Total 0.3 mg/dL (0.2-1.3); Blood Urea Nitrogen 15 mg/dL (7-17); Calcium 9.3 mg/dL (8.4-10.2); Carbon Dioxide 25 mmol/L (22-30); Chloride 108 mmol/L (98-107); Estimated Glomerular Filt Rate > 60; Glucose 99 mg/dL (65-110); Osmolality Calculated 292 mOsm/kg (285-295); Potassium 4.9 mmol/L (3.4-5.0); Sodium 141 mmol/L (137-145); Total Protein 6.6 g/dL (6.3-8.2)
[2025-09-04 08:05] LABS: Thyroid Stimulating Hormone 7.170 uIU/mL (0.465-4.680)
[2025-09-04 16:23] LABS: Iron 36 ug/dL (37-170)
[2025-09-04 16:33] LABS: Percent Iron Saturation 11 % (20-50)
[2025-09-04 16:41] LABS: Free T4 Free Thyroxine 1.98 ng/dL (0.78-2.19)
[2025-09-04 16:59] LABS: Ferritin 36.30 ng/mL (11.1-264)
== END 2025-09-04 06:46 | disposition home or self-care (01) ==
LOC: CHSLAB 06:53
PROVIDERS: PCP Family Medicine; Visit Provider Family Medicine
DX: I48.0 Paroxysmal atrial fibrillation (principal); N17.9 Acute kidney failure, unspecified; D64.9 Anemia, unspecified
CPT/HCPCS: 36415; 80048; 80076; 82728; 83540; 83550; 84439; 84443; 85027